=== PATIENT | female | born 1985 | race Caucasian/White ===

== ENCOUNTER 2016-04-25 17:18 | Emergency (ER) | payer MEDICARE, OTHER ==
[~2016-04-25] VITALS: Ht 167.6 cm; Wt 127.0 kg
[~2016-04-25 17:18] MED LIST: ACET-704 PO; ALBU8.5H6 IH; AMOX1TAB61 PO; GABA-585 PO; GABA-587 PO; IBUP-1007 PO; LAMO200T PO; LAMO25TA PO; PRED20TA PO; PRED50TA PO; PROAIR HFA8.5 GM INH; PROAIR RESPICL90 MCG IH; PROVENTIL HFA6.7 GM IH; SULF1TAB3 PO; seizure med
[2016-04-25 18:12] VITALS: BP 131/80
[2016-04-25 20:08] LABS: CALCIUM 9.2 mg/dL (8.5-10.1); GFR 63.9; POTASSIUM 3.6 mmol/L (3.5-5.1)
--- NOTE | 2016-04-25 20:18 | PHYS DOC ---
Past Medical History Past Medical History: Anxiety, Asthma, Seizure Additional Past Medical Histor: MR; Traumatic Brain Injury, behavior problems Past Surgical History: Other Additional Past Surgical Histo: Dental removal of the majority of the teeth Alcohol Use: None Drug Use: None Adult General Chief Complaint Chief Complaint: SEIZURE [facility] HPI Patient is a 31 year old female who presents here today secondary to having what she feels a seizure. Patient has been seen here multiple times for this. Patient reports that she was walking to her house and she woke up on the sidewalk. Patient reports that she has seen her primary care physician for this however they have not given her any specific reason why this is happening. Patient denies any fevers shaking chills nausea vomiting diarrhea chest pain or short of breath. Patient denies any change in his medication medication. Patient has any pain or trauma to her upper or lower 70s her head. Patient's physical exam the ER was unremarkable. Patient currently is alert awake oriented 3 at her baseline mental status. Patient does not have any evidence of trauma. Patient's ER workup is unremarkable. Patient's BMP did not show any evidence of acute O abnormalities. This is a 31-year-old female who presents with seizures and syncope. This is a chronic symptom for the patient. Patient is currently at her baseline. Patient was discharged home and has Dr. Tirado and Dr. Russ to follow-up with. Patient was instructed to continue with her Lomotil G in her gabapentin as directed. Review of Systems Review of Systems Constitutional: Denies fever or chills [] Eyes: Denies change in visual acuity, redness, or eye pain [] HENT: Denies nasal congestion or sore throat [] Respiratory: Denies cough or shortness of breath [] Cardiovascular: No additional information not addressed in HPI [] GI: Denies abdominal pain, nausea, vomiting, bloody stools or diarrhea [] : Denies dysuria or hematuria [] Musculoskeletal: Denies back pain or joint pain [] Integument: Denies rash or skin lesions [] Neurologic: Denies headache, focal weakness or sensory changes [] Endocrine: Denies polyuria or polydipsia [] Allergies Allergies Allergies Coded Allergies Type Severity Reaction Last Updated Verified No Known Drug Intolerances Allergy Unknown 12/07/15 Yes Physical Exam Physical Exam Constitutional: Well developed, well nourished, no acute distress, non-toxic appearance. [] HENT: Normocephalic, atraumatic, bilateral external ears normal, oropharynx moist, no oral exudates, nose normal. [] Eyes: PERRLA, EOMI, conjunctiva normal, no discharge. [] Neck: Normal range of motion, no tenderness, supple, no stridor. [] Cardiovascular:Heart rate regular rhythm, no murmur [] Lungs & Thorax: Bilateral breath sounds clear to auscultation [] Abdomen: Bowel sounds normal, soft, no tenderness, no masses, no pulsatile masses. [] Skin: Warm, dry, no erythema, no rash. [] Back: No tenderness, no CVA tenderness. [] Extremities: No tenderness, no cyanosis, no clubbing, ROM intact, no edema. [] Neurologic: Alert and oriented X 3, normal motor function, normal sensory function, no focal deficits noted. [] Psychologic: Affect normal, judgement normal, mood normal. [] Current Patient Data Vital Signs Vital Signs Date Time Temp Pulse Resp B/P Pulse Ox O2 Delivery O2 Flow Rate FiO2 04/25/16 18:12 80 20 131/80 97 Room Air Lab Values Laboratory Tests Test 04/25/16 19:46 Sodium Level 138mmol/L (136-145) Potassium Level 3.6mmol/L (3.5-5.1) Chloride Level 103mmol/L (98-107) Carbon Dioxide Level 27mmol/L (21-32) Anion Gap 8 (6-14) Blood Urea Nitrogen 7mg/dL (7-20) Creatinine 1.0mg/dL (0.6-1.0) Estimated GFR (Cockcroft-Gault) 63.9 Glucose Level 98mg/dL (70-99) Calcium Level 9.2mg/dL (8.5-10.1) Laboratory Tests 04/25/16 19:46 EKG EKG [] Radiology/Procedures Radiology/Procedures [] Course & Med Decision Making Course & Med Decision Making Pertinent Labs and Imaging studies reviewed. (See chart for details) [] Dragon Disclaimer Dragon Disclaimer This electronic medical record was generated, in whole or in part, using a voice recognition dictation system. Departure Departure Impression: Primary Impression: Seizure Additional Impression: Syncopal episodes Disposition: 01 HOME, SELF-CARE Condition: IMPROVED Referrals: HILDA RUSS MD (PCP) Patient Instructions: Seizure, Adult, Syncope Additional Instructions: Follow-up with your doctor on Thursday Problem Qualifiers BHAVANA PARKS MD Apr 25, 2016 20:18
== END 2016-04-25 21:20 | disposition home or self-care (01) ==
LOC: ER 17:18
DX: R56.9 Unspecified convulsions (principal); R55 Syncope and collapse; F41.9 Anxiety disorder, unspecified; J45.909 Unspecified asthma, uncomplicated; Z88.8 Allergy status to other drugs, medicaments and biological substances
CPT/HCPCS: 36415; 80048; 99283

== ENCOUNTER 2016-05-17 21:56 | Emergency (ER) | payer MEDICARE, OTHER ==
[2016-05-17 22:00] VITALS: BP 140/79
[2016-05-17] MEDS ORDERED: IBUPROFEN 800 MG TABLET. PO ONE (22:30)
--- NOTE | 2016-05-17 23:07 | PHYS DOC ---
Past Medical History Past Medical History: Anxiety, Asthma, Seizure Additional Past Medical Histor: MR; TBI, behavior problems Past Surgical History: Other Additional Past Surgical Histo: Dental removal of the majority of the teeth Alcohol Use: None Drug Use: None Adult General Chief Complaint Chief Complaint: HEADACHE HPI HPI Patient is a 31 year old female with history of anxiety and asthma and seizures who presents today stating she "probably" has a headache but she is not sure. Patient also states she's been passing out multiple times for the last couple weeks. Patient denies passing out today. She states she takes lamotrigine for seizures. Review of Systems Review of Systems Constitutional: Denies fever or chills [] Eyes: Denies change in visual acuity, redness, or eye pain [] HENT: Denies nasal congestion or sore throat [] Respiratory: Denies cough or shortness of breath [] Cardiovascular: No additional information not addressed in HPI [] GI: Denies abdominal pain, nausea, vomiting, bloody stools or diarrhea [] : Denies dysuria or hematuria [] Musculoskeletal: Denies back pain or joint pain [] Integument: Denies rash or skin lesions [] Neurologic: headache and syncope Endocrine: Denies polyuria or polydipsia [] Current Medications Current Medications Current Medications Medications (Trade) Dose Ordered Sig/Darell Start Time Stop Time Status Last Admin Dose Admin Ibuprofen (Motrin) 800 mg 1X ONCE 05/17/16 22:30 05/17/16 22:31 DC 05/17/16 22:40 800 MG Allergies Allergies Allergies Coded Allergies Type Severity Reaction Last Updated Verified No Known Drug Intolerances Allergy Unknown 12/07/15 Yes Physical Exam Physical Exam Constitutional: Well developed, well nourished, no acute distress, non-toxic appearance. [] HENT: Normocephalic, atraumatic, bilateral external ears normal, oropharynx moist, no oral exudates, nose normal. [] Eyes: PERRLA, EOMI, conjunctiva normal, no discharge. [] Neck: Normal range of motion, no tenderness, supple, no stridor. [] Cardiovascular:Heart rate regular rhythm, no murmur [] Lungs & Thorax: Bilateral breath sounds clear to auscultation [] Abdomen: Bowel sounds normal, soft, no tenderness, no masses, no pulsatile masses. [] Skin: Warm, dry, no erythema, no rash. [] Back: No tenderness, no CVA tenderness. [] Extremities: No tenderness, no cyanosis, no clubbing, ROM intact, no edema. [] Neurologic: Alert and oriented X 3, normal motor function, normal sensory function, no focal deficits noted. Cranial nerves II-XII intact. Psychologic: Affect normal, judgement normal, mood normal. [] Current Patient Data Vital Signs Vital Signs Date Time Temp Pulse Resp B/P Pulse Ox O2 Delivery O2 Flow Rate FiO2 05/17/16 22:00 98.5 66 18 140/79 96 Room Air 98.5 Lab Values Laboratory Tests Test 05/17/16 23:12 POC Hemoglobin 13.9g/dL (12-15) POC Hematocrit 41% (36-40) H POC Sodium 138mmol/L (135-145) POC Potassium 3.3mmol/L (3.5-5.0) L POC Chloride 100mmol/L (98-110) POC Total CO2 27mmol/L (23-32) Anion Gap 15mmol/L (6-14) H POC Blood Urea Nitrogen 4mg/dL (8-26) L POC Creatinine 0.7mg/dL (0.5-1.4) Glucose Level 85mg/dL (70-99) POC Ionized Calcium (Williams) 1.23mmol/L (1.13-1.32) Laboratory Tests 05/17/16 23:12 EKG EKG [] Radiology/Procedures Radiology/Procedures [] Course & Med Decision Making Course & Med Decision Making Pertinent Labs and Imaging studies reviewed. (See chart for details) Patient is in the ED complaining of possible headache, she is not sure if she is having one or not. She is also complaining of episodes of syncope that have been going on for weeks. Patient is well known to this ED for seizure disorder, headaches and syncope episodes. There is nothing unusual about her condition today. Labs are negative for any acute findings. She was offered ibuprofen. She was discharged with instructions to follow-up with her neurologist and PCP on Thursday. Her vitals are stable, she is in no distress. Dragon Disclaimer Dragon Disclaimer This electronic medical record was generated, in whole or in part, using a voice recognition dictation system. Departure Departure Impression: Primary Impression: Syncopal episodes Additional Impression: Headache Disposition: HOME, SELF-CARE Condition: STABLE Referrals: CHAYITO HUTSON VACUUM CLEANER ASSEMBLER (PCP) Follow-up with your own doctor as soon as possible. ROMAN JENNINGS MD follow up with Dr. Jennings next week Patient Instructions: General Headache Without Cause Additional Instructions: You were seen for a headache and possible syncope episode. We recommend you follow-up with your primary care doctor and neurologist on Thursday. Take Tylenol /Motrin as needed for pain. Continue taking the rest of your medications especially seizure medicines, take acetaminophen or Motrin for headache. Come back to the ED for any concerning symptoms. Problem Qualifiers Primary Impression: Syncopal episodes Syncope type: unspecified Qualified Code: R55 - Syncope and collapse Additional Impression: Headache Headache type: unspecified Headache chronicity pattern: chronic headache Intractability: not intractable Qualified Code: R51 - Headache WALTMAR MELCHOR EDEL May 17, 2016 23:07
[2016-05-17 23:17] LABS: POTASSIUM ISTAT 3.3 mmol/L (3.5-5.0)
== END 2016-05-17 23:42 | disposition home or self-care (01) ==
LOC: ER 21:56
DX: R55 Syncope and collapse (principal); R51 Headache; J45.909 Unspecified asthma, uncomplicated
CPT/HCPCS: 80047; 99283

== ENCOUNTER → 2016-06-17 | Outpatient (CLI) | payer MEDICARE, OTHER | END | disposition home or self-care (01) | LOC: LAB 16:10 | PROVIDERS: ATTEND Psychiatry & Neurology Neurology with Special Qualifications in Child Neurology | DX: G40.209 Localization-related (focal) (partial) symptomatic epilepsy and epileptic syndromes with complex partial seizures, not intractable, without status epilepticus (principal) | CPT/HCPCS: 36415; 80175 ==

== ENCOUNTER 2016-06-26 18:29 | Inpatient (IN) | payer MEDICARE, OTHER ==
[2016-06-26] MEDS ORDERED: ONDANSETRON ODT 4 MG TAB.RAPDIS. PO ONE (19:00)
[2016-06-26] MEDS ORDERED: DICYCLOMINE 20 MG/2 ML AMPUL. IM ONE (19:00)
[2016-06-26] MEDS ORDERED: LIDO:MAALOX:DONNATAL 1:1:1 15 ML SINGLE DOSE SWSW ONE (19:00)
[2016-06-26 19:16] LABS: BASO % 0 % (0-3); EOS % 0 % (0-3); HEMOGLOBIN 14.2 g/dL (12.0-15.5); LYMPH # 0.7 x10^3/uL (1.0-4.8); LYMPH % 5 % (24-48); MEAN CORPUSCULAR HEMOGLOBIN 30 pg (25-35); MEAN CORPUSCULAR HGB CONC 33 g/dL (31-37); MEAN CORPUSCULAR VOLUME 91 fL (79-100); MONO % 3 % (0-9); NEUT % 92 % (31-73); PLATELET COUNT 328 x10^3/uL (140-400); RED CELL DISTRIBUTION WIDTH 14.5 % (11.5-14.5); WHITE BLOOD COUNT 14.5 x10^3/uL (4.0-11.0)
[2016-06-26] MEDS ORDERED: ONDA4TAB10 SL (19:20)
--- NOTE | 2016-06-26 19:20 | PHYS DOC ---
Past Medical History Past Medical History: Anxiety, Asthma, Seizure Additional Past Medical Histor: MR; TBI, behavior problems Past Surgical History: Other Additional Past Surgical Histo: Dental removal of the majority of the teeth Alcohol Use: None Drug Use: None Adult General Chief Complaint Chief Complaint: ABDOMINAL PAIN HPI HPI 31-year-old female presenting the emergency department with nausea vomiting and watery diarrhea. This started approximately 24 hours ago. She reports suspicious food intake previously. She has a cramping sensation in her abdomen that does not have a focus. She denies any localizing abdominal pain. She denies blood in her stool or urine. Review of systems is negative for chest pain fevers chills positive for nausea vomiting. All other review of systems is negative unless otherwise noted in history of present illness. Review of Systems Review of Systems SEE ABOVE. Current Medications Current Medications Current Medications Medications (Trade) Dose Ordered Sig/Darell Start Time Stop Time Status Last Admin Dose Admin Dicyclomine HCl 10 mg 10 mg 1X ONCE 06/26/16 19:00 06/26/16 19:01 DC 06/26/16 19:14 10 MG Multi-Ingredient Mouthwash/Gargle (Gi Cocktail Single Dose) 15 ml 1X ONCE 06/26/16 19:00 06/26/16 19:01 DC 06/26/16 19:09 15 ML Ondansetron HCl (Zofran Odt) 4 mg 1X ONCE 06/26/16 19:00 06/26/16 19:01 DC 06/26/16 19:08 4 MG Ondansetron HCl (Zofran) 4 mg PRN Q30MIN PRN 06/26/16 20:15 UNV Sodium Chloride (Iv Sodium Chloride 0.9% 1000ml Bag) 1,000 ml @ 125 mls/hr 1X ONCE 06/26/16 20:15 06/27/16 04:14 UNV Allergies Allergies Allergies Coded Allergies Type Severity Reaction Last Updated Verified No Known Drug Intolerances Allergy Unknown 12/07/15 Yes Physical Exam Physical Exam Constitutional: Well developed, well nourished, no acute distress, non-toxic appearance. HENT: Normocephalic, atraumatic, bilateral external ears normal, oropharynx moist, no oral exudates, nose normal. [] Eyes: PERRLA, EOMI, conjunctiva normal, no discharge. Neck: Normal range of motion, no tenderness, supple, no stridor. [] Cardiovascular:Heart rate regular rhythm, no murmur Lungs & Thorax: Bilateral breath sounds clear to auscultation [] Abdomen: Soft nontender abdomen without rebound tenderness or guarding present. Negative McBurneys point. Negative Barber sign. No ecchymosis present. Skin: Warm, dry, no erythema, no rash. Back: No tenderness, no CVA tenderness. [] Extremities: No tenderness, no cyanosis, no clubbing, ROM intact, no edema. Neurologic: Alert and oriented X 3, normal motor function, normal sensory function, no focal deficits noted. [] Psychologic: Affect normal, judgement normal, mood normal. [] Current Patient Data Vital Signs Vital Signs Date Time Temp Pulse Resp B/P Pulse Ox O2 Delivery O2 Flow Rate FiO2 06/26/16 18:33 99.5 75 18 125/59 95 Room Air 99.5 Lab Values Laboratory Tests Test 06/26/16 19:10 White Blood Count 14.5x10^3/uL (4.0-11.0) H Red Blood Count 4.70x10^6/uL (3.50-5.40) Hemoglobin 14.2g/dL (12.0-15.5) Hematocrit 43.0% (36.0-47.0) Mean Corpuscular Volume 91fL (79-100) Mean Corpuscular Hemoglobin 30pg (25-35) Mean Corpuscular Hemoglobin Concent 33g/dL (31-37) Red Cell Distribution Width 14.5% (11.5-14.5) Platelet Count 328x10^3/uL (140-400) Neutrophils (%) (Auto) 92% (31-73) H Lymphocytes (%) (Auto) 5% (24-48) L Monocytes (%) (Auto) 3% (0-9) Eosinophils (%) (Auto) 0% (0-3) Basophils (%) (Auto) 0% (0-3) Neutrophils # (Auto) 13.4x10^3uL (1.8-7.7) H Lymphocytes # (Auto) 0.7x10^3/uL (1.0-4.8) L Monocytes # (Auto) 0.4x10^3/uL (0.0-1.1) Eosinophils # (Auto) 0.0x10^3/uL (0.0-0.7) Basophils # (Auto) 0.0x10^3/uL (0.0-0.2) Segmented Neutrophils % 87% (35-66) H Band Neutrophils % 1% (0-9) Lymphocytes % 9% (24-48) L Monocytes % 3% (0-10) Platelet Estimate Adequate (ADEQUATE) Sodium Level 138mmol/L (136-145) Potassium Level 4.2mmol/L (3.5-5.1) Chloride Level 101mmol/L (98-107) Carbon Dioxide Level 25mmol/L (21-32) Anion Gap 12 (6-14) Blood Urea Nitrogen 9mg/dL (7-20) Creatinine 0.9mg/dL (0.6-1.0) Estimated GFR (Cockcroft-Gault) 72.1 BUN/Creatinine Ratio 10 (6-20) Glucose Level 129mg/dL (70-99) H Calcium Level 9.3mg/dL (8.5-10.1) Total Bilirubin 0.7mg/dL (0.2-1.0) Aspartate Amino Transferase (AST) 46U/L (15-37) H Alanine Aminotransferase (ALT) 51U/L (14-59) Alkaline Phosphatase 137U/L (46-116) H Troponin I Quantitative < 0.017ng/mL (0.000-0.055) Total Protein 6.6g/dL (6.4-8.2) Albumin 3.9g/dL (3.4-5.0) Albumin/Globulin Ratio 1.4 (1.0-1.7) Lipase 5972U/L (73-393) H Laboratory Tests 06/26/16 19:10 Laboratory Tests 06/26/16 19:10 EKG EKG [] Radiology/Procedures Radiology/Procedures [] Course & Med Decision Making Course & Med Decision Making Pertinent Labs and Imaging studies reviewed. (See chart for details) [] 31-year-old female presenting with nausea vomiting and diarrhea. Vital signs unremarkable. Pertinent physical exam findings showed nontender abdomen. Patient was given intramuscular Bentyl, GI cocktail and blood work was obtained. Blood work shows elevated lipase consistent with acute pancreatitis. Patient placed nothing by mouth given IV fluid maintenance and admitted to our hospital for further evaluation workup and care. CT the abdomen and pelvis was ordered. I discussed the case with Doctor Audi who accepted the patient for acute inpatient admission at approximately 2029 at which point the patient's care was transferred. Suri Disclaimer Suri Disclaimer This electronic medical record was generated, in whole or in part, using a voice recognition dictation system. Departure Departure Impression: Primary Impression: Acute pancreatitis Additional Impression: Nausea vomiting and diarrhea Disposition: HOME, SELF-CARE Condition: STABLE Referrals: CHAYITO HUTSON PHOTOTYPESETTER OPERATOR (PCP) Patient Instructions: Nausea and Vomiting Additional Instructions: Thank you for allowing us to participate in your care today. Followup with your primary care physician in 3 days if your symptoms do not improve. If you do not have a primary care provider you can ask for a list of our primary care providers. Return to the emergency department you have any new or concerning findings. This should be evaluated by the primary care physician and any necessary consulting services for continued management within a few days after discharge. Return to emergency room if you have any new or concerning symptoms including but not limited to fever, chills, nausea, vomiting, intractable pain, any new rashes, chest pain, shortness of air, uncontrolled bleeding, difficulty breathing, and/or vision loss. Scripts Ondansetron (Zofran Odt)4 Mg Tab.rapdis1 Tab SL PRN Q8HRS PRN NAUSEA #6 TAB Prov:THIAGO MOTLEY MD 06/26/16 Problem Qualifiers THIAGO MOTLEY MD Jun 26, 2016 19:20
[2016-06-26 19:28] LABS: CALCIUM 9.3 mg/dL (8.5-10.1); CREATININE 0.9 mg/dL (0.6-1.0); GFR 72.1; POTASSIUM 4.2 mmol/L (3.5-5.1)
[2016-06-26 19:34] LABS: ALBUMIN 3.9 g/dL (3.4-5.0); ALBUMIN/GLOBULIN RATIO 1.4 (1.0-1.7); TOTAL BILIRUBIN 0.7 mg/dL (0.2-1.0); TOTAL PROTEIN 6.6 g/dL (6.4-8.2)
[2016-06-26 19:58] LABS: PLT ESTIMATE ADEQUATE (ADEQUATE)
[2016-06-26] MEDS ORDERED: IV NORMAL SALINE 1000ML BAG 1,000 ML IV ONE (20:15)
[2016-06-26] MEDS ORDERED: ONDANSETRON PF 4 MG/2 ML VIAL. IV PRN ×2 (20:15→23:15)
[2016-06-26] MEDS ORDERED: IOHEXOL 300 MG/ML 75 ML VIAL IV ONE (20:30)
[2016-06-26] MEDS ORDERED: CONTRAST GIVEN MC PRN (20:45)
[2016-06-26 20:57] LABS: BILIRUBIN,URINE SMALL (NEG); GLUCOSE,URINE NEGATIVE (NEG); NITRITE,URINE NEGATIVE (NEG); PROTEIN,URINE 30 mg/dL (NEG-TRACE)
[2016-06-26 21:01] LABS: BACTERIA,URINE 0 /HPF (0-FEW); RBC,URINE OCC /HPF (0-2); WBC,URINE OCC /HPF (0-4)
[2016-06-26 21:02] LABS: SQUAMOUS EPITHELIAL CELL,UR MOD /LPF
[2016-06-26 21:30] LABS: NEG OBC UR NEG; POS OBC UR POS
--- NOTE | 2016-06-26 21:34 | ACF ---
Admit Criteria Forms Admit Criteria Forms Admit Criteria Forms PANCREATITIS Clinical Indications for Admission to Inpatient Care (Place 'X' for any and all applicable criteria): Admission is indicated for 1 or more of the following (1)(2)(3)(4): [X]I. Acute pancreatitis[A] as indicated by 2 or MORE of the following: [X ]a) Abdominal pain (eg, epigastric, left upper quadrant) [X]b) Serum amylase or serum lipase greater than 3 times the upper limit of normal [ ]c) Characteristic findings from abdominal imaging (eg, pancreatic inflammation, pancreatic necrosis, peripancreatic fluid collection)[B] [ ]II. Pancreatitis (acute or chronic ) requiring inpatient care as indicated by 1 or more of the following [ ]a) Inability to maintain oral hydration Hypoxemia [ ]b) Evidence of infection (eg, fever, peripancreatic abscess) [ ]c) Severe pain requiring acute inpatient management [ ]d) Hemodynamic instability [ ]e) Hypoxemia [ ]f) Acute renal failure [ ]g) Severe electrolyte abnormalities Extended stay beyond goal length of stay may be needed for (1)(11) [ ]a) Severe acute pancreatitis (10)(19) [ ]b) Persistent symptoms, ascites, or pleural effusion [ ]c) Abdominal compartment syndrome (10) [ ]d) Late complications [ ]e) Gallstones in gallbladder [ ]f) Acute renal failure (27) The original [employer] content created by [employer] has been revised. The portions of the content which have been revised are identified through the use of italic text or in bold,and [facility] has neither reviewed nor approved the modified material.All other unmodified content is copyright [facility]. Please see references footnoted in the original [employer] edition 2016 MARBELLA DC Jun 26, 2016 21:34
--- NOTE | 2016-06-26 21:55 | RAD ---
PROCEDURE Abdomen and pelvis CT with intravenous contrast. HISTORY Epigastric pain. TECHNIQUE Computed tomographic images the and pelvis were obtained following the vision of 75 cc Omnipaque 300 intravenous contrast. One or more of the following individualized dose reduction techniques were utilized for this examination: 1. Automated exposure control; 2. Adjustment of the mA and/or kV according to patient size; 3. Use of iterative reconstruction technique. COMPARISON None. FINDINGS Evaluation of the lower thorax demonstrates a calcified granuloma within the right lower lobe. There is posterior dependent and basilar atelectasis. No hepatic lesion is seen. The gallbladder is unremarkable. There is a mildly enlarged pancreas with extensive peripancreatic stranding and trace fluid due to acute pancreatitis. No pseudocyst is seen. The spleen, adrenal glands and kidneys are unremarkable. No abnormally thickened or dilated loop of bowel is seen. There is a moderate amount of free fluid within the pelvis, likely tracking from the aforementioned peripancreatic region. There is a tiny fat containing umbilical hernia. There is no suspicious osseous lesion. IMPRESSION 1. Acute pancreatitis. Followup can be performed to exclude underlying pancreatic lesion. 2. Moderate free fluid within the pelvis, the majority of which is likely extending inferiorly from the pancreatic region. Electronically signed by: Deborah John (Jun 26, 2016 21:53:55)
[2016-06-26 23:00] VITALS: BP 123/84
[2016-06-26] MEDS: IV NORMAL SALINE 1000ML BAG 1,000 ML IV SCH (23:08)
[2016-06-26] MEDS: MORPHINE SULFATE 2 MG/ML DISP.SYRIN. IV PRN (23:18)
[2016-06-26] MEDS: PANTOPRAZOLE 40 MG TABLET.DR. PO SCH ×2 (23:19→23:30)
[2016-06-27 03:00] VITALS: BP 136/88
[2016-06-27] MEDS: MORPHINE SULFATE 2 MG/ML DISP.SYRIN. IV PRN ×3 (03:46→20:22)
[2016-06-27 06:08] LABS: BASO % 0 % (0-3); EOS % 0 % (0-3); HEMATOCRIT 39.5 % (36.0-47.0); HEMOGLOBIN 12.8 g/dL (12.0-15.5); LYMPH # 1.7 x10^3/uL (1.0-4.8); LYMPH % 14 % (24-48); MEAN CORPUSCULAR HEMOGLOBIN 30 pg (25-35); MEAN CORPUSCULAR HGB CONC 32 g/dL (31-37); MEAN CORPUSCULAR VOLUME 93 fL (79-100); MONO % 5 % (0-9); NEUT % 80 % (31-73); PLATELET COUNT 281 x10^3/uL (140-400); RED BLOOD COUNT 4.24 x10^6/uL (3.50-5.40); RED CELL DISTRIBUTION WIDTH 14.3 % (11.5-14.5)
[2016-06-27 06:29] LABS: ALBUMIN 3.2 g/dL (3.4-5.0); ALBUMIN/GLOBULIN RATIO 1.1 (1.0-1.7); CALCIUM 8.3 mg/dL (8.5-10.1); CREATININE 0.8 mg/dL (0.6-1.0); GFR 82.6; POTASSIUM 3.8 mmol/L (3.5-5.1); TOTAL BILIRUBIN 0.9 mg/dL (0.2-1.0); TOTAL PROTEIN 6.1 g/dL (6.4-8.2)
[2016-06-27] MEDS: IV NORMAL SALINE 1000ML BAG 1,000 ML IV SCH ×3 (06:33→22:45)
[2016-06-27 07:00] VITALS: BP 141/71
--- NOTE | 2016-06-27 08:43 | PDOC2 ---
GI CONSULT Reason For Consult: Pancreatitis HPI: HPI: 31 y/o female evaluated in the ER for n/v and abdominal pain that began yesterday w/o precipitating events. (Note ER note suggests possible intake of suspicious food.) History a bit difficult, h/o TBI, cognitive delay. Pain is epigastric radiating to BUQ and to back. Worse w/ deep breathing, possibly after eating although hasn't eaten much due to n/v. Denies diarrhea to me, has noted decreased urination. No previous h/o pancreatitis, does admit to h/o abdominal cramping off and on. Occasional reflux, untreated. No dysphagia, hematemesis, hematochezia, melena, weight loss, constipation. No alcohol or NSAID use. Labs: WBC 14.5 (now 12), lipase 5972, bili 0.7, AST 46, ALT 51, Alk Phos 137. (All LFTs normal today.) CT A/P c/w acute pancreatitis, note normal gallbladder and moderate pelvic fluid. PMH: PMH: asthma, seizures, traumatic brain injury, cognitive delay, anxiety, teeth extractions FH: Family History: No pertinent hx (denies GI cancers, denies pancreatitis) Social History: Smoke: No ALCOHOL: none Drugs: None ROS: GEN: Denies fevers, chills, sweats HEENT: Denies blurred vision, sore throat CV: Denies chest pain RESP: Denies shortness of air, cough GI: Per HPI : Denies hematuria, dysuria ENDO: Denies weight changes NEURO: Denies confusion, dizziness MSK: Denies weakness, joint pain/swelling SKIN: Denies jaundice, pruritus VItals: Vitals: Vital Signs Date Time Temp Pulse Resp B/P Pulse Ox O2 Delivery O2 Flow Rate FiO2 06/27/16 07:00 98.2 72 16 141/71 93 Room Air 98.2 Labs: Labs: Laboratory Tests Test 06/26/16 19:10 06/26/16 20:52 06/27/16 04:53 06/27/16 04:55 White Blood Count 14.5x10^3/uL (4.0-11.0) 12.0x10^3/uL (4.0-11.0) Red Blood Count 4.70x10^6/uL (3.50-5.40) 4.24x10^6/uL (3.50-5.40) Hemoglobin 14.2g/dL (12.0-15.5) 12.8g/dL (12.0-15.5) Hematocrit 43.0% (36.0-47.0) 39.5% (36.0-47.0) Mean Corpuscular Volume 91fL (79-100) 93fL (79-100) Mean Corpuscular Hemoglobin 30pg (25-35) 30pg (25-35) Mean Corpuscular Hemoglobin Concent 33g/dL (31-37) 32g/dL (31-37) Red Cell Distribution Width 14.5% (11.5-14.5) 14.3% (11.5-14.5) Platelet Count 328x10^3/uL (140-400) 281x10^3/uL (140-400) Neutrophils (%) (Auto) 92% (31-73) 80% (31-73) Lymphocytes (%) (Auto) 5% (24-48) 14% (24-48) Monocytes (%) (Auto) 3% (0-9) 5% (0-9) Eosinophils (%) (Auto) 0% (0-3) 0% (0-3) Basophils (%) (Auto) 0% (0-3) 0% (0-3) Neutrophils # (Auto) 13.4x10^3uL (1.8-7.7) 9.6x10^3uL (1.8-7.7) Lymphocytes # (Auto) 0.7x10^3/uL (1.0-4.8) 1.7x10^3/uL (1.0-4.8) Monocytes # (Auto) 0.4x10^3/uL (0.0-1.1) 0.6x10^3/uL (0.0-1.1) Eosinophils # (Auto) 0.0x10^3/uL (0.0-0.7) 0.0x10^3/uL (0.0-0.7) Basophils # (Auto) 0.0x10^3/uL (0.0-0.2) 0.0x10^3/uL (0.0-0.2) Segmented Neutrophils % 87% (35-66) Band Neutrophils % 1% (0-9) Lymphocytes % 9% (24-48) Monocytes % 3% (0-10) Platelet Estimate Adequate (ADEQUATE) Sodium Level 138mmol/L (136-145) 139mmol/L (136-145) Potassium Level 4.2mmol/L (3.5-5.1) 3.8mmol/L (3.5-5.1) Chloride Level 101mmol/L (98-107) 104mmol/L (98-107) Carbon Dioxide Level 25mmol/L (21-32) 26mmol/L (21-32) Anion Gap 12 (6-14) 9 (6-14) Blood Urea Nitrogen 9mg/dL (7-20) 9mg/dL (7-20) Creatinine 0.9mg/dL (0.6-1.0) 0.8mg/dL (0.6-1.0) Estimated GFR (Cockcroft-Gault) 72.1 82.6 BUN/Creatinine Ratio 10 (6-20) 11 (6-20) Glucose Level 129mg/dL (70-99) 91mg/dL (70-99) Calcium Level 9.3mg/dL (8.5-10.1) 8.3mg/dL (8.5-10.1) Total Bilirubin 0.7mg/dL (0.2-1.0) 0.9mg/dL (0.2-1.0) Aspartate Amino Transf (AST/SGOT) 46U/L (15-37) 24U/L (15-37) Alanine Aminotransferase (ALT/SGPT) 51U/L (14-59) 36U/L (14-59) Alkaline Phosphatase 137U/L (46-116) 112U/L (46-116) Troponin I Quantitative < 0.017ng/mL (0.000-0.055) Total Protein 6.6g/dL (6.4-8.2) 6.1g/dL (6.4-8.2) Albumin 3.9g/dL (3.4-5.0) 3.2g/dL (3.4-5.0) Albumin/Globulin Ratio 1.4 (1.0-1.7) 1.1 (1.0-1.7) Lipase 5972U/L (73-393) Urine Collection Type U cath Urine Color Nikki Urine Clarity Cloudy Urine pH 7.0 Urine Specific [place] 1.025 Urine Protein 30mg/dL (NEG-TRACE) Urine Glucose (UA) Negativemg/dL (NEG) Urine Ketones (Stick) 15mg/dL (NEG) Urine Blood Negative (NEG) Urine Nitrite Negative (NEG) Urine Bilirubin Small (NEG) Urine Urobilinogen Dipstick 2.0mg/dL (0.2 mg/dL) Urine Leukocyte Esterase Negative (NEG) Urine RBC Occ/HPF (0-2) Urine WBC Occ/HPF (0-4) Urine Squamous Epithelial Cells Mod/LPF Urine Amorphous Sediment Present/HPF Urine Bacteria 0/HPF (0-FEW) Urine Mucus Marked/LPF Urine Test Negative (NEG) Allergies: Coded Allergies: No Known Drug Intolerances (Verified Allergy, Unknown, 12/07/15) Medications: Current Medications Medications (Trade) Dose Ordered Sig/Darell Route PRN Reason Start Time Stop Time Status Last Admin Dose Admin Multi-Ingredient Mouthwash/Gargle (Gi Cocktail Single Dose) 15 ml 1X ONCE SWSW 06/26/16 19:00 06/26/16 19:01 DC 06/26/16 19:09 Ondansetron HCl (Zofran Odt) 4 mg 1X ONCE PO 06/26/16 19:00 06/26/16 19:01 DC 06/26/16 19:08 Dicyclomine HCl 10 mg 10 mg 1X ONCE IM 06/26/16 19:00 06/26/16 19:01 DC 06/26/16 19:14 Sodium Chloride (Iv Sodium Chloride 0.9% 1000ml Bag) 1,000 ml @ 125 mls/hr 1X ONCE IV 06/26/16 20:15 06/27/16 04:14 DC 06/26/16 22:59 Iohexol (Omnipaque 300 Mg/ml) 75 ml 1X ONCE IV 06/26/16 20:30 06/26/16 20:35 DC 06/26/16 20:30 Morphine Sulfate 2 mg PRN Q2HR PRN IV PAIN 06/26/16 23:15 06/27/16 03:46 Pantoprazole Sodium 40 mg 40 mg DAILYAC PO 06/26/16 23:15 06/26/16 23:19 Sodium Chloride (Iv Sodium Chloride 0.9% 1000ml Bag) 1,000 ml @ 125 mls/hr Q8H IV 06/26/16 23:15 06/27/16 06:33 Imaging: Imaging: CT A/P w/ IV contrast 06/26/16 FINDINGS Evaluation of the lower thorax demonstrates a calcified granuloma within the right lower lobe. There is posterior dependent and basilar atelectasis. No hepatic lesion is seen. The gallbladder is unremarkable. There is a mildly enlarged pancreas with extensive peripancreatic stranding and trace fluid due to acute pancreatitis. No pseudocyst is seen. The spleen, adrenal glands and kidneys are unremarkable. No abnormally thickened or dilated loop of bowel is seen. There is a moderate amount of free fluid within the pelvis, likely tracking from the aforementioned peripancreatic region. There is a tiny fat containing umbilical hernia. There is no suspicious osseous lesion. IMPRESSION 1. Acute pancreatitis. Followup can be performed to exclude underlying pancreatic lesion. 2. Moderate free fluid within the pelvis, the majority of which is likely extending inferiorly from the pancreatic region. PE: GEN: uncomfortable HEENT: atraumatic, PERRL LUNGS: clear anteriorly, poor effort HEART: RRR ABD: NABS, obese, soft, epigastric and RUQ tenderness to light palpation - exam difficult due to body habitus EXTREMITY: no edema SKIN: no rashes, no jaundice NEURO/PSYCH: A & O 3 A/P: A/P: Pancreatitis -first episode; abd pain w/ n/v onset yesterday -lipase 5972 -CT as above Upper abd pain, n/v Leukocytosis - improved Heartburn - occasional -has PPI CRC screen -no previous colonoscopy, average risk -- Agree w/ NPO, medical therapy. Will order abd US for further eval of GB. Recheck lipase in a.m., along w/ lipid panel. STEPHANE PETERS Jun 27, 2016 08:43
--- NOTE | 2016-06-27 10:04 | PDOC1 ---
History and Physical Date of Admission Date of Admission DATE: 06/27/16 TIME: 10:03 Identification/Chief Complaint Chief Complaint abd pain Problems: Source Source: Chart review, Patient History of Present Illness History of Present Illness Ms. Sofia, is a 31-year-old female admit with severe abd pain, w/ nausea vomiting. Sudden onset pain, " quite of bit of pain" she would not give me a number She had a cramping sensation in her abdomen, now just diffuse pain no prior abd problem or pancreatitis. no diarrhea since presenting Past Medical History Cardiovascular: No pertinent hx Pulmonary: No pertinent hx GI: No pertinent hx Heme/Onc: No pertinent hx ENT: No pertinent hx Renal/: No pertinent hx Endocrine: No pertinent hx Family History Family History: No Significant Social History Smoke: No ALCOHOL: none Drugs: None Current Problem List Problem List Problems Medical Problems: (1) Acute pancreatitis Status: Acute (2) Nausea vomiting and diarrhea Status: Acute Problems: Current Medications Current Medications Current Medications Multi-Ingredient Mouthwash/Gargle (Gi Cocktail Single Dose) 15 ml 1X ONCE SWSW Last administered on 06/26/16 19:09; Start 06/26/16 at 19:00; Stop 06/26/16 at 19:01; Status DC Ondansetron HCl (Zofran Odt) 4 mg 1X ONCE PO Last administered on 06/26/16 19 :08; Start 06/26/16 at 19:00; Stop 06/26/16 at 19:01; Status DC Dicyclomine HCl 10 mg 10 mg 1X ONCE IM Last administered on 06/26/16 19:14; Start 06/26/16 at 19:00; Stop 06/26/16 at 19:01; Status DC Sodium Chloride (Iv Sodium Chloride 0.9% 1000ml Bag) 1,000 ml @ 125 mls/hr 1X ONCE IV Last administered on 06/26/16 22:59; Start 06/26/16 at 20:15; Stop at 04:14; Status DC Ondansetron HCl (Zofran) 4 mg PRN Q30MIN PRN IV NAUSEA/VOMITING; Start at 20:15 Iohexol (Omnipaque 300 Mg/ml) 75 ml 1X ONCE IV Last administered on 06/26/16 20:30; Start 06/26/16 at 20:30; Stop 06/26/16 at 20:35; Status DC Info (Do NOT chart on this entry -- for MONITORING) 1 each PRN DAILY PRN MC SEE COMMENTS; Start 06/26/16 at 20:45; Stop 06/28/16 at 20:44 Morphine Sulfate 2 mg PRN Q2HR PRN IV PAIN Last administered on 06/27/16 09:08 ; Start 06/26/16 at 23:15 Ondansetron HCl (Zofran) 4 mg PRN Q6HRS PRN IV NAUSEA/VOMITING; Start 06/26/16 at 23:15 Pantoprazole Sodium 40 mg 40 mg DAILYAC PO Last administered on 06/26/16 23:19 ; Start 06/26/16 at 23:15 Sodium Chloride (Iv Sodium Chloride 0.9% 1000ml Bag) 1,000 ml @ 125 mls/hr Q8H IV Last administered on 06/27/16 06:33; Start 06/26/16 at 23:15 Active Scripts Active Zofran Odt (Ondansetron) 4 Mg Tab.rapdis 1 Tab SL PRN Q8HRS PRN Proair Respiclick (Albuterol Sulfate) 90 Mcg Aer.pow.ba 1 Puff IH PRN Q6HRS PRN Proair Hfa Inhaler (Albuterol Sulfate) 8.5 Gm Hfa.aer.ad 2 Puff INH Q4HRS PRN Proventil Hfa Inhaler (Albuterol Sulfate) 6.7 Gm Hfa.aer.ad 1 Puff IH PRN Q4HRS PRN Reported Gabapentin 400 Mg Capsule 3 Cap PO QHS Gabapentin 400 Mg Capsule 2 Cap PO DAILY06 Lamotrigine 200 Mg Tablet 2 Tab PO BID Allergies Allergies: Coded Allergies: No Known Drug Intolerances (Verified Allergy, Unknown, 12/07/15) ROS General: No: Appetite, Chills, Fatigue, Malaise, Night Sweats, Other PSYCHOLOGICAL ROS: No: Anxiety, Behavioral Disorder, Concentration difficultie , Decreased libido, Depression, Disorientation, Hallucinations, Hostility, Irritablity, Memory difficulties, Mood Swings, Obsessive thoughts, Other, Physical abuse, Sexual abuse, Sleep disturbances, Suicidal ideation Eyes: No Blurry vision, No Decreased vision, No Double vision, No Dry eyes, No Excessive tearing, No Eye Pain, No Itchy Eyes, No Loss of vision, No Other, No Photophobia, No Scotomata, No Uses contacts, No Uses glasses HEENT: No: Epistaxis, Heacaches, Hearing change, Nasal congestion, Nasal discharge, Oral lesions, Other, Sinus pain, Sneezing, Snoring, Sore Throat, Tinnitus, Vertigo, Visual Changes, Vocal changes Respiratory: No: Cough, Hemoptysis, Orthopnea, Other, Pleuritic Pain, SOB with excertion, Shortness of breath, Sputum Changes, Stridor, Tachypnea, Wheezing Cardiovascular: No Chest Pain, No Edema, No Lt Headedness, No Orthopnea, No Other, No Palpitations, No Paroxysmal Noc. Dyspnea Gastrointestinal: No Abdominal Pain, No Constipation, No Diarrhea, No Hematochezia, No Melena, No Nausea, No Other, No Vomiting Genitourinary: No , No , No , No , No , No , No , No Discharge, No Dysuria, No Flank Pain, No Frequency, No Hematuria, No Incontinence, No Other, No Pain, No Retention, No Urgency Musculoskeletal: No Gait Disturbance, No Joint Pain, No Joint Stiffness, No Joint Swelling, No Muscle Pain, No Muscular Weakness, No Other, No Pain In:, No Swelling In: Neurological: No Behavorial Changes, No Bowel/Bladder ControlChng, No Confusion , No Dizziness, No Headaches, No Impaired Coord/balance, No Memory Loss, No Numbness/Tingling, No Other, No Seizures, No Speech Problems, No Tremors, No Visual Changes, No Weakness Skin: No Acne, No Dry Skin, No Eczema, No Hair Changes, No Lumps, No Mole Changes, No Mottling, No Nail Changes, No Other, No Pruritus, No Rash, No Skin Lesion Changes Physical Exam General: Alert, Oriented X3, Cooperative, moderate distress, Other (pain, ) HEENT: Atraumatic, PERRLA, EOMI, Mucous membr. moist/pink Lungs: Clear to auscultation, Normal air movement Heart: S1S2, no murmurs Abdomen: Other (tender diffusely, guarded) Extremities: No clubbing, Normal pulses Skin: No breakdown Neuro: Normal speech, Normal tone, Cranial nerves 3-12 NL Psych/Mental Status: Mood NL Vitals Vitals Vital Signs Date Time Temp Pulse Resp B/P Pulse Ox O2 Delivery O2 Flow Rate FiO2 06/27/16 09:08 Room Air 06/27/16 07:00 98.2 72 16 141/71 93 98.2 Labs Labs Laboratory Tests Test 06/26/16 19:10 06/26/16 20:52 06/27/16 04:53 06/27/16 04:55 White Blood Count 14.5x10^3/uL (4.0-11.0) 12.0x10^3/uL (4.0-11.0) Red Blood Count 4.70x10^6/uL (3.50-5.40) 4.24x10^6/uL (3.50-5.40) Hemoglobin 14.2g/dL (12.0-15.5) 12.8g/dL (12.0-15.5) Hematocrit 43.0% (36.0-47.0) 39.5% (36.0-47.0) Mean Corpuscular Volume 91fL (79-100) 93fL (79-100) Mean Corpuscular Hemoglobin 30pg (25-35) 30pg (25-35) Mean Corpuscular Hemoglobin Concent 33g/dL (31-37) 32g/dL (31-37) Red Cell Distribution Width 14.5% (11.5-14.5) 14.3% (11.5-14.5) Platelet Count 328x10^3/uL (140-400) 281x10^3/uL (140-400) Neutrophils (%) (Auto) 92% (31-73) 80% (31-73) Lymphocytes (%) (Auto) 5% (24-48) 14% (24-48) Monocytes (%) (Auto) 3% (0-9) 5% (0-9) Eosinophils (%) (Auto) 0% (0-3) 0% (0-3) Basophils (%) (Auto) 0% (0-3) 0% (0-3) Neutrophils # (Auto) 13.4x10^3uL (1.8-7.7) 9.6x10^3uL (1.8-7.7) Lymphocytes # (Auto) 0.7x10^3/uL (1.0-4.8) 1.7x10^3/uL (1.0-4.8) Monocytes # (Auto) 0.4x10^3/uL (0.0-1.1) 0.6x10^3/uL (0.0-1.1) Eosinophils # (Auto) 0.0x10^3/uL (0.0-0.7) 0.0x10^3/uL (0.0-0.7) Basophils # (Auto) 0.0x10^3/uL (0.0-0.2) 0.0x10^3/uL (0.0-0.2) Segmented Neutrophils % 87% (35-66) Band Neutrophils % 1% (0-9) Lymphocytes % 9% (24-48) Monocytes % 3% (0-10) Platelet Estimate Adequate (ADEQUATE) Sodium Level 138mmol/L (136-145) 139mmol/L (136-145) Potassium Level 4.2mmol/L (3.5-5.1) 3.8mmol/L (3.5-5.1) Chloride Level 101mmol/L (98-107) 104mmol/L (98-107) Carbon Dioxide Level 25mmol/L (21-32) 26mmol/L (21-32) Anion Gap 12 (6-14) 9 (6-14) Blood Urea Nitrogen 9mg/dL (7-20) 9mg/dL (7-20) Creatinine 0.9mg/dL (0.6-1.0) 0.8mg/dL (0.6-1.0) Estimated GFR (Cockcroft-Gault) 72.1 82.6 BUN/Creatinine Ratio 10 (6-20) 11 (6-20) Glucose Level 129mg/dL (70-99) 91mg/dL (70-99) Calcium Level 9.3mg/dL (8.5-10.1) 8.3mg/dL (8.5-10.1) Total Bilirubin 0.7mg/dL (0.2-1.0) 0.9mg/dL (0.2-1.0) Aspartate Amino Transf (AST/SGOT) 46U/L (15-37) 24U/L (15-37) Alanine Aminotransferase (ALT/SGPT) 51U/L (14-59) 36U/L (14-59) Alkaline Phosphatase 137U/L (46-116) 112U/L (46-116) Troponin I Quantitative < 0.017ng/mL (0.000-0.055) Total Protein 6.6g/dL (6.4-8.2) 6.1g/dL (6.4-8.2) Albumin 3.9g/dL (3.4-5.0) 3.2g/dL (3.4-5.0) Albumin/Globulin Ratio 1.4 (1.0-1.7) 1.1 (1.0-1.7) Lipase 5972U/L (73-393) Urine Collection Type U cath Urine Color Nikki Urine Clarity Cloudy Urine pH 7.0 Urine Specific [place] 1.025 Urine Protein 30mg/dL (NEG-TRACE) Urine Glucose (UA) Negativemg/dL (NEG) Urine Ketones (Stick) 15mg/dL (NEG) Urine Blood Negative (NEG) Urine Nitrite Negative (NEG) Urine Bilirubin Small (NEG) Urine Urobilinogen Dipstick 2.0mg/dL (0.2 mg/dL) Urine Leukocyte Esterase Negative (NEG) Urine RBC Occ/HPF (0-2) Urine WBC Occ/HPF (0-4) Urine Squamous Epithelial Cells Mod/LPF Urine Amorphous Sediment Present/HPF Urine Bacteria 0/HPF (0-FEW) Urine Mucus Marked/LPF Urine Test Negative (NEG) Laboratory Tests Test 06/26/16 19:10 06/26/16 20:52 06/27/16 04:53 06/27/16 04:55 White Blood Count 14.5x10^3/uL (4.0-11.0) 12.0x10^3/uL (4.0-11.0) Red Blood Count 4.70x10^6/uL (3.50-5.40) 4.24x10^6/uL (3.50-5.40) Hemoglobin 14.2g/dL (12.0-15.5) 12.8g/dL (12.0-15.5) Hematocrit 43.0% (36.0-47.0) 39.5% (36.0-47.0) Mean Corpuscular Volume 91fL (79-100) 93fL (79-100) Mean Corpuscular Hemoglobin 30pg (25-35) 30pg (25-35) Mean Corpuscular Hemoglobin Concent 33g/dL (31-37) 32g/dL (31-37) Red Cell Distribution Width 14.5% (11.5-14.5) 14.3% (11.5-14.5) Platelet Count 328x10^3/uL (140-400) 281x10^3/uL (140-400) Neutrophils (%) (Auto) 92% (31-73) 80% (31-73) Lymphocytes (%) (Auto) 5% (24-48) 14% (24-48) Monocytes (%) (Auto) 3% (0-9) 5% (0-9) Eosinophils (%) (Auto) 0% (0-3) 0% (0-3) Basophils (%) (Auto) 0% (0-3) 0% (0-3) Neutrophils # (Auto) 13.4x10^3uL (1.8-7.7) 9.6x10^3uL (1.8-7.7) Lymphocytes # (Auto) 0.7x10^3/uL (1.0-4.8) 1.7x10^3/uL (1.0-4.8) Monocytes # (Auto) 0.4x10^3/uL (0.0-1.1) 0.6x10^3/uL (0.0-1.1) Eosinophils # (Auto) 0.0x10^3/uL (0.0-0.7) 0.0x10^3/uL (0.0-0.7) Basophils # (Auto) 0.0x10^3/uL (0.0-0.2) 0.0x10^3/uL (0.0-0.2) Segmented Neutrophils % 87% (35-66) Band Neutrophils % 1% (0-9) Lymphocytes % 9% (24-48) Monocytes % 3% (0-10) Platelet Estimate Adequate (ADEQUATE) Sodium Level 138mmol/L (136-145) 139mmol/L (136-145) Potassium Level 4.2mmol/L (3.5-5.1) 3.8mmol/L (3.5-5.1) Chloride Level 101mmol/L (98-107) 104mmol/L (98-107) Carbon Dioxide Level 25mmol/L (21-32) 26mmol/L (21-32) Anion Gap 12 (6-14) 9 (6-14) Blood Urea Nitrogen 9mg/dL (7-20) 9mg/dL (7-20) Creatinine 0.9mg/dL (0.6-1.0) 0.8mg/dL (0.6-1.0) Estimated GFR (Cockcroft-Gault) 72.1 82.6 BUN/Creatinine Ratio 10 (6-20) 11 (6-20) Glucose Level 129mg/dL (70-99) 91mg/dL (70-99) Calcium Level 9.3mg/dL (8.5-10.1) 8.3mg/dL (8.5-10.1) Total Bilirubin 0.7mg/dL (0.2-1.0) 0.9mg/dL (0.2-1.0) Aspartate Amino Transf (AST/SGOT) 46U/L (15-37) 24U/L (15-37) Alanine Aminotransferase (ALT/SGPT) 51U/L (14-59) 36U/L (14-59) Alkaline Phosphatase 137U/L (46-116) 112U/L (46-116) Troponin I Quantitative < 0.017ng/mL (0.000-0.055) Total Protein 6.6g/dL (6.4-8.2) 6.1g/dL (6.4-8.2) Albumin 3.9g/dL (3.4-5.0) 3.2g/dL (3.4-5.0) Albumin/Globulin Ratio 1.4 (1.0-1.7) 1.1 (1.0-1.7) Lipase 5972U/L (73-393) Urine Collection Type U cath Urine Color Nikki Urine Clarity Cloudy Urine pH 7.0 Urine Specific [place] 1.025 Urine Protein 30mg/dL (NEG-TRACE) Urine Glucose (UA) Negativemg/dL (NEG) Urine Ketones (Stick) 15mg/dL (NEG) Urine Blood Negative (NEG) Urine Nitrite Negative (NEG) Urine Bilirubin Small (NEG) Urine Urobilinogen Dipstick 2.0mg/dL (0.2 mg/dL) Urine Leukocyte Esterase Negative (NEG) Urine RBC Occ/HPF (0-2) Urine WBC Occ/HPF (0-4) Urine Squamous Epithelial Cells Mod/LPF Urine Amorphous Sediment Present/HPF Urine Bacteria 0/HPF (0-FEW) Urine Mucus Marked/LPF Urine Test Negative (NEG) Images Images CT A/P IMPRESSION 1. Acute pancreatitis. Followup can be performed to exclude underlying pancreatic lesion. 2. Moderate free fluid within the pelvis, the majority of which is likely extending inferiorly from the pancreatic region. VTE Prophylaxis Ordered VTE Prophylaxis Devices: No VTE Pharmacological Prophylaxi: Yes Assessment/Plan Assessment/Plan acute pancreatitis, lipiase 6k morbid obesity NPO, GI consult and IV fluid more aggressive IV pain meds SIRS, not infectious, pain and leukocytosis reactive from acute pancreas prior traumatic brain injury RUSLAN DYER MD Jun 27, 2016 10:04
[2016-06-27] MEDS ORDERED: FENTANYL PF 100 MCG/2 ML VIAL. IV PRN (10:15)
[2016-06-27] MEDS ORDERED: ALBUTEROL SULFATE 2.5 MG/3 ML NEBU. NEB PRN (10:30)
[2016-06-27] MEDS: GABAPENTIN 400 MG CAPSULE. PO SCH ×2 (10:30→20:28)
[2016-06-27] MEDS ORDERED: NON FORMULARY ITEM (Albuterol Sulfate (Proair Respiclick) 1 PUFF) IH PRN (10:30)
[2016-06-27] MEDS ORDERED: NON FORMULARY ITEM (Albuterol Sulfate (Proventil Hfa Inhaler) 1 PUFF) IH PRN (10:30)
[2016-06-27] MEDS ORDERED: NON FORMULARY ITEM (Albuterol Sulfate (Proair Hfa Inhaler) 2 PUFF) INH PRN (10:30)
[2016-06-27 11:00] VITALS: BP 124/52
[2016-06-27] MEDS: lamoTRIgine 100 MG TABLET. PO SCH ×2 (11:00→20:23)
[2016-06-27 15:00] VITALS: BP 126/70
[2016-06-27 19:00] VITALS: BP 126/90
[2016-06-27 23:00] VITALS: BP 134/68
[2016-06-28 03:00] VITALS: BP 142/71
[2016-06-28 05:38] LABS: CHOLESTEROL/HDL RATIO 3.2
[2016-06-28] MEDS: GABAPENTIN 400 MG CAPSULE. PO SCH ×2 (06:07→21:33)
[2016-06-28] MEDS: IV NORMAL SALINE 1000ML BAG 1,000 ML IV SCH ×3 (06:08→21:33)
[2016-06-28 07:55] VITALS: BP 127/71
[2016-06-28] MEDS: PANTOPRAZOLE 40 MG TABLET.DR. PO SCH (08:19)
[2016-06-28] MEDS: lamoTRIgine 100 MG TABLET. PO SCH ×2 (08:19→21:32)
[2016-06-28 10:50] VITALS: BP 126/65
--- NOTE | 2016-06-28 11:51 | PDOC ---
Subjective: Subjective: wants to eat Objective: Vital Signs: Vital Signs Date Time Temp Pulse Resp B/P Pulse Ox O2 Delivery O2 Flow Rate FiO2 06/28/16 10:50 98.8 78 18 126/65 97 Room Air 98.8 Labs: Laboratory Tests Test 06/28/16 04:30 06/28/16 04:45 Lipase 858U/L (73-393) Triglycerides Level 46mg/dL (0-150) Cholesterol Level 165mg/dL (0-200) LDL Cholesterol, Calculated 105mg/dL (0-100) VLDL Cholesterol, Calculated 9mg/dL (0-40) Non-HDL Cholesterol Calculated 114mg/dL (0-129) HDL Cholesterol 51mg/dL (40-60) Cholesterol/HDL Ratio 3.2 Physical Exam: Physical Exam: GEN: uncomfortable HEENT: atraumatic, PERRL LUNGS: clear anteriorly, poor effort HEART: RRR ABD: NABS, obese, soft, epigastric and RUQ tenderness to light palpation - exam difficult due to body habitus EXTREMITY: no edema SKIN: no rashes, no jaundice NEURO/PSYCH: A & O 3 Assessment & Plan: Assessment : Laboratory Tests Test 06/26/16 19:10 06/28/16 04:30 Lipase 5972U/L (73-393) 858U/L (73-393) A/P: A/P: Pancreatitis -first episode; abd pain w/ n/v onset yesterday -lipase 5972 to 858 -CT as above Upper abd pain, n/v Leukocytosis - improved Heartburn - occasional -has PPI Plan: Follow abd sono. Star clears after sono Problems: MARTA HATCH MD Jun 28, 2016 11:51
--- NOTE | 2016-06-28 12:16 | PDOC ---
PROGRESS NOTES Chief Complaint Chief Complaint acute pancreatitis, lipiase 6k morbid obesity SIRS, not infectious, pain and leukocytosis reactive from acute pancreas prior traumatic brain injury History of Present Illness History of Present Illness -lipase 5972 to 858 Upper abd pain, n/v Leukocytosis - improved abd US done yesterday, results pending Vitals Vitals Vital Signs Date Time Temp Pulse Resp B/P Pulse Ox O2 Delivery O2 Flow Rate FiO2 06/28/16 10:50 98.8 78 18 126/65 97 Room Air 98.8 Physical Exam General: Alert, Oriented X3, Cooperative, mild distress, Other (pain, ) Heart: Regular rate, No murmurs Lungs: Clear Abdomen: Other (tender diffusely, guarded) Extremities: No clubbing, Normal pulses Skin: No breakdown Labs LABS Laboratory Tests Test 06/28/16 04:30 06/28/16 04:45 Lipase 858U/L (73-393) Triglycerides Level 46mg/dL (0-150) Cholesterol Level 165mg/dL (0-200) LDL Cholesterol, Calculated 105mg/dL (0-100) VLDL Cholesterol, Calculated 9mg/dL (0-40) Non-HDL Cholesterol Calculated 114mg/dL (0-129) HDL Cholesterol 51mg/dL (40-60) Cholesterol/HDL Ratio 3.2 Review of Systems Review of Systems no n.v/d pain better Assessment and Plan Assessmemt and Plan Problems Medical Problems: (1) Acute pancreatitis Status: Acute (2) Nausea vomiting and diarrhea Status: Acute Problems: Comment Review of Relevant I have reviewed the following items scar (where applicable) has been applied. Labs Laboratory Tests Test 06/26/16 19:10 06/26/16 20:52 06/27/16 04:53 06/27/16 04:55 White Blood Count 14.5x10^3/uL (4.0-11.0) 12.0x10^3/uL (4.0-11.0) Red Blood Count 4.70x10^6/uL (3.50-5.40) 4.24x10^6/uL (3.50-5.40) Hemoglobin 14.2g/dL (12.0-15.5) 12.8g/dL (12.0-15.5) Hematocrit 43.0% (36.0-47.0) 39.5% (36.0-47.0) Mean Corpuscular Volume 91fL (79-100) 93fL (79-100) Mean Corpuscular Hemoglobin 30pg (25-35) 30pg (25-35) Mean Corpuscular Hemoglobin Concent 33g/dL (31-37) 32g/dL (31-37) Red Cell Distribution Width 14.5% (11.5-14.5) 14.3% (11.5-14.5) Platelet Count 328x10^3/uL (140-400) 281x10^3/uL (140-400) Neutrophils (%) (Auto) 92% (31-73) 80% (31-73) Lymphocytes (%) (Auto) 5% (24-48) 14% (24-48) Monocytes (%) (Auto) 3% (0-9) 5% (0-9) Eosinophils (%) (Auto) 0% (0-3) 0% (0-3) Basophils (%) (Auto) 0% (0-3) 0% (0-3) Neutrophils # (Auto) 13.4x10^3uL (1.8-7.7) 9.6x10^3uL (1.8-7.7) Lymphocytes # (Auto) 0.7x10^3/uL (1.0-4.8) 1.7x10^3/uL (1.0-4.8) Monocytes # (Auto) 0.4x10^3/uL (0.0-1.1) 0.6x10^3/uL (0.0-1.1) Eosinophils # (Auto) 0.0x10^3/uL (0.0-0.7) 0.0x10^3/uL (0.0-0.7) Basophils # (Auto) 0.0x10^3/uL (0.0-0.2) 0.0x10^3/uL (0.0-0.2) Segmented Neutrophils % 87% (35-66) Band Neutrophils % 1% (0-9) Lymphocytes % 9% (24-48) Monocytes % 3% (0-10) Platelet Estimate Adequate (ADEQUATE) Sodium Level 138mmol/L (136-145) 139mmol/L (136-145) Potassium Level 4.2mmol/L (3.5-5.1) 3.8mmol/L (3.5-5.1) Chloride Level 101mmol/L (98-107) 104mmol/L (98-107) Carbon Dioxide Level 25mmol/L (21-32) 26mmol/L (21-32) Anion Gap 12 (6-14) 9 (6-14) Blood Urea Nitrogen 9mg/dL (7-20) 9mg/dL (7-20) Creatinine 0.9mg/dL (0.6-1.0) 0.8mg/dL (0.6-1.0) Estimated GFR (Cockcroft-Gault) 72.1 82.6 BUN/Creatinine Ratio 10 (6-20) 11 (6-20) Glucose Level 129mg/dL (70-99) 91mg/dL (70-99) Calcium Level 9.3mg/dL (8.5-10.1) 8.3mg/dL (8.5-10.1) Total Bilirubin 0.7mg/dL (0.2-1.0) 0.9mg/dL (0.2-1.0) Aspartate Amino Transf (AST/SGOT) 46U/L (15-37) 24U/L (15-37) Alanine Aminotransferase (ALT/SGPT) 51U/L (14-59) 36U/L (14-59) Alkaline Phosphatase 137U/L (46-116) 112U/L (46-116) Troponin I Quantitative < 0.017ng/mL (0.000-0.055) Total Protein 6.6g/dL (6.4-8.2) 6.1g/dL (6.4-8.2) Albumin 3.9g/dL (3.4-5.0) 3.2g/dL (3.4-5.0) Albumin/Globulin Ratio 1.4 (1.0-1.7) 1.1 (1.0-1.7) Lipase 5972U/L (73-393) Urine Collection Type U cath Urine Color Nikki Urine Clarity Cloudy Urine pH 7.0 Urine Specific [place] 1.025 Urine Protein 30mg/dL (NEG-TRACE) Urine Glucose (UA) Negativemg/dL (NEG) Urine Ketones (Stick) 15mg/dL (NEG) Urine Blood Negative (NEG) Urine Nitrite Negative (NEG) Urine Bilirubin Small (NEG) Urine Urobilinogen Dipstick 2.0mg/dL (0.2 mg/dL) Urine Leukocyte Esterase Negative (NEG) Urine RBC Occ/HPF (0-2) Urine WBC Occ/HPF (0-4) Urine Squamous Epithelial Cells Mod/LPF Urine Amorphous Sediment Present/HPF Urine Bacteria 0/HPF (0-FEW) Urine Mucus Marked/LPF Urine Test Negative (NEG) Test 06/27/16 05:00 06/28/16 04:30 06/28/16 04:45 Nasal Screen MRSA (PCR) Negative (Negative) Lipase 858U/L (73-393) Triglycerides Level 46mg/dL (0-150) Cholesterol Level 165mg/dL (0-200) LDL Cholesterol, Calculated 105mg/dL (0-100) VLDL Cholesterol, Calculated 9mg/dL (0-40) Non-HDL Cholesterol Calculated 114mg/dL (0-129) HDL Cholesterol 51mg/dL (40-60) Cholesterol/HDL Ratio 3.2 Laboratory Tests Test 06/28/16 04:30 06/28/16 04:45 Lipase 858U/L (73-393) Triglycerides Level 46mg/dL (0-150) Cholesterol Level 165mg/dL (0-200) LDL Cholesterol, Calculated 105mg/dL (0-100) VLDL Cholesterol, Calculated 9mg/dL (0-40) Non-HDL Cholesterol Calculated 114mg/dL (0-129) HDL Cholesterol 51mg/dL (40-60) Cholesterol/HDL Ratio 3.2 Medications Current Medications Multi-Ingredient Mouthwash/Gargle (Gi Cocktail Single Dose) 15 ml 1X ONCE SWSW Last administered on 06/26/16 19:09; Start 06/26/16 at 19:00; Stop 06/26/16 at 19:01; Status DC Ondansetron HCl (Zofran Odt) 4 mg 1X ONCE PO Last administered on 06/26/16 19 :08; Start 06/26/16 at 19:00; Stop 06/26/16 at 19:01; Status DC Dicyclomine HCl 10 mg 10 mg 1X ONCE IM Last administered on 06/26/16 19:14; Start 06/26/16 at 19:00; Stop 06/26/16 at 19:01; Status DC Sodium Chloride (Iv Sodium Chloride 0.9% 1000ml Bag) 1,000 ml @ 125 mls/hr 1X ONCE IV Last administered on 06/26/16 22:59; Start 06/26/16 at 20:15; Stop at 04:14; Status DC Ondansetron HCl (Zofran) 4 mg PRN Q30MIN PRN IV NAUSEA/VOMITING; Start at 20:15 Iohexol (Omnipaque 300 Mg/ml) 75 ml 1X ONCE IV Last administered on 06/26/16 20:30; Start 06/26/16 at 20:30; Stop 06/26/16 at 20:35; Status DC Info (Do NOT chart on this entry -- for MONITORING) 1 each PRN DAILY PRN MC SEE COMMENTS; Start 06/26/16 at 20:45; Stop 06/28/16 at 20:44 Morphine Sulfate 2 mg PRN Q2HR PRN IV PAIN Last administered on 06/27/16 20:22 ; Start 06/26/16 at 23:15 Ondansetron HCl (Zofran) 4 mg PRN Q6HRS PRN IV NAUSEA/VOMITING; Start 06/26/16 at 23:15 Pantoprazole Sodium 40 mg 40 mg DAILYAC PO Last administered on 06/28/16 08:19 ; Start 06/26/16 at 23:15 Sodium Chloride (Iv Sodium Chloride 0.9% 1000ml Bag) 1,000 ml @ 125 mls/hr Q8H IV Last administered on 06/28/16 06:08; Start 06/26/16 at 23:15 Fentanyl Citrate (Fentanyl 2ml Vial) 75 mcg PRN Q2HR PRN IV PAIN; Start at 10:15 Non-Formulary Medication 2 puff Q4HRS PRN INH SHORTNESS OF BREATH; Start at 10:30; Stop 06/27/16 at 10:30; Status DC Non-Formulary Medication 1 puff PRN Q6HRS PRN IH SHORTNESS OF BREATH; Start at 10:30; Stop 06/27/16 at 10:30; Status DC Non-Formulary Medication 1 puff PRN Q4HRS PRN IH SHORTNESS OF BREATH; Start at 10:30; Status UNV Gabapentin (Neurontin) 800 mg DAILY06 PO Last administered on 06/28/16 06:07; Start 06/27/16 at 10:30 Gabapentin (Neurontin) 1,200 mg QHS PO Last administered on 06/27/16 20:28; Start 06/27/16 at 21:00 Lamotrigine (LaMICtal) 200 mg BID PO Last administered on 06/28/16 08:19; Start 06/27/16 at 11:00 Albuterol Sulfate (Ventolin Neb Soln) 2.5 mg PRN Q4HRS PRN NEB SHORTNESS OF BREATH; Start 06/27/16 at 10:30 Active Scripts Active Zofran Odt (Ondansetron) 4 Mg Tab.rapdis 1 Tab SL PRN Q8HRS PRN Proair Respiclick (Albuterol Sulfate) 90 Mcg Aer.pow.ba 1 Puff IH PRN Q6HRS PRN Proair Hfa Inhaler (Albuterol Sulfate) 8.5 Gm Hfa.aer.ad 2 Puff INH Q4HRS PRN Proventil Hfa Inhaler (Albuterol Sulfate) 6.7 Gm Hfa.aer.ad 1 Puff IH PRN Q4HRS PRN Reported Gabapentin 400 Mg Capsule 3 Cap PO QHS Gabapentin 400 Mg Capsule 2 Cap PO DAILY06 Lamotrigine 200 Mg Tablet 2 Tab PO BID Vitals/I & O Vital Sign - Last 24 Hours 06/27/16 06/27/16 06/27/16 06/27/16 15:00 19:00 20:20 20:22 Temp 97.9 99.1 97.9 99.1 Pulse 69 69 Resp 16 18 20 B/P 126/70 126/90 Pulse Ox 93 94 O2 Delivery Room Air Room Air Room Air Room Air 06/27/16 06/27/16 06/28/16 06/28/16 21:02 23:00 03:00 07:55 Temp 100.2 95.9 100.2 95.9 Pulse 84 76 78 Resp 20 18 18 18 B/P 134/68 142/71 127/71 Pulse Ox 96 91 97 O2 Delivery Room Air Room Air Room Air Room Air 06/28/16 06/28/16 08:00 10:50 Temp 98.8 98.8 Pulse 78 Resp 18 B/P 126/65 Pulse Ox 97 O2 Delivery Room Air Room Air Intake and Output 06/27/16 06/27/16 06/28/16 15:00 23:00 07:00 Intake Total 428 ml Balance 428 ml RUSLAN DYER MD Jun 28, 2016 12:15
[2016-06-28 15:04] VITALS: BP 136/62
[2016-06-28 19:00] VITALS: BP 128/62
[2016-06-28 23:00] VITALS: BP 122/68
[2016-06-29 03:00] VITALS: BP 132/82
[2016-06-29 04:46] LABS: CALCIUM 8.6 mg/dL (8.5-10.1); CREATININE 0.7 mg/dL (0.6-1.0); GFR 96.4; POTASSIUM 3.4 mmol/L (3.5-5.1); TOTAL BILIRUBIN 0.6 mg/dL (0.2-1.0); TOTAL PROTEIN 6.1 g/dL (6.4-8.2)
[2016-06-29] MEDS: GABAPENTIN 400 MG CAPSULE. PO SCH (05:26)
[2016-06-29] MEDS: IV NORMAL SALINE 1000ML BAG 1,000 ML IV SCH (05:27)
[2016-06-29 07:43] VITALS: BP 119/59
[2016-06-29] MEDS: PANTOPRAZOLE 40 MG TABLET.DR. PO SCH (07:57)
[2016-06-29] MEDS: lamoTRIgine 100 MG TABLET. PO SCH (07:57)
[2016-06-29 10:30] VITALS: BP 115/66
[2016-06-29] MEDS ORDERED: POTASSIUM CHLORIDE 20 MEQ TABLET.ER. PO ONE (11:30)
--- NOTE | 2016-06-29 13:32 | PDOC3 ---
Discharge Summary [facility] Date of Admission: Jun 26, 2016 Discharge Date: Jun 29, 2016 Admitting Diagnosis acute pancreatitis, not clear etiology morbid obesity SIRS, not infectious, pain and leukocytosis reactive from acute pancreas prior traumatic brain injury hypokalemia Problems: Final Diagnosis CONSULTS gi Brief Hospital Course Ms. Sofia is a 31 old F, prior brain trauma with some dementia, comes for abd pain, N/V. was found acute pancreatitis, with lipase 5900. CT confirmed. not clear etiology, altho pt drinks alcohol tho, not sure if heavy. lipase normal now, no abd pain, mild nausea. advance diet to full liquid. dc home with HH if ok with gi. dc time 35min General: Alert, Oriented X3, Cooperative, mild distress, Other (pain, ) Heart: Regular rate, No murmurs Lungs: Clear Abdomen: Other (tender diffusely, guarded) Extremities: No clubbing, Normal pulses Skin: No breakdown Patient History: Patient reports no known family medical history. Problems: Disposition home health CONDITION AT DISCHARGE: Improved Diet gi soft Scheduled Gabapentin (Gabapentin) 2 CAP PO DAILY06 (Reported) Gabapentin (Gabapentin) 3 CAP PO QHS (Reported) Lamotrigine (Lamotrigine) 2 TAB PO BID (Reported) Scheduled PRN Albuterol Sulfate (Proventil Hfa Inhaler) 1 PUFF IH PRN Q4HRS PRN PRN SHORTNESS OF BREATH Albuterol Sulfate (Proair Hfa Inhaler) 2 PUFF INH Q4HRS PRN PRN SHORTNESS OF BREATH Albuterol Sulfate (Proair Respiclick) 1 PUFF IH PRN Q6HRS PRN PRN SHORTNESS OF BREATH Ondansetron (Zofran Odt) 1 TAB SL PRN Q8HRS PRN PRN NAUSEA Follow Up pcp in 2 weeks MARYA TOWNSEND MD Jun 29, 2016 13:32
[2016-06-29 14:55] VITALS: BP 135/75
== END 2016-06-29 16:27 | disposition home or self-care (01) | DRG 439 ==
LOC: ER 18:29 → 5 NORTH 20:15
PROVIDERS: ADMIT Internal Medicine; ATTEND Internal Medicine
DX: K85.90 Acute pancreatitis without necrosis or infection, unspecified (principal); R65.10 Systemic inflammatory response syndrome (SIRS) of non-infectious origin without acute organ dysfunction; K21.9 Gastro-esophageal reflux disease without esophagitis; J45.909 Unspecified asthma, uncomplicated; F41.9 Anxiety disorder, unspecified; F03.90 Unspecified dementia, unspecified severity, without behavioral disturbance, psychotic disturbance, mood disturbance, and anxiety; E87.6 Hypokalemia; E66.01 Morbid (severe) obesity due to excess calories; R56.9 Unspecified convulsions; Z87.820 Personal history of traumatic brain injury
CPT/HCPCS: 36415; 74177; 76705; 80053; 80061; 81001; 81025; 83690; 84484; 85007; 85027; 87641; 96372; J0500; J2270; J7030; Q0162; Q9967; 99285-25

== ENCOUNTER 2016-07-11 14:18 | Emergency (ER) | payer MEDICARE, OTHER ==
[~2016-07-11] VITALS: Ht 162.6 cm; Wt 128.4 kg
[~2016-07-11 14:18] MED LIST changes: +ONDA4TAB10 SL
[2016-07-11 14:27] VITALS: BP 165/80
--- NOTE | 2016-07-11 14:30 | PHYS DOC ---
Past Medical History Past Medical History: Anxiety, Asthma, Seizure Additional Past Medical Histor: MR; TBI, behavior problems Past Surgical History: Other Additional Past Surgical Histo: Dental removal of the majority of the teeth Alcohol Use: None Drug Use: None Adult General Chief Complaint Chief Complaint: ANXIETY/PANIC ATTACK HPI HPI 31-year-old female presenting to the emergency department after getting upset with a family member today and having a reported "shaking". She thinks it might of been a seizure. She reports having history of seizures and taking gabapentin for her seizures. She currently is feeling much better and denies any symptoms. Onset today. Location brain. Duration intermittent. No alleviating factors. She arrives today by EMS. No medications given in route. Review of systems is negative for chest pain shortness of breath nausea vomiting fevers or chills. All other review of systems is negative unless otherwise noted in history of present illness. Review of Systems Review of Systems SEE ABOVE. Allergies Allergies Allergies Coded Allergies Type Severity Reaction Last Updated Verified No Known Drug Intolerances Allergy Unknown 12/07/15 Yes Physical Exam Physical Exam Constitutional: Well developed, well nourished, no acute distress, non-toxic appearance. HENT: Normocephalic, atraumatic, bilateral external ears normal, oropharynx moist, no oral exudates, nose normal. [] Eyes: PERRLA, EOMI, conjunctiva normal, no discharge. [] Neck: Normal range of motion, no tenderness, supple, no stridor. Cardiovascular:Heart rate regular rhythm, no murmur Lungs & Thorax: Bilateral breath sounds clear to auscultation Abdomen: Bowel sounds normal, soft, no tenderness, no masses, no pulsatile masses. [] Skin: Warm, dry, no erythema, no rash. Back: No tenderness, no CVA tenderness. Extremities: No tenderness, no cyanosis, no clubbing, ROM intact, no edema. Neurologic: Mental status: Awake oriented and alert x3 Cranial nerves: Extraocular movements intact, eyebrows omar bilaterally smile symmetric, uvula elevation, shoulder shrug intact, tongue protrusion normal DTRs: 2+ Sensation: equal and normal in all extremities Strength: 5/5 in upper and lower extremities bilaterally Psychologic: Affect normal, judgement normal, mood normal. Current Patient Data Vital Signs Vital Signs Date Time Temp Pulse Resp B/P (MAP) Pulse Ox O2 Delivery O2 Flow Rate FiO2 07/11/16 14:27 98.2 78 18 165/80 (108) 97 Room Air 98.2 Lab Values Laboratory Tests Test 07/11/16 14:37 07/11/16 15:09 07/11/16 15:27 POC Urine HCG, Qualitative Hcg negative (Negative) Urine Collection Type Unknown Urine Color Straw Urine Clarity Clear Urine pH 7.0 Urine Specific [place] <=1.005 Urine Protein Negative mg/dL (NEG-TRACE) Urine Glucose (UA) Negative mg/dL (NEG) Urine Ketones (Stick) Negative mg/dL (NEG) Urine Blood Negative (NEG) Urine Nitrite Negative (NEG) Urine Bilirubin Negative (NEG) Urine Urobilinogen Dipstick 0.2 mg/dL (0.2 mg/dL) Urine Leukocyte Esterase Trace (NEG) Urine RBC 0 /HPF (0-2) Urine WBC Occ /HPF (0-4) Urine Squamous Epithelial Cells Mod /LPF Urine Bacteria Moderate /HPF (0-FEW) Urine Opiates Screen Neg (NEG) Urine Methadone Screen Neg (NEG) Urine Barbiturates Neg (NEG) Urine Phencyclidine Screen Neg (NEG) Urine Amphetamine/Methamphetamine Neg (NEG) Urine Benzodiazepines Screen Neg (NEG) Urine Cocaine Screen Neg (NEG) Urine Cannabinoids Screen Neg (NEG) Urine Ethyl Alcohol Neg (NEG) White Blood Count 10.3 x10^3/uL (4.0-11.0) Red Blood Count 4.36 x10^6/uL (3.50-5.40) Hemoglobin 13.2 g/dL (12.0-15.5) Hematocrit 39.6 % (36.0-47.0) Mean Corpuscular Volume 91 fL (79-100) Mean Corpuscular Hemoglobin 30 pg (25-35) Mean Corpuscular Hemoglobin Concent 33 g/dL (31-37) Red Cell Distribution Width 14.0 % (11.5-14.5) Platelet Count 351 x10^3/uL (140-400) Neutrophils (%) (Auto) 73 % (31-73) Lymphocytes (%) (Auto) 21 % (24-48) L Monocytes (%) (Auto) 5 % (0-9) Eosinophils (%) (Auto) 1 % (0-3) Basophils (%) (Auto) 1 % (0-3) Neutrophils # (Auto) 7.5 x10^3uL (1.8-7.7) Lymphocytes # (Auto) 2.1 x10^3/uL (1.0-4.8) Monocytes # (Auto) 0.5 x10^3/uL (0.0-1.1) Eosinophils # (Auto) 0.1 x10^3/uL (0.0-0.7) Basophils # (Auto) 0.1 x10^3/uL (0.0-0.2) Sodium Level 137 mmol/L (136-145) Potassium Level 4.1 mmol/L (3.5-5.1) Chloride Level 103 mmol/L (98-107) Carbon Dioxide Level 31 mmol/L (21-32) Anion Gap 3 (6-14) L Blood Urea Nitrogen 4 mg/dL (7-20) L Creatinine 0.9 mg/dL (0.6-1.0) Estimated GFR (Cockcroft-Gault) 72.1 Glucose Level 91 mg/dL (70-99) Lactic Acid Level 1.4 mmol/L (0.4-2.0) Calcium Level 9.1 mg/dL (8.5-10.1) Total Bilirubin 0.3 mg/dL (0.2-1.0) Direct Bilirubin 0.1 mg/dL (0.0-0.2) Aspartate Amino Transferase (AST) 15 U/L (15-37) Alanine Aminotransferase (ALT) 27 U/L (14-59) Alkaline Phosphatase 109 U/L (46-116) Total Protein 6.7 g/dL (6.4-8.2) Albumin 3.5 g/dL (3.4-5.0) Laboratory Tests 07/11/16 15:27 Laboratory Tests 07/11/16 15:27 EKG EKG [] Radiology/Procedures Radiology/Procedures [] Course & Med Decision Making Course & Med Decision Making Pertinent Labs and Imaging studies reviewed. (See chart for details) [] 31-year-old female presenting to the emergency department with shakiness. Vital signs. Blood work was obtained. The patient was feeling better in the emergency department. She currently is taking gabapentin. I discussed the case with Dr. Tirado. The patient was in discharged home to follow up with her primary care physician over the next 2-3 days. Dragon Disclaimer Dragon Disclaimer This electronic medical record was generated, in whole or in part, using a voice recognition dictation system. Departure Departure Impression: Primary Impression: Seizure-like activity Disposition: 01 HOME, SELF-CARE Condition: STABLE Referrals: [facility] [employer] (PCP) Patient Instructions: Seizure, Adult Additional Instructions: Thank you for allowing us to participate in your care today. Followup with your primary care physician in 3 days if your symptoms do not improve. If you do not have a primary care provider you can ask for a list of our primary care providers. Return to the emergency department you have any new or concerning findings. This should be evaluated by the primary care physician and any necessary consulting services for continued management within a few days after discharge. Return to emergency room if you have any new or concerning symptoms including but not limited to fever, chills, nausea, vomiting, intractable pain, any new rashes, chest pain, shortness of air, uncontrolled bleeding, difficulty breathing, and/or vision loss. You may have been prescribed medication that can change in your level of thinking and ability to operate machinery. These medications include hydrocodone and Ativan. Also, Benadryl has been known to do this as well. Be sure to check with your pharmacist and ask if the medications you've prescribed can affect your level of consciousness. I recommend not operating heavy machinery or driving while on medication such as these. THIAGO MOTLEY MD July 11, 2016 14:30
[2016-07-11 15:34] LABS: BASO # 0.1 x10^3/uL (0.0-0.2); BASO % 1 % (0-3); EOS % 1 % (0-3); HEMATOCRIT 39.6 % (36.0-47.0); HEMOGLOBIN 13.2 g/dL (12.0-15.5); LYMPH # 2.1 x10^3/uL (1.0-4.8); LYMPH % 21 % (24-48); MEAN CORPUSCULAR HEMOGLOBIN 30 pg (25-35); MEAN CORPUSCULAR HGB CONC 33 g/dL (31-37); MEAN CORPUSCULAR VOLUME 91 fL (79-100); MONO % 5 % (0-9); NEUT % 73 % (31-73); PLATELET COUNT 351 x10^3/uL (140-400); RED BLOOD COUNT 4.36 x10^6/uL (3.50-5.40); WHITE BLOOD COUNT 10.3 x10^3/uL (4.0-11.0)
[2016-07-11 15:48] LABS: CALCIUM 9.1 mg/dL (8.5-10.1); CREATININE 0.9 mg/dL (0.6-1.0); GFR 72.1; POTASSIUM 4.1 mmol/L (3.5-5.1)
[2016-07-11 15:51] LABS: BILIRUBIN,URINE NEGATIVE (NEG); GLUCOSE,URINE NEGATIVE (NEG); NITRITE,URINE NEGATIVE (NEG); PROTEIN,URINE NEGATIVE (NEG-TRACE); UROBILINOGEN,URINE 0.2 mg/dL (0.2 mg/dL)
[2016-07-11 15:54] LABS: ALBUMIN 3.5 g/dL (3.4-5.0); DIRECT BILIRUBIN 0.1 mg/dL (0.0-0.2); TOTAL BILIRUBIN 0.3 mg/dL (0.2-1.0); TOTAL PROTEIN 6.7 g/dL (6.4-8.2)
[2016-07-11 15:59] LABS: BARBITURATES NEG (NEG); BENZODIAZEPINES NEG (NEG); CANNABINOIDS NEG (NEG); COCAINE NEG (NEG); METHADONE NEG (NEG); OPIATES NEG (NEG); PHENCYCLIDINE NEG (NEG)
[2016-07-11 16:00] LABS: BACTERIA,URINE MODERATE /HPF (0-FEW); RBC,URINE 0 /HPF (0-2); SQUAMOUS EPITHELIAL CELL,UR MOD /LPF; WBC,URINE OCC /HPF (0-4)
--- NOTE | 2016-07-12 09:17 | EKG ---
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
== END 2016-07-11 16:52 | disposition home or self-care (01) ==
LOC: ER 14:18
DX: R56.9 Unspecified convulsions (principal); F41.9 Anxiety disorder, unspecified; J45.909 Unspecified asthma, uncomplicated
CPT/HCPCS: 36415; 80048; 80076; 80305; 81001; 81025; 83605; 84703; 85027; 87086; 93005; G0481; 99285-25

== ENCOUNTER 2016-07-30 22:07 | Emergency (ER) | payer MEDICARE, OTHER ==
[~2016-07-30] VITALS: Ht 167.6 cm; Wt 128.4 kg
[2016-07-30 22:36] LABS: BASO # 0.1 x10^3/uL (0.0-0.2); BASO % 1 % (0-3); EOS % 0 % (0-3); HEMATOCRIT 43.8 % (36.0-47.0); HEMOGLOBIN 14.2 g/dL (12.0-15.5); LYMPH # 2.9 x10^3/uL (1.0-4.8); LYMPH % 20 % (24-48); MEAN CORPUSCULAR HEMOGLOBIN 30 pg (25-35); MEAN CORPUSCULAR HGB CONC 32 g/dL (31-37); MEAN CORPUSCULAR VOLUME 93 fL (79-100); MONO % 7 % (0-9); NEUT % 71 % (31-73); PLATELET COUNT 392 x10^3/uL (140-400); RED BLOOD COUNT 4.72 x10^6/uL (3.50-5.40); RED CELL DISTRIBUTION WIDTH 15.4 % (11.5-14.5); WHITE BLOOD COUNT 14.1 x10^3/uL (4.0-11.0)
[2016-07-30 22:43] LABS: CALCIUM 9.7 mg/dL (8.5-10.1); CREATININE 1.3 mg/dL (0.6-1.0); GFR 47.2; POTASSIUM 3.4 mmol/L (3.5-5.1)
[2016-07-30 22:48] LABS: ALBUMIN 3.8 g/dL (3.4-5.0); ALBUMIN/GLOBULIN RATIO 1.1 (1.0-1.7); MAGNESIUM 2.2 mg/dL (1.8-2.4); TOTAL BILIRUBIN 0.6 mg/dL (0.2-1.0); TOTAL PROTEIN 7.3 g/dL (6.4-8.2)
--- NOTE | 2016-07-30 22:59 | RAD ---
CT Head without contrast Indication: ams, possible seizure, prior sent Date of service:07/30/2016 10:46 PM. Comparison: CT head without contrast from 07/11/2015. Technique:: Contiguous helical images are obtained from foramen magnum, to the vertex without IV contrast . Findings: The ventricles and sulci are normal for the patient's age. No mass , midline shift , hemorrhage or acute infarct is present. Bone windows are normal without calvarial abnormality. The visualized orbits, paranasal sinuses and mastoid air cells are clear . Impression: Normal CT scan of the head. PQRS Compliance Statement: One or more of the following individualized dose reduction techniques were utilized for this examination: 1. Automated exposure control 2. Adjustment of the mA and/or kV according to patient size 3. Use of iterative reconstruction technique Electronically signed by: Cindy Vilchis MD (07/30/2016 10:56 PM)
[2016-07-30 23:58] VITALS: BP 168/77
--- NOTE | 2016-07-30 23:59 | PHYS DOC ---
Past Medical History Past Medical History: Anxiety, Asthma, Seizure Additional Past Medical Histor: MR; TBI, behavior problems Past Surgical History: Other Additional Past Surgical Histo: Dental removal of the majority of the teeth Alcohol Use: None Drug Use: None Adult General Chief Complaint Chief Complaint: SEIZURE HPI HPI Patient is a 31 year old female who presents with altered mental status after suffering a seizure episode. Patient brought to the emergency department by EMS. Patient is well-known to this emergency department and has had multiple visits for different complaints. Patient has history of seizure disorder and is on Lamictal and gabapentin. Patient was with a friend watching a movie at the time of her seizure. It was reported that the patient became very upset while her and her friend were having a conversation. The patient then had an 8 minute seizure episode that was witnessed by the friend. Patient is currently repeating the sentence "I should have started living like a skeleton a long time ago" and is currently a poor historian. Patient does answer yes and no questions and states no when asked if she is having any pain or nausea. She states yes when asked if she is taking her medications at home. Review of Systems Review of Systems Constitutional: Denies fever or chills [] Eyes: Denies change in visual acuity, redness, or eye pain [] HENT: Denies nasal congestion or sore throat [] Respiratory: Denies cough or shortness of breath [] Cardiovascular: Denies chest pain or edema [] GI: Denies abdominal pain, nausea, vomiting, bloody stools or diarrhea [] : Denies dysuria or hematuria [] Musculoskeletal: Denies back pain or joint pain [] Integument: Denies rash or skin lesions [] Neurologic: Denies headache, focal weakness or sensory changes [] Current Medications Current Medications Current Medications Medications (Trade) Dose Ordered Sig/Darell Start Time Stop Time Status Last Admin Dose Admin Lorazepam (Ativan) 1 mg 1X ONCE 07/31/16 00:00 07/31/16 00:01 DC 07/31/16 00:00 1 MG Allergies Allergies Allergies Coded Allergies Type Severity Reaction Last Updated Verified No Known Drug Intolerances Allergy Unknown 12/07/15 Yes Physical Exam Physical Exam Constitutional: Alert, obese, afebrile, repetitive speech, no acute distress. [] HENT: Normocephalic, atraumatic, bilateral external ears normal, oropharynx moist, no oral exudates, nose normal. [] Eyes: PERRLA, EOMI, conjunctiva normal, no discharge. [] Neck: Normal range of motion, no tenderness, supple, no stridor. [] Cardiovascular:Heart rate regular rhythm, no murmur [] Lungs & Thorax: Bilateral breath sounds clear to auscultation [] Abdomen: Bowel sounds normal, soft, no tenderness, no masses, no pulsatile masses. [] Skin: Warm, dry, no erythema, no rash. [] Back: No tenderness, no CVA tenderness. [] Extremities: No tenderness, no cyanosis, no clubbing, ROM intact, no edema. [] Neurologic: Alert, follows commands, repetitive speech, normal motor function, normal sensory function, no focal deficits noted. [] Current Patient Data Vital Signs Vital Signs Date Time Temp Pulse Resp B/P (MAP) Pulse Ox O2 Delivery O2 Flow Rate FiO2 07/30/16 23:58 86 20 168/77 (107) 94 Room Air Lab Values Laboratory Tests Test 07/30/16 22:10 07/30/16 23:05 White Blood Count 14.1 x10^3/uL (4.0-11.0) H Red Blood Count 4.72 x10^6/uL (3.50-5.40) Hemoglobin 14.2 g/dL (12.0-15.5) Hematocrit 43.8 % (36.0-47.0) Mean Corpuscular Volume 93 fL (79-100) Mean Corpuscular Hemoglobin 30 pg (25-35) Mean Corpuscular Hemoglobin Concent 32 g/dL (31-37) Red Cell Distribution Width 15.4 % (11.5-14.5) H Platelet Count 392 x10^3/uL (140-400) Neutrophils (%) (Auto) 71 % (31-73) Lymphocytes (%) (Auto) 20 % (24-48) L Monocytes (%) (Auto) 7 % (0-9) Eosinophils (%) (Auto) 0 % (0-3) Basophils (%) (Auto) 1 % (0-3) Neutrophils # (Auto) 10.0 x10^3uL (1.8-7.7) H Lymphocytes # (Auto) 2.9 x10^3/uL (1.0-4.8) Monocytes # (Auto) 1.0 x10^3/uL (0.0-1.1) Eosinophils # (Auto) 0.1 x10^3/uL (0.0-0.7) Basophils # (Auto) 0.1 x10^3/uL (0.0-0.2) Sodium Level 140 mmol/L (136-145) Potassium Level 3.4 mmol/L (3.5-5.1) L Chloride Level 101 mmol/L (98-107) Carbon Dioxide Level 18 mmol/L (21-32) L Anion Gap 21 (6-14) H Blood Urea Nitrogen 10 mg/dL (7-20) Creatinine 1.3 mg/dL (0.6-1.0) H Estimated GFR (Cockcroft-Gault) 47.2 BUN/Creatinine Ratio 8 (6-20) Glucose Level 124 mg/dL (70-99) H Calcium Level 9.7 mg/dL (8.5-10.1) Magnesium Level 2.2 mg/dL (1.8-2.4) Total Bilirubin 0.6 mg/dL (0.2-1.0) Aspartate Amino Transferase (AST) 23 U/L (15-37) Alanine Aminotransferase (ALT) 43 U/L (14-59) Alkaline Phosphatase 115 U/L (46-116) Total Protein 7.3 g/dL (6.4-8.2) Albumin 3.8 g/dL (3.4-5.0) Albumin/Globulin Ratio 1.1 (1.0-1.7) Lactic Acid Level 2.8 mmol/L (0.4-2.0) H Laboratory Tests 07/30/16 22:10 Laboratory Tests 07/30/16 22:10 EKG EKG Not performed [] Radiology/Procedures Radiology/Procedures [facility] [address] [place] [address] IMAGING REPORT Signed PATIENT: ALANNA GOMEZ ACCOUNT: [id number] : 1985 LOCATION: ER AGE: 31 SEX: F EXAM STATUS: PRE ER ORD. PHYSICIAN: MARCIA PALACIOS MD REASON: altered mental status PROCEDURE: CT HEAD WO CONTRAST CT Head without contrast Indication: ams, possible seizure, prior sent Date of service:07/30/2016 10:46 PM. Comparison: CT head without contrast from 07/11/2015. Technique:: Contiguous helical images are obtained from foramen magnum, to the vertex without IV contrast . Findings: The ventricles and sulci are normal for the patient's age. No mass , midline shift , hemorrhage or acute infarct is present. Bone windows are normal without calvarial abnormality. The visualized orbits, paranasal sinuses and mastoid air cells are clear . Impression: Normal CT scan of the head. RS Compliance Statement: One or more of the following individualized dose reduction techniques were utilized for this examination: 1. Automated exposure control 2. Adjustment of the mA and/or kV according to patient size 3. Use of iterative reconstruction technique Electronically signed by: Cindy Vilchis MD (07/30/2016 10:56 PM) DICTATED and SIGNED BY: CINDY VILCHIS MD DATE: 07/30/16 7211 CC: CHAYITO HUTSON EXPLOSIVES OPERATOR; MARCIA PALACIOS MD ~ [] Course & Med Decision Making Course & Med Decision Making Pertinent Labs and Imaging studies reviewed. (See chart for details) Patient was given Ativan in the emergency department. Patient showed a mild lactic acidosis consistent with recent seizure episode. On reevaluation, the patient is able to answer questions appropriately. Patient displayed no further seizure activity while in the emergency department. The patient will be provided assistance with travel back to a family member's home this evening. Advised patient to continue on her home medications as prescribed and recommended follow-up with Dr. Koehler in one to 2 weeks in his office. Advised return to emergency department for any worsening symptoms. Patient voiced understanding and in agreement with treatment plan. Dragon Disclaimer Dragon Disclaimer This electronic medical record was generated, in whole or in part, using a voice recognition dictation system. Departure Departure Impression: Primary Impression: Seizure Disposition: 01 HOME, SELF-CARE Admitting Physician: Juve Pedroza Condition: IMPROVED Referrals: CHAYITO HUTSON EXPLOSIVES OPERATOR (PCP) Patient Instructions: Seizure, Adult Additional Instructions: Be sure to continue taking your seizure medication as prescribed. Follow-up in one to [address] Koehler of neurology. Return to the emergency department for any worsening symptoms. MARCIA PALACIOS MD July 30, 2016 23:59
--- NOTE | 2016-07-31 07:27 | EKG ---
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
--- NOTE | 2016-07-31 08:03 | RAD ---
Indication tachycardia. A single view of the chest was obtained. Comparison is made to an examination 12/28/2015. The heart and pulmonary vessels are normal. The lungs are clear. Calcified granuloma in the right lung is noted. There has not been a significant change in the appearance of the chest compared to the previous exam. IMPRESSION: No acute or focal process. No significant change
== END 2016-07-31 00:10 | disposition home or self-care (01) ==
LOC: ER 22:07
DX: R56.9 Unspecified convulsions (principal); E87.2 Acidosis; F41.9 Anxiety disorder, unspecified; J45.909 Unspecified asthma, uncomplicated; R41.82 Altered mental status, unspecified
CPT/HCPCS: 36415; 70450; 71010; 80053; 83605; 83735; 85027; 93005; 96374; 99285; J2060

== ENCOUNTER 2016-08-12 09:50 | Emergency (ER) | payer MEDICARE, OTHER ==
[~2016-08-12] VITALS: Ht 165.1 cm; Wt 128.4 kg
[~2016-08-12 09:50] MED LIST changes: +SULF-143 PO; -SULF1TAB3 PO
[2016-08-12 10:30] VITALS: BP 134/85
--- NOTE | 2016-08-12 10:37 | PHYS DOC ---
Past Medical History Past Medical History: Anxiety, Asthma, Seizure Additional Past Medical Histor: MR; TBI, behavior problems Past Surgical History: Other Additional Past Surgical Histo: Dental removal of the majority of the teeth Alcohol Use: None Drug Use: None Adult General Chief Complaint Chief Complaint: SYNCOPE HPI HPI Patient is a 31 year old female presents to the emergency department by way of EMS. Patient states that she was walking to the bank when she felt really weird and fell hitting her head. She states that she believes she also had a seizure at the same time. She says that people came running over to assist her. According to EMS patient did not become postictal. Patient states that she does take seizure medication although she does not know the name of the medication. Patient states that she has a slight headache now. She does have a hematoma noted on the left occipital part of her head. She denies any further pain or discomfort. Vital signs appear to be stable. Review of Systems Review of Systems Constitutional: Denies fever or chills [] Eyes: Denies change in visual acuity, redness, or eye pain [] HENT: Denies nasal congestion or sore throat [] Respiratory: Denies cough or shortness of breath [] Cardiovascular: No additional information not addressed in HPI [] GI: Denies abdominal pain, nausea, vomiting, bloody stools or diarrhea [] : Denies dysuria or hematuria [] Musculoskeletal: Denies back pain or joint pain [] Integument: Denies rash or skin lesions [] Neurologic: headache, denies focal weakness or sensory changes [] Endocrine: Denies polyuria or polydipsia [] Current Medications Current Medications Current Medications Medications (Trade) Dose Ordered Sig/[facility] Start Time Stop Time Status Last Admin Dose Admin Acetaminophen (Tylenol) 650 mg 1X ONCE 08/12/16 10:45 08/12/16 10:46 DC Allergies Allergies Allergies Coded Allergies Type Severity Reaction Last Updated Verified No Known Drug Intolerances Allergy Unknown 12/07/15 Yes Physical Exam Physical Exam Constitutional: Well developed, well nourished, no acute distress, non-toxic appearance. [] HENT: bilateral external ears normal, oropharynx moist, no oral exudates, nose normal. Bilateral tympanic membranes appear to be normal. Patient with a hematoma noted on the left occipital part of her head. Eyes: PERRLA, EOMI, conjunctiva normal, no discharge. [] Neck: Normal range of motion, no tenderness, supple, no stridor. [] Cardiovascular:Heart rate regular rhythm, no murmur [] Lungs & Thorax: Bilateral breath sounds clear to auscultation [] Skin: Warm, dry, no erythema, no rash. [] Back: No tenderness Extremities: No tenderness, no cyanosis, no clubbing, ROM intact, no edema. [] Neurologic: Alert and oriented X 3, normal motor function, normal sensory function, no focal deficits noted. Patient able to move all extremities without difficulty. Psychologic: Affect normal, judgement normal, mood normal. [] Current Patient Data Vital Signs Vital Signs Date Time Temp Pulse Resp B/P (MAP) Pulse Ox O2 Delivery O2 Flow Rate FiO2 08/12/16 09:50 98.4 82 18 127/63 (84) 96 Room Air 98.4 Lab Values Laboratory Tests Test 08/12/16 10:30 White Blood Count 8.0 x10^3/uL (4.0-11.0) Red Blood Count 4.17 x10^6/uL (3.50-5.40) Hemoglobin 12.5 g/dL (12.0-15.5) Hematocrit 38.2 % (36.0-47.0) Mean Corpuscular Volume 92 fL (79-100) Mean Corpuscular Hemoglobin 30 pg (25-35) Mean Corpuscular Hemoglobin Concent 33 g/dL (31-37) Red Cell Distribution Width 15.0 % (11.5-14.5) H Platelet Count 298 x10^3/uL (140-400) Neutrophils (%) (Auto) 75 % (31-73) H Lymphocytes (%) (Auto) 15 % (24-48) L Monocytes (%) (Auto) 8 % (0-9) Eosinophils (%) (Auto) 2 % (0-3) Basophils (%) (Auto) 1 % (0-3) Neutrophils # (Auto) 6.0 x10^3uL (1.8-7.7) Lymphocytes # (Auto) 1.2 x10^3/uL (1.0-4.8) Monocytes # (Auto) 0.6 x10^3/uL (0.0-1.1) Eosinophils # (Auto) 0.1 x10^3/uL (0.0-0.7) Basophils # (Auto) 0.1 x10^3/uL (0.0-0.2) Sodium Level 138 mmol/L (136-145) Potassium Level 3.7 mmol/L (3.5-5.1) Chloride Level 103 mmol/L (98-107) Carbon Dioxide Level 28 mmol/L (21-32) Anion Gap 7 (6-14) Blood Urea Nitrogen 6 mg/dL (7-20) L Creatinine 0.8 mg/dL (0.6-1.0) Estimated GFR (Cockcroft-Gault) 82.6 BUN/Creatinine Ratio 8 (6-20) Glucose Level 90 mg/dL (70-99) Calcium Level 8.8 mg/dL (8.5-10.1) Total Bilirubin 0.4 mg/dL (0.2-1.0) Aspartate Amino Transferase (AST) 11 U/L (15-37) L Alanine Aminotransferase (ALT) 22 U/L (14-59) Alkaline Phosphatase 103 U/L (46-116) Total Protein 6.4 g/dL (6.4-8.2) Albumin 3.3 g/dL (3.4-5.0) L Albumin/Globulin Ratio 1.1 (1.0-1.7) Laboratory Tests 08/12/16 10:30 Laboratory Tests 08/12/16 10:30 EKG EKG EKG completed at 10:15 heart rate 81 sinus rhythm noted no STEMI per Dr. Wu [ ] Radiology/Procedures Radiology/Procedures [facility] [address] [place], [place] [id number] IMAGING REPORT Signed PATIENT: ALANNA GOMEZ ACCOUNT: [id number] : 1985 LOCATION: ER AGE: 31 SEX: F EXAM STATUS: REG ER ORD. PHYSICIAN: LAUREN MARCELINO APRN REASON: hit head questionable seizure hx TBI PROCEDURE: CT HEAD WO CONTRAST Indication head injury. Seizure. Noncontrast images of the head were obtained. Note is made of a similar examination 2 weeks ago. The calvarium appears unremarkable. The visualized paranasal sinuses appear normal. There is no subdural or epidural hematoma. The ventricles and sulci are normal. There is no mass or midline shift. No hemorrhage is seen. There has not been a significant change compared to the previous exam. IMPRESSION: No acute finding. No significant change PQRS Compliance Statement: One or more of the following individualized dose reduction techniques were utilized for this examination: 1. Automated exposure control 2. Adjustment of the mA and/or kV according to patient size 3. Use of iterative reconstruction technique DICTATED and SIGNED BY: MASON SINCLAIR MD DATE: 08/12/16 1100 CC: ROMAN JENNINGS MD; LAUREN MARCELINO APRN; NON,STAFF ~ [] Course & Med Decision Making Course & Med Decision Making Pertinent Labs and Imaging studies reviewed. (See chart for details) Patient had no reportable seizures here the emergency department. CBC, see in CMP and CT scan of the head was also negative for any abnormalities. Patient will be discharged home with recommendations for Tylenol every 6 hours for pain and discomfort. So recommended plenty of fluids such as water Gatorade and propel. Recommended patient stop drinking caffeine and Tea as this will cause dehydration with the weather being hot. Also recommended patient have somebody wake her every 2 hours throughout the night to make sure that she is alert and oriented and capable moving all of her extremities. Patient will be discharged home in stable condition signs and symptoms to return back to emergency department been provided. Also recommended that she follow up with her primary care physician tomorrow. [] Dragon Disclaimer Dragon Disclaimer This electronic medical record was generated, in whole or in part, using a voice recognition dictation system. Departure Departure Impression: Primary Impression: Closed head injury Disposition: 01 HOME, SELF-CARE Condition: STABLE Referrals: ROMAN JENNINGS MD (PCP) Patient Instructions: Head Injury, Adult, [id number] Additional Instructions: Activity as tolerated. Tylenol for pain and discomfort. Ice packs on 20 minutes off 20 minutes several times a day. Have somebody wake you every 2 hours throughout the night making sure you alert and oriented and capable moving all of extremities. Follow-up with your primary care physician in regards to breakthrough seizures. Return back to emergency department for signs and symptoms of become worse. LAUREN MARCELINO APRN Aug 12, 2016 10:37
[2016-08-12 10:41] LABS: BASO # 0.1 x10^3/uL (0.0-0.2); BASO % 1 % (0-3); EOS % 2 % (0-3); HEMATOCRIT 38.2 % (36.0-47.0); HEMOGLOBIN 12.5 g/dL (12.0-15.5); LYMPH # 1.2 x10^3/uL (1.0-4.8); LYMPH % 15 % (24-48); MEAN CORPUSCULAR HEMOGLOBIN 30 pg (25-35); MEAN CORPUSCULAR HGB CONC 33 g/dL (31-37); MEAN CORPUSCULAR VOLUME 92 fL (79-100); MONO % 8 % (0-9); NEUT % 75 % (31-73); PLATELET COUNT 298 x10^3/uL (140-400); RED BLOOD COUNT 4.17 x10^6/uL (3.50-5.40)
[2016-08-12] MEDS ORDERED: ACETAMINOPHEN 325 MG TABLET. PO ONE (10:45)
[2016-08-12 11:02] LABS: CALCIUM 8.8 mg/dL (8.5-10.1); CREATININE 0.8 mg/dL (0.6-1.0); GFR 82.6; POTASSIUM 3.7 mmol/L (3.5-5.1)
--- NOTE | 2016-08-12 11:02 | EKG ---
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
--- NOTE | 2016-08-12 11:06 | RAD ---
Indication head injury. Seizure. Noncontrast images of the head were obtained. Note is made of a similar examination 2 weeks ago. The calvarium appears unremarkable. The visualized paranasal sinuses appear normal. There is no subdural or epidural hematoma. The ventricles and sulci are normal. There is no mass or midline shift. No hemorrhage is seen. There has not been a significant change compared to the previous exam. IMPRESSION: No acute finding. No significant change PQRS Compliance Statement: One or more of the following individualized dose reduction techniques were utilized for this examination: 1. Automated exposure control 2. Adjustment of the mA and/or kV according to patient size 3. Use of iterative reconstruction technique
[2016-08-12 11:08] LABS: ALBUMIN 3.3 g/dL (3.4-5.0); ALBUMIN/GLOBULIN RATIO 1.1 (1.0-1.7); TOTAL BILIRUBIN 0.4 mg/dL (0.2-1.0); TOTAL PROTEIN 6.4 g/dL (6.4-8.2)
== END 2016-08-12 11:33 | disposition home or self-care (01) ==
LOC: ER 09:50
DX: S09.90XA Unspecified injury of head, initial encounter (principal); J45.909 Unspecified asthma, uncomplicated; Z87.820 Personal history of traumatic brain injury; W18.09XA Striking against other object with subsequent fall, initial encounter; Y93.89 Activity, other specified; Y99.8 Other external cause status; Y92.89 Other specified places as the place of occurrence of the external cause
CPT/HCPCS: 36415; 70450; 80053; 85027; 93005; 99285-25

== ENCOUNTER 2016-09-03 22:57 | Inpatient (IN) | payer MEDICARE, OTHER ==
[~2016-09-03] VITALS: Ht 160 cm; Wt 123.2 kg
[2016-09-04] MEDS ORDERED: CONTRAST GIVEN MC PRN (00:15)
[2016-09-04] MEDS ORDERED: IOHEXOL 300 MG/ML 75 ML VIAL IV ONE (00:15)
[2016-09-04 00:23] LABS: BASO # 0.1 x10^3/uL (0.0-0.2); BASO % 1 % (0-3); EOS % 1 % (0-3); HEMOGLOBIN 13.1 g/dL (12.0-15.5); LYMPH # 2.1 x10^3/uL (1.0-4.8); LYMPH % 20 % (24-48); MEAN CORPUSCULAR HEMOGLOBIN 30 pg (25-35); MEAN CORPUSCULAR HGB CONC 33 g/dL (31-37); MEAN CORPUSCULAR VOLUME 91 fL (79-100); MONO % 6 % (0-9); NEUT % 73 % (31-73); PLATELET COUNT 351 x10^3/uL (140-400); RED BLOOD COUNT 4.39 x10^6/uL (3.50-5.40); RED CELL DISTRIBUTION WIDTH 15.3 % (11.5-14.5); WHITE BLOOD COUNT 10.8 x10^3/uL (4.0-11.0)
[2016-09-04 00:30] LABS: CALCIUM 9.2 mg/dL (8.5-10.1); CREATININE 0.8 mg/dL (0.6-1.0); GFR 82.6; POTASSIUM 3.7 mmol/L (3.5-5.1)
[2016-09-04 00:36] LABS: BILIRUBIN,URINE SMALL (NEG); GLUCOSE,URINE NEGATIVE (NEG); NITRITE,URINE NEGATIVE (NEG); PH,URINE 6.5; PROTEIN,URINE NEGATIVE (NEG-TRACE)
[2016-09-04 00:38] LABS: ALBUMIN 3.6 g/dL (3.4-5.0); ALBUMIN/GLOBULIN RATIO 1.2 (1.0-1.7); TOTAL BILIRUBIN 1.9 mg/dL (0.2-1.0); TOTAL PROTEIN 6.6 g/dL (6.4-8.2)
[2016-09-04 00:46] LABS: BACTERIA,URINE 0 /HPF (0-FEW); RBC,URINE 0 /HPF (0-2); SQUAMOUS EPITHELIAL CELL,UR MOD /LPF; WBC,URINE OCC /HPF (0-4)
[2016-09-04 00:55] LABS: NEG OBC UR NEG; POS OBC UR POS
[2016-09-04] MEDS ORDERED: ONDANSETRON PF 4 MG/2 ML VIAL. ONE (01:00)
[2016-09-04] MEDS ORDERED: ONDANSETRON PF 4 MG/2 ML VIAL. IV ONE (01:15)
--- NOTE | 2016-09-04 01:47 | RAD ---
EXAM: Abdomen and pelvis CT with intravenous contrast. HISTORY: 31-year-old female with abdominal and back pain starting tonight.. TECHNIQUE: Computed tomographic images of the abdomen and pelvis were obtained before and after the administration of 75 cc of Omni 300 intravenous contrast. Multiplanar reformatting was performed. PQRS compliance statement: One or more of the following individualized dose reduction techniques were utilized for this examination: 1. Automated exposure control 2. Adjustment of the mA and/or kV according to patient size 3. Use of iterative reconstruction technique COMPARISON: June 26, 2016. FINDINGS: The lung bases demonstrate no acute finding. Calcified granulomas redemonstrated in the right lung base. The liver, spleen, gallbladder, adrenal glands and bilateral kidneys demonstrate no focal abnormality. There is prominent fluid and soft tissue stranding about the length of the pancreas which is prominent in size, similar to although increased when compared to the previous CT exam from June. Underlying parenchymal enhancement appears maintained. No definite pseudocyst is seen. A small amount of free fluid is seen within the dependent pelvis and left paracolic gutter. The GI tract demonstrates no dilated bowel loops to suggest obstruction. The urinary bladder is grossly unremarkable. Uterus and bilateral adnexa demonstrate no focal abnormality. No intra-abdominal or pelvic free air or significant lymphadenopathy is seen. Aorta is normal in caliber. Overlying soft tissues and visualized osseous structures demonstrate no acute interval change. IMPRESSION: CT findings of acute pancreatitis, with prominent soft tissue stranding and fluid about the length of the pancreas. Small volume of fluid present in the left paracolic gutter and dependent pelvis. Electronically signed by: Anjana Brito MD (09/04/2016 1:44 AM)
[2016-09-04] MEDS ORDERED: ONDANSETRON PF 4 MG/2 ML VIAL. IV PRN ×2 (02:30→11:30)
[2016-09-04] MEDS: IV NORMAL SALINE 1000ML BAG 1,000 ML IV SCH ×2 (03:42→10:11)
[2016-09-04] MEDS ORDERED: HYDROmorphone 2 MG/ML VIAL IV ONE (03:45)
--- NOTE | 2016-09-04 03:53 | ACF ---
Admission Forms Criteria PANCREATITIS Clinical Indications for Admission to Inpatient Care (Place 'X' for any and all applicable criteria): Admission is indicated for 1 or more of the following (1)(2)(3)(4): [X]I. Acute pancreatitis[A] as indicated by 2 or MORE of the following: [ ]a) Abdominal pain (eg, epigastric, left upper quadrant) [X]b) Serum amylase or serum lipase greater than 3 times the upper limit of normal [X]c) Characteristic findings from abdominal imaging (eg, pancreatic inflammation, pancreatic necrosis, peripancreatic fluid collection)[B] [ ]II. Pancreatitis (acute or chronic ) requiring inpatient care as indicated by 1 or more of the following [ ]a) Inability to maintain oral hydration Hypoxemia [ ]b) Evidence of infection (eg, fever, peripancreatic abscess) [ ]c) Severe pain requiring acute inpatient management [ ]d) Hemodynamic instability [ ]e) Hypoxemia [ ]f) Acute renal failure [ ]g) Severe electrolyte abnormalities Extended stay beyond goal length of stay may be needed for (1)(11) [ ]a) Severe acute pancreatitis (10)(19) [ ]b) Persistent symptoms, ascites, or pleural effusion [ ]c) Abdominal compartment syndrome (10) [ ]d) Late complications [ ]e) Gallstones in gallbladder [ ]f) Acute renal failure (27) The original [facility] content created by [employer] has been revised. The portions of the content which have been revised are identified through the use of italic text or in bold,and [facility] has neither reviewed nor approved the modified material.All other unmodified content is copyright [facility] [employer] [facility]. Please see references footnoted in the original [facility] [employer] edition 2016 Admission Criteria Met?: Yes ARUN STANTON Sep 04, 2016 03:53 TERRIE CARVER Sep 04, 2016 07:12
[2016-09-04 04:15] VITALS: BP 142/77
[2016-09-04] MEDS ORDERED: MORPHINE SULFATE 2 MG/ML DISP.SYRIN. IV PRN ×2 (04:15→11:30)
--- NOTE | 2016-09-04 05:09 | PHYS DOC ---
Past Medical History Past Medical History: Anxiety, Asthma, Seizure Additional Past Medical Histor: MR; TBI, behavior problems, falls Past Surgical History: Other Additional Past Surgical Histo: Dental removal of the majority of the teeth Alcohol Use: None Drug Use: None Adult General Chief Complaint Chief Complaint: BACK PAIN - NO INJURY HPI HPI 31-year-old female with a history of traumatic brain injury as a young person with some significant mental challenges well known to our emergency medicine service for frequent visits now presents to emergency room complaining of abdominal pain. Patient was just seen at and had a full evaluation with laboratory workup which she states she was told was unremarkable. No imaging was done. Patient has persistent symptoms of abdominal pain and back pain. No productive cough or fever. No exertional chest pain. No pleuritic pain. He reports normal bowel bladder habits. Patient is not a heavy drinker and has no history of GI problems. Review of Systems Review of Systems Constitutional: Denies fever or chills [] Eyes: Denies change in visual acuity, redness, or eye pain [] HENT: Denies nasal congestion or sore throat [] Respiratory: Denies cough or shortness of breath [] Cardiovascular: No additional information not addressed in HPI [] GI: Denies abdominal pain, nausea, vomiting, bloody stools or diarrhea [] : Denies dysuria or hematuria [] Musculoskeletal: Denies back pain or joint pain [] Integument: Denies rash or skin lesions [] Neurologic: Denies headache, focal weakness or sensory changes [] Endocrine: Denies polyuria or polydipsia [] Current Medications Current Medications Current Medications Medications (Trade) Dose Ordered Sig/Darell Start Time Stop Time Status Last Admin Dose Admin Info (Do NOT chart on this entry -- for MONITORING) 1 each PRN DAILY PRN 09/04/16 00:15 09/06/16 00:14 Iohexol (Omnipaque 300 Mg/ml) 75 ml 1X ONCE 09/04/16 00:15 09/04/16 00:16 DC 09/04/16 01:15 75 ML Lorazepam (Ativan) 1 mg 1X ONCE 09/04/16 01:45 09/04/16 01:49 DC Ondansetron HCl (Zofran) 4 mg PRN Q8HRS PRN 09/04/16 02:30 09/05/16 02:29 Sodium Chloride 1,000 ml @ 125 mls/hr Q8H 09/04/16 02:30 09/05/16 02:29 09/04/16 03:42 125 MLS/HR Allergies Allergies Allergies Coded Allergies Type Severity Reaction Last Updated Verified No Known Drug Intolerances Allergy Unknown 12/07/15 Yes Physical Exam Physical Exam Constitutional: Well developed, well nourished, no acute distress, non-toxic appearance. [] HENT: Normocephalic, atraumatic, bilateral external ears normal, oropharynx moist, no oral exudates, nose normal. [] Eyes: PERRLA, EOMI, conjunctiva normal, no discharge. [] Neck: Normal range of motion, no tenderness, supple, no stridor. [] Cardiovascular:Heart rate regular rhythm, no murmur [] Lungs & Thorax: Bilateral breath sounds clear to auscultation [] Abdomen: Bowel sounds normal, soft, mild epigastric tenderness no guarding or rebound, no masses, no pulsatile masses. [] Skin: Warm, dry, no erythema, no rash. [] Back: No tenderness, no CVA tenderness. [] Extremities: No tenderness, no cyanosis, no clubbing, ROM intact, no edema. [] Neurologic: Alert and oriented X 3, normal motor function, normal sensory function, no focal deficits noted. [] Psychologic: Affect normal, judgement normal, mood normal. [] Current Patient Data Vital Signs Vital Signs Date Time Temp Pulse Resp B/P (MAP) Pulse Ox O2 Delivery O2 Flow Rate FiO2 09/04/16 02:30 50 23 170/80 (110) 96 Room Air 09/03/16 23:29 96.0 09/03/16 23:17 98.1 98.1 Lab Values Laboratory Tests Test 09/04/16 00:10 09/04/16 00:25 09/04/16 00:30 White Blood Count 10.8 x10^3/uL (4.0-11.0) Red Blood Count 4.39 x10^6/uL (3.50-5.40) Hemoglobin 13.1 g/dL (12.0-15.5) Hematocrit 40.0 % (36.0-47.0) Mean Corpuscular Volume 91 fL (79-100) Mean Corpuscular Hemoglobin 30 pg (25-35) Mean Corpuscular Hemoglobin Concent 33 g/dL (31-37) Red Cell Distribution Width 15.3 % (11.5-14.5) H Platelet Count 351 x10^3/uL (140-400) Neutrophils (%) (Auto) 73 % (31-73) Lymphocytes (%) (Auto) 20 % (24-48) L Monocytes (%) (Auto) 6 % (0-9) Eosinophils (%) (Auto) 1 % (0-3) Basophils (%) (Auto) 1 % (0-3) Neutrophils # (Auto) 7.9 x10^3uL (1.8-7.7) H Lymphocytes # (Auto) 2.1 x10^3/uL (1.0-4.8) Monocytes # (Auto) 0.6 x10^3/uL (0.0-1.1) Eosinophils # (Auto) 0.1 x10^3/uL (0.0-0.7) Basophils # (Auto) 0.1 x10^3/uL (0.0-0.2) Sodium Level 138 mmol/L (136-145) Potassium Level 3.7 mmol/L (3.5-5.1) Chloride Level 102 mmol/L (98-107) Carbon Dioxide Level 28 mmol/L (21-32) Anion Gap 8 (6-14) Blood Urea Nitrogen 4 mg/dL (7-20) L Creatinine 0.8 mg/dL (0.6-1.0) Estimated GFR (Cockcroft-Gault) 82.6 BUN/Creatinine Ratio 5 (6-20) L Glucose Level 141 mg/dL (70-99) H Calcium Level 9.2 mg/dL (8.5-10.1) Total Bilirubin 1.9 mg/dL (0.2-1.0) H Aspartate Amino Transferase (AST) 156 U/L (15-37) H Alanine Aminotransferase (ALT) 126 U/L (14-59) H Alkaline Phosphatase 201 U/L (46-116) H Total Protein 6.6 g/dL (6.4-8.2) Albumin 3.6 g/dL (3.4-5.0) Albumin/Globulin Ratio 1.2 (1.0-1.7) Lipase 49725 U/L (73-393) H Urine Collection Type U cath Urine Color Nikki Urine Clarity Clear Urine pH 6.5 Urine Specific [place] 1.015 Urine Protein Negative mg/dL (NEG-TRACE) Urine Glucose (UA) Negative mg/dL (NEG) Urine Ketones (Stick) Negative mg/dL (NEG) Urine Blood Negative (NEG) Urine Nitrite Negative (NEG) Urine Bilirubin Small (NEG) Urine Urobilinogen Dipstick 1.0 mg/dL (0.2 mg/dL) Urine Leukocyte Esterase Negative (NEG) Urine RBC 0 /HPF (0-2) Urine WBC Occ /HPF (0-4) Urine Squamous Epithelial Cells Mod /LPF Urine Bacteria 0 /HPF (0-FEW) Urine Mucus Mod /LPF Urine Test Negative (NEG) Laboratory Tests 09/04/16 00:10 Laboratory Tests 09/04/16 00:10 EKG EKG [] Radiology/Procedures Radiology/Procedures [] Course & Med Decision Making Course & Med Decision Making Pertinent Labs and Imaging studies reviewed. (See chart for details) Labs with profoundly elevated lipase consistent with pancreatitis as well as transaminases elevation. CT with significant stranding around the pancreas and radiologic findings to confirm this diagnosis. Patient with persistent nausea and vomiting. IV fluids administered. Her pain is well controlled as well as her anxiety. 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 Departure Departure Referrals: UNKNOWN PCP NAME (PCP) TRINH CHAMPION MD Sep 04, 2016 05:09
[2016-09-04 07:15] VITALS: BP 143/79
--- NOTE | 2016-09-04 07:22 | RAD ---
Portable AP upright view CXR: Clinical indications: Mid upper back pain for several days. Comparison: July 30, 2016. Findings: Calcified granuloma of the lateral right lung base is again noted No acute lung infiltrate or pleural effusion or pulmonary edema or lung mass or pneumothorax is seen. The heart size, pulmonary vasculature, mediastinum and both harjit are unremarkable. Impression: No acute radiographic abnormality is seen.
[2016-09-04 11:12] VITALS: BP 145/82
[2016-09-04] MEDS ORDERED: DOCUSATE SODIUM 100 MG CAPSULE. PO PRN (11:30)
[2016-09-04] MEDS ORDERED: hydrALAZINE 20 MG/ML VIAL. IVP PRN (11:30)
[2016-09-04] MEDS ORDERED: ALBUTEROL SULFATE 2.5 MG/3 ML NEBU. NEB PRN (11:45)
[2016-09-04] MEDS: lamoTRIgine 100 MG TABLET. PO SCH ×2 (12:00→21:07)
[2016-09-04 12:21] LABS: BARBITURATES NEG (NEG); BENZODIAZEPINES NEG (NEG); CANNABINOIDS NEG (NEG); COCAINE NEG (NEG); METHADONE NEG (NEG); OPIATES NEG (NEG); PHENCYCLIDINE NEG (NEG)
[2016-09-04] MEDS: POTASSIUM CL 20MEQ D5-0.9%NACL 1,000 ML IV SCH ×2 (12:28→21:07)
--- NOTE | 2016-09-04 13:12 | PDOC2 ---
GI CONSULT Reason For Consult: Pancreatitis HPI: HPI: 31 y/o female w/ previous GI evaluation here at [facility] in 06/2016. At that time had n/v and abdominal pain (BUQ radiating to back). Lipase was elevated (~5900 to 800 to normal) and CT was c/w acute pancreatitis and normal gallbladder. Abd US was ordered; she's unsure if this was performed but I can find no record of results. On this occasion was evaluated in the ER for similar symptoms, perhaps ongoing for a week this time. Pain in epigastrium radiating to BUQ, down both sides, and to upper back. Has been vomiting. Pain makes breathing difficutl. Occasional reflux, untreated. Irregular bowel habits w/ straining but loose stools. Lipase is >30,000 w/ bili 1.9, AST 156, ALT 126, Alk Phos 201. CT again w/ pancreatitis (?phlegmon), note pelvic fluid. PMH: PMH: astham, seizures, traumatic brain injury, cognitive delay, anxiety, teeth extractions FH: Family History: No pertinent hx (denies GI cancers, denies pancreatitis) Social History: Smoke: No ALCOHOL: none Drugs: None ROS: GEN: Denies fevers, chills, sweats HEENT: Denies blurred vision, sore throat CV: Denies chest pain RESP: +SOA GI: Per HPI : Denies hematuria, dysuria ENDO: Denies weight changes NEURO: Denies confusion, dizziness MSK: Denies weakness, joint pain/swelling SKIN: Denies jaundice, pruritus Vitals: Vitals: Vital Signs Date Time Temp Pulse Resp B/P (MAP) Pulse Ox O2 Delivery O2 Flow Rate FiO2 09/04/16 11:12 98.3 74 20 145/82 (103) 94 Room Air 98.3 09/03/16 23:29 96.0 Labs: Labs: Laboratory Tests Test 09/04/16 00:10 09/04/16 00:25 09/04/16 00:30 White Blood Count 10.8 x10^3/uL (4.0-11.0) Red Blood Count 4.39 x10^6/uL (3.50-5.40) Hemoglobin 13.1 g/dL (12.0-15.5) Hematocrit 40.0 % (36.0-47.0) Mean Corpuscular Volume 91 fL (79-100) Mean Corpuscular Hemoglobin 30 pg (25-35) Mean Corpuscular Hemoglobin Concent 33 g/dL (31-37) Red Cell Distribution Width 15.3 % (11.5-14.5) Platelet Count 351 x10^3/uL (140-400) Neutrophils (%) (Auto) 73 % (31-73) Lymphocytes (%) (Auto) 20 % (24-48) Monocytes (%) (Auto) 6 % (0-9) Eosinophils (%) (Auto) 1 % (0-3) Basophils (%) (Auto) 1 % (0-3) Neutrophils # (Auto) 7.9 x10^3uL (1.8-7.7) Lymphocytes # (Auto) 2.1 x10^3/uL (1.0-4.8) Monocytes # (Auto) 0.6 x10^3/uL (0.0-1.1) Eosinophils # (Auto) 0.1 x10^3/uL (0.0-0.7) Basophils # (Auto) 0.1 x10^3/uL (0.0-0.2) Sodium Level 138 mmol/L (136-145) Potassium Level 3.7 mmol/L (3.5-5.1) Chloride Level 102 mmol/L (98-107) Carbon Dioxide Level 28 mmol/L (21-32) Anion Gap 8 (6-14) Blood Urea Nitrogen 4 mg/dL (7-20) Creatinine 0.8 mg/dL (0.6-1.0) Estimated GFR (Cockcroft-Gault) 82.6 BUN/Creatinine Ratio 5 (6-20) Glucose Level 141 mg/dL (70-99) Calcium Level 9.2 mg/dL (8.5-10.1) Total Bilirubin 1.9 mg/dL (0.2-1.0) Aspartate Amino Transf (AST/SGOT) 156 U/L (15-37) Alanine Aminotransferase (ALT/SGPT) 126 U/L (14-59) Alkaline Phosphatase 201 U/L (46-116) Total Protein 6.6 g/dL (6.4-8.2) Albumin 3.6 g/dL (3.4-5.0) Albumin/Globulin Ratio 1.2 (1.0-1.7) Lipase 24851 U/L (73-393) Urine Collection Type U cath Urine Color Nikki Urine Clarity Clear Urine pH 6.5 Urine Specific [place] 1.015 Urine Protein Negative mg/dL (NEG-TRACE) Urine Glucose (UA) Negative mg/dL (NEG) Urine Ketones (Stick) Negative mg/dL (NEG) Urine Blood Negative (NEG) Urine Nitrite Negative (NEG) Urine Bilirubin Small (NEG) Urine Urobilinogen Dipstick 1.0 mg/dL (0.2 mg/dL) Urine Leukocyte Esterase Negative (NEG) Urine RBC 0 /HPF (0-2) Urine WBC Occ /HPF (0-4) Urine Squamous Epithelial Cells Mod /LPF Urine Bacteria 0 /HPF (0-FEW) Urine Mucus Mod /LPF Urine Opiates Screen Neg (NEG) Urine Methadone Screen Neg (NEG) Urine Barbiturates Neg (NEG) Urine Phencyclidine Screen Neg (NEG) Urine Amphetamine/Methamphetamine Neg (NEG) Urine Benzodiazepines Screen Neg (NEG) Urine Cocaine Screen Neg (NEG) Urine Cannabinoids Screen Neg (NEG) Urine Ethyl Alcohol Neg (NEG) Urine Test Negative (NEG) Allergies: Coded Allergies: No Known Drug Intolerances (Verified Allergy, Unknown, 12/07/15) Medications: Current Medications Medications (Trade) Dose Ordered Sig/Darell Route PRN Reason Start Time Stop Time Status Last Admin Dose Admin Iohexol (Omnipaque 300 Mg/ml) 75 ml 1X ONCE IV 09/04/16 00:15 09/04/16 00:16 DC 09/04/16 01:15 Lorazepam (Ativan) 0.5 mg 1X ONCE IV 09/04/16 01:15 09/04/16 01:18 DC 09/04/16 01:00 Ondansetron HCl (Zofran) 4 mg 1X ONCE IV 09/04/16 01:15 09/04/16 01:18 DC 09/04/16 01:00 Ondansetron HCl (Zofran) 4 mg PRN Q8HRS PRN IV NAUSEA/VOMITING 09/04/16 02:30 09/04/16 11:31 DC 09/04/16 10:30 Sodium Chloride 1,000 ml @ 125 mls/hr Q8H IV 09/04/16 02:30 09/05/16 02:29 09/04/16 10:11 Hydromorphone HCl (Dilaudid) 1 mg 1X ONCE IV 09/04/16 03:45 09/04/16 03:46 DC 09/04/16 03:39 Morphine Sulfate 2 mg PRN Q2HR PRN IV PAIN 09/04/16 04:15 09/04/16 11:35 DC 09/04/16 10:31 Potassium Chloride/Dextrose/ Sod Cl 1,000 ml @ 150 mls/hr Q6H40M IV 09/04/16 12:00 09/04/16 12:28 Imaging: Imaging: CT A/P 09/04/16 IMPRESSION: CT findings of acute pancreatitis, with prominent soft tissue stranding and fluid about the length of the pancreas. Small volume of fluid present in the left paracolic gutter and dependent pelvis. PE: GEN: NAD, obese HEENT: Atraumatic, PERRL LUNGS: CTAB HEART: RRR ABD: BS quiet, diffusely tender but worst in upper abd EXTREMITY: No edema SKIN: No rashes, no jaundice NEURO/PSYCH: A & O 3 A/P: A/P: Recurrent pancreatitis -upper abd pain radiating to back x 1 week, vomiting -previous admission in 06/2016 for same -has had two CTs, abd US ordered last time, can't find if completed/results -lipase significantly more elevated this time, above 30,000 -also w/ elevated LFTs -- Will order abd US again, r/o gallstones/sludge. ABHIO. STEPHANE PETERS Sep 04, 2016 13:12
[2016-09-04 14:00] VITALS: BP 157/82
--- NOTE | 2016-09-04 14:46 | PDOC1 ---
History and Physical Date of Admission Date of Admission 09/04/16 Identification/Chief Complaint Chief Complaint back pain, abd pain Problems: Source Source: Chart review, Patient History of Present Illness History of Present Illness HPI HPI 31-year-old female with a history of traumatic brain injury as a young person with some significant mental challenges well known to our emergency medicine service for frequent visits now presents to emergency room complaining of abdominal pain and back pain. Pt is a poor historian, has retarded mental development as per nurse. She said she had one time pancreatitis long time ago. recently in [place] for this back pain, new to her, severe, also has some abd pain, with no N/V, fever, chills, chest pain, sob. CT showed acute pancreatitis, lipase >30k. Past Medical History Cardiovascular: No pertinent hx Pulmonary: No pertinent hx GI: No pertinent hx Heme/Onc: No pertinent hx Renal/: No pertinent hx Endocrine: No pertinent hx Past Surgical History Past Surgical History: No pertinent history Family History Family History: High Cholestrol Social History Smoke: No ALCOHOL: none Drugs: None Current Problem List Problem List Problems Medical Problems: (1) Abdominal pain Status: Acute Current Medications Current Medications Current Medications Medications (Trade) Dose Ordered Sig/Darell Start Time Stop Time Status Last Admin Dose Admin Acetaminophen (Tylenol) 650 mg PRN Q6HRS PRN 09/04/16 11:30 Albuterol Sulfate (Ventolin Neb Soln) 2.5 mg PRN Q4HRS PRN 09/04/16 11:45 Docusate Sodium (Colace) 100 mg PRN DAILY PRN 09/04/16 11:30 Enoxaparin Sodium (Lovenox 40mg Syringe) 40 mg Q12H 09/04/16 21:00 Famotidine (Pepcid) 20 mg QHS 09/04/16 21:00 Gabapentin (Neurontin) 1,200 mg QHS 09/04/16 21:00 Hydralazine HCl (Apresoline) 10 mg PRN Q4HRS PRN 09/04/16 11:30 Hydromorphone HCl (Dilaudid) 1 mg 1X ONCE 09/04/16 03:45 09/04/16 03:46 DC 09/04/16 03:39 1 MG Info (Do NOT chart on this entry -- for MONITORING) 1 each PRN DAILY PRN 09/04/16 00:15 09/06/16 00:14 Iohexol (Omnipaque 300 Mg/ml) 75 ml 1X ONCE 09/04/16 00:15 09/04/16 00:16 DC 09/04/16 01:15 75 ML Lamotrigine (LaMICtal) 400 mg BID 09/04/16 12:00 Lorazepam (Ativan) 1 mg 1X ONCE 09/04/16 01:45 09/04/16 01:49 DC Morphine Sulfate 2 mg PRN Q2HR PRN 09/04/16 11:30 09/04/16 14:22 2 MG Ondansetron HCl (Zofran) 4 mg PRN Q6HRS PRN 09/04/16 11:30 Potassium Chloride/Dextrose/ Sod Cl 1,000 ml @ 150 mls/hr Q6H40M 09/04/16 12:00 09/04/16 12:28 150 MLS/HR Sodium Chloride 1,000 ml @ 125 mls/hr Q8H 09/04/16 02:30 09/04/16 14:07 DC 09/04/16 10:11 125 MLS/HR Tramadol HCl (Ultram) 50 mg PRN Q6HRS PRN 09/04/16 11:30 Allergies Allergies Allergies Coded Allergies Type Severity Reaction Last Updated Verified No Known Drug Intolerances Allergy Unknown 12/07/15 Yes ROS Review of System CONSTITUTIONAL: No fever or chills EYES: No recent changes SKIN: No rash or itching CARDIOVASCULAR: No chest pain, syncope, palpitations, or edema RESPIRATORY: No SOB or cough GASTROINTESTINAL: No nausea, vomiting or abdominal pain NEUROLOGICAL: No headaches or weakness ENDOCRINE: No cold or heat intolerance GENITOURINARY: No urgency or frequency of urination MUSCULOSKELETAL: No back pain or joint pain LYMPHATICS: No enlarged lymph nodes PSYCHIATRIC: No anxiety or depression Physical Exam Physical Exam GEN.: in pain. Alert and oriented. VERY obese. HEENT: Head is normocephalic, atraumatic NECK: Supple. LUNGS: Clear to auscultation. HEART: RRR, S1, S2 present. Peripheral pulses intact ABDOMEN: Soft, Positive bowel sounds. mild left side tenderness. EXTREMITIES: Without any cyanosis. NEUROLOGIC: Normal speech, normal tone PSYCHIATRIC: Normal affect, normal mood. SKIN: No ulcerations Vitals Vitals Vital Signs Date Time Temp Pulse Resp B/P (MAP) Pulse Ox O2 Delivery O2 Flow Rate FiO2 09/04/16 14:26 Room Air 09/04/16 14:00 98.1 73 18 157/82 (107) 96 98.1 09/03/16 23:29 96.0 Labs Labs Laboratory Tests Test 09/04/16 00:10 09/04/16 00:25 09/04/16 00:30 White Blood Count 10.8 x10^3/uL (4.0-11.0) Red Blood Count 4.39 x10^6/uL (3.50-5.40) Hemoglobin 13.1 g/dL (12.0-15.5) Hematocrit 40.0 % (36.0-47.0) Mean Corpuscular Volume 91 fL (79-100) Mean Corpuscular Hemoglobin 30 pg (25-35) Mean Corpuscular Hemoglobin Concent 33 g/dL (31-37) Red Cell Distribution Width 15.3 % (11.5-14.5) Platelet Count 351 x10^3/uL (140-400) Neutrophils (%) (Auto) 73 % (31-73) Lymphocytes (%) (Auto) 20 % (24-48) Monocytes (%) (Auto) 6 % (0-9) Eosinophils (%) (Auto) 1 % (0-3) Basophils (%) (Auto) 1 % (0-3) Neutrophils # (Auto) 7.9 x10^3uL (1.8-7.7) Lymphocytes # (Auto) 2.1 x10^3/uL (1.0-4.8) Monocytes # (Auto) 0.6 x10^3/uL (0.0-1.1) Eosinophils # (Auto) 0.1 x10^3/uL (0.0-0.7) Basophils # (Auto) 0.1 x10^3/uL (0.0-0.2) Sodium Level 138 mmol/L (136-145) Potassium Level 3.7 mmol/L (3.5-5.1) Chloride Level 102 mmol/L (98-107) Carbon Dioxide Level 28 mmol/L (21-32) Anion Gap 8 (6-14) Blood Urea Nitrogen 4 mg/dL (7-20) Creatinine 0.8 mg/dL (0.6-1.0) Estimated GFR (Cockcroft-Gault) 82.6 BUN/Creatinine Ratio 5 (6-20) Glucose Level 141 mg/dL (70-99) Calcium Level 9.2 mg/dL (8.5-10.1) Total Bilirubin 1.9 mg/dL (0.2-1.0) Aspartate Amino Transf (AST/SGOT) 156 U/L (15-37) Alanine Aminotransferase (ALT/SGPT) 126 U/L (14-59) Alkaline Phosphatase 201 U/L (46-116) Total Protein 6.6 g/dL (6.4-8.2) Albumin 3.6 g/dL (3.4-5.0) Albumin/Globulin Ratio 1.2 (1.0-1.7) Lipase 14900 U/L (73-393) Urine Collection Type U cath Urine Color Nikki Urine Clarity Clear Urine pH 6.5 Urine Specific [place] 1.015 Urine Protein Negative mg/dL (NEG-TRACE) Urine Glucose (UA) Negative mg/dL (NEG) Urine Ketones (Stick) Negative mg/dL (NEG) Urine Blood Negative (NEG) Urine Nitrite Negative (NEG) Urine Bilirubin Small (NEG) Urine Urobilinogen Dipstick 1.0 mg/dL (0.2 mg/dL) Urine Leukocyte Esterase Negative (NEG) Urine RBC 0 /HPF (0-2) Urine WBC Occ /HPF (0-4) Urine Squamous Epithelial Cells Mod /LPF Urine Bacteria 0 /HPF (0-FEW) Urine Mucus Mod /LPF Urine Opiates Screen Neg (NEG) Urine Methadone Screen Neg (NEG) Urine Barbiturates Neg (NEG) Urine Phencyclidine Screen Neg (NEG) Urine Amphetamine/Methamphetamine Neg (NEG) Urine Benzodiazepines Screen Neg (NEG) Urine Cocaine Screen Neg (NEG) Urine Cannabinoids Screen Neg (NEG) Urine Ethyl Alcohol Neg (NEG) Urine Test Negative (NEG) Laboratory Tests Test 09/04/16 00:10 09/04/16 00:25 09/04/16 00:30 White Blood Count 10.8 x10^3/uL (4.0-11.0) Red Blood Count 4.39 x10^6/uL (3.50-5.40) Hemoglobin 13.1 g/dL (12.0-15.5) Hematocrit 40.0 % (36.0-47.0) Mean Corpuscular Volume 91 fL (79-100) Mean Corpuscular Hemoglobin 30 pg (25-35) Mean Corpuscular Hemoglobin Concent 33 g/dL (31-37) Red Cell Distribution Width 15.3 % (11.5-14.5) Platelet Count 351 x10^3/uL (140-400) Neutrophils (%) (Auto) 73 % (31-73) Lymphocytes (%) (Auto) 20 % (24-48) Monocytes (%) (Auto) 6 % (0-9) Eosinophils (%) (Auto) 1 % (0-3) Basophils (%) (Auto) 1 % (0-3) Neutrophils # (Auto) 7.9 x10^3uL (1.8-7.7) Lymphocytes # (Auto) 2.1 x10^3/uL (1.0-4.8) Monocytes # (Auto) 0.6 x10^3/uL (0.0-1.1) Eosinophils # (Auto) 0.1 x10^3/uL (0.0-0.7) Basophils # (Auto) 0.1 x10^3/uL (0.0-0.2) Sodium Level 138 mmol/L (136-145) Potassium Level 3.7 mmol/L (3.5-5.1) Chloride Level 102 mmol/L (98-107) Carbon Dioxide Level 28 mmol/L (21-32) Anion Gap 8 (6-14) Blood Urea Nitrogen 4 mg/dL (7-20) Creatinine 0.8 mg/dL (0.6-1.0) Estimated GFR (Cockcroft-Gault) 82.6 BUN/Creatinine Ratio 5 (6-20) Glucose Level 141 mg/dL (70-99) Calcium Level 9.2 mg/dL (8.5-10.1) Total Bilirubin 1.9 mg/dL (0.2-1.0) Aspartate Amino Transf (AST/SGOT) 156 U/L (15-37) Alanine Aminotransferase (ALT/SGPT) 126 U/L (14-59) Alkaline Phosphatase 201 U/L (46-116) Total Protein 6.6 g/dL (6.4-8.2) Albumin 3.6 g/dL (3.4-5.0) Albumin/Globulin Ratio 1.2 (1.0-1.7) Lipase 30116 U/L (73-393) Urine Collection Type U cath Urine Color Nikki Urine Clarity Clear Urine pH 6.5 Urine Specific [place] 1.015 Urine Protein Negative mg/dL (NEG-TRACE) Urine Glucose (UA) Negative mg/dL (NEG) Urine Ketones (Stick) Negative mg/dL (NEG) Urine Blood Negative (NEG) Urine Nitrite Negative (NEG) Urine Bilirubin Small (NEG) Urine Urobilinogen Dipstick 1.0 mg/dL (0.2 mg/dL) Urine Leukocyte Esterase Negative (NEG) Urine RBC 0 /HPF (0-2) Urine WBC Occ /HPF (0-4) Urine Squamous Epithelial Cells Mod /LPF Urine Bacteria 0 /HPF (0-FEW) Urine Mucus Mod /LPF Urine Opiates Screen Neg (NEG) Urine Methadone Screen Neg (NEG) Urine Barbiturates Neg (NEG) Urine Phencyclidine Screen Neg (NEG) Urine Amphetamine/Methamphetamine Neg (NEG) Urine Benzodiazepines Screen Neg (NEG) Urine Cocaine Screen Neg (NEG) Urine Cannabinoids Screen Neg (NEG) Urine Ethyl Alcohol Neg (NEG) Urine Test Negative (NEG) VTE Prophylaxis Ordered VTE Prophylaxis Devices: Yes VTE Pharmacological Prophylaxi: Yes Assessment/Plan Assessment/Plan acute recurrent pancreatitis, not clear etiology mental slow development behavior problems morbid obesity BMI 48 anxiety intermittent asthma plan: gi consult US abd pending increase ivf npo lipase daily dvt , gi ppx cont po home meds admit >2d check urine tox neg, lipid panel. MARYA TOWNSEND MD Sep 04, 2016 14:46
--- NOTE | 2016-09-04 14:49 | RAD ---
Indication: Recurrent pancreatitis. The pancreas was poorly visualized. No gross abnormality is seen. The liver is enlarged at 17.9 cm. No discrete liver mass is detected. The gallbladder contains numerous gallstones. No wall thickening or pericholecystic fluid is identified. No biliary ductal dilatation is identified. The right kidney is unremarkable. There is no ascites. Impression: 1. Hepatomegaly. 2. Cholelithiasis without evidence of acute cholecystitis.
[2016-09-04 19:00] VITALS: BP 138/66
[2016-09-04] MEDS: ENOXAPARIN 40 MG/0.4 ML SYRINGE. SQ SCH (21:06)
[2016-09-04] MEDS: FAMOTIDINE 20 MG/2 ML VIAL IVP SCH (21:07)
[2016-09-04] MEDS: GABAPENTIN 400 MG CAPSULE. PO SCH (21:07)
[2016-09-04] MEDS: traMADol 50 MG TABLET PO PRN (21:07)
[2016-09-04 23:00] VITALS: BP 140/77
[2016-09-05] MEDS: POTASSIUM CL 20MEQ D5-0.9%NACL 1,000 ML IV SCH ×4 (01:20→20:03)
[2016-09-05 03:00] VITALS: BP 119/80
[2016-09-05 04:48] LABS: BASO # 0.1 x10^3/uL (0.0-0.2); BASO % 0 % (0-3); EOS % 0 % (0-3); HEMATOCRIT 38.1 % (36.0-47.0); HEMOGLOBIN 12.5 g/dL (12.0-15.5); LYMPH # 1.6 x10^3/uL (1.0-4.8); LYMPH % 10 % (24-48); MEAN CORPUSCULAR HEMOGLOBIN 31 pg (25-35); MEAN CORPUSCULAR HGB CONC 33 g/dL (31-37); MEAN CORPUSCULAR VOLUME 93 fL (79-100); MONO % 5 % (0-9); NEUT % 84 % (31-73); PLATELET COUNT 314 x10^3/uL (140-400); RED BLOOD COUNT 4.09 x10^6/uL (3.50-5.40); RED CELL DISTRIBUTION WIDTH 15.8 % (11.5-14.5); WHITE BLOOD COUNT 15.8 x10^3/uL (4.0-11.0)
[2016-09-05 05:12] LABS: CALCIUM 8.3 mg/dL (8.5-10.1); CREATININE 0.7 mg/dL (0.6-1.0); DIRECT BILIRUBIN 0.4 mg/dL (0.0-0.2); GFR 96.4; TOTAL BILIRUBIN 0.9 mg/dL (0.2-1.0); TOTAL PROTEIN 5.7 g/dL (6.4-8.2)
[2016-09-05 05:14] LABS: CHOLESTEROL/HDL RATIO 3.2
[2016-09-05] MEDS: GABAPENTIN 400 MG CAPSULE. PO SCH ×2 (06:00→20:03)
[2016-09-05 07:00] VITALS: BP 128/65
[2016-09-05 07:50] LABS: PLT ESTIMATE ADEQUATE (ADEQUATE)
[2016-09-05] MEDS: lamoTRIgine 100 MG TABLET. PO SCH ×2 (09:00→20:03)
[2016-09-05] MEDS: ENOXAPARIN 40 MG/0.4 ML SYRINGE. SQ SCH ×2 (10:00→20:04)
[2016-09-05 11:00] VITALS: BP 147/77
--- NOTE | 2016-09-05 11:20 | PDOC ---
Subjective: Subjective: Thirsty. Pain is better, still has "a little." Objective: Objective: Tmax 99.5 Vital Signs: Vital Signs Date Time Temp Pulse Resp B/P (MAP) Pulse Ox O2 Delivery O2 Flow Rate FiO2 09/05/16 11:00 97.9 80 20 147/77 (100) 94 Room Air 97.9 Labs: Laboratory Tests Test 09/05/16 03:52 White Blood Count 15.8 x10^3/uL Red Blood Count 4.09 x10^6/uL Hemoglobin 12.5 g/dL Hematocrit 38.1 % Mean Corpuscular Volume 93 fL Mean Corpuscular Hemoglobin 31 pg Mean Corpuscular Hemoglobin Concent 33 g/dL Red Cell Distribution Width 15.8 % Platelet Count 314 x10^3/uL Neutrophils (%) (Auto) 84 % Lymphocytes (%) (Auto) 10 % Monocytes (%) (Auto) 5 % Eosinophils (%) (Auto) 0 % Basophils (%) (Auto) 0 % Neutrophils # (Auto) 13.2 x10^3uL Lymphocytes # (Auto) 1.6 x10^3/uL Monocytes # (Auto) 0.9 x10^3/uL Eosinophils # (Auto) 0.0 x10^3/uL Basophils # (Auto) 0.1 x10^3/uL Segmented Neutrophils % 80 % Band Neutrophils % 7 % Lymphocytes % 7 % Monocytes % 6 % Platelet Estimate Adequate Sodium Level 141 mmol/L Potassium Level 4.0 mmol/L Chloride Level 107 mmol/L Carbon Dioxide Level 27 mmol/L Anion Gap 7 Blood Urea Nitrogen 5 mg/dL Creatinine 0.7 mg/dL Estimated GFR (Cockcroft-Gault) 96.4 Glucose Level 101 mg/dL Calcium Level 8.3 mg/dL Total Bilirubin 0.9 mg/dL Direct Bilirubin 0.4 mg/dL Aspartate Amino Transf (AST/SGOT) 40 U/L Alanine Aminotransferase (ALT/SGPT) 93 U/L Alkaline Phosphatase 169 U/L Total Protein 5.7 g/dL Albumin 3.0 g/dL Triglycerides Level 71 mg/dL Cholesterol Level 176 mg/dL LDL Cholesterol, Calculated 107 mg/dL VLDL Cholesterol, Calculated 14 mg/dL Non-HDL Cholesterol Calculated 121 mg/dL HDL Cholesterol 55 mg/dL Cholesterol/HDL Ratio 3.2 Lipase 6629 U/L Imaging: RUQ US 09/04/16 Impression: 1. Hepatomegaly. 2. Cholelithiasis without evidence of acute cholecystitis. PE: GEN: NAD, was asleep LUNGS: clear HEART: RRR ABD: epigastric discomfort, obese NEURO/PSYCH: A & O 3 A/P: Recurrent pancreatitis, cholelithiasis, leukocytosis -lipase from >30,000 to 6600, LFTs better -- Continue current treatment, okay for sips & chips. Needs cholecystectomy eventually, asked surgery to see. STEPHANE PETERS Sep 05, 2016 11:20
--- NOTE | 2016-09-05 12:35 | PDOC ---
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 morbid obesity BMI 48 anxiety intermittent asthma plan: gi consulted, sx consult US abd done increase ivf npo lipase daily dvt , gi ppx cont po home meds History of Present Illness History of Present Illness abd , back pain slightlybetter LFT, lipase better severe N/V last night higher wbc Vitals Vitals Vital Signs Date Time Temp Pulse Resp B/P (MAP) Pulse Ox O2 Delivery O2 Flow Rate FiO2 09/05/16 11:00 97.9 80 20 147/77 (100) 94 Room Air 97.9 Physical Exam General: Alert, Oriented X3, Cooperative Heart: Regular rate, Normal S1 Lungs: Clear Abdomen: Normal bowel sounds, Soft, Other (mild abd tenderness) Extremities: No clubbing, No cyanosis Skin: No breakdown Labs LABS Laboratory Tests Test 09/05/16 03:52 White Blood Count 15.8 x10^3/uL (4.0-11.0) Red Blood Count 4.09 x10^6/uL (3.50-5.40) Hemoglobin 12.5 g/dL (12.0-15.5) Hematocrit 38.1 % (36.0-47.0) Mean Corpuscular Volume 93 fL (79-100) Mean Corpuscular Hemoglobin 31 pg (25-35) Mean Corpuscular Hemoglobin Concent 33 g/dL (31-37) Red Cell Distribution Width 15.8 % (11.5-14.5) Platelet Count 314 x10^3/uL (140-400) Neutrophils (%) (Auto) 84 % (31-73) Lymphocytes (%) (Auto) 10 % (24-48) Monocytes (%) (Auto) 5 % (0-9) Eosinophils (%) (Auto) 0 % (0-3) Basophils (%) (Auto) 0 % (0-3) Neutrophils # (Auto) 13.2 x10^3uL (1.8-7.7) Lymphocytes # (Auto) 1.6 x10^3/uL (1.0-4.8) Monocytes # (Auto) 0.9 x10^3/uL (0.0-1.1) Eosinophils # (Auto) 0.0 x10^3/uL (0.0-0.7) Basophils # (Auto) 0.1 x10^3/uL (0.0-0.2) Segmented Neutrophils % 80 % (35-66) Band Neutrophils % 7 % (0-9) Lymphocytes % 7 % (24-48) Monocytes % 6 % (0-10) Platelet Estimate Adequate (ADEQUATE) Sodium Level 141 mmol/L (136-145) Potassium Level 4.0 mmol/L (3.5-5.1) Chloride Level 107 mmol/L (98-107) Carbon Dioxide Level 27 mmol/L (21-32) Anion Gap 7 (6-14) Blood Urea Nitrogen 5 mg/dL (7-20) Creatinine 0.7 mg/dL (0.6-1.0) Estimated GFR (Cockcroft-Gault) 96.4 Glucose Level 101 mg/dL (70-99) Calcium Level 8.3 mg/dL (8.5-10.1) Total Bilirubin 0.9 mg/dL (0.2-1.0) Direct Bilirubin 0.4 mg/dL (0.0-0.2) Aspartate Amino Transf (AST/SGOT) 40 U/L (15-37) Alanine Aminotransferase (ALT/SGPT) 93 U/L (14-59) Alkaline Phosphatase 169 U/L (46-116) Total Protein 5.7 g/dL (6.4-8.2) Albumin 3.0 g/dL (3.4-5.0) Triglycerides Level 71 mg/dL (0-150) Cholesterol Level 176 mg/dL (0-200) LDL Cholesterol, Calculated 107 mg/dL (0-100) VLDL Cholesterol, Calculated 14 mg/dL (0-40) Non-HDL Cholesterol Calculated 121 mg/dL (0-129) HDL Cholesterol 55 mg/dL (40-60) Cholesterol/HDL Ratio 3.2 Lipase 6629 U/L (73-393) Review of Systems Review of Systems no fever, chills, sob or chest pain Assessment and Plan Assessmemt and Plan Problems Medical Problems: (1) Abdominal pain Status: Acute Problems: Comment Review of Relevant I have reviewed the following items scar (where applicable) has been applied. Labs Laboratory Tests Test 09/04/16 00:10 09/04/16 00:25 09/04/16 00:30 09/05/16 03:52 White Blood Count 10.8 x10^3/uL (4.0-11.0) 15.8 x10^3/uL (4.0-11.0) Red Blood Count 4.39 x10^6/uL (3.50-5.40) 4.09 x10^6/uL (3.50-5.40) Hemoglobin 13.1 g/dL (12.0-15.5) 12.5 g/dL (12.0-15.5) Hematocrit 40.0 % (36.0-47.0) 38.1 % (36.0-47.0) Mean Corpuscular Volume 91 fL (79-100) 93 fL (79-100) Mean Corpuscular Hemoglobin 30 pg (25-35) 31 pg (25-35) Mean Corpuscular Hemoglobin Concent 33 g/dL (31-37) 33 g/dL (31-37) Red Cell Distribution Width 15.3 % (11.5-14.5) 15.8 % (11.5-14.5) Platelet Count 351 x10^3/uL (140-400) 314 x10^3/uL (140-400) Neutrophils (%) (Auto) 73 % (31-73) 84 % (31-73) Lymphocytes (%) (Auto) 20 % (24-48) 10 % (24-48) Monocytes (%) (Auto) 6 % (0-9) 5 % (0-9) Eosinophils (%) (Auto) 1 % (0-3) 0 % (0-3) Basophils (%) (Auto) 1 % (0-3) 0 % (0-3) Neutrophils # (Auto) 7.9 x10^3uL (1.8-7.7) 13.2 x10^3uL (1.8-7.7) Lymphocytes # (Auto) 2.1 x10^3/uL (1.0-4.8) 1.6 x10^3/uL (1.0-4.8) Monocytes # (Auto) 0.6 x10^3/uL (0.0-1.1) 0.9 x10^3/uL (0.0-1.1) Eosinophils # (Auto) 0.1 x10^3/uL (0.0-0.7) 0.0 x10^3/uL (0.0-0.7) Basophils # (Auto) 0.1 x10^3/uL (0.0-0.2) 0.1 x10^3/uL (0.0-0.2) Sodium Level 138 mmol/L (136-145) 141 mmol/L (136-145) Potassium Level 3.7 mmol/L (3.5-5.1) 4.0 mmol/L (3.5-5.1) Chloride Level 102 mmol/L (98-107) 107 mmol/L (98-107) Carbon Dioxide Level 28 mmol/L (21-32) 27 mmol/L (21-32) Anion Gap 8 (6-14) 7 (6-14) Blood Urea Nitrogen 4 mg/dL (7-20) 5 mg/dL (7-20) Creatinine 0.8 mg/dL (0.6-1.0) 0.7 mg/dL (0.6-1.0) Estimated GFR (Cockcroft-Gault) 82.6 96.4 BUN/Creatinine Ratio 5 (6-20) Glucose Level 141 mg/dL (70-99) 101 mg/dL (70-99) Calcium Level 9.2 mg/dL (8.5-10.1) 8.3 mg/dL (8.5-10.1) Total Bilirubin 1.9 mg/dL (0.2-1.0) 0.9 mg/dL (0.2-1.0) Aspartate Amino Transf (AST/SGOT) 156 U/L (15-37) 40 U/L (15-37) Alanine Aminotransferase (ALT/SGPT) 126 U/L (14-59) 93 U/L (14-59) Alkaline Phosphatase 201 U/L (46-116) 169 U/L (46-116) Total Protein 6.6 g/dL (6.4-8.2) 5.7 g/dL (6.4-8.2) Albumin 3.6 g/dL (3.4-5.0) 3.0 g/dL (3.4-5.0) Albumin/Globulin Ratio 1.2 (1.0-1.7) Lipase 40032 U/L (73-393) 6629 U/L (73-393) Urine Collection Type U cath Urine Color Nikki Urine Clarity Clear Urine pH 6.5 Urine Specific [place] 1.015 Urine Protein Negative mg/dL (NEG-TRACE) Urine Glucose (UA) Negative mg/dL (NEG) Urine Ketones (Stick) Negative mg/dL (NEG) Urine Blood Negative (NEG) Urine Nitrite Negative (NEG) Urine Bilirubin Small (NEG) Urine Urobilinogen Dipstick 1.0 mg/dL (0.2 mg/dL) Urine Leukocyte Esterase Negative (NEG) Urine RBC 0 /HPF (0-2) Urine WBC Occ /HPF (0-4) Urine Squamous Epithelial Cells Mod /LPF Urine Bacteria 0 /HPF (0-FEW) Urine Mucus Mod /LPF Urine Opiates Screen Neg (NEG) Urine Methadone Screen Neg (NEG) Urine Barbiturates Neg (NEG) Urine Phencyclidine Screen Neg (NEG) Urine Amphetamine/Methamphetamine Neg (NEG) Urine Benzodiazepines Screen Neg (NEG) Urine Cocaine Screen Neg (NEG) Urine Cannabinoids Screen Neg (NEG) Urine Ethyl Alcohol Neg (NEG) Urine Test Negative (NEG) Segmented Neutrophils % 80 % (35-66) Band Neutrophils % 7 % (0-9) Lymphocytes % 7 % (24-48) Monocytes % 6 % (0-10) Platelet Estimate Adequate (ADEQUATE) Direct Bilirubin 0.4 mg/dL (0.0-0.2) Triglycerides Level 71 mg/dL (0-150) Cholesterol Level 176 mg/dL (0-200) LDL Cholesterol, Calculated 107 mg/dL (0-100) VLDL Cholesterol, Calculated 14 mg/dL (0-40) Non-HDL Cholesterol Calculated 121 mg/dL (0-129) HDL Cholesterol 55 mg/dL (40-60) Cholesterol/HDL Ratio 3.2 Laboratory Tests Test 09/05/16 03:52 White Blood Count 15.8 x10^3/uL (4.0-11.0) Red Blood Count 4.09 x10^6/uL (3.50-5.40) Hemoglobin 12.5 g/dL (12.0-15.5) Hematocrit 38.1 % (36.0-47.0) Mean Corpuscular Volume 93 fL (79-100) Mean Corpuscular Hemoglobin 31 pg (25-35) Mean Corpuscular Hemoglobin Concent 33 g/dL (31-37) Red Cell Distribution Width 15.8 % (11.5-14.5) Platelet Count 314 x10^3/uL (140-400) Neutrophils (%) (Auto) 84 % (31-73) Lymphocytes (%) (Auto) 10 % (24-48) Monocytes (%) (Auto) 5 % (0-9) Eosinophils (%) (Auto) 0 % (0-3) Basophils (%) (Auto) 0 % (0-3) Neutrophils # (Auto) 13.2 x10^3uL (1.8-7.7) Lymphocytes # (Auto) 1.6 x10^3/uL (1.0-4.8) Monocytes # (Auto) 0.9 x10^3/uL (0.0-1.1) Eosinophils # (Auto) 0.0 x10^3/uL (0.0-0.7) Basophils # (Auto) 0.1 x10^3/uL (0.0-0.2) Segmented Neutrophils % 80 % (35-66) Band Neutrophils % 7 % (0-9) Lymphocytes % 7 % (24-48) Monocytes % 6 % (0-10) Platelet Estimate Adequate (ADEQUATE) Sodium Level 141 mmol/L (136-145) Potassium Level 4.0 mmol/L (3.5-5.1) Chloride Level 107 mmol/L (98-107) Carbon Dioxide Level 27 mmol/L (21-32) Anion Gap 7 (6-14) Blood Urea Nitrogen 5 mg/dL (7-20) Creatinine 0.7 mg/dL (0.6-1.0) Estimated GFR (Cockcroft-Gault) 96.4 Glucose Level 101 mg/dL (70-99) Calcium Level 8.3 mg/dL (8.5-10.1) Total Bilirubin 0.9 mg/dL (0.2-1.0) Direct Bilirubin 0.4 mg/dL (0.0-0.2) Aspartate Amino Transf (AST/SGOT) 40 U/L (15-37) Alanine Aminotransferase (ALT/SGPT) 93 U/L (14-59) Alkaline Phosphatase 169 U/L (46-116) Total Protein 5.7 g/dL (6.4-8.2) Albumin 3.0 g/dL (3.4-5.0) Triglycerides Level 71 mg/dL (0-150) Cholesterol Level 176 mg/dL (0-200) LDL Cholesterol, Calculated 107 mg/dL (0-100) VLDL Cholesterol, Calculated 14 mg/dL (0-40) Non-HDL Cholesterol Calculated 121 mg/dL (0-129) HDL Cholesterol 55 mg/dL (40-60) Cholesterol/HDL Ratio 3.2 Lipase 6629 U/L (73-393) Medications Current Medications Iohexol (Omnipaque 300 Mg/ml) 75 ml 1X ONCE IV Last administered on 09/04/16 01:15; Start 09/04/16 at 00:15; Stop 09/04/16 at 00:16; Status DC Info (Do NOT chart on this entry -- for MONITORING) 1 each PRN DAILY PRN MC SEE COMMENTS; Start 09/04/16 at 00:15; Stop 09/06/16 at 00:14 Ondansetron HCl (Zofran) 4 mg STK-MED ONCE .ROUTE ; Start 09/04/16 at 01:00; Stop 09/04/16 at 01:01; Status DC Lorazepam (Ativan) 2 mg STK-MED ONCE .ROUTE ; Start 09/04/16 at 01:01; Stop at 01:02; Status DC Lorazepam (Ativan) 0.5 mg 1X ONCE IV Last administered on 09/04/16 01:00; Start 09/04/16 at 01:15; Stop 09/04/16 at 01:18; Status DC Ondansetron HCl (Zofran) 4 mg 1X ONCE IV Last administered on 09/04/16 01:00 ; Start 09/04/16 at 01:15; Stop 09/04/16 at 01:18; Status DC Lorazepam (Ativan) 1 mg 1X ONCE IV ; Start 09/04/16 at 01:45; Stop 09/04/16 at 01:49; Status DC Ondansetron HCl (Zofran) 4 mg PRN Q8HRS PRN IV NAUSEA/VOMITING Last administered on 09/04/16 10:30; Start 09/04/16 at 02:30; Stop 09/04/16 at 11:31 ; Status DC Sodium Chloride 1,000 ml @ 125 mls/hr Q8H IV Last administered on 09/04/16 10 :11; Start 09/04/16 at 02:30; Stop 09/04/16 at 14:07; Status DC Hydromorphone HCl (Dilaudid) 1 mg 1X ONCE IV Last administered on 09/04/16 03 :39; Start 09/04/16 at 03:45; Stop 09/04/16 at 03:46; Status DC Morphine Sulfate 2 mg PRN Q2HR PRN IV PAIN Last administered on 09/04/16 10:31 ; Start 09/04/16 at 04:15; Stop 09/04/16 at 11:35; Status DC Acetaminophen (Tylenol) 650 mg PRN Q6HRS PRN PO FEVER; Start 09/04/16 at 11:30 Ondansetron HCl (Zofran) 4 mg PRN Q6HRS PRN IV NAUSEA/VOMITING; Start 09/04/16 at 11:30 Morphine Sulfate 2 mg PRN Q2HR PRN IV PAIN Last administered on 09/04/16 14:22 ; Start 09/04/16 at 11:30 Tramadol HCl (Ultram) 50 mg PRN Q6HRS PRN PO PAIN Last administered on 21:07; Start 09/04/16 at 11:30 Hydralazine HCl (Apresoline) 10 mg PRN Q4HRS PRN IVP ELEVATED BP, SEE COMMENTS ; Start 09/04/16 at 11:30 Docusate Sodium (Colace) 100 mg PRN DAILY PRN PO CONSTIPATION; Start 09/04/16 at 11:30 Potassium Chloride/Dextrose/ Sod Cl 1,000 ml @ 150 mls/hr Q6H40M IV Last administered on 09/05/16 06:33; Start 09/04/16 at 12:00 Famotidine (Pepcid) 20 mg QHS IVP Last administered on 09/04/16 21:07; Start 09/04/16 at 21:00 Enoxaparin Sodium (Lovenox 40mg Syringe) 40 mg Q12H SQ Last administered on 10:00; Start 09/04/16 at 21:00 Albuterol Sulfate (Ventolin Neb Soln) 2.5 mg PRN Q4HRS PRN NEB SHORTNESS OF BREATH; Start 09/04/16 at 11:45 Gabapentin (Neurontin) 400 mg DAILY06 PO ; Start 09/05/16 at 06:00 Gabapentin (Neurontin) 1,200 mg QHS PO Last administered on 09/04/16 21:07; Start 09/04/16 at 21:00 Lamotrigine (LaMICtal) 400 mg BID PO Last administered on 09/04/16 21:07; Start 09/04/16 at 12:00 Active Scripts Active Zofran Odt (Ondansetron) 4 Mg Tab.rapdis 1 Tab SL PRN Q8HRS PRN Proair Respiclick (Albuterol Sulfate) 90 Mcg Aer.pow.ba 1 Puff IH PRN Q6HRS PRN Proair Hfa Inhaler (Albuterol Sulfate) 8.5 Gm Hfa.aer.ad 2 Puff INH Q4HRS PRN Proventil Hfa Inhaler (Albuterol Sulfate) 6.7 Gm Hfa.aer.ad 1 Puff IH PRN Q4HRS PRN Reported Gabapentin 400 Mg Capsule 3 Cap PO QHS Gabapentin 400 Mg Capsule 2 Cap PO DAILY06 Lamotrigine 200 Mg Tablet 2 Tab PO BID Vitals/I & O Vital Sign - Last 24 Hours 09/04/16 09/04/16 09/04/16 09/04/16 14:00 14:22 14:26 14:52 Temp 98.1 98.1 Pulse 73 Resp 18 B/P (MAP) 157/82 (107) Pulse Ox 96 O2 Delivery Room Air Room Air Room Air Room Air 09/04/16 09/04/16 09/04/16 09/05/16 19:00 20:00 23:00 03:00 Temp 98.6 98.9 98.1 98.6 98.9 98.1 Pulse 94 86 93 Resp 18 18 18 B/P (MAP) 138/66 (90) 140/77 (98) 119/80 (93) Pulse Ox 97 94 96 O2 Delivery Room Air Room Air Room Air Room Air 09/05/16 09/05/16 09/05/16 07:00 08:00 11:00 Temp 99.5 97.9 99.5 97.9 Pulse 88 80 Resp 20 20 B/P (MAP) 128/65 (86) 147/77 (100) Pulse Ox 91 94 O2 Delivery Room Air Room Air Room Air Intake and Output 6/29/17 6/29/17 6/30/17 15:00 23:00 07:00 Intake Total 0 ml 0 ml Output Total 200 ml Balance 0 ml -200 ml MARYA TOWNSEND MD Sep 05, 2016 12:35
--- NOTE | 2016-09-05 13:32 | PDOC ---
Provider Note Provider Note SURG pt seen briefly yesterday was having an IV placed clinical presentation did not warrant emergent surgical intervention went by today she was sleeping soundly I did not wake her need to defervesce acute event (pancreatitis) before offering cholecystectomy toward that end, continue gut rest, IV fluid resuscitation and serial labs/exams will follow with Thanks for consult Dr Blanton to follow over the weekend SELENA MURDOCK MD Sep 05, 2016 13:32
[2016-09-05 14:33] VITALS: BP 126/69
[2016-09-05 19:00] VITALS: BP 132/63
[2016-09-05] MEDS: FAMOTIDINE 20 MG/2 ML VIAL IVP SCH (20:03)
[2016-09-05] MEDS: ACETAMINOPHEN 325 MG TABLET. PO PRN (20:03)
[2016-09-05 23:00] VITALS: BP 115/56
[2016-09-06 03:00] VITALS: BP 138/72
[2016-09-06] MEDS: POTASSIUM CL 20MEQ D5-0.9%NACL 1,000 ML IV SCH ×3 (04:00→17:20)
[2016-09-06 05:11] LABS: BASO % 0 % (0-3); EOS % 1 % (0-3); HEMOGLOBIN 11.6 g/dL (12.0-15.5); LYMPH # 1.3 x10^3/uL (1.0-4.8); LYMPH % 11 % (24-48); MEAN CORPUSCULAR HEMOGLOBIN 30 pg (25-35); MEAN CORPUSCULAR HGB CONC 33 g/dL (31-37); MEAN CORPUSCULAR VOLUME 91 fL (79-100); MONO % 8 % (0-9); NEUT % 80 % (31-73); PLATELET COUNT 265 x10^3/uL (140-400); RED BLOOD COUNT 3.85 x10^6/uL (3.50-5.40); RED CELL DISTRIBUTION WIDTH 15.7 % (11.5-14.5); WHITE BLOOD COUNT 11.9 x10^3/uL (4.0-11.0)
[2016-09-06 05:29] LABS: CALCIUM 8.3 mg/dL (8.5-10.1); CREATININE 0.6 mg/dL (0.6-1.0); GFR 115.1; POTASSIUM 3.6 mmol/L (3.5-5.1)
[2016-09-06] MEDS: GABAPENTIN 400 MG CAPSULE. PO SCH ×2 (06:00→20:42)
[2016-09-06 07:00] VITALS: BP 142/96
[2016-09-06 08:09] LABS: ALBUMIN 2.8 g/dL (3.4-5.0); DIRECT BILIRUBIN 0.3 mg/dL (0.0-0.2); TOTAL BILIRUBIN 0.7 mg/dL (0.2-1.0); TOTAL PROTEIN 5.7 g/dL (6.4-8.2)
[2016-09-06] MEDS: lamoTRIgine 100 MG TABLET. PO SCH ×2 (08:39→20:42)
[2016-09-06] MEDS: ENOXAPARIN 40 MG/0.4 ML SYRINGE. SQ SCH ×2 (08:40→20:42)
[2016-09-06] MEDS: ACETAMINOPHEN 325 MG TABLET. PO PRN (08:42)
--- NOTE | 2016-09-06 09:32 | PDOC ---
MAC LEMONS FISCAL ECONOMIST 09/06/16 0932: SURGICAL PROGRESS NOTE Subjective denies abdominal pain + pain to low back wanting to know about going home, reports the bed is bad on her back Vital Signs Vital Signs Date Time Temp Pulse Resp B/P (MAP) Pulse Ox O2 Delivery O2 Flow Rate FiO2 09/06/16 07:00 98.6 92 20 142/96 (111) 98 Room Air 98.6 I&O Intake and Output 09/06/16 06:59 Intake Total 300 ml Balance 300 ml Intake Oral 300 ml # Voids 5 General: Alert, Oriented X3, Cooperative, No acute distress Abdomen: Soft, Other (ND, NTTP, obese abdomen ) Labs Laboratory Tests Test 09/05/16 03:52 09/06/16 04:25 White Blood Count 15.8 x10^3/uL (4.0-11.0) 11.9 x10^3/uL (4.0-11.0) Red Blood Count 4.09 x10^6/uL (3.50-5.40) 3.85 x10^6/uL (3.50-5.40) Hemoglobin 12.5 g/dL (12.0-15.5) 11.6 g/dL (12.0-15.5) Hematocrit 38.1 % (36.0-47.0) 35.0 % (36.0-47.0) Mean Corpuscular Volume 93 fL (79-100) 91 fL (79-100) Mean Corpuscular Hemoglobin 31 pg (25-35) 30 pg (25-35) Mean Corpuscular Hemoglobin Concent 33 g/dL (31-37) 33 g/dL (31-37) Red Cell Distribution Width 15.8 % (11.5-14.5) 15.7 % (11.5-14.5) Platelet Count 314 x10^3/uL (140-400) 265 x10^3/uL (140-400) Neutrophils (%) (Auto) 84 % (31-73) 80 % (31-73) Lymphocytes (%) (Auto) 10 % (24-48) 11 % (24-48) Monocytes (%) (Auto) 5 % (0-9) 8 % (0-9) Eosinophils (%) (Auto) 0 % (0-3) 1 % (0-3) Basophils (%) (Auto) 0 % (0-3) 0 % (0-3) Neutrophils # (Auto) 13.2 x10^3uL (1.8-7.7) 9.5 x10^3uL (1.8-7.7) Lymphocytes # (Auto) 1.6 x10^3/uL (1.0-4.8) 1.3 x10^3/uL (1.0-4.8) Monocytes # (Auto) 0.9 x10^3/uL (0.0-1.1) 0.9 x10^3/uL (0.0-1.1) Eosinophils # (Auto) 0.0 x10^3/uL (0.0-0.7) 0.1 x10^3/uL (0.0-0.7) Basophils # (Auto) 0.1 x10^3/uL (0.0-0.2) 0.0 x10^3/uL (0.0-0.2) Segmented Neutrophils % 80 % (35-66) Band Neutrophils % 7 % (0-9) Lymphocytes % 7 % (24-48) Monocytes % 6 % (0-10) Platelet Estimate Adequate (ADEQUATE) Sodium Level 141 mmol/L (136-145) 138 mmol/L (136-145) Potassium Level 4.0 mmol/L (3.5-5.1) 3.6 mmol/L (3.5-5.1) Chloride Level 107 mmol/L (98-107) 105 mmol/L (98-107) Carbon Dioxide Level 27 mmol/L (21-32) 25 mmol/L (21-32) Anion Gap 7 (6-14) 8 (6-14) Blood Urea Nitrogen 5 mg/dL (7-20) 3 mg/dL (7-20) Creatinine 0.7 mg/dL (0.6-1.0) 0.6 mg/dL (0.6-1.0) Estimated GFR (Cockcroft-Gault) 96.4 115.1 Glucose Level 101 mg/dL (70-99) 95 mg/dL (70-99) Calcium Level 8.3 mg/dL (8.5-10.1) 8.3 mg/dL (8.5-10.1) Total Bilirubin 0.9 mg/dL (0.2-1.0) 0.7 mg/dL (0.2-1.0) Direct Bilirubin 0.4 mg/dL (0.0-0.2) 0.3 mg/dL (0.0-0.2) Aspartate Amino Transf (AST/SGOT) 40 U/L (15-37) 20 U/L (15-37) Alanine Aminotransferase (ALT/SGPT) 93 U/L (14-59) 58 U/L (14-59) Alkaline Phosphatase 169 U/L (46-116) 139 U/L (46-116) Total Protein 5.7 g/dL (6.4-8.2) 5.7 g/dL (6.4-8.2) Albumin 3.0 g/dL (3.4-5.0) 2.8 g/dL (3.4-5.0) Triglycerides Level 71 mg/dL (0-150) Cholesterol Level 176 mg/dL (0-200) LDL Cholesterol, Calculated 107 mg/dL (0-100) VLDL Cholesterol, Calculated 14 mg/dL (0-40) Non-HDL Cholesterol Calculated 121 mg/dL (0-129) HDL Cholesterol 55 mg/dL (40-60) Cholesterol/HDL Ratio 3.2 Lipase 6629 U/L (73-393) 1114 U/L (73-393) Laboratory Tests Test 09/06/16 04:25 White Blood Count 11.9 x10^3/uL (4.0-11.0) Red Blood Count 3.85 x10^6/uL (3.50-5.40) Hemoglobin 11.6 g/dL (12.0-15.5) Hematocrit 35.0 % (36.0-47.0) Mean Corpuscular Volume 91 fL (79-100) Mean Corpuscular Hemoglobin 30 pg (25-35) Mean Corpuscular Hemoglobin Concent 33 g/dL (31-37) Red Cell Distribution Width 15.7 % (11.5-14.5) Platelet Count 265 x10^3/uL (140-400) Neutrophils (%) (Auto) 80 % (31-73) Lymphocytes (%) (Auto) 11 % (24-48) Monocytes (%) (Auto) 8 % (0-9) Eosinophils (%) (Auto) 1 % (0-3) Basophils (%) (Auto) 0 % (0-3) Neutrophils # (Auto) 9.5 x10^3uL (1.8-7.7) Lymphocytes # (Auto) 1.3 x10^3/uL (1.0-4.8) Monocytes # (Auto) 0.9 x10^3/uL (0.0-1.1) Eosinophils # (Auto) 0.1 x10^3/uL (0.0-0.7) Basophils # (Auto) 0.0 x10^3/uL (0.0-0.2) Sodium Level 138 mmol/L (136-145) Potassium Level 3.6 mmol/L (3.5-5.1) Chloride Level 105 mmol/L (98-107) Carbon Dioxide Level 25 mmol/L (21-32) Anion Gap 8 (6-14) Blood Urea Nitrogen 3 mg/dL (7-20) Creatinine 0.6 mg/dL (0.6-1.0) Estimated GFR (Cockcroft-Gault) 115.1 Glucose Level 95 mg/dL (70-99) Calcium Level 8.3 mg/dL (8.5-10.1) Total Bilirubin 0.7 mg/dL (0.2-1.0) Direct Bilirubin 0.3 mg/dL (0.0-0.2) Aspartate Amino Transf (AST/SGOT) 20 U/L (15-37) Alanine Aminotransferase (ALT/SGPT) 58 U/L (14-59) Alkaline Phosphatase 139 U/L (46-116) Total Protein 5.7 g/dL (6.4-8.2) Albumin 2.8 g/dL (3.4-5.0) Lipase 1114 U/L (73-393) Problem List Problems Medical Problems: (1) Abdominal pain Status: Acute Assessment/Plan gs pancreatitis wbc 11.9, pain improved, she did have low grade fever 100.0, lipase is still 1114 resolution of pancreatitis before planning lap pb Problems: TERRANCE HARRIS MD 09/06/16 1655: SURGICAL PROGRESS NOTE Assessment/Plan Agree with above Problems: MAC LEMONS APRN Sep 06, 2016 09:32 TERRANCE HARRIS MD Sep 06, 2016 16:55
[2016-09-06 11:00] VITALS: BP 120/72
--- NOTE | 2016-09-06 13:39 | PDOC ---
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 History of Present Illness History of Present Illness abd , back pain better, 3/10 LFT, lipase better severe N/V resolved on 09/06 low temp WBC better Vitals Vitals Vital Signs Date Time Temp Pulse Resp B/P (MAP) Pulse Ox O2 Delivery O2 Flow Rate FiO2 09/06/16 11:00 98.2 72 120/72 (88) 98 Room Air 98.2 09/06/16 07:00 20 Physical Exam General: Alert, Oriented X3, Cooperative, No acute distress Heart: Regular rate, Normal S1 Lungs: Clear Abdomen: Soft, Other (ND, NTTP, obese abdomen ) Extremities: No clubbing, No cyanosis Skin: No breakdown Labs LABS Laboratory Tests Test 09/06/16 04:25 White Blood Count 11.9 x10^3/uL (4.0-11.0) Red Blood Count 3.85 x10^6/uL (3.50-5.40) Hemoglobin 11.6 g/dL (12.0-15.5) Hematocrit 35.0 % (36.0-47.0) Mean Corpuscular Volume 91 fL (79-100) Mean Corpuscular Hemoglobin 30 pg (25-35) Mean Corpuscular Hemoglobin Concent 33 g/dL (31-37) Red Cell Distribution Width 15.7 % (11.5-14.5) Platelet Count 265 x10^3/uL (140-400) Neutrophils (%) (Auto) 80 % (31-73) Lymphocytes (%) (Auto) 11 % (24-48) Monocytes (%) (Auto) 8 % (0-9) Eosinophils (%) (Auto) 1 % (0-3) Basophils (%) (Auto) 0 % (0-3) Neutrophils # (Auto) 9.5 x10^3uL (1.8-7.7) Lymphocytes # (Auto) 1.3 x10^3/uL (1.0-4.8) Monocytes # (Auto) 0.9 x10^3/uL (0.0-1.1) Eosinophils # (Auto) 0.1 x10^3/uL (0.0-0.7) Basophils # (Auto) 0.0 x10^3/uL (0.0-0.2) Sodium Level 138 mmol/L (136-145) Potassium Level 3.6 mmol/L (3.5-5.1) Chloride Level 105 mmol/L (98-107) Carbon Dioxide Level 25 mmol/L (21-32) Anion Gap 8 (6-14) Blood Urea Nitrogen 3 mg/dL (7-20) Creatinine 0.6 mg/dL (0.6-1.0) Estimated GFR (Cockcroft-Gault) 115.1 Glucose Level 95 mg/dL (70-99) Calcium Level 8.3 mg/dL (8.5-10.1) Total Bilirubin 0.7 mg/dL (0.2-1.0) Direct Bilirubin 0.3 mg/dL (0.0-0.2) Aspartate Amino Transf (AST/SGOT) 20 U/L (15-37) Alanine Aminotransferase (ALT/SGPT) 58 U/L (14-59) Alkaline Phosphatase 139 U/L (46-116) Total Protein 5.7 g/dL (6.4-8.2) Albumin 2.8 g/dL (3.4-5.0) Lipase 1114 U/L (73-393) Review of Systems Review of Systems no chills, sob or chest pain Assessment and Plan Assessmemt and Plan Problems Medical Problems: (1) Abdominal pain Status: Acute Problems: Comment Review of Relevant I have reviewed the following items scar (where applicable) has been applied. Labs Laboratory Tests Test 09/05/16 03:52 09/06/16 04:25 White Blood Count 15.8 x10^3/uL (4.0-11.0) 11.9 x10^3/uL (4.0-11.0) Red Blood Count 4.09 x10^6/uL (3.50-5.40) 3.85 x10^6/uL (3.50-5.40) Hemoglobin 12.5 g/dL (12.0-15.5) 11.6 g/dL (12.0-15.5) Hematocrit 38.1 % (36.0-47.0) 35.0 % (36.0-47.0) Mean Corpuscular Volume 93 fL (79-100) 91 fL (79-100) Mean Corpuscular Hemoglobin 31 pg (25-35) 30 pg (25-35) Mean Corpuscular Hemoglobin Concent 33 g/dL (31-37) 33 g/dL (31-37) Red Cell Distribution Width 15.8 % (11.5-14.5) 15.7 % (11.5-14.5) Platelet Count 314 x10^3/uL (140-400) 265 x10^3/uL (140-400) Neutrophils (%) (Auto) 84 % (31-73) 80 % (31-73) Lymphocytes (%) (Auto) 10 % (24-48) 11 % (24-48) Monocytes (%) (Auto) 5 % (0-9) 8 % (0-9) Eosinophils (%) (Auto) 0 % (0-3) 1 % (0-3) Basophils (%) (Auto) 0 % (0-3) 0 % (0-3) Neutrophils # (Auto) 13.2 x10^3uL (1.8-7.7) 9.5 x10^3uL (1.8-7.7) Lymphocytes # (Auto) 1.6 x10^3/uL (1.0-4.8) 1.3 x10^3/uL (1.0-4.8) Monocytes # (Auto) 0.9 x10^3/uL (0.0-1.1) 0.9 x10^3/uL (0.0-1.1) Eosinophils # (Auto) 0.0 x10^3/uL (0.0-0.7) 0.1 x10^3/uL (0.0-0.7) Basophils # (Auto) 0.1 x10^3/uL (0.0-0.2) 0.0 x10^3/uL (0.0-0.2) Segmented Neutrophils % 80 % (35-66) Band Neutrophils % 7 % (0-9) Lymphocytes % 7 % (24-48) Monocytes % 6 % (0-10) Platelet Estimate Adequate (ADEQUATE) Sodium Level 141 mmol/L (136-145) 138 mmol/L (136-145) Potassium Level 4.0 mmol/L (3.5-5.1) 3.6 mmol/L (3.5-5.1) Chloride Level 107 mmol/L (98-107) 105 mmol/L (98-107) Carbon Dioxide Level 27 mmol/L (21-32) 25 mmol/L (21-32) Anion Gap 7 (6-14) 8 (6-14) Blood Urea Nitrogen 5 mg/dL (7-20) 3 mg/dL (7-20) Creatinine 0.7 mg/dL (0.6-1.0) 0.6 mg/dL (0.6-1.0) Estimated GFR (Cockcroft-Gault) 96.4 115.1 Glucose Level 101 mg/dL (70-99) 95 mg/dL (70-99) Calcium Level 8.3 mg/dL (8.5-10.1) 8.3 mg/dL (8.5-10.1) Total Bilirubin 0.9 mg/dL (0.2-1.0) 0.7 mg/dL (0.2-1.0) Direct Bilirubin 0.4 mg/dL (0.0-0.2) 0.3 mg/dL (0.0-0.2) Aspartate Amino Transf (AST/SGOT) 40 U/L (15-37) 20 U/L (15-37) Alanine Aminotransferase (ALT/SGPT) 93 U/L (14-59) 58 U/L (14-59) Alkaline Phosphatase 169 U/L (46-116) 139 U/L (46-116) Total Protein 5.7 g/dL (6.4-8.2) 5.7 g/dL (6.4-8.2) Albumin 3.0 g/dL (3.4-5.0) 2.8 g/dL (3.4-5.0) Triglycerides Level 71 mg/dL (0-150) Cholesterol Level 176 mg/dL (0-200) LDL Cholesterol, Calculated 107 mg/dL (0-100) VLDL Cholesterol, Calculated 14 mg/dL (0-40) Non-HDL Cholesterol Calculated 121 mg/dL (0-129) HDL Cholesterol 55 mg/dL (40-60) Cholesterol/HDL Ratio 3.2 Lipase 6629 U/L (73-393) 1114 U/L (73-393) Laboratory Tests Test 09/06/16 04:25 White Blood Count 11.9 x10^3/uL (4.0-11.0) Red Blood Count 3.85 x10^6/uL (3.50-5.40) Hemoglobin 11.6 g/dL (12.0-15.5) Hematocrit 35.0 % (36.0-47.0) Mean Corpuscular Volume 91 fL (79-100) Mean Corpuscular Hemoglobin 30 pg (25-35) Mean Corpuscular Hemoglobin Concent 33 g/dL (31-37) Red Cell Distribution Width 15.7 % (11.5-14.5) Platelet Count 265 x10^3/uL (140-400) Neutrophils (%) (Auto) 80 % (31-73) Lymphocytes (%) (Auto) 11 % (24-48) Monocytes (%) (Auto) 8 % (0-9) Eosinophils (%) (Auto) 1 % (0-3) Basophils (%) (Auto) 0 % (0-3) Neutrophils # (Auto) 9.5 x10^3uL (1.8-7.7) Lymphocytes # (Auto) 1.3 x10^3/uL (1.0-4.8) Monocytes # (Auto) 0.9 x10^3/uL (0.0-1.1) Eosinophils # (Auto) 0.1 x10^3/uL (0.0-0.7) Basophils # (Auto) 0.0 x10^3/uL (0.0-0.2) Sodium Level 138 mmol/L (136-145) Potassium Level 3.6 mmol/L (3.5-5.1) Chloride Level 105 mmol/L (98-107) Carbon Dioxide Level 25 mmol/L (21-32) Anion Gap 8 (6-14) Blood Urea Nitrogen 3 mg/dL (7-20) Creatinine 0.6 mg/dL (0.6-1.0) Estimated GFR (Cockcroft-Gault) 115.1 Glucose Level 95 mg/dL (70-99) Calcium Level 8.3 mg/dL (8.5-10.1) Total Bilirubin 0.7 mg/dL (0.2-1.0) Direct Bilirubin 0.3 mg/dL (0.0-0.2) Aspartate Amino Transf (AST/SGOT) 20 U/L (15-37) Alanine Aminotransferase (ALT/SGPT) 58 U/L (14-59) Alkaline Phosphatase 139 U/L (46-116) Total Protein 5.7 g/dL (6.4-8.2) Albumin 2.8 g/dL (3.4-5.0) Lipase 1114 U/L (73-393) Medications Current Medications Iohexol (Omnipaque 300 Mg/ml) 75 ml 1X ONCE IV Last administered on 09/04/16 01:15; Start 09/04/16 at 00:15; Stop 09/04/16 at 00:16; Status DC Info (Do NOT chart on this entry -- for MONITORING) 1 each PRN DAILY PRN MC SEE COMMENTS; Start 09/04/16 at 00:15; Stop 09/06/16 at 00:14; Status DC Ondansetron HCl (Zofran) 4 mg STK-MED ONCE .ROUTE ; Start 09/04/16 at 01:00; Stop 09/04/16 at 01:01; Status DC Lorazepam (Ativan) 2 mg STK-MED ONCE .ROUTE ; Start 09/04/16 at 01:01; Stop at 01:02; Status DC Lorazepam (Ativan) 0.5 mg 1X ONCE IV Last administered on 09/04/16 01:00; Start 09/04/16 at 01:15; Stop 09/04/16 at 01:18; Status DC Ondansetron HCl (Zofran) 4 mg 1X ONCE IV Last administered on 09/04/16 01:00 ; Start 09/04/16 at 01:15; Stop 09/04/16 at 01:18; Status DC Lorazepam (Ativan) 1 mg 1X ONCE IV ; Start 09/04/16 at 01:45; Stop 09/04/16 at 01:49; Status DC Ondansetron HCl (Zofran) 4 mg PRN Q8HRS PRN IV NAUSEA/VOMITING Last administered on 09/04/16 10:30; Start 09/04/16 at 02:30; Stop 09/04/16 at 11:31 ; Status DC Sodium Chloride 1,000 ml @ 125 mls/hr Q8H IV Last administered on 09/04/16 10 :11; Start 09/04/16 at 02:30; Stop 09/04/16 at 14:07; Status DC Hydromorphone HCl (Dilaudid) 1 mg 1X ONCE IV Last administered on 09/04/16 03 :39; Start 09/04/16 at 03:45; Stop 09/04/16 at 03:46; Status DC Morphine Sulfate 2 mg PRN Q2HR PRN IV PAIN Last administered on 09/04/16 10:31 ; Start 09/04/16 at 04:15; Stop 09/04/16 at 11:35; Status DC Acetaminophen (Tylenol) 650 mg PRN Q6HRS PRN PO FEVER Last administered on 08:42; Start 09/04/16 at 11:30 Ondansetron HCl (Zofran) 4 mg PRN Q6HRS PRN IV NAUSEA/VOMITING; Start 09/04/16 at 11:30 Morphine Sulfate 2 mg PRN Q2HR PRN IV PAIN Last administered on 09/04/16 14:22 ; Start 09/04/16 at 11:30 Tramadol HCl (Ultram) 50 mg PRN Q6HRS PRN PO PAIN Last administered on 21:07; Start 09/04/16 at 11:30 Hydralazine HCl (Apresoline) 10 mg PRN Q4HRS PRN IVP ELEVATED BP, SEE COMMENTS ; Start 09/04/16 at 11:30 Docusate Sodium (Colace) 100 mg PRN DAILY PRN PO CONSTIPATION; Start 09/04/16 at 11:30 Potassium Chloride/Dextrose/ Sod Cl 1,000 ml @ 150 mls/hr Q6H40M IV Last administered on 09/06/16 08:42; Start 09/04/16 at 12:00 Famotidine (Pepcid) 20 mg QHS IVP Last administered on 09/05/16 20:03; Start 09/04/16 at 21:00 Enoxaparin Sodium (Lovenox 40mg Syringe) 40 mg Q12H SQ Last administered on 7/1 /17at 08:40; Start 09/04/16 at 21:00 Albuterol Sulfate (Ventolin Neb Soln) 2.5 mg PRN Q4HRS PRN NEB SHORTNESS OF BREATH; Start 09/04/16 at 11:45 Gabapentin (Neurontin) 400 mg DAILY06 PO ; Start 09/05/16 at 06:00 Gabapentin (Neurontin) 1,200 mg QHS PO Last administered on 09/05/16 20:03; Start 09/04/16 at 21:00 Lamotrigine (LaMICtal) 400 mg BID PO Last administered on 09/06/16 08:39; Start 09/04/16 at 12:00 Active Scripts Active Zofran Odt (Ondansetron) 4 Mg Tab.rapdis 1 Tab SL PRN Q8HRS PRN Proair Respiclick (Albuterol Sulfate) 90 Mcg Aer.pow.ba 1 Puff IH PRN Q6HRS PRN Proair Hfa Inhaler (Albuterol Sulfate) 8.5 Gm Hfa.aer.ad 2 Puff INH Q4HRS PRN Proventil Hfa Inhaler (Albuterol Sulfate) 6.7 Gm Hfa.aer.ad 1 Puff IH PRN Q4HRS PRN Reported Gabapentin 400 Mg Capsule 3 Cap PO QHS Gabapentin 400 Mg Capsule 2 Cap PO DAILY06 Lamotrigine 200 Mg Tablet 2 Tab PO BID Vitals/I & O Vital Sign - Last 24 Hours 09/05/16 09/05/16 09/05/16 09/05/16 14:33 19:00 19:45 23:00 Temp 99.3 99.8 98.2 99.3 99.8 98.2 Pulse 83 88 84 Resp 18 20 18 B/P (MAP) 126/69 (88) 132/63 (86) 115/56 (75) Pulse Ox 97 94 94 O2 Delivery Room Air Room Air Room Air Room Air 09/06/16 09/06/16 09/06/16 09/06/16 03:00 07:00 08:30 11:00 Temp 100.0 98.6 98.2 100.0 98.6 98.2 Pulse 84 92 72 Resp 20 20 B/P (MAP) 138/72 (94) 142/96 (111) 120/72 (88) Pulse Ox 99 98 98 O2 Delivery Room Air Room Air Room Air Room Air Intake and Output 09/05/16 09/05/16 09/06/16 15:00 23:00 07:00 Intake Total 240 ml 60 ml Balance 240 ml 60 ml MARYA TOWNSEND MD Sep 06, 2016 13:39
[2016-09-06 15:00] VITALS: BP 129/72
[2016-09-06 19:00] VITALS: BP 146/79
[2016-09-06] MEDS: FAMOTIDINE 20 MG/2 ML VIAL IVP SCH (20:44)
[2016-09-06] MEDS: traMADol 50 MG TABLET PO PRN (20:53)
[2016-09-06 23:00] VITALS: BP 120/67
[2016-09-07 03:00] VITALS: BP 119/67
[2016-09-07 05:49] LABS: BASO % 0 % (0-3); EOS % 3 % (0-3); HEMATOCRIT 35.8 % (36.0-47.0); HEMOGLOBIN 12.2 g/dL (12.0-15.5); LYMPH # 1.3 x10^3/uL (1.0-4.8); LYMPH % 11 % (24-48); MEAN CORPUSCULAR HEMOGLOBIN 31 pg (25-35); MEAN CORPUSCULAR HGB CONC 34 g/dL (31-37); MEAN CORPUSCULAR VOLUME 91 fL (79-100); MONO % 7 % (0-9); NEUT % 79 % (31-73); PLATELET COUNT 295 x10^3/uL (140-400); RED BLOOD COUNT 3.92 x10^6/uL (3.50-5.40); WHITE BLOOD COUNT 11.8 x10^3/uL (4.0-11.0)
[2016-09-07] MEDS: GABAPENTIN 400 MG CAPSULE. PO SCH ×2 (06:05→20:38)
[2016-09-07] MEDS: POTASSIUM CL 20MEQ D5-0.9%NACL 1,000 ML IV SCH ×4 (06:06→18:14)
[2016-09-07 06:09] LABS: CALCIUM 8.5 mg/dL (8.5-10.1); CREATININE 0.7 mg/dL (0.6-1.0); GFR 96.4; POTASSIUM 3.6 mmol/L (3.5-5.1)
[2016-09-07 06:53] LABS: ALBUMIN 2.9 g/dL (3.4-5.0); DIRECT BILIRUBIN 0.3 mg/dL (0.0-0.2); TOTAL BILIRUBIN 0.7 mg/dL (0.2-1.0); TOTAL PROTEIN 6.1 g/dL (6.4-8.2)
[2016-09-07 07:44] VITALS: BP 107/56
--- NOTE | 2016-09-07 08:55 | PDOC ---
SURGICAL PROGRESS NOTE Subjective denies any significant abdominal pain no n/v tolerating clears Vital Signs Vital Signs Date Time Temp Pulse Resp B/P (MAP) Pulse Ox O2 Delivery O2 Flow Rate FiO2 09/07/16 08:50 97 Room Air 09/07/16 07:44 98.4 81 20 107/56 (73) 98.4 I&O Intake and Output 09/07/16 07:00 Intake Total 1020 ml Balance 1020 ml Intake Oral 1020 ml # Voids 3 General: Alert, Oriented X3, Cooperative, No acute distress Abdomen: Soft, No tenderness Labs Laboratory Tests Test 09/06/16 04:25 09/07/16 05:10 White Blood Count 11.9 x10^3/uL (4.0-11.0) 11.8 x10^3/uL (4.0-11.0) Red Blood Count 3.85 x10^6/uL (3.50-5.40) 3.92 x10^6/uL (3.50-5.40) Hemoglobin 11.6 g/dL (12.0-15.5) 12.2 g/dL (12.0-15.5) Hematocrit 35.0 % (36.0-47.0) 35.8 % (36.0-47.0) Mean Corpuscular Volume 91 fL (79-100) 91 fL (79-100) Mean Corpuscular Hemoglobin 30 pg (25-35) 31 pg (25-35) Mean Corpuscular Hemoglobin Concent 33 g/dL (31-37) 34 g/dL (31-37) Red Cell Distribution Width 15.7 % (11.5-14.5) 16.0 % (11.5-14.5) Platelet Count 265 x10^3/uL (140-400) 295 x10^3/uL (140-400) Neutrophils (%) (Auto) 80 % (31-73) 79 % (31-73) Lymphocytes (%) (Auto) 11 % (24-48) 11 % (24-48) Monocytes (%) (Auto) 8 % (0-9) 7 % (0-9) Eosinophils (%) (Auto) 1 % (0-3) 3 % (0-3) Basophils (%) (Auto) 0 % (0-3) 0 % (0-3) Neutrophils # (Auto) 9.5 x10^3uL (1.8-7.7) 9.3 x10^3uL (1.8-7.7) Lymphocytes # (Auto) 1.3 x10^3/uL (1.0-4.8) 1.3 x10^3/uL (1.0-4.8) Monocytes # (Auto) 0.9 x10^3/uL (0.0-1.1) 0.8 x10^3/uL (0.0-1.1) Eosinophils # (Auto) 0.1 x10^3/uL (0.0-0.7) 0.3 x10^3/uL (0.0-0.7) Basophils # (Auto) 0.0 x10^3/uL (0.0-0.2) 0.0 x10^3/uL (0.0-0.2) Sodium Level 138 mmol/L (136-145) 139 mmol/L (136-145) Potassium Level 3.6 mmol/L (3.5-5.1) 3.6 mmol/L (3.5-5.1) Chloride Level 105 mmol/L (98-107) 104 mmol/L (98-107) Carbon Dioxide Level 25 mmol/L (21-32) 26 mmol/L (21-32) Anion Gap 8 (6-14) 9 (6-14) Blood Urea Nitrogen 3 mg/dL (7-20) 4 mg/dL (7-20) Creatinine 0.6 mg/dL (0.6-1.0) 0.7 mg/dL (0.6-1.0) Estimated GFR (Cockcroft-Gault) 115.1 96.4 Glucose Level 95 mg/dL (70-99) 77 mg/dL (70-99) Calcium Level 8.3 mg/dL (8.5-10.1) 8.5 mg/dL (8.5-10.1) Total Bilirubin 0.7 mg/dL (0.2-1.0) 0.7 mg/dL (0.2-1.0) Direct Bilirubin 0.3 mg/dL (0.0-0.2) 0.3 mg/dL (0.0-0.2) Aspartate Amino Transf (AST/SGOT) 20 U/L (15-37) 17 U/L (15-37) Alanine Aminotransferase (ALT/SGPT) 58 U/L (14-59) 47 U/L (14-59) Alkaline Phosphatase 139 U/L (46-116) 158 U/L (46-116) Total Protein 5.7 g/dL (6.4-8.2) 6.1 g/dL (6.4-8.2) Albumin 2.8 g/dL (3.4-5.0) 2.9 g/dL (3.4-5.0) Lipase 1114 U/L (73-393) 342 U/L (73-393) Laboratory Tests Test 09/07/16 05:10 White Blood Count 11.8 x10^3/uL (4.0-11.0) Red Blood Count 3.92 x10^6/uL (3.50-5.40) Hemoglobin 12.2 g/dL (12.0-15.5) Hematocrit 35.8 % (36.0-47.0) Mean Corpuscular Volume 91 fL (79-100) Mean Corpuscular Hemoglobin 31 pg (25-35) Mean Corpuscular Hemoglobin Concent 34 g/dL (31-37) Red Cell Distribution Width 16.0 % (11.5-14.5) Platelet Count 295 x10^3/uL (140-400) Neutrophils (%) (Auto) 79 % (31-73) Lymphocytes (%) (Auto) 11 % (24-48) Monocytes (%) (Auto) 7 % (0-9) Eosinophils (%) (Auto) 3 % (0-3) Basophils (%) (Auto) 0 % (0-3) Neutrophils # (Auto) 9.3 x10^3uL (1.8-7.7) Lymphocytes # (Auto) 1.3 x10^3/uL (1.0-4.8) Monocytes # (Auto) 0.8 x10^3/uL (0.0-1.1) Eosinophils # (Auto) 0.3 x10^3/uL (0.0-0.7) Basophils # (Auto) 0.0 x10^3/uL (0.0-0.2) Sodium Level 139 mmol/L (136-145) Potassium Level 3.6 mmol/L (3.5-5.1) Chloride Level 104 mmol/L (98-107) Carbon Dioxide Level 26 mmol/L (21-32) Anion Gap 9 (6-14) Blood Urea Nitrogen 4 mg/dL (7-20) Creatinine 0.7 mg/dL (0.6-1.0) Estimated GFR (Cockcroft-Gault) 96.4 Glucose Level 77 mg/dL (70-99) Calcium Level 8.5 mg/dL (8.5-10.1) Total Bilirubin 0.7 mg/dL (0.2-1.0) Direct Bilirubin 0.3 mg/dL (0.0-0.2) Aspartate Amino Transf (AST/SGOT) 17 U/L (15-37) Alanine Aminotransferase (ALT/SGPT) 47 U/L (14-59) Alkaline Phosphatase 158 U/L (46-116) Total Protein 6.1 g/dL (6.4-8.2) Albumin 2.9 g/dL (3.4-5.0) Lipase 342 U/L (73-393) Problem List Problems Medical Problems: (1) Abdominal pain Status: Acute Assessment/Plan gs pancreatitis afebrile, normal WBC, lipase 342, benign abdominal exam will make NPO after mn, Will d/w Dr Lewis timing of surgery Problems: MAC LEMONS APRN Sep 07, 2016 08:55
[2016-09-07] MEDS: lamoTRIgine 100 MG TABLET. PO SCH ×2 (09:04→20:38)
[2016-09-07 11:00] VITALS: BP 115/59
--- NOTE | 2016-09-07 14:06 | PDOC ---
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 hope sx tmr History of Present Illness History of Present Illness abd , back pain better, 2/10 LFT better , lipas normal severe N/V resolved on 09/06 low temp WBC better Vitals Vitals Vital Signs Date Time Temp Pulse Resp B/P (MAP) Pulse Ox O2 Delivery O2 Flow Rate FiO2 09/07/16 11:00 98.0 73 20 115/59 (77) 97 Room Air 98.0 Physical Exam General: Alert, Oriented X3, Cooperative, No acute distress Heart: Regular rate, Normal S1 Lungs: Clear Abdomen: Soft, No tenderness Extremities: No clubbing, No cyanosis Skin: No breakdown Labs LABS Laboratory Tests Test 09/07/16 05:10 White Blood Count 11.8 x10^3/uL (4.0-11.0) Red Blood Count 3.92 x10^6/uL (3.50-5.40) Hemoglobin 12.2 g/dL (12.0-15.5) Hematocrit 35.8 % (36.0-47.0) Mean Corpuscular Volume 91 fL (79-100) Mean Corpuscular Hemoglobin 31 pg (25-35) Mean Corpuscular Hemoglobin Concent 34 g/dL (31-37) Red Cell Distribution Width 16.0 % (11.5-14.5) Platelet Count 295 x10^3/uL (140-400) Neutrophils (%) (Auto) 79 % (31-73) Lymphocytes (%) (Auto) 11 % (24-48) Monocytes (%) (Auto) 7 % (0-9) Eosinophils (%) (Auto) 3 % (0-3) Basophils (%) (Auto) 0 % (0-3) Neutrophils # (Auto) 9.3 x10^3uL (1.8-7.7) Lymphocytes # (Auto) 1.3 x10^3/uL (1.0-4.8) Monocytes # (Auto) 0.8 x10^3/uL (0.0-1.1) Eosinophils # (Auto) 0.3 x10^3/uL (0.0-0.7) Basophils # (Auto) 0.0 x10^3/uL (0.0-0.2) Sodium Level 139 mmol/L (136-145) Potassium Level 3.6 mmol/L (3.5-5.1) Chloride Level 104 mmol/L (98-107) Carbon Dioxide Level 26 mmol/L (21-32) Anion Gap 9 (6-14) Blood Urea Nitrogen 4 mg/dL (7-20) Creatinine 0.7 mg/dL (0.6-1.0) Estimated GFR (Cockcroft-Gault) 96.4 Glucose Level 77 mg/dL (70-99) Calcium Level 8.5 mg/dL (8.5-10.1) Total Bilirubin 0.7 mg/dL (0.2-1.0) Direct Bilirubin 0.3 mg/dL (0.0-0.2) Aspartate Amino Transf (AST/SGOT) 17 U/L (15-37) Alanine Aminotransferase (ALT/SGPT) 47 U/L (14-59) Alkaline Phosphatase 158 U/L (46-116) Total Protein 6.1 g/dL (6.4-8.2) Albumin 2.9 g/dL (3.4-5.0) Lipase 342 U/L (73-393) Review of Systems Review of Systems no fever, chills, sob, or chest pain Assessment and Plan Assessmemt and Plan Problems Medical Problems: (1) Abdominal pain Status: Acute Problems: Comment Review of Relevant I have reviewed the following items scar (where applicable) has been applied. Labs Laboratory Tests Test 09/06/16 04:25 09/07/16 05:10 White Blood Count 11.9 x10^3/uL (4.0-11.0) 11.8 x10^3/uL (4.0-11.0) Red Blood Count 3.85 x10^6/uL (3.50-5.40) 3.92 x10^6/uL (3.50-5.40) Hemoglobin 11.6 g/dL (12.0-15.5) 12.2 g/dL (12.0-15.5) Hematocrit 35.0 % (36.0-47.0) 35.8 % (36.0-47.0) Mean Corpuscular Volume 91 fL (79-100) 91 fL (79-100) Mean Corpuscular Hemoglobin 30 pg (25-35) 31 pg (25-35) Mean Corpuscular Hemoglobin Concent 33 g/dL (31-37) 34 g/dL (31-37) Red Cell Distribution Width 15.7 % (11.5-14.5) 16.0 % (11.5-14.5) Platelet Count 265 x10^3/uL (140-400) 295 x10^3/uL (140-400) Neutrophils (%) (Auto) 80 % (31-73) 79 % (31-73) Lymphocytes (%) (Auto) 11 % (24-48) 11 % (24-48) Monocytes (%) (Auto) 8 % (0-9) 7 % (0-9) Eosinophils (%) (Auto) 1 % (0-3) 3 % (0-3) Basophils (%) (Auto) 0 % (0-3) 0 % (0-3) Neutrophils # (Auto) 9.5 x10^3uL (1.8-7.7) 9.3 x10^3uL (1.8-7.7) Lymphocytes # (Auto) 1.3 x10^3/uL (1.0-4.8) 1.3 x10^3/uL (1.0-4.8) Monocytes # (Auto) 0.9 x10^3/uL (0.0-1.1) 0.8 x10^3/uL (0.0-1.1) Eosinophils # (Auto) 0.1 x10^3/uL (0.0-0.7) 0.3 x10^3/uL (0.0-0.7) Basophils # (Auto) 0.0 x10^3/uL (0.0-0.2) 0.0 x10^3/uL (0.0-0.2) Sodium Level 138 mmol/L (136-145) 139 mmol/L (136-145) Potassium Level 3.6 mmol/L (3.5-5.1) 3.6 mmol/L (3.5-5.1) Chloride Level 105 mmol/L (98-107) 104 mmol/L (98-107) Carbon Dioxide Level 25 mmol/L (21-32) 26 mmol/L (21-32) Anion Gap 8 (6-14) 9 (6-14) Blood Urea Nitrogen 3 mg/dL (7-20) 4 mg/dL (7-20) Creatinine 0.6 mg/dL (0.6-1.0) 0.7 mg/dL (0.6-1.0) Estimated GFR (Cockcroft-Gault) 115.1 96.4 Glucose Level 95 mg/dL (70-99) 77 mg/dL (70-99) Calcium Level 8.3 mg/dL (8.5-10.1) 8.5 mg/dL (8.5-10.1) Total Bilirubin 0.7 mg/dL (0.2-1.0) 0.7 mg/dL (0.2-1.0) Direct Bilirubin 0.3 mg/dL (0.0-0.2) 0.3 mg/dL (0.0-0.2) Aspartate Amino Transf (AST/SGOT) 20 U/L (15-37) 17 U/L (15-37) Alanine Aminotransferase (ALT/SGPT) 58 U/L (14-59) 47 U/L (14-59) Alkaline Phosphatase 139 U/L (46-116) 158 U/L (46-116) Total Protein 5.7 g/dL (6.4-8.2) 6.1 g/dL (6.4-8.2) Albumin 2.8 g/dL (3.4-5.0) 2.9 g/dL (3.4-5.0) Lipase 1114 U/L (73-393) 342 U/L (73-393) Laboratory Tests Test 09/07/16 05:10 White Blood Count 11.8 x10^3/uL (4.0-11.0) Red Blood Count 3.92 x10^6/uL (3.50-5.40) Hemoglobin 12.2 g/dL (12.0-15.5) Hematocrit 35.8 % (36.0-47.0) Mean Corpuscular Volume 91 fL (79-100) Mean Corpuscular Hemoglobin 31 pg (25-35) Mean Corpuscular Hemoglobin Concent 34 g/dL (31-37) Red Cell Distribution Width 16.0 % (11.5-14.5) Platelet Count 295 x10^3/uL (140-400) Neutrophils (%) (Auto) 79 % (31-73) Lymphocytes (%) (Auto) 11 % (24-48) Monocytes (%) (Auto) 7 % (0-9) Eosinophils (%) (Auto) 3 % (0-3) Basophils (%) (Auto) 0 % (0-3) Neutrophils # (Auto) 9.3 x10^3uL (1.8-7.7) Lymphocytes # (Auto) 1.3 x10^3/uL (1.0-4.8) Monocytes # (Auto) 0.8 x10^3/uL (0.0-1.1) Eosinophils # (Auto) 0.3 x10^3/uL (0.0-0.7) Basophils # (Auto) 0.0 x10^3/uL (0.0-0.2) Sodium Level 139 mmol/L (136-145) Potassium Level 3.6 mmol/L (3.5-5.1) Chloride Level 104 mmol/L (98-107) Carbon Dioxide Level 26 mmol/L (21-32) Anion Gap 9 (6-14) Blood Urea Nitrogen 4 mg/dL (7-20) Creatinine 0.7 mg/dL (0.6-1.0) Estimated GFR (Cockcroft-Gault) 96.4 Glucose Level 77 mg/dL (70-99) Calcium Level 8.5 mg/dL (8.5-10.1) Total Bilirubin 0.7 mg/dL (0.2-1.0) Direct Bilirubin 0.3 mg/dL (0.0-0.2) Aspartate Amino Transf (AST/SGOT) 17 U/L (15-37) Alanine Aminotransferase (ALT/SGPT) 47 U/L (14-59) Alkaline Phosphatase 158 U/L (46-116) Total Protein 6.1 g/dL (6.4-8.2) Albumin 2.9 g/dL (3.4-5.0) Lipase 342 U/L (73-393) Medications Current Medications Iohexol (Omnipaque 300 Mg/ml) 75 ml 1X ONCE IV Last administered on 09/04/16 01:15; Start 09/04/16 at 00:15; Stop 09/04/16 at 00:16; Status DC Info (Do NOT chart on this entry -- for MONITORING) 1 each PRN DAILY PRN MC SEE COMMENTS; Start 09/04/16 at 00:15; Stop 09/06/16 at 00:14; Status DC Ondansetron HCl (Zofran) 4 mg STK-MED ONCE .ROUTE ; Start 09/04/16 at 01:00; Stop 09/04/16 at 01:01; Status DC Lorazepam (Ativan) 2 mg STK-MED ONCE .ROUTE ; Start 09/04/16 at 01:01; Stop at 01:02; Status DC Lorazepam (Ativan) 0.5 mg 1X ONCE IV Last administered on 09/04/16 01:00; Start 09/04/16 at 01:15; Stop 09/04/16 at 01:18; Status DC Ondansetron HCl (Zofran) 4 mg 1X ONCE IV Last administered on 09/04/16 01:00 ; Start 09/04/16 at 01:15; Stop 09/04/16 at 01:18; Status DC Lorazepam (Ativan) 1 mg 1X ONCE IV ; Start 09/04/16 at 01:45; Stop 09/04/16 at 01:49; Status DC Ondansetron HCl (Zofran) 4 mg PRN Q8HRS PRN IV NAUSEA/VOMITING Last administered on 09/04/16 10:30; Start 09/04/16 at 02:30; Stop 09/04/16 at 11:31 ; Status DC Sodium Chloride 1,000 ml @ 125 mls/hr Q8H IV Last administered on 09/04/16 10 :11; Start 09/04/16 at 02:30; Stop 09/04/16 at 14:07; Status DC Hydromorphone HCl (Dilaudid) 1 mg 1X ONCE IV Last administered on 09/04/16 03 :39; Start 09/04/16 at 03:45; Stop 09/04/16 at 03:46; Status DC Morphine Sulfate 2 mg PRN Q2HR PRN IV PAIN Last administered on 09/04/16 10:31 ; Start 09/04/16 at 04:15; Stop 09/04/16 at 11:35; Status DC Acetaminophen (Tylenol) 650 mg PRN Q6HRS PRN PO FEVER Last administered on 08:42; Start 09/04/16 at 11:30 Ondansetron HCl (Zofran) 4 mg PRN Q6HRS PRN IV NAUSEA/VOMITING; Start 09/04/16 at 11:30 Morphine Sulfate 2 mg PRN Q2HR PRN IV PAIN Last administered on 09/04/16 14:22 ; Start 09/04/16 at 11:30 Tramadol HCl (Ultram) 50 mg PRN Q6HRS PRN PO PAIN Last administered on 20:53; Start 09/04/16 at 11:30 Hydralazine HCl (Apresoline) 10 mg PRN Q4HRS PRN IVP ELEVATED BP, SEE COMMENTS ; Start 09/04/16 at 11:30 Docusate Sodium (Colace) 100 mg PRN DAILY PRN PO CONSTIPATION; Start 09/04/16 at 11:30 Potassium Chloride/Dextrose/ Sod Cl 1,000 ml @ 100 mls/hr Q10H IV Last administered on 09/07/16 09:19; Start 09/04/16 at 12:00 Famotidine (Pepcid) 20 mg QHS IVP Last administered on 09/05/16 20:03; Start 09/04/16 at 21:00 Enoxaparin Sodium (Lovenox 40mg Syringe) 40 mg Q12H SQ Last administered on 09/06 20:42; Start 09/04/16 at 21:00; Stop 09/07/16 at 08:57; Status DC Albuterol Sulfate (Ventolin Neb Soln) 2.5 mg PRN Q4HRS PRN NEB SHORTNESS OF BREATH; Start 09/04/16 at 11:45 Gabapentin (Neurontin) 400 mg DAILY06 PO Last administered on 09/07/16 06:05; Start 09/05/16 at 06:00 Gabapentin (Neurontin) 1,200 mg QHS PO Last administered on 09/06/16 20:42; Start 09/04/16 at 21:00 Lamotrigine (LaMICtal) 400 mg BID PO Last administered on 09/07/16t 09:04; Start 09/04/16 at 12:00 Active Scripts Active Zofran Odt (Ondansetron) 4 Mg Tab.rapdis 1 Tab SL PRN Q8HRS PRN Proair Respiclick (Albuterol Sulfate) 90 Mcg Aer.pow.ba 1 Puff IH PRN Q6HRS PRN Proair Hfa Inhaler (Albuterol Sulfate) 8.5 Gm Hfa.aer.ad 2 Puff INH Q4HRS PRN Proventil Hfa Inhaler (Albuterol Sulfate) 6.7 Gm Hfa.aer.ad 1 Puff IH PRN Q4HRS PRN Reported Gabapentin 400 Mg Capsule 3 Cap PO QHS Gabapentin 400 Mg Capsule 2 Cap PO DAILY06 Lamotrigine 200 Mg Tablet 2 Tab PO BID Vitals/I & O Vital Sign - Last 24 Hours 09/06/16 09/06/16 09/06/16 09/06/16 15:00 19:00 20:00 20:53 Temp 98.3 99.0 98.3 99.0 Pulse 60 82 Resp 22 20 18 B/P (MAP) 129/72 (91) 146/79 (101) Pulse Ox 96 98 95 O2 Delivery Room Air Room Air 09/06/16 09/06/16 09/07/16 09/07/16 21:53 23:00 03:00 07:44 Temp 98.4 97.9 98.4 98.4 97.9 98.4 Pulse 93 87 81 Resp 17 20 17 20 B/P (MAP) 120/67 (84) 119/67 (84) 107/56 (73) Pulse Ox 95 91 94 96 O2 Delivery Room Air Room Air Room Air Room Air 09/07/16 09/07/16 09/07/16 08:45 08:50 11:00 Temp 98.0 98.0 Pulse 73 Resp 20 B/P (MAP) 115/59 (77) Pulse Ox 97 97 O2 Delivery Room Air Room Air Room Air Intake and Output 09/06/16 09/06/16 09/07/16 15:00 23:00 07:00 Intake Total 0 ml 480 ml 540 ml Balance 0 ml 480 ml 540 ml MARYA TOWNSEND MD Sep 07, 2016 14:06
[2016-09-07 15:00] VITALS: BP 120/60
[2016-09-07 19:54] VITALS: BP 129/78
[2016-09-07] MEDS: FAMOTIDINE 20 MG/2 ML VIAL IVP SCH (20:39)
[2016-09-07] MEDS: traMADol 50 MG TABLET PO PRN (20:45)
[2016-09-07 23:55] VITALS: BP 107/52
[2016-09-08 03:59] VITALS: BP 109/46
[2016-09-08] MEDS: GABAPENTIN 400 MG CAPSULE. PO SCH (04:24)
[2016-09-08 07:00] VITALS: BP 116/65
[2016-09-08] MEDS: lamoTRIgine 100 MG TABLET. PO SCH (07:04)
[2016-09-08] MEDS: POTASSIUM CL 20MEQ D5-0.9%NACL 1,000 ML IV SCH (07:43)
[2016-09-08 11:00] VITALS: BP 116/62
--- NOTE | 2016-09-08 11:37 | PDOC ---
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 hope sx today, waiting for sx eval History of Present Illness History of Present Illness abd , back pain better, 0-1/10 LFT better , lipas normal severe N/V resolved on 09/06 WBC better Vitals Vitals Vital Signs Date Time Temp Pulse Resp B/P (MAP) Pulse Ox O2 Delivery O2 Flow Rate FiO2 09/08/16 11:00 98.6 78 20 116/62 (80) 95 Room Air 98.6 Physical Exam General: Alert, Oriented X3, Cooperative, No acute distress Heart: Regular rate, Normal S1 Lungs: Clear Abdomen: Soft, No tenderness Extremities: No clubbing, No cyanosis Skin: No breakdown Review of Systems Review of Systems no fever, chills, sob or chest pain Assessment and Plan Assessmemt and Plan Problems Medical Problems: (1) Abdominal pain Status: Acute Problems: Comment Review of Relevant I have reviewed the following items scar (where applicable) has been applied. Labs Laboratory Tests Test 09/07/16 05:10 White Blood Count 11.8 x10^3/uL (4.0-11.0) Red Blood Count 3.92 x10^6/uL (3.50-5.40) Hemoglobin 12.2 g/dL (12.0-15.5) Hematocrit 35.8 % (36.0-47.0) Mean Corpuscular Volume 91 fL (79-100) Mean Corpuscular Hemoglobin 31 pg (25-35) Mean Corpuscular Hemoglobin Concent 34 g/dL (31-37) Red Cell Distribution Width 16.0 % (11.5-14.5) Platelet Count 295 x10^3/uL (140-400) Neutrophils (%) (Auto) 79 % (31-73) Lymphocytes (%) (Auto) 11 % (24-48) Monocytes (%) (Auto) 7 % (0-9) Eosinophils (%) (Auto) 3 % (0-3) Basophils (%) (Auto) 0 % (0-3) Neutrophils # (Auto) 9.3 x10^3uL (1.8-7.7) Lymphocytes # (Auto) 1.3 x10^3/uL (1.0-4.8) Monocytes # (Auto) 0.8 x10^3/uL (0.0-1.1) Eosinophils # (Auto) 0.3 x10^3/uL (0.0-0.7) Basophils # (Auto) 0.0 x10^3/uL (0.0-0.2) Sodium Level 139 mmol/L (136-145) Potassium Level 3.6 mmol/L (3.5-5.1) Chloride Level 104 mmol/L (98-107) Carbon Dioxide Level 26 mmol/L (21-32) Anion Gap 9 (6-14) Blood Urea Nitrogen 4 mg/dL (7-20) Creatinine 0.7 mg/dL (0.6-1.0) Estimated GFR (Cockcroft-Gault) 96.4 Glucose Level 77 mg/dL (70-99) Calcium Level 8.5 mg/dL (8.5-10.1) Total Bilirubin 0.7 mg/dL (0.2-1.0) Direct Bilirubin 0.3 mg/dL (0.0-0.2) Aspartate Amino Transf (AST/SGOT) 17 U/L (15-37) Alanine Aminotransferase (ALT/SGPT) 47 U/L (14-59) Alkaline Phosphatase 158 U/L (46-116) Total Protein 6.1 g/dL (6.4-8.2) Albumin 2.9 g/dL (3.4-5.0) Lipase 342 U/L (73-393) Medications Current Medications Iohexol (Omnipaque 300 Mg/ml) 75 ml 1X ONCE IV Last administered on 09/04/16t 01:15; Start 09/04/16 at 00:15; Stop 09/04/16 at 00:16; Status DC Info (Do NOT chart on this entry -- for MONITORING) 1 each PRN DAILY PRN MC SEE COMMENTS; Start 09/04/16 at 00:15; Stop 09/06/16 at 00:14; Status DC Ondansetron HCl (Zofran) 4 mg STK-MED ONCE .ROUTE ; Start 09/04/16 at 01:00; Stop 09/04/16 at 01:01; Status DC Lorazepam (Ativan) 2 mg STK-MED ONCE .ROUTE ; Start 09/04/16 at 01:01; Stop at 01:02; Status DC Lorazepam (Ativan) 0.5 mg 1X ONCE IV Last administered on 09/04/16 01:00; Start 09/04/16 at 01:15; Stop 09/04/16 at 01:18; Status DC Ondansetron HCl (Zofran) 4 mg 1X ONCE IV Last administered on 09/04/16 01:00 ; Start 09/04/16 at 01:15; Stop 09/04/16 at 01:18; Status DC Lorazepam (Ativan) 1 mg 1X ONCE IV ; Start 09/04/16 at 01:45; Stop 09/04/16 at 01:49; Status DC Ondansetron HCl (Zofran) 4 mg PRN Q8HRS PRN IV NAUSEA/VOMITING Last administered on 09/04/16 10:30; Start 09/04/16 at 02:30; Stop 09/04/16 at 11:31 ; Status DC Sodium Chloride 1,000 ml @ 125 mls/hr Q8H IV Last administered on 09/04/16 10 :11; Start 09/04/16 at 02:30; Stop 09/04/16 at 14:07; Status DC Hydromorphone HCl (Dilaudid) 1 mg 1X ONCE IV Last administered on 09/04/16 03 :39; Start 09/04/16 at 03:45; Stop 09/04/16 at 03:46; Status DC Morphine Sulfate 2 mg PRN Q2HR PRN IV PAIN Last administered on 09/04/16 10:31 ; Start 09/04/16 at 04:15; Stop 09/04/16 at 11:35; Status DC Acetaminophen (Tylenol) 650 mg PRN Q6HRS PRN PO FEVER Last administered on 08:42; Start 09/04/16 at 11:30 Ondansetron HCl (Zofran) 4 mg PRN Q6HRS PRN IV NAUSEA/VOMITING; Start 09/04/16 at 11:30 Morphine Sulfate 2 mg PRN Q2HR PRN IV PAIN Last administered on 09/04/16 14:22 ; Start 09/04/16 at 11:30 Tramadol HCl (Ultram) 50 mg PRN Q6HRS PRN PO PAIN Last administered on 20:45; Start 09/04/16 at 11:30 Hydralazine HCl (Apresoline) 10 mg PRN Q4HRS PRN IVP ELEVATED BP, SEE COMMENTS ; Start 09/04/16 at 11:30 Docusate Sodium (Colace) 100 mg PRN DAILY PRN PO CONSTIPATION; Start 09/04/16 at 11:30 Potassium Chloride/Dextrose/ Sod Cl 1,000 ml @ 100 mls/hr Q10H IV Last administered on 09/08/16 07:43; Start 09/04/16 at 12:00 Famotidine (Pepcid) 20 mg QHS IVP Last administered on 09/07/16 20:39; Start at 21:00 Enoxaparin Sodium (Lovenox 40mg Syringe) 40 mg Q12H SQ Last administered on 09/06 20:42; Start 09/04/16 at 21:00; Stop 09/07/16 at 08:57; Status DC Albuterol Sulfate (Ventolin Neb Soln) 2.5 mg PRN Q4HRS PRN NEB SHORTNESS OF BREATH; Start 09/04/16 at 11:45 Gabapentin (Neurontin) 400 mg DAILY06 PO Last administered on 09/07/16 06:05; Start 09/05/16 at 06:00 Gabapentin (Neurontin) 1,200 mg QHS PO Last administered on 09/07/16 20:38; Start 09/04/16 at 21:00 Lamotrigine (LaMICtal) 400 mg BID PO Last administered on 09/07/16 20:38; Start 09/04/16 at 12:00 Active Scripts Active Zofran Odt (Ondansetron) 4 Mg Tab.rapdis 1 Tab SL PRN Q8HRS PRN Proair Respiclick (Albuterol Sulfate) 90 Mcg Aer.pow.ba 1 Puff IH PRN Q6HRS PRN Proair Hfa Inhaler (Albuterol Sulfate) 8.5 Gm Hfa.aer.ad 2 Puff INH Q4HRS PRN Proventil Hfa Inhaler (Albuterol Sulfate) 6.7 Gm Hfa.aer.ad 1 Puff IH PRN Q4HRS PRN Reported Gabapentin 400 Mg Capsule 3 Cap PO QHS Gabapentin 400 Mg Capsule 2 Cap PO DAILY06 Lamotrigine 200 Mg Tablet 2 Tab PO BID Vitals/I & O Vital Sign - Last 24 Hours 09/07/16 09/07/16 09/07/16 09/07/16 15:00 19:54 20:00 20:45 Temp 98.6 98.4 98.6 98.4 Pulse 75 80 Resp 20 18 18 B/P (MAP) 120/60 (80) 129/78 (95) Pulse Ox 96 97 97 O2 Delivery Room Air Room Air Room Air Room Air 09/07/16 09/07/16 09/08/16 09/08/16 21:45 23:55 03:59 07:00 Temp 98.4 98.6 98.6 98.4 98.6 98.6 Pulse 80 73 69 Resp 18 16 16 20 B/P (MAP) 107/52 (70) 109/46 (67) 116/65 (82) Pulse Ox 97 96 96 96 O2 Delivery Room Air Room Air Room Air Room Air 09/08/16 09/08/16 07:45 11:00 Temp 98.6 98.6 Pulse 78 Resp 20 B/P (MAP) 116/62 (80) Pulse Ox 95 O2 Delivery Room Air Room Air Intake and Output 09/07/16 09/07/16 09/08/16 15:00 23:00 07:00 Intake Total 360 ml 300 ml Output Total 600 ml Balance -240 ml 300 ml MARYA TOWNSEND MD Sep 08, 2016 11:37
[2016-09-08] MEDS ORDERED: IV RINGERS,LACTATED 1000ML 1,000 ML IV SCH (12:12)
[2016-09-08] MEDS ORDERED: ONDANSETRON PF 4 MG/2 ML VIAL. IV PRN (12:15)
[2016-09-08] MEDS ORDERED: HYDROmorphone 2 MG/ML VIAL IV PRN (12:15)
[2016-09-08] MEDS ORDERED: fentaNYL PF VIAL 100 MCG/2 ML VIAL IV PRN ×2 (12:15)
[2016-09-08] MEDS ORDERED: LIDOCAINE 1% 1 ML SYRINGE. ID PRN (12:15)
[2016-09-08] MEDS ORDERED: MORPHINE SULFATE 2 MG/ML DISP.SYRIN. IV PRN (12:15)
[2016-09-08] MEDS ORDERED: PROCHLORPERAZINE 10 MG/2 ML VIAL. IV PRN (12:15)
--- NOTE | 2016-09-08 12:43 | PDOC ---
SURGICAL PROGRESS NOTE Subjective no new complaints other than hasn't gotten anything to eat since coming in the hospital Vital Signs Vital Signs Date Time Temp Pulse Resp B/P (MAP) Pulse Ox O2 Delivery O2 Flow Rate FiO2 09/08/16 11:00 98.6 78 20 116/62 (80) 95 Room Air 98.6 I&O Intake and Output 09/08/16 07:00 Intake Total 660 ml Output Total 600 ml Balance 60 ml Intake Oral 660 ml Output Urine Total 600 ml # Voids 1 # Bowel Movements 3 PATIENT HAS A BLANKENSHIP: No General: Alert, No acute distress Abdomen: Soft, No tenderness Labs Laboratory Tests Test 09/07/16 05:10 White Blood Count 11.8 x10^3/uL (4.0-11.0) Red Blood Count 3.92 x10^6/uL (3.50-5.40) Hemoglobin 12.2 g/dL (12.0-15.5) Hematocrit 35.8 % (36.0-47.0) Mean Corpuscular Volume 91 fL (79-100) Mean Corpuscular Hemoglobin 31 pg (25-35) Mean Corpuscular Hemoglobin Concent 34 g/dL (31-37) Red Cell Distribution Width 16.0 % (11.5-14.5) Platelet Count 295 x10^3/uL (140-400) Neutrophils (%) (Auto) 79 % (31-73) Lymphocytes (%) (Auto) 11 % (24-48) Monocytes (%) (Auto) 7 % (0-9) Eosinophils (%) (Auto) 3 % (0-3) Basophils (%) (Auto) 0 % (0-3) Neutrophils # (Auto) 9.3 x10^3uL (1.8-7.7) Lymphocytes # (Auto) 1.3 x10^3/uL (1.0-4.8) Monocytes # (Auto) 0.8 x10^3/uL (0.0-1.1) Eosinophils # (Auto) 0.3 x10^3/uL (0.0-0.7) Basophils # (Auto) 0.0 x10^3/uL (0.0-0.2) Sodium Level 139 mmol/L (136-145) Potassium Level 3.6 mmol/L (3.5-5.1) Chloride Level 104 mmol/L (98-107) Carbon Dioxide Level 26 mmol/L (21-32) Anion Gap 9 (6-14) Blood Urea Nitrogen 4 mg/dL (7-20) Creatinine 0.7 mg/dL (0.6-1.0) Estimated GFR (Cockcroft-Gault) 96.4 Glucose Level 77 mg/dL (70-99) Calcium Level 8.5 mg/dL (8.5-10.1) Total Bilirubin 0.7 mg/dL (0.2-1.0) Direct Bilirubin 0.3 mg/dL (0.0-0.2) Aspartate Amino Transf (AST/SGOT) 17 U/L (15-37) Alanine Aminotransferase (ALT/SGPT) 47 U/L (14-59) Alkaline Phosphatase 158 U/L (46-116) Total Protein 6.1 g/dL (6.4-8.2) Albumin 2.9 g/dL (3.4-5.0) Lipase 342 U/L (73-393) Problem List Problems Medical Problems: (1) Abdominal pain Status: Acute Assessment/Plan gallstone pancreatitis, improving clinically offered l/s pb. she prefers to wait. will start diet and if tolerated, follow as outpatient for elective GB Problems: SELENA MURDOCK MD Sep 08, 2016 12:43
[2016-09-08 12:55] LABS: DIRECT BILIRUBIN 0.3 mg/dL (0.0-0.2); TOTAL BILIRUBIN 0.6 mg/dL (0.2-1.0); TOTAL PROTEIN 6.5 g/dL (6.4-8.2)
[2016-09-08 15:00] VITALS: BP 129/78
--- NOTE | 2016-09-08 17:26 | PDOC3 ---
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 Pt is a poor historian, has retarded mental development as per nurse. She said she had one time pancreatitis long time ago. recently in [place] for this back pain, new to her, severe, also has some abd pain, with no N/V, fever, chills, chest pain, sob. CT showed acute pancreatitis, lipase >30k. US showed cholelithiasis. pt lipase normal yesterday with npo, or clear liquid, pain control, ivf, however , she refused sx. pt wants to go home, tolerate food well, altho today lipase slightly higher to 400s. dc if ok with gi. fu sx as outpt. dc time 40min Patient History: Patient reports no known family medical history. Problems: Disposition home CONDITION AT DISCHARGE: Improved Diet regular Scheduled Gabapentin (Gabapentin), 2 CAP PO DAILY06, (Reported) Gabapentin (Gabapentin), 3 CAP PO QHS, (Reported) Lamotrigine (Lamotrigine), 2 TAB PO BID, (Reported) Scheduled PRN Albuterol Sulfate (Proventil Hfa Inhaler), 1 PUFF IH PRN Q4HRS PRN for SHORTNESS OF BREATH Albuterol Sulfate (Proair Hfa Inhaler), 2 PUFF INH Q4HRS PRN for SHORTNESS OF BREATH Albuterol Sulfate (Proair Respiclick), 1 PUFF IH PRN Q6HRS PRN for SHORTNESS OF BREATH Ondansetron (Zofran Odt), 1 TAB SL PRN Q8HRS PRN for NAUSEA Follow Up sx in 2 weeks MARYA TOWNSEND MD Sep 08, 2016 17:26
== END 2016-09-08 16:30 | disposition home or self-care (01) | DRG 439 ==
LOC: ER 22:57 → 6 SOUTH 09-04 02:47
PROVIDERS: ADMIT Internal Medicine Hematology & Oncology; ATTEND Internal Medicine Hematology & Oncology
DX: K85.10 Biliary acute pancreatitis without necrosis or infection (principal); Z68.42 Body mass index [BMI] 45.0-49.9, adult; R65.10 Systemic inflammatory response syndrome (SIRS) of non-infectious origin without acute organ dysfunction; K80.20 Calculus of gallbladder without cholecystitis without obstruction; E66.01 Morbid (severe) obesity due to excess calories; F41.9 Anxiety disorder, unspecified; J45.20 Mild intermittent asthma, uncomplicated; K21.9 Gastro-esophageal reflux disease without esophagitis; R16.0 Hepatomegaly, not elsewhere classified; Z87.820 Personal history of traumatic brain injury
CPT/HCPCS: 36415; 51701; 71010; 74178; 76705; 80048; 80053; 80061; 80076; 81001; 81025; 83690; 85007; 85027; 94250; 94760; 96374; 96375; G0481; J1170; J1650; J2060; J2270; J2405; J7030; Q9967; S0028; 99285-25

== ENCOUNTER 2016-09-13 14:59 | Inpatient (IN) | payer MEDICARE, OTHER ==
[~2016-09-13] VITALS: Ht 167.6 cm; Wt 125.2 kg
--- NOTE | 2016-09-13 16:21 | PHYS DOC ---
Past Medical History Past Medical History: Anxiety, Asthma, Seizure Additional Past Medical Histor: MR; TBI, behavior problems, falls Past Surgical History: Other Additional Past Surgical Histo: Dental removal of the majority of the teeth Alcohol Use: None Drug Use: None Adult General Chief Complaint Chief Complaint: BACK PAIN - NO INJURY HPI HPI Patient is a 31 year old female female presents to the emergency department stating that she is having mid back pain that radiates around to the front. She states that she was seen here approximately one week ago and was diagnosed with gallbladder problems. She states that they wanted to do surgery although she does not know how it happened that she was discharged without having the surgery. Patient returns today stating that she had fried fish last night with increased abdominal pain and back pain. She states that she is also having pain that goes up into her back towards her neck area. She denies any trauma or injuries to her back. She denies any urinary frequency urgency or pain with urination. Patient states she has not taken anything for pain or discomfort. She denies any nausea or vomiting. She denies any diarrhea. She does state that she has upper abdominal pain that is in the center of her upper abdomen. Review of Systems Review of Systems Constitutional: Denies fever or chills [] Eyes: Denies change in visual acuity, redness, or eye pain [] HENT: Denies nasal congestion or sore throat [] Respiratory: Denies cough or shortness of breath [] Cardiovascular: No additional information not addressed in HPI [] GI: Upper middle denies abdominal pain, nausea, vomiting, bloody stools or diarrhea [] : Denies dysuria or hematuria [] Musculoskeletal: Right mid back pain denies joint pain [] Integument: Denies rash or skin lesions [] Neurologic: Denies headache, focal weakness or sensory changes [] Endocrine: Denies polyuria or polydipsia [] Current Medications Current Medications Current Medications Medications (Trade) Dose Ordered Sig/Darell Start Time Stop Time Status Last Admin Dose Admin Fentanyl Citrate (Fentanyl 2ml Vial) 50 mcg PRN Q15MIN PRN 09/13/16 17:15 09/13/16 18:09 DC Info (Do NOT chart on this entry -- for MONITORING) 1 each PRN DAILY PRN 09/13/16 17:00 09/15/16 16:59 Iohexol (Omnipaque 300 Mg/ml) 75 ml 1X ONCE 09/13/16 17:15 09/13/16 17:16 DC 09/13/16 17:27 75 ML Allergies Allergies Allergies Coded Allergies Type Severity Reaction Last Updated Verified No Known Drug Intolerances Allergy Unknown 12/07/15 Yes Physical Exam Physical Exam Constitutional: Well developed, well nourished, no acute distress, non-toxic appearance. [] HENT: Normocephalic, atraumatic, bilateral external ears normal, oropharynx moist, no oral exudates, nose normal. [] Eyes: PERRLA, EOMI, conjunctiva normal, no discharge. [] Neck: Normal range of motion, no tenderness, supple, no stridor. [] Cardiovascular:Heart rate regular rhythm, no murmur [] Lungs & Thorax: Bilateral breath sounds clear to auscultation [] Abdomen: Bowel sounds hypoactive, soft, no tenderness, no masses, no pulsatile masses. [] Skin: Warm, dry, no erythema, no rash. [] Back: No tenderness, no CVA tenderness. [] Extremities: No tenderness, no cyanosis, no clubbing, ROM intact, no edema. [] Neurologic: Alert and oriented X 3, normal motor function, normal sensory function, no focal deficits noted. [] Psychologic: Affect normal, judgement normal, mood normal. [] Current Patient Data Vital Signs Vital Signs Date Time Temp Pulse Resp B/P (MAP) Pulse Ox O2 Delivery O2 Flow Rate FiO2 09/13/16 15:22 98.0 71 16 95 Room Air 98.0 Lab Values Laboratory Tests Test 09/13/16 15:32 09/13/16 16:15 09/13/16 16:30 POC Urine HCG, Qualitative Hcg negative (Negative) Urine Collection Type Unknown Urine Color Yellow Urine Clarity Clear Urine pH 6.5 Urine Specific [place] <=1.005 Urine Protein Negative mg/dL (NEG-TRACE) Urine Glucose (UA) Negative mg/dL (NEG) Urine Ketones (Stick) Negative mg/dL (NEG) Urine Blood Small (NEG) Urine Nitrite Negative (NEG) Urine Bilirubin Negative (NEG) Urine Urobilinogen Dipstick 1.0 mg/dL (0.2 mg/dL) Urine Leukocyte Esterase Small (NEG) Urine RBC 1-2 /HPF (0-2) Urine WBC 11-20 /HPF (0-4) Urine Squamous Epithelial Cells Mod /LPF Urine Bacteria Few /HPF (0-FEW) Urine Mucus Slight /LPF White Blood Count 9.0 x10^3/uL (4.0-11.0) Red Blood Count 4.33 x10^6/uL (3.50-5.40) Hemoglobin 13.2 g/dL (12.0-15.5) Hematocrit 39.7 % (36.0-47.0) Mean Corpuscular Volume 92 fL (79-100) Mean Corpuscular Hemoglobin 30 pg (25-35) Mean Corpuscular Hemoglobin Concent 33 g/dL (31-37) Red Cell Distribution Width 15.2 % (11.5-14.5) H Platelet Count 478 x10^3/uL (140-400) H Neutrophils (%) (Auto) 75 % (31-73) H Lymphocytes (%) (Auto) 15 % (24-48) L Monocytes (%) (Auto) 8 % (0-9) Eosinophils (%) (Auto) 1 % (0-3) Basophils (%) (Auto) 1 % (0-3) Neutrophils # (Auto) 6.8 x10^3uL (1.8-7.7) Lymphocytes # (Auto) 1.3 x10^3/uL (1.0-4.8) Monocytes # (Auto) 0.8 x10^3/uL (0.0-1.1) Eosinophils # (Auto) 0.1 x10^3/uL (0.0-0.7) Basophils # (Auto) 0.1 x10^3/uL (0.0-0.2) Sodium Level 138 mmol/L (136-145) Potassium Level 3.7 mmol/L (3.5-5.1) Chloride Level 100 mmol/L (98-107) Carbon Dioxide Level 30 mmol/L (21-32) Anion Gap 8 (6-14) Blood Urea Nitrogen 4 mg/dL (7-20) L Creatinine 0.9 mg/dL (0.6-1.0) Estimated GFR (Cockcroft-Gault) 72.1 BUN/Creatinine Ratio 4 (6-20) L Glucose Level 105 mg/dL (70-99) H Calcium Level 9.8 mg/dL (8.5-10.1) Total Bilirubin 1.1 mg/dL (0.2-1.0) H Aspartate Amino Transferase (AST) 124 U/L (15-37) H Alanine Aminotransferase (ALT) 116 U/L (14-59) H Alkaline Phosphatase 838 U/L (46-116) H Total Protein 7.5 g/dL (6.4-8.2) Albumin 3.6 g/dL (3.4-5.0) Albumin/Globulin Ratio 0.9 (1.0-1.7) L Amylase Level 1314 U/L (25-115) H Lipase 95297 U/L (73-393) H Laboratory Tests 09/13/16 16:30 Laboratory Tests 09/13/16 16:30 EKG EKG [] Radiology/Procedures Radiology/Procedures [][facility] [address] [place] [address] IMAGING REPORT Signed PATIENT: ALANNA GOMEZ ACCOUNT: [id number] : 1985 LOCATION: [address] [place] [address] AGE: 31 SEX: F EXAM STATUS: ADM IN ORD. PHYSICIAN: LAUREN MARCELINO APRN REASON: abdominal pain hx gallbladder issuses PROCEDURE: CT ABD PELV W/ IV CONTRST ONLY Examination: CT of the abdomen pelvis with IV contrast HISTORY: History of abdominal pain COMPARISON: 09/04/2016 TECHNIQUE: Axial CT images of the abdomen pelvis was performed with IV contrast. Coronal and sagittal reformats are performed. Exposure: One or more of the following individualized dose reduction techniques were utilized for this examination: 1. Automated exposure control 2. Adjustment of the mA and/or kV according to patient size 3. Use of iterative reconstruction technique FINDINGS: Calcified granulomas identified in the right lung base grossly similar to prior exam. No evidence of free air identified in the abdomen. The visualized liver, spleen, adrenals grossly appears unremarkable. Moderate inflammatory fat stranding identified around the head of the pancreas. The gallbladder is mildly distended with some hyperdensities within. The common bile duct appears dilated measuring up to 1.2 cm in transverse dimension. The stomach is mildly distended. The small bowel is nondilated. The appendix is normal. Feces and gas noted in the colon. Urinary bladder is mildly distended. The visualized uterus, adnexa grossly appears unremarkable. Bilateral kidneys enhance symmetrically. The caliber of the aorta grossly appears unremarkable. No evidence of any bony destructive lesion. IMPRESSION: 1. Moderate inflammatory fat stranding identified about the head of the pancreas likely pancreatitis, compared to the recent prior exam the inflammation has somewhat mildly decreased. 2. Distended gallbladder with hyperdensities probably gallstones with dilated appearing common bile duct. Correlate with lab values. Electronically signed by: Demarcus Shabazz MD (09/13/2016 6:33 PM) [facility] DICTATED and SIGNED BY: DEMARCUS SHABAZZ MD DATE: 09/13/16 1823 CC: SHAYNE RICE III DO; LUAREN MARCELINO APRN; UNKNOWN PCP NAME ~ Course & Med Decision Making Course & Med Decision Making Pertinent Labs and Imaging studies reviewed. (See chart for details) Patient's lipase was elevated to 11,000. Patient did develop nausea vomiting here in the emergency department after speaking with the hospitalist in regards to admission for this patient for either pancreatitis or gallbladder issues. Patient's CT scan is still pending at this time. Patient and family members agree with admission. Dr. Rice was notified and he agrees with admission as well. He did recommend GI consult and surgery consult which has been placed into the computer is in order. Floor orders have been placed. Patient was provided with Zofran here in the emergency department as well as Zofran. Dragon Disclaimer Dragon Disclaimer This electronic medical record was generated, in whole or in part, using a voice recognition dictation system. Departure Departure Impression: Primary Impression: Abdominal pain Additional Impression: Elevated amylase and lipase Disposition: ADMITTED INPATIENT Admitting Physician: Shayne Rice Referrals: UNKNOWN PCP NAME (PCP) Problem Qualifiers LAUREN MARCELINO APRN Sep 13, 2016 16:21
[2016-09-13 16:28] LABS: BILIRUBIN,URINE NEGATIVE (NEG); GLUCOSE,URINE NEGATIVE (NEG); NITRITE,URINE NEGATIVE (NEG); PH,URINE 6.5; PROTEIN,URINE NEGATIVE (NEG-TRACE)
[2016-09-13 16:44] LABS: BASO # 0.1 x10^3/uL (0.0-0.2); BASO % 1 % (0-3); EOS % 1 % (0-3); HEMATOCRIT 39.7 % (36.0-47.0); HEMOGLOBIN 13.2 g/dL (12.0-15.5); LYMPH # 1.3 x10^3/uL (1.0-4.8); LYMPH % 15 % (24-48); MEAN CORPUSCULAR HEMOGLOBIN 30 pg (25-35); MEAN CORPUSCULAR HGB CONC 33 g/dL (31-37); MEAN CORPUSCULAR VOLUME 92 fL (79-100); MONO % 8 % (0-9); NEUT % 75 % (31-73); PLATELET COUNT 478 x10^3/uL (140-400); RED BLOOD COUNT 4.33 x10^6/uL (3.50-5.40); RED CELL DISTRIBUTION WIDTH 15.2 % (11.5-14.5)
[2016-09-13 16:59] LABS: BACTERIA,URINE FEW /HPF (0-FEW); SQUAMOUS EPITHELIAL CELL,UR MOD /LPF
[2016-09-13] MEDS ORDERED: CONTRAST GIVEN MC PRN (17:00)
[2016-09-13 17:03] LABS: AMYLASE 1314 U/L (25-115)
[2016-09-13] MEDS ORDERED: fentaNYL PF VIAL 100 MCG/2 ML VIAL IV PRN (17:15)
[2016-09-13] MEDS ORDERED: IOHEXOL 300 MG/ML 75 ML VIAL IV ONE (17:15)
[2016-09-13 17:30] LABS: CALCIUM 9.8 mg/dL (8.5-10.1); CREATININE 0.9 mg/dL (0.6-1.0); GFR 72.1; POTASSIUM 3.7 mmol/L (3.5-5.1)
[2016-09-13 17:38] LABS: ALBUMIN 3.6 g/dL (3.4-5.0); ALBUMIN/GLOBULIN RATIO 0.9 (1.0-1.7); TOTAL BILIRUBIN 1.1 mg/dL (0.2-1.0); TOTAL PROTEIN 7.5 g/dL (6.4-8.2)
[2016-09-13] MEDS: ONDANSETRON PF 4 MG/2 ML VIAL. IV PRN (18:09)
[2016-09-13] MEDS: fentaNYL PF VIAL 100 MCG/2 ML VIAL IV PRN ×3 (18:10→22:33)
[2016-09-13] MEDS: IV NORMAL SALINE 1000ML BAG 1,000 ML IV SCH ×2 (18:30→20:32)
--- NOTE | 2016-09-13 18:36 | RAD ---
Examination: CT of the abdomen pelvis with IV contrast HISTORY: History of abdominal pain COMPARISON: 09/04/2016 TECHNIQUE: Axial CT images of the abdomen pelvis was performed with IV contrast. Coronal and sagittal reformats are performed. Exposure: One or more of the following individualized dose reduction techniques were utilized for this examination: 1. Automated exposure control 2. Adjustment of the mA and/or kV according to patient size 3. Use of iterative reconstruction technique FINDINGS: Calcified granulomas identified in the right lung base grossly similar to prior exam. No evidence of free air identified in the abdomen. The visualized liver, spleen, adrenals grossly appears unremarkable. Moderate inflammatory fat stranding identified around the head of the pancreas. The gallbladder is mildly distended with some hyperdensities within. The common bile duct appears dilated measuring up to 1.2 cm in transverse dimension. The stomach is mildly distended. The small bowel is nondilated. The appendix is normal. Feces and gas noted in the colon. Urinary bladder is mildly distended. The visualized uterus, adnexa grossly appears unremarkable. Bilateral kidneys enhance symmetrically. The caliber of the aorta grossly appears unremarkable. No evidence of any bony destructive lesion. IMPRESSION: 1. Moderate inflammatory fat stranding identified about the head of the pancreas likely pancreatitis, compared to the recent prior exam the inflammation has somewhat mildly decreased. 2. Distended gallbladder with hyperdensities probably gallstones with dilated appearing common bile duct. Correlate with lab values. Electronically signed by: Demarcus Shabazz MD (09/13/2016 6:33 PM) [facility]
[2016-09-13 18:44] VITALS: BP 144/87
[2016-09-13 19:25] VITALS: BP 151/96
[2016-09-13] MEDS ORDERED: NON FORMULARY ITEM (Albuterol Sulfate (Proventil Hfa Inhaler) 1 PUFF) IH PRN (20:00)
[2016-09-13] MEDS ORDERED: NON FORMULARY ITEM (Albuterol Sulfate (Proair Respiclick) 1 PUFF) IH PRN (20:00)
[2016-09-13] MEDS ORDERED: ONDANSETRON ODT 4 MG TAB.RAPDIS. PO PRN (20:00)
--- NOTE | 2016-09-13 20:06 | PDOC1 ---
History and Physical Date of Admission Date of Admission DATE: 09/13/16 TIME: 20:04 Identification/Chief Complaint Chief Complaint abd pain Problems: History of Present Illness History of Present Illness HPI Patient is a 31 year old female female presents to the emergency department stating that she is having mid back pain that radiates around to the front. She states that she was seen here approximately one week ago and was diagnosed with gallbladder problems. She states that they wanted to do surgery although she does not know how it happened that she was discharged without having the surgery. Patient returns today stating that she had fried fish last night with increased abdominal pain and back pain. She states that she is also having pain that goes up into her back towards her neck area. She denies any trauma or injuries to her back. She denies any urinary frequency urgency or pain with urination. Patient states she has not taken anything for pain or discomfort. She denies any nausea or vomiting. She denies any diarrhea. She does state that she has upper abdominal pain that is in the center of her upper abdomen. Past Medical History: Anxiety, Asthma, Seizure Additional Past Medical Histor: MR; TBI, behavior problems, falls Past Surgical History: Other Additional Past Surgical Histo: Dental removal of the majority of the teeth Alcohol Use: None Drug Use: None Pt seen and examined Dw RN Called sister Plan is admit with GI and surgical consults Dictation system still broken Total time 31 minutes Past Medical History Cardiovascular: No pertinent hx Pulmonary: No pertinent hx GI: No pertinent hx Heme/Onc: No pertinent hx Renal/: No pertinent hx Endocrine: No pertinent hx Past Surgical History Past Surgical History: No pertinent history Family History Family History: High Cholestrol Social History ALCOHOL: none Drugs: None Current Problem List Problem List Problems Medical Problems: (1) Abdominal pain Status: Acute (2) Elevated amylase and lipase Status: Acute Problems: Current Medications Current Medications Current Medications Iohexol (Omnipaque 300 Mg/ml) 75 ml 1X ONCE IV Last administered on 09/13/16t 17:27; Start 09/13/16 at 17:15; Stop 09/13/16 at 17:16; Status DC Info (Do NOT chart on this entry -- for MONITORING) 1 each PRN DAILY PRN MC SEE COMMENTS; Start 09/13/16 at 17:00; Stop 09/15/16 at 16:59 Fentanyl Citrate (Fentanyl 2ml Vial) 50 mcg PRN Q15MIN PRN IV PAIN GREATER THAN 3/10; Start 09/13/16 at 17:15; Stop 09/13/16 at 18:09; Status DC Fentanyl Citrate (Fentanyl 2ml Vial) 50 mcg PRN Q2HR PRN IV PAIN Last administered on 09/13/16 18:10; Start 09/13/16 at 17:30; Stop 09/14/16 at 17:29 Sodium Chloride 1,000 ml @ 125 mls/hr Q8H IV Last administered on 09/13/16 18: 30; Start 09/13/16 at 18:00; Stop 09/14/16 at 17:59 Ondansetron HCl (Zofran) 4 mg PRN Q6HRS PRN IV NAUSEA/VOMITING Last administered on 09/13/16 18:09; Start 09/13/16 at 18:15 Active Scripts Active Zofran Odt (Ondansetron) 4 Mg Tab.rapdis 1 Tab SL PRN Q8HRS PRN Proair Respiclick (Albuterol Sulfate) 90 Mcg Aer.pow.ba 1 Puff IH PRN Q6HRS PRN Proair Hfa Inhaler (Albuterol Sulfate) 8.5 Gm Hfa.aer.ad 2 Puff INH Q4HRS PRN Proventil Hfa Inhaler (Albuterol Sulfate) 6.7 Gm Hfa.aer.ad 1 Puff IH PRN Q4HRS PRN Reported Gabapentin 400 Mg Capsule 3 Cap PO QHS Gabapentin 400 Mg Capsule 2 Cap PO DAILY06 Lamotrigine 200 Mg Tablet 2 Tab PO BID Allergies Allergies: Coded Allergies: No Known Drug Intolerances (Verified Allergy, Unknown, 12/07/15) Vitals Vitals Vital Signs Date Time Temp Pulse Resp B/P (MAP) Pulse Ox O2 Delivery O2 Flow Rate FiO2 09/13/16 19:25 98.8 81 18 151/96 (114) 97 Room Air 98.8 Labs Labs Laboratory Tests Test 09/13/16 15:32 09/13/16 16:15 09/13/16 16:30 Bedside Urine HCG, Qualitative Hcg negative (Negative) Urine Collection Type Unknown Urine Color Yellow Urine Clarity Clear Urine pH 6.5 Urine Specific [place] <=1.005 Urine Protein Negative mg/dL (NEG-TRACE) Urine Glucose (UA) Negative mg/dL (NEG) Urine Ketones (Stick) Negative mg/dL (NEG) Urine Blood Small (NEG) Urine Nitrite Negative (NEG) Urine Bilirubin Negative (NEG) Urine Urobilinogen Dipstick 1.0 mg/dL (0.2 mg/dL) Urine Leukocyte Esterase Small (NEG) Urine RBC 1-2 /HPF (0-2) Urine WBC 11-20 /HPF (0-4) Urine Squamous Epithelial Cells Mod /LPF Urine Bacteria Few /HPF (0-FEW) Urine Mucus Slight /LPF White Blood Count 9.0 x10^3/uL (4.0-11.0) Red Blood Count 4.33 x10^6/uL (3.50-5.40) Hemoglobin 13.2 g/dL (12.0-15.5) Hematocrit 39.7 % (36.0-47.0) Mean Corpuscular Volume 92 fL (79-100) Mean Corpuscular Hemoglobin 30 pg (25-35) Mean Corpuscular Hemoglobin Concent 33 g/dL (31-37) Red Cell Distribution Width 15.2 % (11.5-14.5) Platelet Count 478 x10^3/uL (140-400) Neutrophils (%) (Auto) 75 % (31-73) Lymphocytes (%) (Auto) 15 % (24-48) Monocytes (%) (Auto) 8 % (0-9) Eosinophils (%) (Auto) 1 % (0-3) Basophils (%) (Auto) 1 % (0-3) Neutrophils # (Auto) 6.8 x10^3uL (1.8-7.7) Lymphocytes # (Auto) 1.3 x10^3/uL (1.0-4.8) Monocytes # (Auto) 0.8 x10^3/uL (0.0-1.1) Eosinophils # (Auto) 0.1 x10^3/uL (0.0-0.7) Basophils # (Auto) 0.1 x10^3/uL (0.0-0.2) Sodium Level 138 mmol/L (136-145) Potassium Level 3.7 mmol/L (3.5-5.1) Chloride Level 100 mmol/L (98-107) Carbon Dioxide Level 30 mmol/L (21-32) Anion Gap 8 (6-14) Blood Urea Nitrogen 4 mg/dL (7-20) Creatinine 0.9 mg/dL (0.6-1.0) Estimated GFR (Cockcroft-Gault) 72.1 BUN/Creatinine Ratio 4 (6-20) Glucose Level 105 mg/dL (70-99) Calcium Level 9.8 mg/dL (8.5-10.1) Total Bilirubin 1.1 mg/dL (0.2-1.0) Aspartate Amino Transf (AST/SGOT) 124 U/L (15-37) Alanine Aminotransferase (ALT/SGPT) 116 U/L (14-59) Alkaline Phosphatase 838 U/L (46-116) Total Protein 7.5 g/dL (6.4-8.2) Albumin 3.6 g/dL (3.4-5.0) Albumin/Globulin Ratio 0.9 (1.0-1.7) Amylase Level 1314 U/L (25-115) Lipase 37334 U/L (73-393) Laboratory Tests Test 09/13/16 15:32 09/13/16 16:15 09/13/16 16:30 Bedside Urine HCG, Qualitative Hcg negative (Negative) Urine Collection Type Unknown Urine Color Yellow Urine Clarity Clear Urine pH 6.5 Urine Specific [place] <=1.005 Urine Protein Negative mg/dL (NEG-TRACE) Urine Glucose (UA) Negative mg/dL (NEG) Urine Ketones (Stick) Negative mg/dL (NEG) Urine Blood Small (NEG) Urine Nitrite Negative (NEG) Urine Bilirubin Negative (NEG) Urine Urobilinogen Dipstick 1.0 mg/dL (0.2 mg/dL) Urine Leukocyte Esterase Small (NEG) Urine RBC 1-2 /HPF (0-2) Urine WBC 11-20 /HPF (0-4) Urine Squamous Epithelial Cells Mod /LPF Urine Bacteria Few /HPF (0-FEW) Urine Mucus Slight /LPF White Blood Count 9.0 x10^3/uL (4.0-11.0) Red Blood Count 4.33 x10^6/uL (3.50-5.40) Hemoglobin 13.2 g/dL (12.0-15.5) Hematocrit 39.7 % (36.0-47.0) Mean Corpuscular Volume 92 fL (79-100) Mean Corpuscular Hemoglobin 30 pg (25-35) Mean Corpuscular Hemoglobin Concent 33 g/dL (31-37) Red Cell Distribution Width 15.2 % (11.5-14.5) Platelet Count 478 x10^3/uL (140-400) Neutrophils (%) (Auto) 75 % (31-73) Lymphocytes (%) (Auto) 15 % (24-48) Monocytes (%) (Auto) 8 % (0-9) Eosinophils (%) (Auto) 1 % (0-3) Basophils (%) (Auto) 1 % (0-3) Neutrophils # (Auto) 6.8 x10^3uL (1.8-7.7) Lymphocytes # (Auto) 1.3 x10^3/uL (1.0-4.8) Monocytes # (Auto) 0.8 x10^3/uL (0.0-1.1) Eosinophils # (Auto) 0.1 x10^3/uL (0.0-0.7) Basophils # (Auto) 0.1 x10^3/uL (0.0-0.2) Sodium Level 138 mmol/L (136-145) Potassium Level 3.7 mmol/L (3.5-5.1) Chloride Level 100 mmol/L (98-107) Carbon Dioxide Level 30 mmol/L (21-32) Anion Gap 8 (6-14) Blood Urea Nitrogen 4 mg/dL (7-20) Creatinine 0.9 mg/dL (0.6-1.0) Estimated GFR (Cockcroft-Gault) 72.1 BUN/Creatinine Ratio 4 (6-20) Glucose Level 105 mg/dL (70-99) Calcium Level 9.8 mg/dL (8.5-10.1) Total Bilirubin 1.1 mg/dL (0.2-1.0) Aspartate Amino Transf (AST/SGOT) 124 U/L (15-37) Alanine Aminotransferase (ALT/SGPT) 116 U/L (14-59) Alkaline Phosphatase 838 U/L (46-116) Total Protein 7.5 g/dL (6.4-8.2) Albumin 3.6 g/dL (3.4-5.0) Albumin/Globulin Ratio 0.9 (1.0-1.7) Amylase Level 1314 U/L (25-115) Lipase 40867 U/L (73-393) VTE Prophylaxis Ordered VTE Prophylaxis Devices: Contraindicated VTE Pharmacological Prophylaxi: Yes SHAYNE CHILEL III DO Sep 13, 2016 20:06
[2016-09-13] MEDS ORDERED: ALBUTEROL SULFATE 2.5 MG/3 ML NEBU. NEB PRN (20:15)
[2016-09-13] MEDS: lamoTRIgine 100 MG TABLET. PO SCH (20:31)
[2016-09-13] MEDS: GABAPENTIN 400 MG CAPSULE. PO SCH (20:31)
[2016-09-13] MEDS ORDERED: PROCHLORPERAZINE 10 MG/2 ML VIAL. IV PRN (22:30)
[2016-09-13] MEDS ORDERED: HYDROmorphone 2 MG/ML VIAL IV PRN (23:00)
[2016-09-13] MEDS: HYDROmorphone 2 MG/ML VIAL IV PRN (23:12)
[2016-09-13 23:32] VITALS: BP 143/81
[2016-09-14] MEDS: HYDROmorphone 2 MG/ML VIAL IV PRN (02:43)
[2016-09-14 03:20] VITALS: BP 118/55
[2016-09-14] MEDS: GABAPENTIN 400 MG CAPSULE. PO SCH ×2 (04:19→19:57)
[2016-09-14 05:23] LABS: BASO % 0 % (0-3); EOS % 0 % (0-3); HEMATOCRIT 35.5 % (36.0-47.0); HEMOGLOBIN 12.1 g/dL (12.0-15.5); LYMPH # 0.9 x10^3/uL (1.0-4.8); LYMPH % 9 % (24-48); MEAN CORPUSCULAR HEMOGLOBIN 31 pg (25-35); MEAN CORPUSCULAR HGB CONC 34 g/dL (31-37); MEAN CORPUSCULAR VOLUME 91 fL (79-100); MONO % 4 % (0-9); NEUT % 87 % (31-73); PLATELET COUNT 457 x10^3/uL (140-400); RED CELL DISTRIBUTION WIDTH 15.2 % (11.5-14.5); WHITE BLOOD COUNT 9.9 x10^3/uL (4.0-11.0)
[2016-09-14 05:43] LABS: CALCIUM 8.6 mg/dL (8.5-10.1); CREATININE 0.8 mg/dL (0.6-1.0); GFR 82.6; POTASSIUM 4.9 mmol/L (3.5-5.1)
[2016-09-14 07:00] VITALS: BP 84/47
[2016-09-14] MEDS: lamoTRIgine 100 MG TABLET. PO SCH ×2 (08:46→19:57)
[2016-09-14 08:50] LABS: PLT ESTIMATE INCREASED (ADEQUATE)
[2016-09-14] MEDS: IV NORMAL SALINE 1000ML BAG 1,000 ML IV SCH (10:00)
[2016-09-14 10:57] VITALS: BP 105/53
--- NOTE | 2016-09-14 12:26 | PDOC ---
PROGRESS NOTES Chief Complaint Chief Complaint Gallstone pancreatitis Past Medical History: Anxiety, Asthma, Seizure Additional Past Medical Histor: MR; TBI, behavior problems, falls Past Surgical History: Other Additional Past Surgical Histo: Dental removal of the majority of the teeth A History of Present Illness History of Present Illness Pt a little more comfortable. Joelle [place] down [place] 6000 [place] [id number] VSS DW RN Pt seen and examined Vitals Vitals Vital Signs Date Time Temp Pulse Resp B/P (MAP) Pulse Ox O2 Delivery O2 Flow Rate FiO2 09/14/16 10:57 97.9 79 18 105/53 (70) 94 Room Air 97.9 Physical Exam General: Alert, Cooperative Heart: Regular rate, Normal S1 Lungs: Clear Abdomen: Normal bowel sounds, Other (tender RUQ) Extremities: No clubbing, No cyanosis Skin: No rashes, No breakdown Labs LABS Laboratory Tests Test 09/13/16 15:32 09/13/16 16:15 09/13/16 16:30 09/13/16 20:35 Bedside Urine HCG, Qualitative Hcg negative (Negative) Urine Collection Type Unknown Urine Color Yellow Urine Clarity Clear Urine pH 6.5 Urine Specific [place] <=1.005 Urine Protein Negative mg/dL (NEG-TRACE) Urine Glucose (UA) Negative mg/dL (NEG) Urine Ketones (Stick) Negative mg/dL (NEG) Urine Blood Small (NEG) Urine Nitrite Negative (NEG) Urine Bilirubin Negative (NEG) Urine Urobilinogen Dipstick 1.0 mg/dL (0.2 mg/dL) Urine Leukocyte Esterase Small (NEG) Urine RBC 1-2 /HPF (0-2) Urine WBC 11-20 /HPF (0-4) Urine Squamous Epithelial Cells Mod /LPF Urine Bacteria Few /HPF (0-FEW) Urine Mucus Slight /LPF White Blood Count 9.0 x10^3/uL (4.0-11.0) Red Blood Count 4.33 x10^6/uL (3.50-5.40) Hemoglobin 13.2 g/dL (12.0-15.5) Hematocrit 39.7 % (36.0-47.0) Mean Corpuscular Volume 92 fL (79-100) Mean Corpuscular Hemoglobin 30 pg (25-35) Mean Corpuscular Hemoglobin Concent 33 g/dL (31-37) Red Cell Distribution Width 15.2 % (11.5-14.5) Platelet Count 478 x10^3/uL (140-400) Neutrophils (%) (Auto) 75 % (31-73) Lymphocytes (%) (Auto) 15 % (24-48) Monocytes (%) (Auto) 8 % (0-9) Eosinophils (%) (Auto) 1 % (0-3) Basophils (%) (Auto) 1 % (0-3) Neutrophils # (Auto) 6.8 x10^3uL (1.8-7.7) Lymphocytes # (Auto) 1.3 x10^3/uL (1.0-4.8) Monocytes # (Auto) 0.8 x10^3/uL (0.0-1.1) Eosinophils # (Auto) 0.1 x10^3/uL (0.0-0.7) Basophils # (Auto) 0.1 x10^3/uL (0.0-0.2) Sodium Level 138 mmol/L (136-145) Potassium Level 3.7 mmol/L (3.5-5.1) Chloride Level 100 mmol/L (98-107) Carbon Dioxide Level 30 mmol/L (21-32) Anion Gap 8 (6-14) Blood Urea Nitrogen 4 mg/dL (7-20) Creatinine 0.9 mg/dL (0.6-1.0) Estimated GFR (Cockcroft-Gault) 72.1 BUN/Creatinine Ratio 4 (6-20) Glucose Level 105 mg/dL (70-99) Calcium Level 9.8 mg/dL (8.5-10.1) Total Bilirubin 1.1 mg/dL (0.2-1.0) Aspartate Amino Transf (AST/SGOT) 124 U/L (15-37) Alanine Aminotransferase (ALT/SGPT) 116 U/L (14-59) Alkaline Phosphatase 838 U/L (46-116) Total Protein 7.5 g/dL (6.4-8.2) Albumin 3.6 g/dL (3.4-5.0) Albumin/Globulin Ratio 0.9 (1.0-1.7) Amylase Level 1314 U/L (25-115) Lipase 33728 U/L (73-393) 70487 U/L (73-393) Test 09/14/16 05:10 White Blood Count 9.9 x10^3/uL (4.0-11.0) Red Blood Count 3.90 x10^6/uL (3.50-5.40) Hemoglobin 12.1 g/dL (12.0-15.5) Hematocrit 35.5 % (36.0-47.0) Mean Corpuscular Volume 91 fL (79-100) Mean Corpuscular Hemoglobin 31 pg (25-35) Mean Corpuscular Hemoglobin Concent 34 g/dL (31-37) Red Cell Distribution Width 15.2 % (11.5-14.5) Platelet Count 457 x10^3/uL (140-400) Neutrophils (%) (Auto) 87 % (31-73) Lymphocytes (%) (Auto) 9 % (24-48) Monocytes (%) (Auto) 4 % (0-9) Eosinophils (%) (Auto) 0 % (0-3) Basophils (%) (Auto) 0 % (0-3) Neutrophils # (Auto) 8.6 x10^3uL (1.8-7.7) Lymphocytes # (Auto) 0.9 x10^3/uL (1.0-4.8) Monocytes # (Auto) 0.4 x10^3/uL (0.0-1.1) Eosinophils # (Auto) 0.0 x10^3/uL (0.0-0.7) Basophils # (Auto) 0.0 x10^3/uL (0.0-0.2) Segmented Neutrophils % 90 % (35-66) Band Neutrophils % 2 % (0-9) Lymphocytes % 6 % (24-48) Monocytes % 2 % (0-10) Platelet Estimate Increased (ADEQUATE) Sodium Level 141 mmol/L (136-145) Potassium Level 4.9 mmol/L (3.5-5.1) Chloride Level 105 mmol/L (98-107) Carbon Dioxide Level 29 mmol/L (21-32) Anion Gap 7 (6-14) Blood Urea Nitrogen 6 mg/dL (7-20) Creatinine 0.8 mg/dL (0.6-1.0) Estimated GFR (Cockcroft-Gault) 82.6 Glucose Level 120 mg/dL (70-99) Calcium Level 8.6 mg/dL (8.5-10.1) Lipase 6612 U/L (73-393) Review of Systems Review of Systems co weakness co pain Assessment and Plan Assessmemt and Plan Problems Medical Problems: (1) Abdominal pain Status: Acute (2) Elevated amylase and lipase Status: Acute Gallstone pancreatitis Past Medical History: Anxiety, Asthma, Seizure Additional Past Medical Histor: MR; TBI, behavior problems, falls Past Surgical History: Other Additional Past Surgical Histo: Dental removal of the majority of the teeth Plan Await Gen Surg input Cont Narcotics Labs Home meds PTOT Probablr lap pb next week A Problems: Comment Review of Relevant I have reviewed the following items scar (where applicable) has been applied. Labs Laboratory Tests Test 09/13/16 15:32 09/13/16 16:15 09/13/16 16:30 09/13/16 20:35 Bedside Urine HCG, Qualitative Hcg negative (Negative) Urine Collection Type Unknown Urine Color Yellow Urine Clarity Clear Urine pH 6.5 Urine Specific [place] <=1.005 Urine Protein Negative mg/dL (NEG-TRACE) Urine Glucose (UA) Negative mg/dL (NEG) Urine Ketones (Stick) Negative mg/dL (NEG) Urine Blood Small (NEG) Urine Nitrite Negative (NEG) Urine Bilirubin Negative (NEG) Urine Urobilinogen Dipstick 1.0 mg/dL (0.2 mg/dL) Urine Leukocyte Esterase Small (NEG) Urine RBC 1-2 /HPF (0-2) Urine WBC 11-20 /HPF (0-4) Urine Squamous Epithelial Cells Mod /LPF Urine Bacteria Few /HPF (0-FEW) Urine Mucus Slight /LPF White Blood Count 9.0 x10^3/uL (4.0-11.0) Red Blood Count 4.33 x10^6/uL (3.50-5.40) Hemoglobin 13.2 g/dL (12.0-15.5) Hematocrit 39.7 % (36.0-47.0) Mean Corpuscular Volume 92 fL (79-100) Mean Corpuscular Hemoglobin 30 pg (25-35) Mean Corpuscular Hemoglobin Concent 33 g/dL (31-37) Red Cell Distribution Width 15.2 % (11.5-14.5) Platelet Count 478 x10^3/uL (140-400) Neutrophils (%) (Auto) 75 % (31-73) Lymphocytes (%) (Auto) 15 % (24-48) Monocytes (%) (Auto) 8 % (0-9) Eosinophils (%) (Auto) 1 % (0-3) Basophils (%) (Auto) 1 % (0-3) Neutrophils # (Auto) 6.8 x10^3uL (1.8-7.7) Lymphocytes # (Auto) 1.3 x10^3/uL (1.0-4.8) Monocytes # (Auto) 0.8 x10^3/uL (0.0-1.1) Eosinophils # (Auto) 0.1 x10^3/uL (0.0-0.7) Basophils # (Auto) 0.1 x10^3/uL (0.0-0.2) Sodium Level 138 mmol/L (136-145) Potassium Level 3.7 mmol/L (3.5-5.1) Chloride Level 100 mmol/L (98-107) Carbon Dioxide Level 30 mmol/L (21-32) Anion Gap 8 (6-14) Blood Urea Nitrogen 4 mg/dL (7-20) Creatinine 0.9 mg/dL (0.6-1.0) Estimated GFR (Cockcroft-Gault) 72.1 BUN/Creatinine Ratio 4 (6-20) Glucose Level 105 mg/dL (70-99) Calcium Level 9.8 mg/dL (8.5-10.1) Total Bilirubin 1.1 mg/dL (0.2-1.0) Aspartate Amino Transf (AST/SGOT) 124 U/L (15-37) Alanine Aminotransferase (ALT/SGPT) 116 U/L (14-59) Alkaline Phosphatase 838 U/L (46-116) Total Protein 7.5 g/dL (6.4-8.2) Albumin 3.6 g/dL (3.4-5.0) Albumin/Globulin Ratio 0.9 (1.0-1.7) Amylase Level 1314 U/L (25-115) Lipase 20654 U/L (73-393) 93452 U/L (73-393) Test 09/14/16 05:10 White Blood Count 9.9 x10^3/uL (4.0-11.0) Red Blood Count 3.90 x10^6/uL (3.50-5.40) Hemoglobin 12.1 g/dL (12.0-15.5) Hematocrit 35.5 % (36.0-47.0) Mean Corpuscular Volume 91 fL (79-100) Mean Corpuscular Hemoglobin 31 pg (25-35) Mean Corpuscular Hemoglobin Concent 34 g/dL (31-37) Red Cell Distribution Width 15.2 % (11.5-14.5) Platelet Count 457 x10^3/uL (140-400) Neutrophils (%) (Auto) 87 % (31-73) Lymphocytes (%) (Auto) 9 % (24-48) Monocytes (%) (Auto) 4 % (0-9) Eosinophils (%) (Auto) 0 % (0-3) Basophils (%) (Auto) 0 % (0-3) Neutrophils # (Auto) 8.6 x10^3uL (1.8-7.7) Lymphocytes # (Auto) 0.9 x10^3/uL (1.0-4.8) Monocytes # (Auto) 0.4 x10^3/uL (0.0-1.1) Eosinophils # (Auto) 0.0 x10^3/uL (0.0-0.7) Basophils # (Auto) 0.0 x10^3/uL (0.0-0.2) Segmented Neutrophils % 90 % (35-66) Band Neutrophils % 2 % (0-9) Lymphocytes % 6 % (24-48) Monocytes % 2 % (0-10) Platelet Estimate Increased (ADEQUATE) Sodium Level 141 mmol/L (136-145) Potassium Level 4.9 mmol/L (3.5-5.1) Chloride Level 105 mmol/L (98-107) Carbon Dioxide Level 29 mmol/L (21-32) Anion Gap 7 (6-14) Blood Urea Nitrogen 6 mg/dL (7-20) Creatinine 0.8 mg/dL (0.6-1.0) Estimated GFR (Cockcroft-Gault) 82.6 Glucose Level 120 mg/dL (70-99) Calcium Level 8.6 mg/dL (8.5-10.1) Lipase 6612 U/L (73-393) Laboratory Tests Test 09/13/16 15:32 09/13/16 16:15 09/13/16 16:30 09/13/16 20:35 Bedside Urine HCG, Qualitative Hcg negative (Negative) Urine Collection Type Unknown Urine Color Yellow Urine Clarity Clear Urine pH 6.5 Urine Specific [place] <=1.005 Urine Protein Negative mg/dL (NEG-TRACE) Urine Glucose (UA) Negative mg/dL (NEG) Urine Ketones (Stick) Negative mg/dL (NEG) Urine Blood Small (NEG) Urine Nitrite Negative (NEG) Urine Bilirubin Negative (NEG) Urine Urobilinogen Dipstick 1.0 mg/dL (0.2 mg/dL) Urine Leukocyte Esterase Small (NEG) Urine RBC 1-2 /HPF (0-2) Urine WBC 11-20 /HPF (0-4) Urine Squamous Epithelial Cells Mod /LPF Urine Bacteria Few /HPF (0-FEW) Urine Mucus Slight /LPF White Blood Count 9.0 x10^3/uL (4.0-11.0) Red Blood Count 4.33 x10^6/uL (3.50-5.40) Hemoglobin 13.2 g/dL (12.0-15.5) Hematocrit 39.7 % (36.0-47.0) Mean Corpuscular Volume 92 fL (79-100) Mean Corpuscular Hemoglobin 30 pg (25-35) Mean Corpuscular Hemoglobin Concent 33 g/dL (31-37) Red Cell Distribution Width 15.2 % (11.5-14.5) Platelet Count 478 x10^3/uL (140-400) Neutrophils (%) (Auto) 75 % (31-73) Lymphocytes (%) (Auto) 15 % (24-48) Monocytes (%) (Auto) 8 % (0-9) Eosinophils (%) (Auto) 1 % (0-3) Basophils (%) (Auto) 1 % (0-3) Neutrophils # (Auto) 6.8 x10^3uL (1.8-7.7) Lymphocytes # (Auto) 1.3 x10^3/uL (1.0-4.8) Monocytes # (Auto) 0.8 x10^3/uL (0.0-1.1) Eosinophils # (Auto) 0.1 x10^3/uL (0.0-0.7) Basophils # (Auto) 0.1 x10^3/uL (0.0-0.2) Sodium Level 138 mmol/L (136-145) Potassium Level 3.7 mmol/L (3.5-5.1) Chloride Level 100 mmol/L (98-107) Carbon Dioxide Level 30 mmol/L (21-32) Anion Gap 8 (6-14) Blood Urea Nitrogen 4 mg/dL (7-20) Creatinine 0.9 mg/dL (0.6-1.0) Estimated GFR (Cockcroft-Gault) 72.1 BUN/Creatinine Ratio 4 (6-20) Glucose Level 105 mg/dL (70-99) Calcium Level 9.8 mg/dL (8.5-10.1) Total Bilirubin 1.1 mg/dL (0.2-1.0) Aspartate Amino Transf (AST/SGOT) 124 U/L (15-37) Alanine Aminotransferase (ALT/SGPT) 116 U/L (14-59) Alkaline Phosphatase 838 U/L (46-116) Total Protein 7.5 g/dL (6.4-8.2) Albumin 3.6 g/dL (3.4-5.0) Albumin/Globulin Ratio 0.9 (1.0-1.7) Amylase Level 1314 U/L (25-115) Lipase 43128 U/L (73-393) 80075 U/L (73-393) Test 09/14/16 05:10 White Blood Count 9.9 x10^3/uL (4.0-11.0) Red Blood Count 3.90 x10^6/uL (3.50-5.40) Hemoglobin 12.1 g/dL (12.0-15.5) Hematocrit 35.5 % (36.0-47.0) Mean Corpuscular Volume 91 fL (79-100) Mean Corpuscular Hemoglobin 31 pg (25-35) Mean Corpuscular Hemoglobin Concent 34 g/dL (31-37) Red Cell Distribution Width 15.2 % (11.5-14.5) Platelet Count 457 x10^3/uL (140-400) Neutrophils (%) (Auto) 87 % (31-73) Lymphocytes (%) (Auto) 9 % (24-48) Monocytes (%) (Auto) 4 % (0-9) Eosinophils (%) (Auto) 0 % (0-3) Basophils (%) (Auto) 0 % (0-3) Neutrophils # (Auto) 8.6 x10^3uL (1.8-7.7) Lymphocytes # (Auto) 0.9 x10^3/uL (1.0-4.8) Monocytes # (Auto) 0.4 x10^3/uL (0.0-1.1) Eosinophils # (Auto) 0.0 x10^3/uL (0.0-0.7) Basophils # (Auto) 0.0 x10^3/uL (0.0-0.2) Segmented Neutrophils % 90 % (35-66) Band Neutrophils % 2 % (0-9) Lymphocytes % 6 % (24-48) Monocytes % 2 % (0-10) Platelet Estimate Increased (ADEQUATE) Sodium Level 141 mmol/L (136-145) Potassium Level 4.9 mmol/L (3.5-5.1) Chloride Level 105 mmol/L (98-107) Carbon Dioxide Level 29 mmol/L (21-32) Anion Gap 7 (6-14) Blood Urea Nitrogen 6 mg/dL (7-20) Creatinine 0.8 mg/dL (0.6-1.0) Estimated GFR (Cockcroft-Gault) 82.6 Glucose Level 120 mg/dL (70-99) Calcium Level 8.6 mg/dL (8.5-10.1) Lipase 6612 U/L (73-393) Medications Current Medications Iohexol (Omnipaque 300 Mg/ml) 75 ml 1X ONCE IV Last administered on 09/13/16 17:27; Start 09/13/16 at 17:15; Stop 09/13/16 at 17:16; Status DC Info (Do NOT chart on this entry -- for MONITORING) 1 each PRN DAILY PRN MC SEE COMMENTS; Start 09/13/16 at 17:00; Stop 09/15/16 at 16:59 Fentanyl Citrate (Fentanyl 2ml Vial) 50 mcg PRN Q15MIN PRN IV PAIN GREATER THAN 3/10; Start 09/13/16 at 17:15; Stop 09/13/16 at 18:09; Status DC Fentanyl Citrate (Fentanyl 2ml Vial) 50 mcg PRN Q2HR PRN IV PAIN Last administered on 09/13/16 22:33; Start 09/13/16 at 17:30; Stop 09/14/16 at 17:29 Sodium Chloride 1,000 ml @ 125 mls/hr Q8H IV Last administered on 09/13/16 20: 32; Start 09/13/16 at 18:00; Stop 09/14/16 at 17:59 Ondansetron HCl (Zofran) 4 mg PRN Q6HRS PRN IV NAUSEA/VOMITING Last administered on 09/13/16 18:09; Start 09/13/16 at 18:15 Ondansetron HCl (Zofran Odt) 4 mg PRN Q8HRS PRN PO NAUSEA; Start 09/13/16 at 20: 00 Albuterol Sulfate (Ventolin Neb Soln) 2.5 mg PRN Q4HRS PRN NEB SHORTNESS OF BREATH; Start 09/13/16 at 20:15 Non-Formulary Medication 1 puff PRN Q6HRS PRN IH SHORTNESS OF BREATH; Start 09/13/16 at 20:00; Status UNV Non-Formulary Medication 1 puff PRN Q4HRS PRN IH SHORTNESS OF BREATH; Start 09/13/16 at 20:00; Status UNV Gabapentin (Neurontin) 800 mg DAILY06 PO ; Start 09/14/16 at 06:00 Gabapentin (Neurontin) 1,200 mg QHS PO Last administered on 09/13/16 20:31; Start 09/13/16 at 21:00 Lamotrigine (LaMICtal) 400 mg BID PO Last administered on 09/14/16 08:46; Start 09/13/16 at 21:00 Ceftriaxone Sodium 1 gm/ Sodium Chloride 50 ml @ 100 mls/hr Q24H IV Last administered on 09/13/16 21:31; Start 09/13/16 at 21:00 Prochlorperazine Edisylate (Compazine) 10 mg PRN Q6HRS PRN IV NAUSEA/VOMITING Last administered on 09/13/16 22:28; Start 09/13/16 at 22:30 Hydromorphone HCl (Dilaudid) 2 mg PRN Q4HRS PRN IV SEVERE PAIN; Start 09/13/16 at 23:00 Hydromorphone HCl (Dilaudid) 1 mg PRN Q4HRS PRN IV MODERATE PAIN Last administered on 09/14/16t 02:43; Start 09/13/16 at 23:15 Active Scripts Active Zofran Odt (Ondansetron) 4 Mg Tab.rapdis 1 Tab SL PRN Q8HRS PRN Proair Respiclick (Albuterol Sulfate) 90 Mcg Aer.pow.ba 1 Puff IH PRN Q6HRS PRN Proair Hfa Inhaler (Albuterol Sulfate) 8.5 Gm Hfa.aer.ad 2 Puff INH Q4HRS PRN Proventil Hfa Inhaler (Albuterol Sulfate) 6.7 Gm Hfa.aer.ad 1 Puff IH PRN Q4HRS PRN Reported Gabapentin 400 Mg Capsule 3 Cap PO QHS Gabapentin 400 Mg Capsule 2 Cap PO DAILY06 Lamotrigine 200 Mg Tablet 2 Tab PO BID Vitals/I & O Vital Sign - Last 24 Hours 09/13/16 09/13/16 09/13/16 09/13/16 15:22 18:10 18:44 19:15 Temp 98.0 98.9 98.0 98.9 Pulse 71 73 Resp 16 16 16 B/P (MAP) 144/87 (106) Pulse Ox 95 98 99 O2 Delivery Room Air Room Air Room Air Room Air 09/13/16 09/13/16 09/13/16 09/13/16 19:25 20:00 20:32 22:33 Temp 98.8 98.8 Pulse 81 Resp 18 20 20 B/P (MAP) 151/96 (114) Pulse Ox 97 97 97 O2 Delivery Room Air Room Air Room Air Room Air 09/13/16 09/13/16 09/13/16 09/14/16 23:03 23:12 23:32 02:43 Temp 98.1 98.1 Pulse 65 Resp 20 20 16 20 B/P (MAP) 143/81 (101) Pulse Ox 97 97 92 O2 Delivery Room Air Room Air Room Air Room Air 09/14/16 09/14/16 09/14/16 09/14/16 03:13 03:20 07:00 07:42 Temp 97.9 95.7 97.9 95.7 Pulse 59 72 Resp 20 16 18 B/P (MAP) 118/55 (76) 84/47 (59) Pulse Ox 95 95 90 96 O2 Delivery Room Air Room Air Room Air 09/14/16 09/14/16 08:30 10:57 Temp 97.9 97.9 Pulse 79 Resp 18 B/P (MAP) 105/53 (70) Pulse Ox 94 O2 Delivery Room Air Room Air Intake and Output 09/13/16 09/13/16 09/14/16 15:00 23:00 07:00 Intake Total 624 ml Output Total 200 ml 350 ml Balance -200 ml 274 ml SHAYNE CHILEL III DO Sep 14, 2016 12:26
--- NOTE | 2016-09-14 13:03 | PDOC2 ---
CONSULT Date of Consult Date of Consult DATE: 09/14/16 TIME: 12:59 Reason for Consult Reason for Consult: abd pain/pancreatitis Identification/Chief Complaint Chief Complaint abd pain Problems: History of Present Illness Reason for Visit: 31 year old patient admitted with upper abdominal pain with nausea and vomiting. No prior episodes. No food intolerances. No family history elicited. Imaging did reveal possible dilated CBD. Interval LFTS ordered to reassess. Pain improved today with analgesics. Past Medical History Cardiovascular: No pertinent hx Pulmonary: No pertinent hx CENTRAL NERVOUS SYSTEM: Seizure GI: No pertinent hx Heme/Onc: No pertinent hx Renal/: No pertinent hx Endocrine: No pertinent hx Past Surgical History Past Surgical History: No pertinent history Family History Family History: High Cholestrol, Family History Unknown Social History ALCOHOL: none Drugs: None Current Problem List Problem List Problems Medical Problems: (1) Abdominal pain Status: Acute (2) Elevated amylase and lipase Status: Acute Current Medications Current Medications Current Medications Iohexol (Omnipaque 300 Mg/ml) 75 ml 1X ONCE IV Last administered on 09/13/16 17:27; Start 09/13/16 at 17:15; Stop 09/13/16 at 17:16; Status DC Info (Do NOT chart on this entry -- for MONITORING) 1 each PRN DAILY PRN MC SEE COMMENTS; Start 09/13/16 at 17:00; Stop 09/15/16 at 16:59 Fentanyl Citrate (Fentanyl 2ml Vial) 50 mcg PRN Q15MIN PRN IV PAIN GREATER THAN 3/10; Start 09/13/16 at 17:15; Stop 09/13/16 at 18:09; Status DC Fentanyl Citrate (Fentanyl 2ml Vial) 50 mcg PRN Q2HR PRN IV PAIN Last administered on 09/13/16 22:33; Start 09/13/16 at 17:30; Stop 09/14/16 at 17:29 Sodium Chloride 1,000 ml @ 125 mls/hr Q8H IV Last administered on 09/13/16 20: 32; Start 09/13/16 at 18:00; Stop 09/14/16 at 17:59 Ondansetron HCl (Zofran) 4 mg PRN Q6HRS PRN IV NAUSEA/VOMITING Last administered on 09/13/16 18:09; Start 09/13/16 at 18:15 Ondansetron HCl (Zofran Odt) 4 mg PRN Q8HRS PRN PO NAUSEA; Start 09/13/16 at 20: 00 Albuterol Sulfate (Ventolin Neb Soln) 2.5 mg PRN Q4HRS PRN NEB SHORTNESS OF BREATH; Start 09/13/16 at 20:15 Non-Formulary Medication 1 puff PRN Q6HRS PRN IH SHORTNESS OF BREATH; Start 09/13/16 at 20:00; Status UNV Non-Formulary Medication 1 puff PRN Q4HRS PRN IH SHORTNESS OF BREATH; Start 09/13/16 at 20:00; Status UNV Gabapentin (Neurontin) 800 mg DAILY06 PO ; Start 09/14/16 at 06:00 Gabapentin (Neurontin) 1,200 mg QHS PO Last administered on 09/13/16 20:31; Start 09/13/16 at 21:00 Lamotrigine (LaMICtal) 400 mg BID PO Last administered on 09/14/16 08:46; Start 09/13/16 at 21:00 Ceftriaxone Sodium 1 gm/ Sodium Chloride 50 ml @ 100 mls/hr Q24H IV Last administered on 09/13/16 21:31; Start 09/13/16 at 21:00 Prochlorperazine Edisylate (Compazine) 10 mg PRN Q6HRS PRN IV NAUSEA/VOMITING Last administered on 09/13/16 22:28; Start 09/13/16 at 22:30 Hydromorphone HCl (Dilaudid) 2 mg PRN Q4HRS PRN IV SEVERE PAIN; Start 09/13/16 at 23:00 Hydromorphone HCl (Dilaudid) 1 mg PRN Q4HRS PRN IV MODERATE PAIN Last administered on 09/14/16 02:43; Start 09/13/16 at 23:15 Active Scripts Active Zofran Odt (Ondansetron) 4 Mg Tab.rapdis 1 Tab SL PRN Q8HRS PRN Proair Respiclick (Albuterol Sulfate) 90 Mcg Aer.pow.ba 1 Puff IH PRN Q6HRS PRN Proair Hfa Inhaler (Albuterol Sulfate) 8.5 Gm Hfa.aer.ad 2 Puff INH Q4HRS PRN Proventil Hfa Inhaler (Albuterol Sulfate) 6.7 Gm Hfa.aer.ad 1 Puff IH PRN Q4HRS PRN Reported Gabapentin 400 Mg Capsule 3 Cap PO QHS Gabapentin 400 Mg Capsule 2 Cap PO DAILY06 Lamotrigine 200 Mg Tablet 2 Tab PO BID Allergies Allergies: Coded Allergies: No Known Drug Intolerances (Verified Allergy, Unknown, 12/07/15) Physical Exam General: Alert Lungs: Clear to auscultation Heart: Regular rate, Normal S1, Normal S2 Abdomen: Normal bowel sounds, Soft, Other (epigastric tenderness to palpation) Vitals VITALS Vital Signs Date Time Temp Pulse Resp B/P (MAP) Pulse Ox O2 Delivery O2 Flow Rate FiO2 09/14/16 10:57 97.9 79 18 105/53 (70) 94 Room Air 97.9 Labs Labs Laboratory Tests Test 09/13/16 15:32 09/13/16 16:15 09/13/16 16:30 09/13/16 20:35 Bedside Urine HCG, Qualitative Hcg negative (Negative) Urine Collection Type Unknown Urine Color Yellow Urine Clarity Clear Urine pH 6.5 Urine Specific [place] <=1.005 Urine Protein Negative mg/dL (NEG-TRACE) Urine Glucose (UA) Negative mg/dL (NEG) Urine Ketones (Stick) Negative mg/dL (NEG) Urine Blood Small (NEG) Urine Nitrite Negative (NEG) Urine Bilirubin Negative (NEG) Urine Urobilinogen Dipstick 1.0 mg/dL (0.2 mg/dL) Urine Leukocyte Esterase Small (NEG) Urine RBC 1-2 /HPF (0-2) Urine WBC 11-20 /HPF (0-4) Urine Squamous Epithelial Cells Mod /LPF Urine Bacteria Few /HPF (0-FEW) Urine Mucus Slight /LPF White Blood Count 9.0 x10^3/uL (4.0-11.0) Red Blood Count 4.33 x10^6/uL (3.50-5.40) Hemoglobin 13.2 g/dL (12.0-15.5) Hematocrit 39.7 % (36.0-47.0) Mean Corpuscular Volume 92 fL (79-100) Mean Corpuscular Hemoglobin 30 pg (25-35) Mean Corpuscular Hemoglobin Concent 33 g/dL (31-37) Red Cell Distribution Width 15.2 % (11.5-14.5) Platelet Count 478 x10^3/uL (140-400) Neutrophils (%) (Auto) 75 % (31-73) Lymphocytes (%) (Auto) 15 % (24-48) Monocytes (%) (Auto) 8 % (0-9) Eosinophils (%) (Auto) 1 % (0-3) Basophils (%) (Auto) 1 % (0-3) Neutrophils # (Auto) 6.8 x10^3uL (1.8-7.7) Lymphocytes # (Auto) 1.3 x10^3/uL (1.0-4.8) Monocytes # (Auto) 0.8 x10^3/uL (0.0-1.1) Eosinophils # (Auto) 0.1 x10^3/uL (0.0-0.7) Basophils # (Auto) 0.1 x10^3/uL (0.0-0.2) Sodium Level 138 mmol/L (136-145) Potassium Level 3.7 mmol/L (3.5-5.1) Chloride Level 100 mmol/L (98-107) Carbon Dioxide Level 30 mmol/L (21-32) Anion Gap 8 (6-14) Blood Urea Nitrogen 4 mg/dL (7-20) Creatinine 0.9 mg/dL (0.6-1.0) Estimated GFR (Cockcroft-Gault) 72.1 BUN/Creatinine Ratio 4 (6-20) Glucose Level 105 mg/dL (70-99) Calcium Level 9.8 mg/dL (8.5-10.1) Total Bilirubin 1.1 mg/dL (0.2-1.0) Aspartate Amino Transf (AST/SGOT) 124 U/L (15-37) Alanine Aminotransferase (ALT/SGPT) 116 U/L (14-59) Alkaline Phosphatase 838 U/L (46-116) Total Protein 7.5 g/dL (6.4-8.2) Albumin 3.6 g/dL (3.4-5.0) Albumin/Globulin Ratio 0.9 (1.0-1.7) Amylase Level 1314 U/L (25-115) Lipase 63806 U/L (73-393) 67733 U/L (73-393) Test 09/14/16 05:10 White Blood Count 9.9 x10^3/uL (4.0-11.0) Red Blood Count 3.90 x10^6/uL (3.50-5.40) Hemoglobin 12.1 g/dL (12.0-15.5) Hematocrit 35.5 % (36.0-47.0) Mean Corpuscular Volume 91 fL (79-100) Mean Corpuscular Hemoglobin 31 pg (25-35) Mean Corpuscular Hemoglobin Concent 34 g/dL (31-37) Red Cell Distribution Width 15.2 % (11.5-14.5) Platelet Count 457 x10^3/uL (140-400) Neutrophils (%) (Auto) 87 % (31-73) Lymphocytes (%) (Auto) 9 % (24-48) Monocytes (%) (Auto) 4 % (0-9) Eosinophils (%) (Auto) 0 % (0-3) Basophils (%) (Auto) 0 % (0-3) Neutrophils # (Auto) 8.6 x10^3uL (1.8-7.7) Lymphocytes # (Auto) 0.9 x10^3/uL (1.0-4.8) Monocytes # (Auto) 0.4 x10^3/uL (0.0-1.1) Eosinophils # (Auto) 0.0 x10^3/uL (0.0-0.7) Basophils # (Auto) 0.0 x10^3/uL (0.0-0.2) Segmented Neutrophils % 90 % (35-66) Band Neutrophils % 2 % (0-9) Lymphocytes % 6 % (24-48) Monocytes % 2 % (0-10) Platelet Estimate Increased (ADEQUATE) Sodium Level 141 mmol/L (136-145) Potassium Level 4.9 mmol/L (3.5-5.1) Chloride Level 105 mmol/L (98-107) Carbon Dioxide Level 29 mmol/L (21-32) Anion Gap 7 (6-14) Blood Urea Nitrogen 6 mg/dL (7-20) Creatinine 0.8 mg/dL (0.6-1.0) Estimated GFR (Cockcroft-Gault) 82.6 Glucose Level 120 mg/dL (70-99) Calcium Level 8.6 mg/dL (8.5-10.1) Lipase 6612 U/L (73-393) Laboratory Tests Test 09/13/16 15:32 09/13/16 16:15 09/13/16 16:30 09/13/16 20:35 Bedside Urine HCG, Qualitative Hcg negative (Negative) Urine Collection Type Unknown Urine Color Yellow Urine Clarity Clear Urine pH 6.5 Urine Specific [place] <=1.005 Urine Protein Negative mg/dL (NEG-TRACE) Urine Glucose (UA) Negative mg/dL (NEG) Urine Ketones (Stick) Negative mg/dL (NEG) Urine Blood Small (NEG) Urine Nitrite Negative (NEG) Urine Bilirubin Negative (NEG) Urine Urobilinogen Dipstick 1.0 mg/dL (0.2 mg/dL) Urine Leukocyte Esterase Small (NEG) Urine RBC 1-2 /HPF (0-2) Urine WBC 11-20 /HPF (0-4) Urine Squamous Epithelial Cells Mod /LPF Urine Bacteria Few /HPF (0-FEW) Urine Mucus Slight /LPF White Blood Count 9.0 x10^3/uL (4.0-11.0) Red Blood Count 4.33 x10^6/uL (3.50-5.40) Hemoglobin 13.2 g/dL (12.0-15.5) Hematocrit 39.7 % (36.0-47.0) Mean Corpuscular Volume 92 fL (79-100) Mean Corpuscular Hemoglobin 30 pg (25-35) Mean Corpuscular Hemoglobin Concent 33 g/dL (31-37) Red Cell Distribution Width 15.2 % (11.5-14.5) Platelet Count 478 x10^3/uL (140-400) Neutrophils (%) (Auto) 75 % (31-73) Lymphocytes (%) (Auto) 15 % (24-48) Monocytes (%) (Auto) 8 % (0-9) Eosinophils (%) (Auto) 1 % (0-3) Basophils (%) (Auto) 1 % (0-3) Neutrophils # (Auto) 6.8 x10^3uL (1.8-7.7) Lymphocytes # (Auto) 1.3 x10^3/uL (1.0-4.8) Monocytes # (Auto) 0.8 x10^3/uL (0.0-1.1) Eosinophils # (Auto) 0.1 x10^3/uL (0.0-0.7) Basophils # (Auto) 0.1 x10^3/uL (0.0-0.2) Sodium Level 138 mmol/L (136-145) Potassium Level 3.7 mmol/L (3.5-5.1) Chloride Level 100 mmol/L (98-107) Carbon Dioxide Level 30 mmol/L (21-32) Anion Gap 8 (6-14) Blood Urea Nitrogen 4 mg/dL (7-20) Creatinine 0.9 mg/dL (0.6-1.0) Estimated GFR (Cockcroft-Gault) 72.1 BUN/Creatinine Ratio 4 (6-20) Glucose Level 105 mg/dL (70-99) Calcium Level 9.8 mg/dL (8.5-10.1) Total Bilirubin 1.1 mg/dL (0.2-1.0) Aspartate Amino Transf (AST/SGOT) 124 U/L (15-37) Alanine Aminotransferase (ALT/SGPT) 116 U/L (14-59) Alkaline Phosphatase 838 U/L (46-116) Total Protein 7.5 g/dL (6.4-8.2) Albumin 3.6 g/dL (3.4-5.0) Albumin/Globulin Ratio 0.9 (1.0-1.7) Amylase Level 1314 U/L (25-115) Lipase 14222 U/L (73-393) 73993 U/L (73-393) Test 09/14/16 05:10 White Blood Count 9.9 x10^3/uL (4.0-11.0) Red Blood Count 3.90 x10^6/uL (3.50-5.40) Hemoglobin 12.1 g/dL (12.0-15.5) Hematocrit 35.5 % (36.0-47.0) Mean Corpuscular Volume 91 fL (79-100) Mean Corpuscular Hemoglobin 31 pg (25-35) Mean Corpuscular Hemoglobin Concent 34 g/dL (31-37) Red Cell Distribution Width 15.2 % (11.5-14.5) Platelet Count 457 x10^3/uL (140-400) Neutrophils (%) (Auto) 87 % (31-73) Lymphocytes (%) (Auto) 9 % (24-48) Monocytes (%) (Auto) 4 % (0-9) Eosinophils (%) (Auto) 0 % (0-3) Basophils (%) (Auto) 0 % (0-3) Neutrophils # (Auto) 8.6 x10^3uL (1.8-7.7) Lymphocytes # (Auto) 0.9 x10^3/uL (1.0-4.8) Monocytes # (Auto) 0.4 x10^3/uL (0.0-1.1) Eosinophils # (Auto) 0.0 x10^3/uL (0.0-0.7) Basophils # (Auto) 0.0 x10^3/uL (0.0-0.2) Segmented Neutrophils % 90 % (35-66) Band Neutrophils % 2 % (0-9) Lymphocytes % 6 % (24-48) Monocytes % 2 % (0-10) Platelet Estimate Increased (ADEQUATE) Sodium Level 141 mmol/L (136-145) Potassium Level 4.9 mmol/L (3.5-5.1) Chloride Level 105 mmol/L (98-107) Carbon Dioxide Level 29 mmol/L (21-32) Anion Gap 7 (6-14) Blood Urea Nitrogen 6 mg/dL (7-20) Creatinine 0.8 mg/dL (0.6-1.0) Estimated GFR (Cockcroft-Gault) 82.6 Glucose Level 120 mg/dL (70-99) Calcium Level 8.6 mg/dL (8.5-10.1) Lipase 6612 U/L (73-393) Assessment/Plan Assessment/Plan abd pain- with acute pancreatitis. Microlithiasis likely. Plan medical therapy with interval lfts surgical consult for lap pb with possible pre-op ercp pending clinical course and additional imaging. TERRANCE GONZALEZ MD Sep 14, 2016 13:03
--- NOTE | 2016-09-14 14:34 | PDOC2 ---
CONSULT Date of Consult Date of Consult DATE: 09/14/16 TIME: 14:30 Reason for Consult Reason for Consult: pancreatitis, favor gallstone Referring Physician Referring Physician: Krystal Identification/Chief Complaint Chief Complaint epigastric abd pain Problems: Source Source: Patient History of Present Illness Reason for Visit: 31 yo F with previous admission for pancreatitis, ate fried food and developed epigastric abd pain. Better today. No N/V Past Medical History Cardiovascular: No pertinent hx Pulmonary: No pertinent hx CENTRAL NERVOUS SYSTEM: Seizure GI: No pertinent hx Heme/Onc: No pertinent hx Renal/: No pertinent hx Endocrine: No pertinent hx Past Surgical History Past Surgical History: No pertinent history Family History Family History: High Cholestrol, Family History Unknown Social History ALCOHOL: none Drugs: None Current Problem List Problem List Problems Medical Problems: (1) Abdominal pain Status: Acute (2) Elevated amylase and lipase Status: Acute Current Medications Current Medications Current Medications Iohexol (Omnipaque 300 Mg/ml) 75 ml 1X ONCE IV Last administered on 09/13/16 17:27; Start 09/13/16 at 17:15; Stop 09/13/16 at 17:16; Status DC Info (Do NOT chart on this entry -- for MONITORING) 1 each PRN DAILY PRN MC SEE COMMENTS; Start 09/13/16 at 17:00; Stop 09/15/16 at 16:59 Fentanyl Citrate (Fentanyl 2ml Vial) 50 mcg PRN Q15MIN PRN IV PAIN GREATER THAN 3/10; Start 09/13/16 at 17:15; Stop 09/13/16 at 18:09; Status DC Fentanyl Citrate (Fentanyl 2ml Vial) 50 mcg PRN Q2HR PRN IV PAIN Last administered on 09/13/16 22:33; Start 09/13/16 at 17:30; Stop 09/14/16 at 17:29 Sodium Chloride 1,000 ml @ 125 mls/hr Q8H IV Last administered on 09/14/16 10: 00; Start 09/13/16 at 18:00; Stop 09/14/16 at 17:59 Ondansetron HCl (Zofran) 4 mg PRN Q6HRS PRN IV NAUSEA/VOMITING Last administered on 09/13/16 18:09; Start 09/13/16 at 18:15 Ondansetron HCl (Zofran Odt) 4 mg PRN Q8HRS PRN PO NAUSEA; Start 09/13/16 at 20: 00 Albuterol Sulfate (Ventolin Neb Soln) 2.5 mg PRN Q4HRS PRN NEB SHORTNESS OF BREATH; Start 09/13/16 at 20:15 Non-Formulary Medication 1 puff PRN Q6HRS PRN IH SHORTNESS OF BREATH; Start 09/13/16 at 20:00; Status UNV Non-Formulary Medication 1 puff PRN Q4HRS PRN IH SHORTNESS OF BREATH; Start 09/13/16 at 20:00; Status UNV Gabapentin (Neurontin) 800 mg DAILY06 PO ; Start 09/14/16 at 06:00 Gabapentin (Neurontin) 1,200 mg QHS PO Last administered on 09/13/16 20:31; Start 09/13/16 at 21:00 Lamotrigine (LaMICtal) 400 mg BID PO Last administered on 09/14/16 08:46; Start 09/13/16 at 21:00 Ceftriaxone Sodium 1 gm/ Sodium Chloride 50 ml @ 100 mls/hr Q24H IV Last administered on 09/13/16 21:31; Start 09/13/16 at 21:00 Prochlorperazine Edisylate (Compazine) 10 mg PRN Q6HRS PRN IV NAUSEA/VOMITING Last administered on 09/13/16 22:28; Start 09/13/16 at 22:30 Hydromorphone HCl (Dilaudid) 2 mg PRN Q4HRS PRN IV SEVERE PAIN; Start 09/13/16 at 23:00 Hydromorphone HCl (Dilaudid) 1 mg PRN Q4HRS PRN IV MODERATE PAIN Last administered on 09/14/16 02:43; Start 09/13/16 at 23:15 Active Scripts Active Zofran Odt (Ondansetron) 4 Mg Tab.rapdis 1 Tab SL PRN Q8HRS PRN Proair Respiclick (Albuterol Sulfate) 90 Mcg Aer.pow.ba 1 Puff IH PRN Q6HRS PRN Proair Hfa Inhaler (Albuterol Sulfate) 8.5 Gm Hfa.aer.ad 2 Puff INH Q4HRS PRN Proventil Hfa Inhaler (Albuterol Sulfate) 6.7 Gm Hfa.aer.ad 1 Puff IH PRN Q4HRS PRN Reported Gabapentin 400 Mg Capsule 3 Cap PO QHS Gabapentin 400 Mg Capsule 2 Cap PO DAILY06 Lamotrigine 200 Mg Tablet 2 Tab PO BID Allergies Allergies: Coded Allergies: No Known Drug Intolerances (Verified Allergy, Unknown, 12/07/15) ROS Gastrointestinal: Yes Abdominal Pain Physical Exam General: Alert, Cooperative, No acute distress HEENT: Atraumatic, EOMI, Mucous membr. moist/pink Lungs: Normal air movement Abdomen: Soft, Other (mild TTP epigastric) Extremities: No clubbing, No cyanosis Skin: No rashes, No breakdown Neuro: Normal speech Psych/Mental Status: Mental status NL, Mood NL MUSCULOSKELETAL: No deformity, No swelling Vitals VITALS Vital Signs Date Time Temp Pulse Resp B/P (MAP) Pulse Ox O2 Delivery O2 Flow Rate FiO2 09/14/16 10:57 97.9 79 18 105/53 (70) 94 Room Air 97.9 Labs Labs Laboratory Tests Test 09/13/16 15:32 09/13/16 16:15 09/13/16 16:30 09/13/16 20:35 Bedside Urine HCG, Qualitative Hcg negative (Negative) Urine Collection Type Unknown Urine Color Yellow Urine Clarity Clear Urine pH 6.5 Urine Specific [place] <=1.005 Urine Protein Negative mg/dL (NEG-TRACE) Urine Glucose (UA) Negative mg/dL (NEG) Urine Ketones (Stick) Negative mg/dL (NEG) Urine Blood Small (NEG) Urine Nitrite Negative (NEG) Urine Bilirubin Negative (NEG) Urine Urobilinogen Dipstick 1.0 mg/dL (0.2 mg/dL) Urine Leukocyte Esterase Small (NEG) Urine RBC 1-2 /HPF (0-2) Urine WBC 11-20 /HPF (0-4) Urine Squamous Epithelial Cells Mod /LPF Urine Bacteria Few /HPF (0-FEW) Urine Mucus Slight /LPF White Blood Count 9.0 x10^3/uL (4.0-11.0) Red Blood Count 4.33 x10^6/uL (3.50-5.40) Hemoglobin 13.2 g/dL (12.0-15.5) Hematocrit 39.7 % (36.0-47.0) Mean Corpuscular Volume 92 fL (79-100) Mean Corpuscular Hemoglobin 30 pg (25-35) Mean Corpuscular Hemoglobin Concent 33 g/dL (31-37) Red Cell Distribution Width 15.2 % (11.5-14.5) Platelet Count 478 x10^3/uL (140-400) Neutrophils (%) (Auto) 75 % (31-73) Lymphocytes (%) (Auto) 15 % (24-48) Monocytes (%) (Auto) 8 % (0-9) Eosinophils (%) (Auto) 1 % (0-3) Basophils (%) (Auto) 1 % (0-3) Neutrophils # (Auto) 6.8 x10^3uL (1.8-7.7) Lymphocytes # (Auto) 1.3 x10^3/uL (1.0-4.8) Monocytes # (Auto) 0.8 x10^3/uL (0.0-1.1) Eosinophils # (Auto) 0.1 x10^3/uL (0.0-0.7) Basophils # (Auto) 0.1 x10^3/uL (0.0-0.2) Sodium Level 138 mmol/L (136-145) Potassium Level 3.7 mmol/L (3.5-5.1) Chloride Level 100 mmol/L (98-107) Carbon Dioxide Level 30 mmol/L (21-32) Anion Gap 8 (6-14) Blood Urea Nitrogen 4 mg/dL (7-20) Creatinine 0.9 mg/dL (0.6-1.0) Estimated GFR (Cockcroft-Gault) 72.1 BUN/Creatinine Ratio 4 (6-20) Glucose Level 105 mg/dL (70-99) Calcium Level 9.8 mg/dL (8.5-10.1) Total Bilirubin 1.1 mg/dL (0.2-1.0) Aspartate Amino Transf (AST/SGOT) 124 U/L (15-37) Alanine Aminotransferase (ALT/SGPT) 116 U/L (14-59) Alkaline Phosphatase 838 U/L (46-116) Total Protein 7.5 g/dL (6.4-8.2) Albumin 3.6 g/dL (3.4-5.0) Albumin/Globulin Ratio 0.9 (1.0-1.7) Amylase Level 1314 U/L (25-115) Lipase 63839 U/L (73-393) 42490 U/L (73-393) Test 09/14/16 05:10 White Blood Count 9.9 x10^3/uL (4.0-11.0) Red Blood Count 3.90 x10^6/uL (3.50-5.40) Hemoglobin 12.1 g/dL (12.0-15.5) Hematocrit 35.5 % (36.0-47.0) Mean Corpuscular Volume 91 fL (79-100) Mean Corpuscular Hemoglobin 31 pg (25-35) Mean Corpuscular Hemoglobin Concent 34 g/dL (31-37) Red Cell Distribution Width 15.2 % (11.5-14.5) Platelet Count 457 x10^3/uL (140-400) Neutrophils (%) (Auto) 87 % (31-73) Lymphocytes (%) (Auto) 9 % (24-48) Monocytes (%) (Auto) 4 % (0-9) Eosinophils (%) (Auto) 0 % (0-3) Basophils (%) (Auto) 0 % (0-3) Neutrophils # (Auto) 8.6 x10^3uL (1.8-7.7) Lymphocytes # (Auto) 0.9 x10^3/uL (1.0-4.8) Monocytes # (Auto) 0.4 x10^3/uL (0.0-1.1) Eosinophils # (Auto) 0.0 x10^3/uL (0.0-0.7) Basophils # (Auto) 0.0 x10^3/uL (0.0-0.2) Segmented Neutrophils % 90 % (35-66) Band Neutrophils % 2 % (0-9) Lymphocytes % 6 % (24-48) Monocytes % 2 % (0-10) Platelet Estimate Increased (ADEQUATE) Sodium Level 141 mmol/L (136-145) Potassium Level 4.9 mmol/L (3.5-5.1) Chloride Level 105 mmol/L (98-107) Carbon Dioxide Level 29 mmol/L (21-32) Anion Gap 7 (6-14) Blood Urea Nitrogen 6 mg/dL (7-20) Creatinine 0.8 mg/dL (0.6-1.0) Estimated GFR (Cockcroft-Gault) 82.6 Glucose Level 120 mg/dL (70-99) Calcium Level 8.6 mg/dL (8.5-10.1) Lipase 6612 U/L (73-393) Laboratory Tests Test 09/13/16 15:32 09/13/16 16:15 09/13/16 16:30 09/13/16 20:35 Bedside Urine HCG, Qualitative Hcg negative (Negative) Urine Collection Type Unknown Urine Color Yellow Urine Clarity Clear Urine pH 6.5 Urine Specific [place] <=1.005 Urine Protein Negative mg/dL (NEG-TRACE) Urine Glucose (UA) Negative mg/dL (NEG) Urine Ketones (Stick) Negative mg/dL (NEG) Urine Blood Small (NEG) Urine Nitrite Negative (NEG) Urine Bilirubin Negative (NEG) Urine Urobilinogen Dipstick 1.0 mg/dL (0.2 mg/dL) Urine Leukocyte Esterase Small (NEG) Urine RBC 1-2 /HPF (0-2) Urine WBC 11-20 /HPF (0-4) Urine Squamous Epithelial Cells Mod /LPF Urine Bacteria Few /HPF (0-FEW) Urine Mucus Slight /LPF White Blood Count 9.0 x10^3/uL (4.0-11.0) Red Blood Count 4.33 x10^6/uL (3.50-5.40) Hemoglobin 13.2 g/dL (12.0-15.5) Hematocrit 39.7 % (36.0-47.0) Mean Corpuscular Volume 92 fL (79-100) Mean Corpuscular Hemoglobin 30 pg (25-35) Mean Corpuscular Hemoglobin Concent 33 g/dL (31-37) Red Cell Distribution Width 15.2 % (11.5-14.5) Platelet Count 478 x10^3/uL (140-400) Neutrophils (%) (Auto) 75 % (31-73) Lymphocytes (%) (Auto) 15 % (24-48) Monocytes (%) (Auto) 8 % (0-9) Eosinophils (%) (Auto) 1 % (0-3) Basophils (%) (Auto) 1 % (0-3) Neutrophils # (Auto) 6.8 x10^3uL (1.8-7.7) Lymphocytes # (Auto) 1.3 x10^3/uL (1.0-4.8) Monocytes # (Auto) 0.8 x10^3/uL (0.0-1.1) Eosinophils # (Auto) 0.1 x10^3/uL (0.0-0.7) Basophils # (Auto) 0.1 x10^3/uL (0.0-0.2) Sodium Level 138 mmol/L (136-145) Potassium Level 3.7 mmol/L (3.5-5.1) Chloride Level 100 mmol/L (98-107) Carbon Dioxide Level 30 mmol/L (21-32) Anion Gap 8 (6-14) Blood Urea Nitrogen 4 mg/dL (7-20) Creatinine 0.9 mg/dL (0.6-1.0) Estimated GFR (Cockcroft-Gault) 72.1 BUN/Creatinine Ratio 4 (6-20) Glucose Level 105 mg/dL (70-99) Calcium Level 9.8 mg/dL (8.5-10.1) Total Bilirubin 1.1 mg/dL (0.2-1.0) Aspartate Amino Transf (AST/SGOT) 124 U/L (15-37) Alanine Aminotransferase (ALT/SGPT) 116 U/L (14-59) Alkaline Phosphatase 838 U/L (46-116) Total Protein 7.5 g/dL (6.4-8.2) Albumin 3.6 g/dL (3.4-5.0) Albumin/Globulin Ratio 0.9 (1.0-1.7) Amylase Level 1314 U/L (25-115) Lipase 41847 U/L (73-393) 95689 U/L (73-393) Test 09/14/16 05:10 White Blood Count 9.9 x10^3/uL (4.0-11.0) Red Blood Count 3.90 x10^6/uL (3.50-5.40) Hemoglobin 12.1 g/dL (12.0-15.5) Hematocrit 35.5 % (36.0-47.0) Mean Corpuscular Volume 91 fL (79-100) Mean Corpuscular Hemoglobin 31 pg (25-35) Mean Corpuscular Hemoglobin Concent 34 g/dL (31-37) Red Cell Distribution Width 15.2 % (11.5-14.5) Platelet Count 457 x10^3/uL (140-400) Neutrophils (%) (Auto) 87 % (31-73) Lymphocytes (%) (Auto) 9 % (24-48) Monocytes (%) (Auto) 4 % (0-9) Eosinophils (%) (Auto) 0 % (0-3) Basophils (%) (Auto) 0 % (0-3) Neutrophils # (Auto) 8.6 x10^3uL (1.8-7.7) Lymphocytes # (Auto) 0.9 x10^3/uL (1.0-4.8) Monocytes # (Auto) 0.4 x10^3/uL (0.0-1.1) Eosinophils # (Auto) 0.0 x10^3/uL (0.0-0.7) Basophils # (Auto) 0.0 x10^3/uL (0.0-0.2) Segmented Neutrophils % 90 % (35-66) Band Neutrophils % 2 % (0-9) Lymphocytes % 6 % (24-48) Monocytes % 2 % (0-10) Platelet Estimate Increased (ADEQUATE) Sodium Level 141 mmol/L (136-145) Potassium Level 4.9 mmol/L (3.5-5.1) Chloride Level 105 mmol/L (98-107) Carbon Dioxide Level 29 mmol/L (21-32) Anion Gap 7 (6-14) Blood Urea Nitrogen 6 mg/dL (7-20) Creatinine 0.8 mg/dL (0.6-1.0) Estimated GFR (Cockcroft-Gault) 82.6 Glucose Level 120 mg/dL (70-99) Calcium Level 8.6 mg/dL (8.5-10.1) Lipase 6612 U/L (73-393) Images Images c/w pancreatitis and possible gallstones Assessment/Plan Assessment/Plan gallstone pancreatitis agree with supportive care consider lap pb with grams, pending resolution of pancreatitis Thanks for consult! TAVO LUCERO MD Sep 14, 2016 14:34
[2016-09-14 15:00] VITALS: BP 117/62
[2016-09-14 19:20] VITALS: BP 114/65
[2016-09-14] MEDS: ONDANSETRON PF 4 MG/2 ML VIAL. IV PRN (19:58)
[2016-09-14 23:22] VITALS: BP 122/66
[2016-09-15 03:13] VITALS: BP 125/62
[2016-09-15 04:47] LABS: BASO # 0.1 x10^3/uL (0.0-0.2); BASO % 1 % (0-3); EOS % 1 % (0-3); HEMATOCRIT 32.9 % (36.0-47.0); LYMPH % 24 % (24-48); MEAN CORPUSCULAR HEMOGLOBIN 31 pg (25-35); MEAN CORPUSCULAR HGB CONC 34 g/dL (31-37); MEAN CORPUSCULAR VOLUME 92 fL (79-100); MONO % 8 % (0-9); NEUT % 67 % (31-73); PLATELET COUNT 326 x10^3/uL (140-400); RED BLOOD COUNT 3.57 x10^6/uL (3.50-5.40); RED CELL DISTRIBUTION WIDTH 15.2 % (11.5-14.5); WHITE BLOOD COUNT 8.2 x10^3/uL (4.0-11.0)
[2016-09-15 05:23] LABS: ALBUMIN 2.8 g/dL (3.4-5.0); ALBUMIN/GLOBULIN RATIO 0.9 (1.0-1.7); CALCIUM 8.2 mg/dL (8.5-10.1); CREATININE 0.8 mg/dL (0.6-1.0); GFR 82.6; TOTAL BILIRUBIN 0.5 mg/dL (0.2-1.0); TOTAL PROTEIN 5.8 g/dL (6.4-8.2)
[2016-09-15 05:29] LABS: POTASSIUM 3.2 mmol/L (3.5-5.1)
--- NOTE | 2016-09-15 05:46 | ACF ---
Admission Forms Criteria ABDOMINAL PAIN Clinical Indications for Admission to Inpatient Care (Place 'X' for any and all applicable criteria): Admission is indicated for ANY ONE of the following(1)(2)(3)(4)(5): [X]I. Inpatient admission required rather than observation care (Also use Abdominal Pain: Observation Care, as appropriate) because of ANY ONE of the following: [ ]a) Severe pain requiring acute inpatient management [X]b) Identification of etiology/finding that requires inpatient care (eg, aortic dissection, free air) [ ]c) Absent bowel sounds with complete ileus(6) [ ]d) Suspected toxic megacolon [ ]e) Severe electrolyte abnormalities requiring inpatient care [ ]f) High fever or infection requiring inpatient admission as indicated by ANY ONE of following(7)(8): [ ] i) Appropriate outpatient or observational care antimicrobial treatment unavailable, not effective, or not feasible [ ] ii) Documented bacteremia [ ] iii) Temperature > 104.9 degrees F (oral) [ ] iv) T >103.1 F (oral) or < 96.8 F(rectal) that does not respond to all emergency treatment measures [ ]g) Signs of intestinal obstruction [B] [ ]h) Hemodynamic instability [ ]i) IV fluid to replace significant ongoing losses (greater than 3 L/m2 per day) (12)(13) [ ]j) Percutaneous or open drainage (eg, abscess, biliary tract ) procedures [ ]k) Parenteral nutrition regimen that must be implemented on inpatient basis [ ]l) Other condition,treatment or monitoring requiring inpatient admission. [ ]II. Peritoneal signs present [ ]III. Surgery needed that cannot be performed on an ambulatory basis. [ ]IV. Evaluation requires patient to not eat or drink for extended period ( eg, more than 24 hours). [ ]V. Contraindications and/or Inappropriate clinical situations for Observational Care in patients with abdominal pain, when ANY ONE of the following is required: [ ]a) Thorough evaluation is required to prevent catastrophic events due to delays in diagnosing (e.g.Mesenteric ischemia) 1,3 [ ]b) Patient with severe pathology or with chronic symptoms unlikely to improve in the ED stay (3) [ ]. General contraindications and/or Inappropriate clinical situations for Observational Care in patients with abdominal pain, when ANY ONE of the following is required: [ ]a) Prediction of prolongation of LOS based on ANY ONE of the following may be considered as a contraindication for observational care 2, 3, 4, 5, 6, 7, 8, 9, 10, 11 [ ]i) Age > 65 yrs. [ ]ii) Patient arriving by ambulance [ ]iii) Patient with high acuity [ ]iv) Patient requiring vital sign monitoring [ ]v) Patient on IV medication [ ]b) Systolic blood pressures 180mmHg 3,12 [ ]c) Patient with altered mental status including delirium and other alteration of consciousness, (3) [ ]d) Patient whose discharge disposition will be to a assisted home or rehabilitation home should not be managed in Emergency Department Observation Unit. CMS rule requires 3 days hospital stay before such placement.3,13 [ ]e) Patient with failure to thrive due to broad array of etiologies 3,16,17 [ ]f) Inability to ambulate 3,14 Extended stay beyond goal length of stay may be needed for(2)(3): [ ]a) Persistent abdominal pain with suspected intra-abdominal process [ ]b) Diagnosed condition requiring continued stay (e.g., pancreatitis, complicated diverticulitis) [ ]c) Surgery (e.g., colectomy) The original [facility] content created by [email or web address] has been revised. The portions of the content which have been revised are identified through the use of italic text or in bold, and [facility] has neither reviewed nor approved the modified material.All other unmodified content is copyright [facility]. Please see references footnoted in the original [facility] edition 2016 Admission Criteria Met?: Yes MICHA STEPHEN Sep 15, 2016 05:46
[2016-09-15] MEDS: GABAPENTIN 400 MG CAPSULE. PO SCH ×2 (06:00→21:35)
[2016-09-15 07:19] VITALS: BP 128/59
[2016-09-15] MEDS: lamoTRIgine 100 MG TABLET. PO SCH ×2 (08:57→21:34)
--- NOTE | 2016-09-15 09:21 | PDOC ---
MAC LEMONS [employer] 09/15/16 0921: SURGICAL PROGRESS NOTE Subjective complaints of mid/low back pain no emesis Vital Signs Vital Signs Date Time Temp Pulse Resp B/P (MAP) Pulse Ox O2 Delivery O2 Flow Rate FiO2 09/15/16 07:19 98.4 78 20 128/59 (82) 93 Room Air 98.4 General: Alert, Oriented X3, Cooperative, No acute distress Abdomen: Normal bowel sounds, Soft, No tenderness Labs Laboratory Tests Test 09/13/16 15:32 09/13/16 16:15 09/13/16 16:30 09/13/16 20:35 Bedside Urine HCG, Qualitative Hcg negative (Negative) Urine Collection Type Unknown Urine Color Yellow Urine Clarity Clear Urine pH 6.5 Urine Specific [place] <=1.005 Urine Protein Negative mg/dL (NEG-TRACE) Urine Glucose (UA) Negative mg/dL (NEG) Urine Ketones (Stick) Negative mg/dL (NEG) Urine Blood Small (NEG) Urine Nitrite Negative (NEG) Urine Bilirubin Negative (NEG) Urine Urobilinogen Dipstick 1.0 mg/dL (0.2 mg/dL) Urine Leukocyte Esterase Small (NEG) Urine RBC 1-2 /HPF (0-2) Urine WBC 11-20 /HPF (0-4) Urine Squamous Epithelial Cells Mod /LPF Urine Bacteria Few /HPF (0-FEW) Urine Mucus Slight /LPF White Blood Count 9.0 x10^3/uL (4.0-11.0) Red Blood Count 4.33 x10^6/uL (3.50-5.40) Hemoglobin 13.2 g/dL (12.0-15.5) Hematocrit 39.7 % (36.0-47.0) Mean Corpuscular Volume 92 fL (79-100) Mean Corpuscular Hemoglobin 30 pg (25-35) Mean Corpuscular Hemoglobin Concent 33 g/dL (31-37) Red Cell Distribution Width 15.2 % (11.5-14.5) Platelet Count 478 x10^3/uL (140-400) Neutrophils (%) (Auto) 75 % (31-73) Lymphocytes (%) (Auto) 15 % (24-48) Monocytes (%) (Auto) 8 % (0-9) Eosinophils (%) (Auto) 1 % (0-3) Basophils (%) (Auto) 1 % (0-3) Neutrophils # (Auto) 6.8 x10^3uL (1.8-7.7) Lymphocytes # (Auto) 1.3 x10^3/uL (1.0-4.8) Monocytes # (Auto) 0.8 x10^3/uL (0.0-1.1) Eosinophils # (Auto) 0.1 x10^3/uL (0.0-0.7) Basophils # (Auto) 0.1 x10^3/uL (0.0-0.2) Sodium Level 138 mmol/L (136-145) Potassium Level 3.7 mmol/L (3.5-5.1) Chloride Level 100 mmol/L (98-107) Carbon Dioxide Level 30 mmol/L (21-32) Anion Gap 8 (6-14) Blood Urea Nitrogen 4 mg/dL (7-20) Creatinine 0.9 mg/dL (0.6-1.0) Estimated GFR (Cockcroft-Gault) 72.1 BUN/Creatinine Ratio 4 (6-20) Glucose Level 105 mg/dL (70-99) Calcium Level 9.8 mg/dL (8.5-10.1) Total Bilirubin 1.1 mg/dL (0.2-1.0) Aspartate Amino Transf (AST/SGOT) 124 U/L (15-37) Alanine Aminotransferase (ALT/SGPT) 116 U/L (14-59) Alkaline Phosphatase 838 U/L (46-116) Total Protein 7.5 g/dL (6.4-8.2) Albumin 3.6 g/dL (3.4-5.0) Albumin/Globulin Ratio 0.9 (1.0-1.7) Amylase Level 1314 U/L (25-115) Lipase 54277 U/L (73-393) 33822 U/L (73-393) Test 09/14/16 05:10 09/15/16 04:26 White Blood Count 9.9 x10^3/uL (4.0-11.0) 8.2 x10^3/uL (4.0-11.0) Red Blood Count 3.90 x10^6/uL (3.50-5.40) 3.57 x10^6/uL (3.50-5.40) Hemoglobin 12.1 g/dL (12.0-15.5) 11.0 g/dL (12.0-15.5) Hematocrit 35.5 % (36.0-47.0) 32.9 % (36.0-47.0) Mean Corpuscular Volume 91 fL (79-100) 92 fL (79-100) Mean Corpuscular Hemoglobin 31 pg (25-35) 31 pg (25-35) Mean Corpuscular Hemoglobin Concent 34 g/dL (31-37) 34 g/dL (31-37) Red Cell Distribution Width 15.2 % (11.5-14.5) 15.2 % (11.5-14.5) Platelet Count 457 x10^3/uL (140-400) 326 x10^3/uL (140-400) Neutrophils (%) (Auto) 87 % (31-73) 67 % (31-73) Lymphocytes (%) (Auto) 9 % (24-48) 24 % (24-48) Monocytes (%) (Auto) 4 % (0-9) 8 % (0-9) Eosinophils (%) (Auto) 0 % (0-3) 1 % (0-3) Basophils (%) (Auto) 0 % (0-3) 1 % (0-3) Neutrophils # (Auto) 8.6 x10^3uL (1.8-7.7) 5.5 x10^3uL (1.8-7.7) Lymphocytes # (Auto) 0.9 x10^3/uL (1.0-4.8) 2.0 x10^3/uL (1.0-4.8) Monocytes # (Auto) 0.4 x10^3/uL (0.0-1.1) 0.6 x10^3/uL (0.0-1.1) Eosinophils # (Auto) 0.0 x10^3/uL (0.0-0.7) 0.1 x10^3/uL (0.0-0.7) Basophils # (Auto) 0.0 x10^3/uL (0.0-0.2) 0.1 x10^3/uL (0.0-0.2) Segmented Neutrophils % 90 % (35-66) Band Neutrophils % 2 % (0-9) Lymphocytes % 6 % (24-48) Monocytes % 2 % (0-10) Platelet Estimate Increased (ADEQUATE) Sodium Level 141 mmol/L (136-145) 137 mmol/L (136-145) Potassium Level 4.9 mmol/L (3.5-5.1) 3.2 mmol/L (3.5-5.1) Chloride Level 105 mmol/L (98-107) 102 mmol/L (98-107) Carbon Dioxide Level 29 mmol/L (21-32) 27 mmol/L (21-32) Anion Gap 7 (6-14) 8 (6-14) Blood Urea Nitrogen 6 mg/dL (7-20) 6 mg/dL (7-20) Creatinine 0.8 mg/dL (0.6-1.0) 0.8 mg/dL (0.6-1.0) Estimated GFR (Cockcroft-Gault) 82.6 82.6 Glucose Level 120 mg/dL (70-99) 70 mg/dL (70-99) Calcium Level 8.6 mg/dL (8.5-10.1) 8.2 mg/dL (8.5-10.1) Lipase 6612 U/L (73-393) 726 U/L (73-393) BUN/Creatinine Ratio 8 (6-20) Total Bilirubin 0.5 mg/dL (0.2-1.0) Aspartate Amino Transf (AST/SGOT) 44 U/L (15-37) Alanine Aminotransferase (ALT/SGPT) 99 U/L (14-59) Alkaline Phosphatase 559 U/L (46-116) Total Protein 5.8 g/dL (6.4-8.2) Albumin 2.8 g/dL (3.4-5.0) Albumin/Globulin Ratio 0.9 (1.0-1.7) Amylase Level 176 U/L (25-115) Laboratory Tests Test 09/15/16 04:26 White Blood Count 8.2 x10^3/uL (4.0-11.0) Red Blood Count 3.57 x10^6/uL (3.50-5.40) Hemoglobin 11.0 g/dL (12.0-15.5) Hematocrit 32.9 % (36.0-47.0) Mean Corpuscular Volume 92 fL (79-100) Mean Corpuscular Hemoglobin 31 pg (25-35) Mean Corpuscular Hemoglobin Concent 34 g/dL (31-37) Red Cell Distribution Width 15.2 % (11.5-14.5) Platelet Count 326 x10^3/uL (140-400) Neutrophils (%) (Auto) 67 % (31-73) Lymphocytes (%) (Auto) 24 % (24-48) Monocytes (%) (Auto) 8 % (0-9) Eosinophils (%) (Auto) 1 % (0-3) Basophils (%) (Auto) 1 % (0-3) Neutrophils # (Auto) 5.5 x10^3uL (1.8-7.7) Lymphocytes # (Auto) 2.0 x10^3/uL (1.0-4.8) Monocytes # (Auto) 0.6 x10^3/uL (0.0-1.1) Eosinophils # (Auto) 0.1 x10^3/uL (0.0-0.7) Basophils # (Auto) 0.1 x10^3/uL (0.0-0.2) Sodium Level 137 mmol/L (136-145) Potassium Level 3.2 mmol/L (3.5-5.1) Chloride Level 102 mmol/L (98-107) Carbon Dioxide Level 27 mmol/L (21-32) Anion Gap 8 (6-14) Blood Urea Nitrogen 6 mg/dL (7-20) Creatinine 0.8 mg/dL (0.6-1.0) Estimated GFR (Cockcroft-Gault) 82.6 BUN/Creatinine Ratio 8 (6-20) Glucose Level 70 mg/dL (70-99) Calcium Level 8.2 mg/dL (8.5-10.1) Total Bilirubin 0.5 mg/dL (0.2-1.0) Aspartate Amino Transf (AST/SGOT) 44 U/L (15-37) Alanine Aminotransferase (ALT/SGPT) 99 U/L (14-59) Alkaline Phosphatase 559 U/L (46-116) Total Protein 5.8 g/dL (6.4-8.2) Albumin 2.8 g/dL (3.4-5.0) Albumin/Globulin Ratio 0.9 (1.0-1.7) Amylase Level 176 U/L (25-115) Lipase 726 U/L (73-393) Problem List Problems Medical Problems: (1) Abdominal pain Status: Acute (2) Elevated amylase and lipase Status: Acute Assessment/Plan gs pancreatitis labs improving lap pb once resolution of pancreatitis Problems: TAVO LUCERO MD 09/15/16 1728: SURGICAL PROGRESS NOTE Assessment/Plan Pt seen and examined. Agree with Ms. Lemons's note Pt feels minimally improved abd soft cont supportive care plan lap pb with grams once improved Problems: MAC LEMONS APRN Sep 15, 2016 09:21 TAVO LUCERO MD Sep 15, 2016 17:28
[2016-09-15 10:36] VITALS: BP 132/66
--- NOTE | 2016-09-15 10:38 | PDOC ---
Subjective: Subjective: Feeling some better, tolerating sips of water. Objective: Objective: Visiting with her neighbor who has a therapy dog. Vital Signs: Vital Signs Date Time Temp Pulse Resp B/P (MAP) Pulse Ox O2 Delivery O2 Flow Rate FiO2 09/15/16 07:19 98.4 78 20 128/59 (82) 93 Room Air 98.4 Labs: Laboratory Tests Test 09/15/16 04:26 White Blood Count 8.2 x10^3/uL Red Blood Count 3.57 x10^6/uL Hemoglobin 11.0 g/dL Hematocrit 32.9 % Mean Corpuscular Volume 92 fL Mean Corpuscular Hemoglobin 31 pg Mean Corpuscular Hemoglobin Concent 34 g/dL Red Cell Distribution Width 15.2 % Platelet Count 326 x10^3/uL Neutrophils (%) (Auto) 67 % Lymphocytes (%) (Auto) 24 % Monocytes (%) (Auto) 8 % Eosinophils (%) (Auto) 1 % Basophils (%) (Auto) 1 % Neutrophils # (Auto) 5.5 x10^3uL Lymphocytes # (Auto) 2.0 x10^3/uL Monocytes # (Auto) 0.6 x10^3/uL Eosinophils # (Auto) 0.1 x10^3/uL Basophils # (Auto) 0.1 x10^3/uL Sodium Level 137 mmol/L Potassium Level 3.2 mmol/L Chloride Level 102 mmol/L Carbon Dioxide Level 27 mmol/L Anion Gap 8 Blood Urea Nitrogen 6 mg/dL Creatinine 0.8 mg/dL Estimated GFR (Cockcroft-Gault) 82.6 BUN/Creatinine Ratio 8 Glucose Level 70 mg/dL Calcium Level 8.2 mg/dL Total Bilirubin 0.5 mg/dL Aspartate Amino Transf (AST/SGOT) 44 U/L Alanine Aminotransferase (ALT/SGPT) 99 U/L Alkaline Phosphatase 559 U/L Total Protein 5.8 g/dL Albumin 2.8 g/dL Albumin/Globulin Ratio 0.9 Amylase Level 176 U/L Lipase 726 U/L PE: GEN: NAD, obese LUNGS: clear HEART: RRR ABD: some epigastric tenderness NEURO/PSYCH: A & O 3 A/P: Gallstone pancreatitis -lipase from >11,000 to 726 (amylase from >1300 to 176) -surgery following -- Recurrent admissions for same. Continue clears. Encouraged her to stay for cholecystectomy/IOC this time. STEPHANE PETERS Sep 15, 2016 10:38
[2016-09-15 15:10] VITALS: BP 114/65
--- NOTE | 2016-09-15 15:15 | PDOC ---
PROGRESS NOTES Chief Complaint Chief Complaint Gallstone pancreatitis Past Medical History: Anxiety, Asthma, Seizure Additional Past Medical Histor: MR; TBI, behavior problems, falls Past Surgical History: Other Additional Past Surgical Histo: Dental removal of the majority of the teeth A History of Present Illness History of Present Illness Pt a little more comfortable. Lipase is down again, dropping great VSS DW RN agree with pb any time Vitals Vitals Vital Signs Date Time Temp Pulse Resp B/P (MAP) Pulse Ox O2 Delivery O2 Flow Rate FiO2 09/15/16 10:36 99.0 78 18 132/66 (88) 95 Room Air 99.0 Physical Exam General: Alert, Oriented X3, Cooperative, No acute distress Heart: Regular rate, Normal S1, Normal S2 Lungs: Clear Abdomen: Normal bowel sounds, Soft, No tenderness Extremities: No clubbing, No cyanosis Skin: No rashes, No breakdown Labs LABS Laboratory Tests Test 09/15/16 04:26 White Blood Count 8.2 x10^3/uL (4.0-11.0) Red Blood Count 3.57 x10^6/uL (3.50-5.40) Hemoglobin 11.0 g/dL (12.0-15.5) Hematocrit 32.9 % (36.0-47.0) Mean Corpuscular Volume 92 fL (79-100) Mean Corpuscular Hemoglobin 31 pg (25-35) Mean Corpuscular Hemoglobin Concent 34 g/dL (31-37) Red Cell Distribution Width 15.2 % (11.5-14.5) Platelet Count 326 x10^3/uL (140-400) Neutrophils (%) (Auto) 67 % (31-73) Lymphocytes (%) (Auto) 24 % (24-48) Monocytes (%) (Auto) 8 % (0-9) Eosinophils (%) (Auto) 1 % (0-3) Basophils (%) (Auto) 1 % (0-3) Neutrophils # (Auto) 5.5 x10^3uL (1.8-7.7) Lymphocytes # (Auto) 2.0 x10^3/uL (1.0-4.8) Monocytes # (Auto) 0.6 x10^3/uL (0.0-1.1) Eosinophils # (Auto) 0.1 x10^3/uL (0.0-0.7) Basophils # (Auto) 0.1 x10^3/uL (0.0-0.2) Sodium Level 137 mmol/L (136-145) Potassium Level 3.2 mmol/L (3.5-5.1) Chloride Level 102 mmol/L (98-107) Carbon Dioxide Level 27 mmol/L (21-32) Anion Gap 8 (6-14) Blood Urea Nitrogen 6 mg/dL (7-20) Creatinine 0.8 mg/dL (0.6-1.0) Estimated GFR (Cockcroft-Gault) 82.6 BUN/Creatinine Ratio 8 (6-20) Glucose Level 70 mg/dL (70-99) Calcium Level 8.2 mg/dL (8.5-10.1) Total Bilirubin 0.5 mg/dL (0.2-1.0) Aspartate Amino Transf (AST/SGOT) 44 U/L (15-37) Alanine Aminotransferase (ALT/SGPT) 99 U/L (14-59) Alkaline Phosphatase 559 U/L (46-116) Total Protein 5.8 g/dL (6.4-8.2) Albumin 2.8 g/dL (3.4-5.0) Albumin/Globulin Ratio 0.9 (1.0-1.7) Amylase Level 176 U/L (25-115) Lipase 726 U/L (73-393) Review of Systems Review of Systems abd pain some nausea Assessment and Plan Assessmemt and Plan Problems Medical Problems: (1) Abdominal pain Status: Acute (2) Elevated amylase and lipase Status: Acute Problems: Comment Review of Relevant I have reviewed the following items scar (where applicable) has been applied. Labs Laboratory Tests Test 09/13/16 15:32 09/13/16 16:15 09/13/16 16:30 09/13/16 20:35 Bedside Urine HCG, Qualitative Hcg negative (Negative) Urine Collection Type Unknown Urine Color Yellow Urine Clarity Clear Urine pH 6.5 Urine Specific Fifty Six <=1.005 Urine Protein Negative mg/dL (NEG-TRACE) Urine Glucose (UA) Negative mg/dL (NEG) Urine Ketones (Stick) Negative mg/dL (NEG) Urine Blood Small (NEG) Urine Nitrite Negative (NEG) Urine Bilirubin Negative (NEG) Urine Urobilinogen Dipstick 1.0 mg/dL (0.2 mg/dL) Urine Leukocyte Esterase Small (NEG) Urine RBC 1-2 /HPF (0-2) Urine WBC 11-20 /HPF (0-4) Urine Squamous Epithelial Cells Mod /LPF Urine Bacteria Few /HPF (0-FEW) Urine Mucus Slight /LPF White Blood Count 9.0 x10^3/uL (4.0-11.0) Red Blood Count 4.33 x10^6/uL (3.50-5.40) Hemoglobin 13.2 g/dL (12.0-15.5) Hematocrit 39.7 % (36.0-47.0) Mean Corpuscular Volume 92 fL (79-100) Mean Corpuscular Hemoglobin 30 pg (25-35) Mean Corpuscular Hemoglobin Concent 33 g/dL (31-37) Red Cell Distribution Width 15.2 % (11.5-14.5) Platelet Count 478 x10^3/uL (140-400) Neutrophils (%) (Auto) 75 % (31-73) Lymphocytes (%) (Auto) 15 % (24-48) Monocytes (%) (Auto) 8 % (0-9) Eosinophils (%) (Auto) 1 % (0-3) Basophils (%) (Auto) 1 % (0-3) Neutrophils # (Auto) 6.8 x10^3uL (1.8-7.7) Lymphocytes # (Auto) 1.3 x10^3/uL (1.0-4.8) Monocytes # (Auto) 0.8 x10^3/uL (0.0-1.1) Eosinophils # (Auto) 0.1 x10^3/uL (0.0-0.7) Basophils # (Auto) 0.1 x10^3/uL (0.0-0.2) Sodium Level 138 mmol/L (136-145) Potassium Level 3.7 mmol/L (3.5-5.1) Chloride Level 100 mmol/L (98-107) Carbon Dioxide Level 30 mmol/L (21-32) Anion Gap 8 (6-14) Blood Urea Nitrogen 4 mg/dL (7-20) Creatinine 0.9 mg/dL (0.6-1.0) Estimated GFR (Cockcroft-Gault) 72.1 BUN/Creatinine Ratio 4 (6-20) Glucose Level 105 mg/dL (70-99) Calcium Level 9.8 mg/dL (8.5-10.1) Total Bilirubin 1.1 mg/dL (0.2-1.0) Aspartate Amino Transf (AST/SGOT) 124 U/L (15-37) Alanine Aminotransferase (ALT/SGPT) 116 U/L (14-59) Alkaline Phosphatase 838 U/L (46-116) Total Protein 7.5 g/dL (6.4-8.2) Albumin 3.6 g/dL (3.4-5.0) Albumin/Globulin Ratio 0.9 (1.0-1.7) Amylase Level 1314 U/L (25-115) Lipase 07094 U/L (73-393) 37397 U/L (73-393) Test 09/14/16 05:10 09/15/16 04:26 White Blood Count 9.9 x10^3/uL (4.0-11.0) 8.2 x10^3/uL (4.0-11.0) Red Blood Count 3.90 x10^6/uL (3.50-5.40) 3.57 x10^6/uL (3.50-5.40) Hemoglobin 12.1 g/dL (12.0-15.5) 11.0 g/dL (12.0-15.5) Hematocrit 35.5 % (36.0-47.0) 32.9 % (36.0-47.0) Mean Corpuscular Volume 91 fL (79-100) 92 fL (79-100) Mean Corpuscular Hemoglobin 31 pg (25-35) 31 pg (25-35) Mean Corpuscular Hemoglobin Concent 34 g/dL (31-37) 34 g/dL (31-37) Red Cell Distribution Width 15.2 % (11.5-14.5) 15.2 % (11.5-14.5) Platelet Count 457 x10^3/uL (140-400) 326 x10^3/uL (140-400) Neutrophils (%) (Auto) 87 % (31-73) 67 % (31-73) Lymphocytes (%) (Auto) 9 % (24-48) 24 % (24-48) Monocytes (%) (Auto) 4 % (0-9) 8 % (0-9) Eosinophils (%) (Auto) 0 % (0-3) 1 % (0-3) Basophils (%) (Auto) 0 % (0-3) 1 % (0-3) Neutrophils # (Auto) 8.6 x10^3uL (1.8-7.7) 5.5 x10^3uL (1.8-7.7) Lymphocytes # (Auto) 0.9 x10^3/uL (1.0-4.8) 2.0 x10^3/uL (1.0-4.8) Monocytes # (Auto) 0.4 x10^3/uL (0.0-1.1) 0.6 x10^3/uL (0.0-1.1) Eosinophils # (Auto) 0.0 x10^3/uL (0.0-0.7) 0.1 x10^3/uL (0.0-0.7) Basophils # (Auto) 0.0 x10^3/uL (0.0-0.2) 0.1 x10^3/uL (0.0-0.2) Segmented Neutrophils % 90 % (35-66) Band Neutrophils % 2 % (0-9) Lymphocytes % 6 % (24-48) Monocytes % 2 % (0-10) Platelet Estimate Increased (ADEQUATE) Sodium Level 141 mmol/L (136-145) 137 mmol/L (136-145) Potassium Level 4.9 mmol/L (3.5-5.1) 3.2 mmol/L (3.5-5.1) Chloride Level 105 mmol/L (98-107) 102 mmol/L (98-107) Carbon Dioxide Level 29 mmol/L (21-32) 27 mmol/L (21-32) Anion Gap 7 (6-14) 8 (6-14) Blood Urea Nitrogen 6 mg/dL (7-20) 6 mg/dL (7-20) Creatinine 0.8 mg/dL (0.6-1.0) 0.8 mg/dL (0.6-1.0) Estimated GFR (Cockcroft-Gault) 82.6 82.6 Glucose Level 120 mg/dL (70-99) 70 mg/dL (70-99) Calcium Level 8.6 mg/dL (8.5-10.1) 8.2 mg/dL (8.5-10.1) Lipase 6612 U/L (73-393) 726 U/L (73-393) BUN/Creatinine Ratio 8 (6-20) Total Bilirubin 0.5 mg/dL (0.2-1.0) Aspartate Amino Transf (AST/SGOT) 44 U/L (15-37) Alanine Aminotransferase (ALT/SGPT) 99 U/L (14-59) Alkaline Phosphatase 559 U/L (46-116) Total Protein 5.8 g/dL (6.4-8.2) Albumin 2.8 g/dL (3.4-5.0) Albumin/Globulin Ratio 0.9 (1.0-1.7) Amylase Level 176 U/L (25-115) Laboratory Tests Test 09/15/16 04:26 White Blood Count 8.2 x10^3/uL (4.0-11.0) Red Blood Count 3.57 x10^6/uL (3.50-5.40) Hemoglobin 11.0 g/dL (12.0-15.5) Hematocrit 32.9 % (36.0-47.0) Mean Corpuscular Volume 92 fL (79-100) Mean Corpuscular Hemoglobin 31 pg (25-35) Mean Corpuscular Hemoglobin Concent 34 g/dL (31-37) Red Cell Distribution Width 15.2 % (11.5-14.5) Platelet Count 326 x10^3/uL (140-400) Neutrophils (%) (Auto) 67 % (31-73) Lymphocytes (%) (Auto) 24 % (24-48) Monocytes (%) (Auto) 8 % (0-9) Eosinophils (%) (Auto) 1 % (0-3) Basophils (%) (Auto) 1 % (0-3) Neutrophils # (Auto) 5.5 x10^3uL (1.8-7.7) Lymphocytes # (Auto) 2.0 x10^3/uL (1.0-4.8) Monocytes # (Auto) 0.6 x10^3/uL (0.0-1.1) Eosinophils # (Auto) 0.1 x10^3/uL (0.0-0.7) Basophils # (Auto) 0.1 x10^3/uL (0.0-0.2) Sodium Level 137 mmol/L (136-145) Potassium Level 3.2 mmol/L (3.5-5.1) Chloride Level 102 mmol/L (98-107) Carbon Dioxide Level 27 mmol/L (21-32) Anion Gap 8 (6-14) Blood Urea Nitrogen 6 mg/dL (7-20) Creatinine 0.8 mg/dL (0.6-1.0) Estimated GFR (Cockcroft-Gault) 82.6 BUN/Creatinine Ratio 8 (6-20) Glucose Level 70 mg/dL (70-99) Calcium Level 8.2 mg/dL (8.5-10.1) Total Bilirubin 0.5 mg/dL (0.2-1.0) Aspartate Amino Transf (AST/SGOT) 44 U/L (15-37) Alanine Aminotransferase (ALT/SGPT) 99 U/L (14-59) Alkaline Phosphatase 559 U/L (46-116) Total Protein 5.8 g/dL (6.4-8.2) Albumin 2.8 g/dL (3.4-5.0) Albumin/Globulin Ratio 0.9 (1.0-1.7) Amylase Level 176 U/L (25-115) Lipase 726 U/L (73-393) Medications Current Medications Iohexol (Omnipaque 300 Mg/ml) 75 ml 1X ONCE IV Last administered on 09/13/16 17:27; Start 09/13/16 at 17:15; Stop 09/13/16 at 17:16; Status DC Info (Do NOT chart on this entry -- for MONITORING) 1 each PRN DAILY PRN MC SEE COMMENTS; Start 09/13/16 at 17:00; Stop 09/15/16 at 16:59 Fentanyl Citrate (Fentanyl 2ml Vial) 50 mcg PRN Q15MIN PRN IV PAIN GREATER THAN 3/10; Start 09/13/16 at 17:15; Stop 09/13/16 at 18:09; Status DC Fentanyl Citrate (Fentanyl 2ml Vial) 50 mcg PRN Q2HR PRN IV PAIN Last administered on 09/13/16 22:33; Start 09/13/16 at 17:30; Stop 09/14/16 at 17:29; Status DC Sodium Chloride 1,000 ml @ 125 mls/hr Q8H IV Last administered on 09/14/16 10: 00; Start 09/13/16 at 18:00; Stop 09/14/16 at 17:59; Status DC Ondansetron HCl (Zofran) 4 mg PRN Q6HRS PRN IV NAUSEA/VOMITING, 1ST CHOICE Last administered on 09/14/16 19:58; Start 09/13/16 at 18:15 Ondansetron HCl (Zofran Odt) 4 mg PRN Q8HRS PRN PO NAUSEA; Start 09/13/16 at 20: 00 Albuterol Sulfate (Ventolin Neb Soln) 2.5 mg PRN Q4HRS PRN NEB SHORTNESS OF BREATH; Start 09/13/16 at 20:15 Non-Formulary Medication 1 puff PRN Q6HRS PRN IH SHORTNESS OF BREATH; Start 09/13/16 at 20:00; Status UNV Non-Formulary Medication 1 puff PRN Q4HRS PRN IH SHORTNESS OF BREATH; Start 09/13/16 at 20:00; Status UNV Gabapentin (Neurontin) 800 mg DAILY06 PO ; Start 09/14/16 at 06:00 Gabapentin (Neurontin) 1,200 mg QHS PO Last administered on 09/14/16 19:57; Start 09/13/16 at 21:00 Lamotrigine (LaMICtal) 400 mg BID PO Last administered on 09/15/16 08:57; Start 09/13/16 at 21:00 Ceftriaxone Sodium 1 gm/ Sodium Chloride 50 ml @ 100 mls/hr Q24H IV Last administered on 09/14/16 19:58; Start 09/13/16 at 21:00 Prochlorperazine Edisylate (Compazine) 10 mg PRN Q6HRS PRN IV NAUSEA/VOMITING, 2ND CHOICE Last administered on 09/13/16 22:28; Start 09/13/16 at 22:30 Hydromorphone HCl (Dilaudid) 2 mg PRN Q4HRS PRN IV SEVERE PAIN Last administered on 09/14/16 19:58; Start 09/13/16 at 23:00 Hydromorphone HCl (Dilaudid) 1 mg PRN Q4HRS PRN IV MODERATE PAIN Last administered on 09/14/16t 02:43; Start 09/13/16 at 23:15 Active Scripts Active Zofran Odt (Ondansetron) 4 Mg Tab.rapdis 1 Tab SL PRN Q8HRS PRN Proair Respiclick (Albuterol Sulfate) 90 Mcg Aer.pow.ba 1 Puff IH PRN Q6HRS PRN Proair Hfa Inhaler (Albuterol Sulfate) 8.5 Gm Hfa.aer.ad 2 Puff INH Q4HRS PRN Proventil Hfa Inhaler (Albuterol Sulfate) 6.7 Gm Hfa.aer.ad 1 Puff IH PRN Q4HRS PRN Reported Gabapentin 400 Mg Capsule 3 Cap PO QHS Gabapentin 400 Mg Capsule 2 Cap PO DAILY06 Lamotrigine 200 Mg Tablet 2 Tab PO BID Vitals/I & O Vital Sign - Last 24 Hours 09/14/16 09/14/16 09/14/16 09/14/16 19:20 19:54 19:58 20:28 Temp 99.7 99.7 Pulse 73 Resp 16 20 20 B/P (MAP) 114/65 (81) Pulse Ox 94 94 94 O2 Delivery Room Air Room Air Room Air Room Air 09/14/16 09/15/16 09/15/16 09/15/16 23:22 03:13 07:19 10:36 Temp 99.0 99.0 98.4 99.0 99.0 99.0 98.4 99.0 Pulse 80 71 78 78 Resp 18 18 20 18 B/P (MAP) 122/66 (84) 125/62 (83) 128/59 (82) 132/66 (88) Pulse Ox 92 96 93 95 O2 Delivery Room Air Room Air Room Air Room Air RUSLAN DYER MD Sep 15, 2016 15:15
[2016-09-15 19:00] VITALS: BP 132/64
[2016-09-15 23:00] VITALS: BP 119/64
[2016-09-16 03:00] VITALS: BP 134/70
[2016-09-16 07:00] VITALS: BP 143/73
[2016-09-16] MEDS: lamoTRIgine 100 MG TABLET. PO SCH ×2 (08:17→21:11)
[2016-09-16] MEDS: GABAPENTIN 400 MG CAPSULE. PO SCH ×2 (08:17→21:11)
[2016-09-16 10:46] VITALS: BP 115/52
--- NOTE | 2016-09-16 13:53 | PDOC ---
Subjective: Subjective: Feeling better, tolerating liquids. Objective: Objective: Friends present w/ concerns. Vital Signs: Vital Signs Date Time Temp Pulse Resp B/P (MAP) Pulse Ox O2 Delivery O2 Flow Rate FiO2 09/16/16 10:46 97.5 71 18 115/52 (73) 96 Room Air 97.5 PE: GEN: NAD LUNGS: CTAB HEART: RRR ABD: S/ND/NT, obese NEURO/PSYCH: A & O 3 A/P: Gallstone pancreatitis -labs and pain improving -surgery following -- Third admission for same, pt has refused surgery (after was scheduled) in the past. Then she went home and apparently said she had surgery. Spent significant time speaking w/ friends who are concerned. Family not involved. Lives alone w/ some (?FILBERT GROWER) help, makes her own decisions. Will ask social work to see. Diet per surgery. STEPHANE PETERS Sep 16, 2016 13:53
--- NOTE | 2016-09-16 14:35 | PDOC ---
MAC LEMONS GLASS CUT OFF SUPERVISOR 09/16/16 1435: SURGICAL PROGRESS NOTE Subjective denies pain today friends that help with her care at home here today concerned that she needs additional help/support, minimal family support Vital Signs Vital Signs Date Time Temp Pulse Resp B/P (MAP) Pulse Ox O2 Delivery O2 Flow Rate FiO2 09/16/16 10:46 97.5 71 18 115/52 (73) 96 Room Air 97.5 I&O Intake and Output 09/16/16 07:00 Intake Total 560 ml Output Total 0 ml Balance 560 ml Intake Oral 560 ml Output Urine Total 0 ml # Voids 9 General: Alert, Oriented X3, Cooperative, No acute distress Abdomen: Soft, No tenderness Labs Laboratory Tests Test 09/15/16 04:26 White Blood Count 8.2 x10^3/uL (4.0-11.0) Red Blood Count 3.57 x10^6/uL (3.50-5.40) Hemoglobin 11.0 g/dL (12.0-15.5) Hematocrit 32.9 % (36.0-47.0) Mean Corpuscular Volume 92 fL (79-100) Mean Corpuscular Hemoglobin 31 pg (25-35) Mean Corpuscular Hemoglobin Concent 34 g/dL (31-37) Red Cell Distribution Width 15.2 % (11.5-14.5) Platelet Count 326 x10^3/uL (140-400) Neutrophils (%) (Auto) 67 % (31-73) Lymphocytes (%) (Auto) 24 % (24-48) Monocytes (%) (Auto) 8 % (0-9) Eosinophils (%) (Auto) 1 % (0-3) Basophils (%) (Auto) 1 % (0-3) Neutrophils # (Auto) 5.5 x10^3uL (1.8-7.7) Lymphocytes # (Auto) 2.0 x10^3/uL (1.0-4.8) Monocytes # (Auto) 0.6 x10^3/uL (0.0-1.1) Eosinophils # (Auto) 0.1 x10^3/uL (0.0-0.7) Basophils # (Auto) 0.1 x10^3/uL (0.0-0.2) Sodium Level 137 mmol/L (136-145) Potassium Level 3.2 mmol/L (3.5-5.1) Chloride Level 102 mmol/L (98-107) Carbon Dioxide Level 27 mmol/L (21-32) Anion Gap 8 (6-14) Blood Urea Nitrogen 6 mg/dL (7-20) Creatinine 0.8 mg/dL (0.6-1.0) Estimated GFR (Cockcroft-Gault) 82.6 BUN/Creatinine Ratio 8 (6-20) Glucose Level 70 mg/dL (70-99) Calcium Level 8.2 mg/dL (8.5-10.1) Total Bilirubin 0.5 mg/dL (0.2-1.0) Aspartate Amino Transf (AST/SGOT) 44 U/L (15-37) Alanine Aminotransferase (ALT/SGPT) 99 U/L (14-59) Alkaline Phosphatase 559 U/L (46-116) Total Protein 5.8 g/dL (6.4-8.2) Albumin 2.8 g/dL (3.4-5.0) Albumin/Globulin Ratio 0.9 (1.0-1.7) Amylase Level 176 U/L (25-115) Lipase 726 U/L (73-393) Problem List Problems Medical Problems: (1) Abdominal pain Status: Acute (2) Elevated amylase and lipase Status: Acute Assessment/Plan gs pancreatitis improved, no pain reviewed with Dr Murdock, possible surgery tomorrow Problems: SELENA MURDOCK MD 09/16/16 1622: SURGICAL PROGRESS NOTE Assessment/Plan pt seen, interviewed and examined known from previous admission offered l/s cholecystectomy she is willing to proceed. tentatively on OR schedule for 13:00 tomorrow Problems: MAC LEMONS APRN Sep 16, 2016 14:35 SELENA MURDOCK MD Sep 16, 2016 16:22
--- NOTE | 2016-09-16 14:41 | PDOC ---
PROGRESS NOTES Chief Complaint Chief Complaint Gallstone pancreatitis Past Medical History: Anxiety, Asthma, Seizure Additional Past Medical Histor: MR; TBI, behavior problems, falls Past Surgical History: Other Additional Past Surgical Histo: Dental removal of the majority of the teeth A History of Present Illness History of Present Illness no pain this AM pt seen before surg, no new questions VSS DW RN Vitals Vitals Vital Signs Date Time Temp Pulse Resp B/P (MAP) Pulse Ox O2 Delivery O2 Flow Rate FiO2 09/16/16 10:46 97.5 71 18 115/52 (73) 96 Room Air 97.5 Physical Exam General: Alert, Oriented X3, Cooperative, No acute distress Heart: Regular rate, Normal S1, Normal S2 Lungs: Clear Abdomen: Soft, No tenderness Extremities: No clubbing, No cyanosis Skin: No rashes, No breakdown Review of Systems Review of Systems no n/v/d' Assessment and Plan Assessmemt and Plan Problems Medical Problems: (1) Abdominal pain Status: Acute (2) Elevated amylase and lipase Status: Acute Problems: Comment Review of Relevant I have reviewed the following items scar (where applicable) has been applied. Labs Laboratory Tests Test 09/15/16 04:26 White Blood Count 8.2 x10^3/uL (4.0-11.0) Red Blood Count 3.57 x10^6/uL (3.50-5.40) Hemoglobin 11.0 g/dL (12.0-15.5) Hematocrit 32.9 % (36.0-47.0) Mean Corpuscular Volume 92 fL (79-100) Mean Corpuscular Hemoglobin 31 pg (25-35) Mean Corpuscular Hemoglobin Concent 34 g/dL (31-37) Red Cell Distribution Width 15.2 % (11.5-14.5) Platelet Count 326 x10^3/uL (140-400) Neutrophils (%) (Auto) 67 % (31-73) Lymphocytes (%) (Auto) 24 % (24-48) Monocytes (%) (Auto) 8 % (0-9) Eosinophils (%) (Auto) 1 % (0-3) Basophils (%) (Auto) 1 % (0-3) Neutrophils # (Auto) 5.5 x10^3uL (1.8-7.7) Lymphocytes # (Auto) 2.0 x10^3/uL (1.0-4.8) Monocytes # (Auto) 0.6 x10^3/uL (0.0-1.1) Eosinophils # (Auto) 0.1 x10^3/uL (0.0-0.7) Basophils # (Auto) 0.1 x10^3/uL (0.0-0.2) Sodium Level 137 mmol/L (136-145) Potassium Level 3.2 mmol/L (3.5-5.1) Chloride Level 102 mmol/L (98-107) Carbon Dioxide Level 27 mmol/L (21-32) Anion Gap 8 (6-14) Blood Urea Nitrogen 6 mg/dL (7-20) Creatinine 0.8 mg/dL (0.6-1.0) Estimated GFR (Cockcroft-Gault) 82.6 BUN/Creatinine Ratio 8 (6-20) Glucose Level 70 mg/dL (70-99) Calcium Level 8.2 mg/dL (8.5-10.1) Total Bilirubin 0.5 mg/dL (0.2-1.0) Aspartate Amino Transf (AST/SGOT) 44 U/L (15-37) Alanine Aminotransferase (ALT/SGPT) 99 U/L (14-59) Alkaline Phosphatase 559 U/L (46-116) Total Protein 5.8 g/dL (6.4-8.2) Albumin 2.8 g/dL (3.4-5.0) Albumin/Globulin Ratio 0.9 (1.0-1.7) Amylase Level 176 U/L (25-115) Lipase 726 U/L (73-393) Microbiology 09/13/16 Urine Culture - Final, Complete 09/13/16 Urine Culture Result 1 (DOREEN) - Final, Complete Medications Current Medications Iohexol (Omnipaque 300 Mg/ml) 75 ml 1X ONCE IV Last administered on 09/13/16t 17:27; Start 09/13/16 at 17:15; Stop 09/13/16 at 17:16; Status DC Info (Do NOT chart on this entry -- for MONITORING) 1 each PRN DAILY PRN MC SEE COMMENTS; Start 09/13/16 at 17:00; Stop 09/15/16 at 16:59; Status DC Fentanyl Citrate (Fentanyl 2ml Vial) 50 mcg PRN Q15MIN PRN IV PAIN GREATER THAN 3/10; Start 09/13/16 at 17:15; Stop 09/13/16 at 18:09; Status DC Fentanyl Citrate (Fentanyl 2ml Vial) 50 mcg PRN Q2HR PRN IV PAIN Last administered on 09/13/16 22:33; Start 09/13/16 at 17:30; Stop 09/14/16 at 17:29; Status DC Sodium Chloride 1,000 ml @ 125 mls/hr Q8H IV Last administered on 09/14/16 10: 00; Start 09/13/16 at 18:00; Stop 09/14/16 at 17:59; Status DC Ondansetron HCl (Zofran) 4 mg PRN Q6HRS PRN IV NAUSEA/VOMITING, 1ST CHOICE Last administered on 09/14/16 19:58; Start 09/13/16 at 18:15 Ondansetron HCl (Zofran Odt) 4 mg PRN Q8HRS PRN PO NAUSEA; Start 09/13/16 at 20: 00 Albuterol Sulfate (Ventolin Neb Soln) 2.5 mg PRN Q4HRS PRN NEB SHORTNESS OF BREATH; Start 09/13/16 at 20:15 Non-Formulary Medication 1 puff PRN Q6HRS PRN IH SHORTNESS OF BREATH; Start 09/13/16 at 20:00; Status UNV Non-Formulary Medication 1 puff PRN Q4HRS PRN IH SHORTNESS OF BREATH; Start 09/13/16 at 20:00; Status UNV Gabapentin (Neurontin) 800 mg DAILY06 PO Last administered on 09/16/16 08:17; Start 09/14/16 at 06:00 Gabapentin (Neurontin) 1,200 mg QHS PO Last administered on 09/15/16 21:35; Start 09/13/16 at 21:00 Lamotrigine (LaMICtal) 400 mg BID PO Last administered on 09/16/16 08:17; Start 09/13/16 at 21:00 Ceftriaxone Sodium 1 gm/ Sodium Chloride 50 ml @ 100 mls/hr Q24H IV Last administered on 09/15/16 21:32; Start 09/13/16 at 21:00 Prochlorperazine Edisylate (Compazine) 10 mg PRN Q6HRS PRN IV NAUSEA/VOMITING, 2ND CHOICE Last administered on 09/13/16 22:28; Start 09/13/16 at 22:30 Hydromorphone HCl (Dilaudid) 2 mg PRN Q4HRS PRN IV SEVERE PAIN Last administered on 09/14/16 19:58; Start 09/13/16 at 23:00 Hydromorphone HCl (Dilaudid) 1 mg PRN Q4HRS PRN IV MODERATE PAIN Last administered on 09/14/16 02:43; Start 09/13/16 at 23:15 Active Scripts Active Zofran Odt (Ondansetron) 4 Mg Tab.rapdis 1 Tab SL PRN Q8HRS PRN Proair Respiclick (Albuterol Sulfate) 90 Mcg Aer.pow.ba 1 Puff IH PRN Q6HRS PRN Proair Hfa Inhaler (Albuterol Sulfate) 8.5 Gm Hfa.aer.ad 2 Puff INH Q4HRS PRN Proventil Hfa Inhaler (Albuterol Sulfate) 6.7 Gm Hfa.aer.ad 1 Puff IH PRN Q4HRS PRN Reported Gabapentin 400 Mg Capsule 3 Cap PO QHS Gabapentin 400 Mg Capsule 2 Cap PO DAILY06 Lamotrigine 200 Mg Tablet 2 Tab PO BID Vitals/I & O Vital Sign - Last 24 Hours 09/15/16 09/15/16 09/15/16 09/16/16 15:10 19:00 23:00 03:00 Temp 98.2 98.9 98.9 97.9 98.2 98.9 98.9 97.9 Pulse 70 63 69 67 Resp 18 20 18 20 B/P (MAP) 114/65 (81) 132/64 (86) 119/64 (82) 134/70 (91) Pulse Ox 92 95 95 95 O2 Delivery Room Air Room Air Room Air Room Air 09/16/16 09/16/16 07:00 10:46 Temp 97.7 97.5 97.7 97.5 Pulse 69 71 Resp 18 18 B/P (MAP) 143/73 (96) 115/52 (73) Pulse Ox 97 96 O2 Delivery Room Air Room Air Intake and Output 09/15/16 09/15/16 09/16/16 15:00 23:00 07:00 Intake Total 360 ml 200 ml Output Total 0 ml Balance 360 ml 200 ml 0 ml RUSLAN DYER MD Sep 16, 2016 14:41
[2016-09-16 15:00] VITALS: BP 123/56
[2016-09-16 19:00] VITALS: BP 111/56
[2016-09-16 23:00] VITALS: BP 118/63
[2016-09-17] VITALS (12 sets, daily range): BP systolic 80–159; BP diastolic 64–93
[2016-09-17] MEDS: GABAPENTIN 400 MG CAPSULE. PO SCH ×2 (06:00→21:14)
[2016-09-17] MEDS ORDERED: LIDOCAINE 1% 1 ML SYRINGE. ID PRN (07:00)
[2016-09-17] MEDS ORDERED: ONDANSETRON PF 4 MG/2 ML VIAL. IV PRN ×2 (07:00→15:00)
[2016-09-17] MEDS ORDERED: IV RINGERS,LACTATED 1000ML 1,000 ML IV SCH (07:00)
[2016-09-17] MEDS ORDERED: PROCHLORPERAZINE 10 MG/2 ML VIAL. IV PRN (07:00)
[2016-09-17] MEDS ORDERED: fentaNYL PF VIAL 100 MCG/2 ML VIAL IV PRN (07:00)
[2016-09-17] MEDS ORDERED: HYDROmorphone 2 MG/ML VIAL IV PRN (07:00)
[2016-09-17] MEDS: lamoTRIgine 100 MG TABLET. PO SCH ×2 (09:00→21:15)
--- NOTE | 2016-09-17 12:01 | PDOC ---
PROGRESS NOTES Chief Complaint Chief Complaint Gallstone pancreatitis morbid obesity, BMI 44 Past Medical History: Anxiety, Asthma, Seizure History of Present Illness History of Present Illness To OR today pt seen before surg, no new questions VSS SALVADOR RN Vitals Vitals Vital Signs Date Time Temp Pulse Resp B/P (MAP) Pulse Ox O2 Delivery O2 Flow Rate FiO2 09/17/16 11:00 98.2 64 18 113/64 (80) 98 Room Air 98.2 Physical Exam General: Alert, Cooperative, No acute distress Extremities: No clubbing, No cyanosis Skin: No rashes, No breakdown Labs LABS Laboratory Tests Test 09/17/16 05:45 Lipase 287 U/L (73-393) Review of Systems Review of Systems pain OK Assessment and Plan Assessmemt and Plan Problems Medical Problems: (1) Abdominal pain Status: Acute (2) Elevated amylase and lipase Status: Acute Problems: Comment Review of Relevant I have reviewed the following items scar (where applicable) has been applied. Labs Laboratory Tests Test 09/17/16 05:45 Lipase 287 U/L (73-393) Laboratory Tests Test 09/17/16 05:45 Lipase 287 U/L (73-393) Microbiology 09/13/16 Urine Culture - Final, Complete 09/13/16 Urine Culture Result 1 (DOREEN) - Final, Complete Medications Current Medications Iohexol (Omnipaque 300 Mg/ml) 75 ml 1X ONCE IV Last administered on 09/13/16 17:27; Start 09/13/16 at 17:15; Stop 09/13/16 at 17:16; Status DC Info (Do NOT chart on this entry -- for MONITORING) 1 each PRN DAILY PRN MC SEE COMMENTS; Start 09/13/16 at 17:00; Stop 09/15/16 at 16:59; Status DC Fentanyl Citrate (Fentanyl 2ml Vial) 50 mcg PRN Q15MIN PRN IV PAIN GREATER THAN 3/10; Start 09/13/16 at 17:15; Stop 09/13/16 at 18:09; Status DC Fentanyl Citrate (Fentanyl 2ml Vial) 50 mcg PRN Q2HR PRN IV PAIN Last administered on 09/13/16 22:33; Start 09/13/16 at 17:30; Stop 09/14/16 at 17:29; Status DC Sodium Chloride 1,000 ml @ 125 mls/hr Q8H IV Last administered on 09/14/16 10: 00; Start 09/13/16 at 18:00; Stop 09/14/16 at 17:59; Status DC Ondansetron HCl (Zofran) 4 mg PRN Q6HRS PRN IV NAUSEA/VOMITING, 1ST CHOICE Last administered on 09/14/16 19:58; Start 09/13/16 at 18:15 Ondansetron HCl (Zofran Odt) 4 mg PRN Q8HRS PRN PO NAUSEA; Start 09/13/16 at 20: 00 Albuterol Sulfate (Ventolin Neb Soln) 2.5 mg PRN Q4HRS PRN NEB SHORTNESS OF BREATH; Start 09/13/16 at 20:15 Non-Formulary Medication 1 puff PRN Q6HRS PRN IH SHORTNESS OF BREATH; Start 09/13/16 at 20:00; Status UNV Non-Formulary Medication 1 puff PRN Q4HRS PRN IH SHORTNESS OF BREATH; Start 09/13/16 at 20:00; Status UNV Gabapentin (Neurontin) 800 mg DAILY06 PO Last administered on 09/16/16 08:17; Start 09/14/16 at 06:00 Gabapentin (Neurontin) 1,200 mg QHS PO Last administered on 09/16/16 21:11; Start 09/13/16 at 21:00 Lamotrigine (LaMICtal) 400 mg BID PO Last administered on 09/16/16 21:11; Start 09/13/16 at 21:00 Ceftriaxone Sodium 1 gm/ Sodium Chloride 50 ml @ 100 mls/hr Q24H IV Last administered on 09/16/16 21:11; Start 09/13/16 at 21:00 Prochlorperazine Edisylate (Compazine) 10 mg PRN Q6HRS PRN IV NAUSEA/VOMITING, 2ND CHOICE Last administered on 09/13/16 22:28; Start 09/13/16 at 22:30 Hydromorphone HCl (Dilaudid) 2 mg PRN Q4HRS PRN IV SEVERE PAIN Last administered on 09/14/16 19:58; Start 09/13/16 at 23:00 Hydromorphone HCl (Dilaudid) 1 mg PRN Q4HRS PRN IV MODERATE PAIN Last administered on 09/14/16t 02:43; Start 09/13/16 at 23:15 Ondansetron HCl (Zofran) 4 mg PRN Q6HRS PRN IV NAUSEA/VOMITING; Start 09/17/16 at 07:00; Stop 09/18/16 at 06:59 Fentanyl Citrate (Fentanyl 2ml Vial) 25 mcg PRN Q5MIN PRN IV MILD PAIN; Start 09/17/16 at 07:00; Stop 09/18/16 at 06:59 Fentanyl Citrate (Fentanyl 2ml Vial) 50 mcg PRN Q5MIN PRN IV MODERATE PAIN; Start 09/17/16 at 07:00; Stop 09/18/16 at 06:59 Morphine Sulfate 1 mg PRN Q10MIN PRN IV SEVERE PAIN; Start 09/17/16 at 07:00; Stop 09/18/16 at 06:59 Ringer's Solution 1,000 ml @ 30 mls/hr Q24H IV Last administered on 09/17/16t 08:54; Start 09/17/16 at 07:00; Stop 09/17/16 at 18:59 Lidocaine HCl 2 ml PRN 1X PRN ID PRIOR TO IV START; Start 09/17/16 at 07:00; Stop 09/18/16 at 06:59 Hydromorphone HCl (Dilaudid) 0.5 mg PRN Q10MIN PRN IV SEV PAIN, Second choice; Start 09/17/16 at 07:00; Stop 09/18/16 at 06:59 Prochlorperazine Edisylate (Compazine) 5 mg PACU PRN PRN IV NAUSEA, MRX1; Start 09/17/16 at 07:00; Stop 09/18/16 at 06:59 Active Scripts Active Zofran Odt (Ondansetron) 4 Mg Tab.rapdis 1 Tab SL PRN Q8HRS PRN Proair Respiclick (Albuterol Sulfate) 90 Mcg Aer.pow.ba 1 Puff IH PRN Q6HRS PRN Proair Hfa Inhaler (Albuterol Sulfate) 8.5 Gm Hfa.aer.ad 2 Puff INH Q4HRS PRN Proventil Hfa Inhaler (Albuterol Sulfate) 6.7 Gm Hfa.aer.ad 1 Puff IH PRN Q4HRS PRN Reported Gabapentin 400 Mg Capsule 3 Cap PO QHS Gabapentin 400 Mg Capsule 2 Cap PO DAILY06 Lamotrigine 200 Mg Tablet 2 Tab PO BID Vitals/I & O Vital Sign - Last 24 Hours 09/16/16 09/16/16 09/16/16 09/16/16 15:00 19:00 20:00 23:00 Temp 97.9 98.3 97.7 97.9 98.3 97.7 Pulse 64 55 62 Resp 18 18 18 B/P (MAP) 123/56 (78) 111/56 (74) 118/63 (81) Pulse Ox 96 96 96 O2 Delivery Room Air Room Air Room Air Room Air 09/17/16 09/17/16 09/17/16 09/17/16 03:00 07:00 08:08 11:00 Temp 97.9 97.5 98.2 97.9 97.5 98.2 Pulse 63 61 64 Resp 18 20 18 B/P (MAP) 129/74 (92) 113/65 (81) 113/64 (80) Pulse Ox 95 98 98 98 O2 Delivery Room Air Room Air Room Air Intake and Output 09/16/16 09/16/16 09/17/16 15:00 23:00 07:00 Intake Total 900 ml 2400 ml Output Total 1 ml Balance 900 ml 2399 ml RUSLAN DYER MD Sep 17, 2016 12:01
[2016-09-17] MEDS ORDERED: DESFLURANE 61 TO 120 MINUTES IH ONE (12:02)
[2016-09-17] MEDS ORDERED: fentaNYL PF VIAL 100 MCG/2 ML VIAL ONE ×2 (12:02→13:54)
[2016-09-17] MEDS ORDERED: MIDAZOLAM HCL/PF 2 MG/2 ML VIAL. ONE (12:02)
[2016-09-17] MEDS ORDERED: GLYCOPYRROLATE 1 MG/5 ML VIAL. ONE (12:02)
[2016-09-17] MEDS ORDERED: LIDOCAINE 2% PF Vial for OR 5 ML VIAL. ONE (12:03)
[2016-09-17] MEDS ORDERED: ONDANSETRON PF 4 MG/2 ML VIAL. ONE (12:03)
[2016-09-17] MEDS ORDERED: KETOROLAC 60 MG/2 ML INJ FOR OR. ONE (12:03)
[2016-09-17] MEDS ORDERED: NEOSTIGMINE METHYLSULFATE 5 MG/5 ML SYRINGE. ONE (12:03)
[2016-09-17] MEDS ORDERED: PROPOFOL 20 ML IV ONE (12:03)
[2016-09-17] MEDS ORDERED: DEXAMETHASONE SOD PHOS 20 MG/5 ML VIAL. ONE (12:03)
[2016-09-17] MEDS ORDERED: ROCURONIUM 50 MG/5 ML VIAL. ONE (12:03)
--- NOTE | 2016-09-17 12:30 | PDOC ---
Subjective: Subjective: Feels okay today except for back pain w/ certain movements. Objective: Vital Signs: Vital Signs Date Time Temp Pulse Resp B/P (MAP) Pulse Ox O2 Delivery O2 Flow Rate FiO2 09/17/16 11:00 98.2 64 18 113/64 (80) 98 Room Air 98.2 Labs: Laboratory Tests Test 09/17/16 05:45 Lipase 287 U/L PE: GEN: NAD LUNGS: clear HEART: RRR ABD: perhaps some mild epigastric/RUQ discomfort, obese NEURO/PSYCH: A & O 3 A/P: Gallstone pancreatitis, third episode -lipase now WNL -- To have cholecystectomy w/ IOC today, will follow post-op. Cognitive/social issues problematic in the past. STEPHANE PETERS Sep 17, 2016 12:30
[2016-09-17] MEDS ORDERED: SURGICEL HEMOSTAT 4X8 EACH. ONE (13:01)
[2016-09-17] MEDS ORDERED: BUPIVACAINE-EPI 0.5%-1:200000 50 ML VIAL. ONE (13:01)
[2016-09-17] MEDS ORDERED: IOHEXOL 300 MG/ML 50 ML VIAL. ONE (13:01)
--- NOTE | 2016-09-17 14:17 | RAD ---
Intraoperative cholangiogram, 09/17/2016: History: Cholecystectomy 5 intraoperative spot images were presented for review. Contrast has been injected into the cystic duct. 43 seconds of fluoroscopy time was utilized. Contrast has refluxed into the gallbladder which demonstrates multiple filling defects compatible with the patient's known gallstones. Contrast extends into the duodenum at the ampulla. No filling defect is seen in the common bile duct to suggest a retained calculus. The incompletely opacified intrahepatic ducts are unremarkable. No contrast extravasation is seen. IMPRESSION: No significant abnormality is detected.
[2016-09-17] MEDS ORDERED: diphenhydrAMINE 50 MG/ML VIAL IV PRN (15:00)
[2016-09-17] MEDS ORDERED: 0.9 % SODIUM CHLORIDE 10 ML DISP.SYRIN. IV PRN (15:00)
[2016-09-17] MEDS ORDERED: DEXTROSE 50% 25 GM / 50ML DISP.SYRIN. IV PRN (15:00)
[2016-09-17] MEDS ORDERED: diphenhydrAMINE HCL 25 MG CAPSULE PO PRN (15:00)
--- NOTE | 2016-09-17 15:00 | PDOC4 ---
Operative Note Operative Note Date of surgery: September 17, 2016 Preoperative diagnosis: Gallstone pancreatitis Postop diagnosis: Same, subacute cholecystitis Procedure: Laparoscopic cholecystectomy with cholangiograms Surgeon: Joshua Anesthesia: Gen. endotracheal Blood loss: 50 mL IV fluids: 400 mL Indications: Silvia is a 31-year-old obese female with her second bout of gallstone pancreatitis. Right for cholecystectomy. 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 Operative report: Patient brought to the operating suite and given a general endotracheal anesthetic. Abdomen was prepped and draped in usual sterile fashion. A supraumbilical incision was infiltrated with local anesthetic incised and a 5 mm Visiport used to gain access into the abdominal cavity taking care to avoid injury to abdominal contents. Peritoneum established, camera inserted, inspection carried out with results as noted above. With the table in reverse Trendelenburg and rolled to the left the epigastric midclavicular and lateral ports were placed under direct vision. It was retracted superior laterally and omental adhesions on the inferior surface of the gallbladder were taken down with careful blunt and cautery dissection taking care to avoid injury to the adjacent bowel. Most stasis in the omental adhesions obtained with ligaclips. The cystic duct and cystic artery were exposed. The cystic duct was clipped on the gallbladder side. Cholangiograms were made. These were normal. In light of this the catheter was removed and the cystic duct was clipped 3 and divided taking care to avoid injury or compromise of the common duct. An anterior and posterior branch of the cystic artery were isolated and clipped and divided along with a bundle of lymphatics. Gallbladder freed from the liver with cautery dissection and placed in an Endo Catch bag. Hemostasis obtained in the fossa with electrocautery. 19 Yoruba round Keven drain was brought through the epigastric port out the lateral port sewn to the skin with a silk stitch and left in the subhepatic space for postoperative drainage. The table was returned to level. Gallbladder delivered through the epigastric incision. Epigastric incision closed with interrupted 0 Vicryl suture. The intra-abdominal pressure at 6 cm water pressure no bleeding from the epigastric closure or from the midclavicular port site after its removal or from the drain site. Abdomen decompressed, camera slowly removed, no bleeding seen. Skin incisions closed with subcuticular 4-0 Monocryl and Steri-Strips. Sterile dressings applied. Patient awakened from her anesthetic and taken to the recovery room in satisfactory condition. SELENA MURDOCK MD Sep 17, 2016 15:00
[2016-09-17] MEDS: fentaNYL PF VIAL 100 MCG/2 ML VIAL IV PRN ×2 (15:17→15:29)
[2016-09-17] MEDS: MORPHINE SULFATE 2 MG/ML DISP.SYRIN. IV PRN ×2 (15:48→15:55)
[2016-09-17] MEDS: POTASSIUM CL 20MEQ-0.45% NACL 1,000 ML IV SCH ×2 (16:51→21:15)
[2016-09-17] MEDS: ENOXAPARIN 40 MG/0.4 ML SYRINGE. SQ SCH (16:52)
[2016-09-17] MEDS: oxyCODONE/APAP 5/325 1 TAB TABLET PO PRN (21:15)
[2016-09-18] MEDS: oxyCODONE/APAP 5/325 1 TAB TABLET PO PRN ×5 (02:05→21:05)
[2016-09-18 03:00] VITALS: BP 170/93
[2016-09-18] MEDS: GABAPENTIN 400 MG CAPSULE. PO SCH ×2 (05:13→21:04)
[2016-09-18 07:00] VITALS: BP 130/89
[2016-09-18] MEDS: lamoTRIgine 100 MG TABLET. PO SCH ×2 (09:01→21:04)
--- NOTE | 2016-09-18 10:33 | PDOC ---
MAC LEMONS APRN 09/18/16 1033: SURGICAL PROGRESS NOTE Subjective tolerating diet feels better Vital Signs Vital Signs Date Time Temp Pulse Resp B/P (MAP) Pulse Ox O2 Delivery O2 Flow Rate FiO2 09/18/16 09:02 Room Air 09/18/16 07:00 97.7 108 24 130/89 (103) 93 97.7 09/17/16 15:55 2.0 I&O Intake and Output 09/18/16 06:59 Intake Total 1680 ml Output Total 100 ml Balance 1580 ml Intake Oral 930 ml IV Total 750 ml Output Urine Total 30 ml Drainage Total 20 ml Estimated Blood Loss 50 ml # Voids 3 General: Alert, Oriented X3, Cooperative, No acute distress Abdomen: Soft, Other (ND, lap dressings dry, malinda serosang) Labs Laboratory Tests Test 09/17/16 05:45 Lipase 287 U/L (73-393) Problem List Problems Medical Problems: (1) Abdominal pain Status: Acute (2) Elevated amylase and lipase Status: Acute Assessment/Plan s/p kristine ambriz DC planning Problems: SELENA MURDOCK MD 09/18/16 1211: SURGICAL PROGRESS NOTE Assessment/Plan pt seen as above will d/c MALINDA home anytime from surgical standpoint Problems: MAC LEMONS APRN Sep 18, 2016 10:33 SELENA MURDOCK MD Sep 18, 2016 12:11
[2016-09-18 11:00] VITALS: BP 104/47
--- NOTE | 2016-09-18 11:24 | PDOC ---
PROGRESS NOTES Chief Complaint Chief Complaint 1.Gallstone pancreatitis 2. Morbid obesity, BMI 44 3. Anxiety 4. Asthma 5. Seizures History of Present Illness History of Present Illness pt is resting comfortably in bed this morning, she had a lap pb yesterday, she states she is feeling better but still some RUQ pain and pain at incisional sites Vitals Vitals Vital Signs Date Time Temp Pulse Resp B/P (MAP) Pulse Ox O2 Delivery O2 Flow Rate FiO2 09/18/16 09:02 Room Air 09/18/16 07:00 97.7 108 24 130/89 (103) 93 97.7 09/17/16 15:55 2.0 Physical Exam General: Alert, Oriented X3, Cooperative, No acute distress Heart: Regular rate, No murmurs Lungs: Clear Abdomen: Normal bowel sounds, Soft, Other (incision sites clean dry and intact , CATHERINE drain has minimal drainage) Extremities: No clubbing, No cyanosis Skin: No rashes, No breakdown Review of Systems Review of Systems denies N/V/D and BROWN pain in RUQ and incisional sites Assessment and Plan Assessmemt and Plan 1.Gallstone pancreatitis 2. Morbid obesity, BMI 44 3. Anxiety 4. Asthma 5. Seizures Assessment 1. S/p lap pb 2. Pain management with percocet 3. SNU eval due to limited mobility 4. Lipase trending down from 10,673 at admission, 287 on 09/18 5. Continue home meds 6. Zofran prn for nausea 7. Appreciate subspecialty input 8. Reviewed imaging: Abd/pelv CT 9. Discussed plan of care with nursing 10. PT/OT 11. Recheck CBC and BMP tomorrow Problems: Comment Review of Relevant I have reviewed the following items scar (where applicable) has been applied. Labs Laboratory Tests Test 09/17/16 05:45 Lipase 287 U/L (73-393) Microbiology 09/13/16 Urine Culture - Final, Complete 09/13/16 Urine Culture Result 1 (DOREEN) - Final, Complete Medications Current Medications Iohexol (Omnipaque 300 Mg/ml) 75 ml 1X ONCE IV Last administered on 09/13/16t 17:27; Start 09/13/16 at 17:15; Stop 09/13/16 at 17:16; Status DC Info (Do NOT chart on this entry -- for MONITORING) 1 each PRN DAILY PRN MC SEE COMMENTS; Start 09/13/16 at 17:00; Stop 09/15/16 at 16:59; Status DC Fentanyl Citrate (Fentanyl 2ml Vial) 50 mcg PRN Q15MIN PRN IV PAIN GREATER THAN 3/10; Start 09/13/16 at 17:15; Stop 09/13/16 at 18:09; Status DC Fentanyl Citrate (Fentanyl 2ml Vial) 50 mcg PRN Q2HR PRN IV PAIN Last administered on 09/13/16 22:33; Start 09/13/16 at 17:30; Stop 09/14/16 at 17:29; Status DC Sodium Chloride 1,000 ml @ 125 mls/hr Q8H IV Last administered on 09/14/16 10: 00; Start 09/13/16 at 18:00; Stop 09/14/16 at 17:59; Status DC Ondansetron HCl (Zofran) 4 mg PRN Q6HRS PRN IV NAUSEA/VOMITING, 1ST CHOICE Last administered on 09/14/16 19:58; Start 09/13/16 at 18:15 Ondansetron HCl (Zofran Odt) 4 mg PRN Q8HRS PRN PO NAUSEA; Start 09/13/16 at 20: 00 Albuterol Sulfate (Ventolin Neb Soln) 2.5 mg PRN Q4HRS PRN NEB SHORTNESS OF BREATH; Start 09/13/16 at 20:15 Non-Formulary Medication 1 puff PRN Q6HRS PRN IH SHORTNESS OF BREATH; Start 09/13/16 at 20:00; Status UNV Non-Formulary Medication 1 puff PRN Q4HRS PRN IH SHORTNESS OF BREATH; Start 09/13/16 at 20:00; Status UNV Gabapentin (Neurontin) 800 mg DAILY06 PO Last administered on 09/18/16 05:13; Start 09/14/16 at 06:00 Gabapentin (Neurontin) 1,200 mg QHS PO Last administered on 09/17/16 21:14; Start 09/13/16 at 21:00 Lamotrigine (LaMICtal) 400 mg BID PO Last administered on 09/18/16 09:01; Start 09/13/16 at 21:00 Ceftriaxone Sodium 1 gm/ Sodium Chloride 50 ml @ 100 mls/hr Q24H IV Last administered on 09/17/16 21:15; Start 09/13/16 at 21:00 Prochlorperazine Edisylate (Compazine) 10 mg PRN Q6HRS PRN IV NAUSEA/VOMITING, 2ND CHOICE Last administered on 09/13/16 22:28; Start 09/13/16 at 22:30 Hydromorphone HCl (Dilaudid) 2 mg PRN Q4HRS PRN IV SEVERE PAIN Last administered on 09/14/16 19:58; Start 09/13/16 at 23:00 Hydromorphone HCl (Dilaudid) 1 mg PRN Q4HRS PRN IV MODERATE PAIN Last administered on 09/14/16 02:43; Start 09/13/16 at 23:15 Ondansetron HCl (Zofran) 4 mg PRN Q6HRS PRN IV NAUSEA/VOMITING; Start 09/17/16 at 07:00; Stop 09/18/16 at 06:59; Status DC Fentanyl Citrate (Fentanyl 2ml Vial) 25 mcg PRN Q5MIN PRN IV MILD PAIN; Start 09/17/16 at 07:00; Stop 09/18/16 at 06:59; Status DC Fentanyl Citrate (Fentanyl 2ml Vial) 50 mcg PRN Q5MIN PRN IV MODERATE PAIN Last administered on 09/17/16 15:29; Start 09/17/16 at 07:00; Stop 09/18/16 at 06:59; Status DC Morphine Sulfate 1 mg PRN Q10MIN PRN IV SEVERE PAIN Last administered on 15:55; Start 09/17/16 at 07:00; Stop 09/18/16 at 06:59; Status DC Ringer's Solution 1,000 ml @ 30 mls/hr Q24H IV Last administered on 09/17/16 08:54; Start 09/17/16 at 07:00; Stop 09/17/16 at 18:59; Status DC Lidocaine HCl 2 ml PRN 1X PRN ID PRIOR TO IV START; Start 09/17/16 at 07:00; Stop 09/18/16 at 06:59; Status DC Hydromorphone HCl (Dilaudid) 0.5 mg PRN Q10MIN PRN IV SEV PAIN, Second choice; Start 09/17/16 at 07:00; Stop 09/18/16 at 06:59; Status DC Prochlorperazine Edisylate (Compazine) 5 mg PACU PRN PRN IV NAUSEA, MRX1; Start 09/17/16 at 07:00; Stop 09/18/16 at 06:59; Status DC Desflurane (Suprane) 60 ml STK-MED ONCE IH ; Start 09/17/16 at 12:02; Stop 09/17 at 12:03; Status DC Fentanyl Citrate (Fentanyl 2ml Vial) 100 mcg STK-MED ONCE .ROUTE ; Start at 12:02; Stop 09/17/16 at 12:03; Status DC Midazolam HCl (Versed) 2 mg STK-MED ONCE .ROUTE ; Start 09/17/16 at 12:02; Stop 09/17/16 at 12:03; Status DC Glycopyrrolate (Robinul) 1 mg STK-MED ONCE .ROUTE ; Start 09/17/16 at 12:02; Stop 09/17/16 at 12:03; Status DC Neostigmine Methylsulfate 5 mg STK-MED ONCE .ROUTE ; Start 09/17/16 at 12:03; Stop 09/17/16 at 12:04; Status DC Rocuronium [place] (Zemuron) 50 mg STK-MED ONCE .ROUTE ; Start 09/17/16 at 12:03 ; Stop 09/17/16 at 12:04; Status DC Propofol 20 ml @ As Directed STK-MED ONCE IV ; Start 09/17/16 at 12:03; Stop 02/22 at 12:04; Status DC Ondansetron HCl (Zofran) 4 mg STK-MED ONCE .ROUTE ; Start 09/17/16 at 12:03; Stop 09/17/16 at 12:04; Status DC Dexamethasone Sodium Phosphate (Decadron) 20 mg STK-MED ONCE .ROUTE ; Start 02/22 at 12:03; Stop 09/17/16 at 12:04; Status DC Ketorolac Tromethamine (Toradol For Or Only) 60 mg STK-MED ONCE .ROUTE ; Start 09/17/16 at 12:03; Stop 09/17/16 at 12:04; Status DC Lidocaine HCl (Lidocaine Pf 2% Vial) 5 ml STK-MED ONCE .ROUTE ; Start 09/17/16 at 12:03; Stop 09/17/16 at 12:04; Status DC Cellulose 1 each STK-MED ONCE .ROUTE Last administered on 09/17/16 14:21; Start 09/17/16 at 13:01; Stop 09/17/16 at 13:02; Status DC Iohexol (Omnipaque 300 Mg/ml) 50 ml STK-MED ONCE .ROUTE ; Start 09/17/16 at 13: 01; Stop 09/17/16 at 13:02; Status DC Bupivacaine HCl/ Epinephrine Bitart (Marcaine-Epi 0.5%-1:[id number]) 50 ml STK-MED ONCE .ROUTE Last administered on 09/17/16 13:41; Start 09/17/16 at 13:01; Stop 09/17/16 at 13:02; Status DC Cefazolin Sodium/ Dextrose 50 ml @ 100 mls/hr 1X ONCE IV Last administered on 09/17/16 13:30; Start 09/17/16 at 13:15; Stop 09/17/16 at 13:51; Status DC Fentanyl Citrate (Fentanyl 2ml Vial) 100 mcg STK-MED ONCE .ROUTE ; Start at 13:54; Stop 09/17/16 at 13:55; Status DC Diphenhydramine HCl (Benadryl) 25 mg PRN Q6HRS PRN PO ITCHING; Start 09/17/16 at 15:00 Diphenhydramine HCl (Benadryl) 25 mg PRN Q6HRS PRN IV ITCHING; Start 09/17/16 at 15:00 Enoxaparin Sodium (Lovenox 40mg Syringe) 40 mg Q24H SQ Last administered on 16:52; Start 09/17/16 at 15:00 Sodium Chloride (Normal Saline Flush) 3 ml QSHIFT PRN IV AFTER MEDS AND BLOOD DRAWS; Start 09/17/16 at 15:00 Potassium Chloride/Sodium Chloride 1,000 ml @ 100 mls/hr Q10H IV Last administered on 09/17/16 21:15; Start 09/17/16 at 15:00 Dextrose (Dextrose 50%-Water Syringe) 12.5 gm PRN Q15MIN PRN IV SEE COMMENTS; Start 09/17/16 at 15:00 Oxycodone/ Acetaminophen (Percocet 5/325) 1 tab PRN Q4HRS PRN PO MILD PAIN, 1ST CHOICE; Start 09/17/16 at 15:00 Oxycodone/ Acetaminophen (Percocet 5/325) 2 tab PRN Q4HRS PRN PO MODERATE PAIN , SEVERE PAIN Last administered on 09/18/16t 09:02; Start 09/17/16 at 15:00 Ondansetron HCl (Zofran) 4 mg PRN Q6HRS PRN IV NAUESA, 1ST CHOICE; Start at 15:00 Active Scripts Active Zofran Odt (Ondansetron) 4 Mg Tab.rapdis 1 Tab SL PRN Q8HRS PRN Proair Respiclick (Albuterol Sulfate) 90 Mcg Aer.pow.ba 1 Puff IH PRN Q6HRS PRN Proair Hfa Inhaler (Albuterol Sulfate) 8.5 Gm Hfa.aer.ad 2 Puff INH Q4HRS PRN Proventil Hfa Inhaler (Albuterol Sulfate) 6.7 Gm Hfa.aer.ad 1 Puff IH PRN Q4HRS PRN Reported Gabapentin 400 Mg Capsule 3 Cap PO QHS Gabapentin 400 Mg Capsule 2 Cap PO DAILY06 Lamotrigine 200 Mg Tablet 2 Tab PO BID Vitals/I & O Vital Sign - Last 24 Hours 09/17/16 09/17/16 09/17/16 09/17/16 12:37 14:45 15:00 15:15 Temp 97.7 97.7 Pulse 65 76 75 80 Resp 24 20 20 20 B/P (MAP) 122/69 160/68 156/66 151/66 Pulse Ox 97 100 100 92 O2 Delivery Room Air Simple Mask Room Air O2 Flow Rate 10 10 09/17/16 09/17/16 09/17/16 09/17/16 15:17 15:29 15:30 15:45 Temp 98.0 98.0 Pulse 70 70 Resp 20 20 20 20 B/P (MAP) 151/66 155/68 Pulse Ox 95 96 95 95 O2 Delivery Simple Mask Nasal Cannula Nasal Cannula Nasal Cannula O2 Flow Rate 10.0 2 2 709/17/16 09/17/16 09/17/16 15:48 15:51 15:55 16:00 Temp 97.8 97.8 Pulse 78 Resp 20 20 22 B/P (MAP) 80/ Pulse Ox 96 96 94 O2 Delivery Nasal Cannula Nasal Cannula Nasal Cannula Room Air O2 Flow Rate 2.0 2 2.0 09/17/16 09/17/16 09/17/16 09/17/16 16:00 16:15 16:27 16:46 Temp 98.0 98.2 98.0 98.2 Pulse 78 77 85 88 Resp 18 24 22 B/P (MAP) 127/80 (96) 127/76 (93) 135/80 (98) 148/93 (111) Pulse Ox 93 92 92 96 O2 Delivery Room Air Room Air Room Air Room Air 09/17/16 09/17/16 09/17/16 09/17/16 17:15 17:38 18:45 19:45 Temp 98.2 98.0 97.9 97.7 98.2 98.0 97.9 97.7 Pulse 76 72 98 91 Resp 24 24 20 18 B/P (MAP) 147/85 (105) 138/82 (100) 159/89 (112) 148/85 (106) Pulse Ox 95 96 96 94 O2 Delivery Room Air Room Air Room Air Room Air 09/17/16 09/17/16 09/17/16 09/17/16 20:00 21:15 22:15 23:00 Temp 98.2 98.2 Pulse 94 Resp 20 18 B/P (MAP) 150/75 (100) Pulse Ox 94 94 92 O2 Delivery Room Air Room Air Room Air 09/18/16 09/18/16 09/18/16 09/18/16 02:05 03:00 05:14 06:14 Temp 100.0 100.0 Pulse 95 Resp 20 20 20 20 B/P (MAP) 170/93 (118) Pulse Ox 92 91 O2 Delivery Room Air Room Air Room Air Room Air 09/18/16 09/18/16 07:00 09:02 Temp 97.7 97.7 Pulse 108 Resp 24 B/P (MAP) 130/89 (103) Pulse Ox 93 O2 Delivery Room Air Room Air Intake and Output 09/17/16 09/17/16 09/18/16 15:00 23:00 07:00 Intake Total 550 ml 870 ml 260 ml Output Total 50 ml 50 ml Balance 500 ml 820 ml 260 ml SHAYNE CHILEL III DO Sep 18, 2016 11:24
--- NOTE | 2016-09-18 11:58 | PDOC ---
Subjective: Subjective: Shoulders and neck hurt, trying a new position in bed. Tolerating diet. Objective: Vital Signs: Vital Signs Date Time Temp Pulse Resp B/P (MAP) Pulse Ox O2 Delivery O2 Flow Rate FiO2 09/18/16 11:00 97.5 85 24 104/47 (66) 97 Room Air 97.5 09/17/16 15:55 2.0 Imaging: IOC 09/17/16 IMPRESSION: No significant abnormality is detected. PE: GEN: NAD, was asleep LUNGS: clear HEART: RRR ABD: epigastric tenderness NEURO/PSYCH: A & O 3 A/P: Recurrent pancreatitis, s/p cholecystectomy 09/17/16 -- Improving post-op. DC per surg/primary. STEPHANE PETERS Sep 18, 2016 11:58
[2016-09-18] MEDS: POTASSIUM CL 20MEQ-0.45% NACL 1,000 ML IV SCH ×2 (13:25→21:15)
[2016-09-18 15:00] VITALS: BP 132/59
[2016-09-18] MEDS: ENOXAPARIN 40 MG/0.4 ML SYRINGE. SQ SCH (15:32)
[2016-09-18 19:00] VITALS: BP 107/69
[2016-09-18] MEDS: POLYETHYLENE GLYCOL 3350 17 GM PACKET. PO PRN (21:11)
[2016-09-18 23:00] VITALS: BP 101/55
[2016-09-19 03:00] VITALS: BP 108/74
[2016-09-19] MEDS: GABAPENTIN 400 MG CAPSULE. PO SCH (06:14)
[2016-09-19 07:00] VITALS: BP 105/56
[2016-09-19] MEDS: POTASSIUM CL 20MEQ-0.45% NACL 1,000 ML IV SCH ×2 (07:00→11:21)
[2016-09-19 07:17] LABS: CREATININE 0.7 mg/dL (0.6-1.0); GFR 96.4; POTASSIUM 4.4 mmol/L (3.5-5.1)
[2016-09-19 07:43] LABS: BASO # 0.1 x10^3/uL (0.0-0.2); BASO % 1 % (0-3); EOS % 1 % (0-3); HEMOGLOBIN 12.3 g/dL (12.0-15.5); LYMPH # 2.2 x10^3/uL (1.0-4.8); LYMPH % 29 % (24-48); MEAN CORPUSCULAR HEMOGLOBIN 31 pg (25-35); MEAN CORPUSCULAR HGB CONC 33 g/dL (31-37); MEAN CORPUSCULAR VOLUME 93 fL (79-100); MONO % 6 % (0-9); NEUT % 63 % (31-73); PLATELET COUNT 407 x10^3/uL (140-400); RED BLOOD COUNT 3.99 x10^6/uL (3.50-5.40); RED CELL DISTRIBUTION WIDTH 15.7 % (11.5-14.5); WHITE BLOOD COUNT 7.6 x10^3/uL (4.0-11.0)
[2016-09-19] MEDS: oxyCODONE/APAP 5/325 1 TAB TABLET PO PRN ×2 (08:01→12:39)
[2016-09-19] MEDS: POLYETHYLENE GLYCOL 3350 17 GM PACKET. PO PRN (08:01)
[2016-09-19] MEDS: lamoTRIgine 100 MG TABLET. PO SCH (08:01)
[2016-09-19 10:25] VITALS: BP 150/68
--- NOTE | 2016-09-19 10:49 | PDOC ---
Subjective: Subjective: "Okay I guess." Tolerating PO, still some incisional pain. Says going home when she can get a ride today. Objective: Objective: No stools charted, has Miralax. Vital Signs: Vital Signs Date Time Temp Pulse Resp B/P (MAP) Pulse Ox O2 Delivery O2 Flow Rate FiO2 09/19/16 10:25 97.7 72 20 150/68 (95) 93 Room Air 97.7 Labs: Laboratory Tests Test 09/19/16 06:25 White Blood Count 7.6 x10^3/uL Red Blood Count 3.99 x10^6/uL Hemoglobin 12.3 g/dL Hematocrit 37.0 % Mean Corpuscular Volume 93 fL Mean Corpuscular Hemoglobin 31 pg Mean Corpuscular Hemoglobin Concent 33 g/dL Red Cell Distribution Width 15.7 % Platelet Count 407 x10^3/uL Neutrophils (%) (Auto) 63 % Lymphocytes (%) (Auto) 29 % Monocytes (%) (Auto) 6 % Eosinophils (%) (Auto) 1 % Basophils (%) (Auto) 1 % Neutrophils # (Auto) 4.8 x10^3uL Lymphocytes # (Auto) 2.2 x10^3/uL Monocytes # (Auto) 0.5 x10^3/uL Eosinophils # (Auto) 0.1 x10^3/uL Basophils # (Auto) 0.1 x10^3/uL Sodium Level 140 mmol/L Potassium Level 4.4 mmol/L Chloride Level 104 mmol/L Carbon Dioxide Level 25 mmol/L Anion Gap 11 Blood Urea Nitrogen 2 mg/dL Creatinine 0.7 mg/dL Estimated GFR (Cockcroft-Gault) 96.4 Glucose Level 80 mg/dL Calcium Level 9.0 mg/dL PE: GEN: NAD, up to chair LUNGS: CTAB HEART: RRR ABD: RUQ tenderness, obese NEURO/PSYCH: A & O 3 A/P: Recurrent pancreatitis, s/p cholecystectomy 09/17/16 -- Improved. Possible DC today, okay per GI. STEPHANE PETERS Sep 19, 2016 10:49
--- NOTE | 2016-09-19 11:51 | PDOC ---
SURGICAL PROGRESS NOTE Subjective tolerating diet denies pain Vital Signs Vital Signs Date Time Temp Pulse Resp B/P (MAP) Pulse Ox O2 Delivery O2 Flow Rate FiO2 09/19/16 10:25 97.7 72 20 150/68 (95) 93 Room Air 97.7 I&O Intake and Output 09/19/16 07:00 Intake Total 1760 ml Output Total 1315 ml Balance 445 ml Intake Oral 1760 ml Output Urine Total 1150 ml Drainage Total 165 ml # Voids 4 General: Alert, Oriented X3, Cooperative, No acute distress Abdomen: Soft, Other (ND, CATHERINE minimal drainage) Labs Laboratory Tests Test 09/19/16 06:25 White Blood Count 7.6 x10^3/uL (4.0-11.0) Red Blood Count 3.99 x10^6/uL (3.50-5.40) Hemoglobin 12.3 g/dL (12.0-15.5) Hematocrit 37.0 % (36.0-47.0) Mean Corpuscular Volume 93 fL (79-100) Mean Corpuscular Hemoglobin 31 pg (25-35) Mean Corpuscular Hemoglobin Concent 33 g/dL (31-37) Red Cell Distribution Width 15.7 % (11.5-14.5) Platelet Count 407 x10^3/uL (140-400) Neutrophils (%) (Auto) 63 % (31-73) Lymphocytes (%) (Auto) 29 % (24-48) Monocytes (%) (Auto) 6 % (0-9) Eosinophils (%) (Auto) 1 % (0-3) Basophils (%) (Auto) 1 % (0-3) Neutrophils # (Auto) 4.8 x10^3uL (1.8-7.7) Lymphocytes # (Auto) 2.2 x10^3/uL (1.0-4.8) Monocytes # (Auto) 0.5 x10^3/uL (0.0-1.1) Eosinophils # (Auto) 0.1 x10^3/uL (0.0-0.7) Basophils # (Auto) 0.1 x10^3/uL (0.0-0.2) Sodium Level 140 mmol/L (136-145) Potassium Level 4.4 mmol/L (3.5-5.1) Chloride Level 104 mmol/L (98-107) Carbon Dioxide Level 25 mmol/L (21-32) Anion Gap 11 (6-14) Blood Urea Nitrogen 2 mg/dL (7-20) Creatinine 0.7 mg/dL (0.6-1.0) Estimated GFR (Cockcroft-Gault) 96.4 Glucose Level 80 mg/dL (70-99) Calcium Level 9.0 mg/dL (8.5-10.1) Laboratory Tests Test 09/19/16 06:25 White Blood Count 7.6 x10^3/uL (4.0-11.0) Red Blood Count 3.99 x10^6/uL (3.50-5.40) Hemoglobin 12.3 g/dL (12.0-15.5) Hematocrit 37.0 % (36.0-47.0) Mean Corpuscular Volume 93 fL (79-100) Mean Corpuscular Hemoglobin 31 pg (25-35) Mean Corpuscular Hemoglobin Concent 33 g/dL (31-37) Red Cell Distribution Width 15.7 % (11.5-14.5) Platelet Count 407 x10^3/uL (140-400) Neutrophils (%) (Auto) 63 % (31-73) Lymphocytes (%) (Auto) 29 % (24-48) Monocytes (%) (Auto) 6 % (0-9) Eosinophils (%) (Auto) 1 % (0-3) Basophils (%) (Auto) 1 % (0-3) Neutrophils # (Auto) 4.8 x10^3uL (1.8-7.7) Lymphocytes # (Auto) 2.2 x10^3/uL (1.0-4.8) Monocytes # (Auto) 0.5 x10^3/uL (0.0-1.1) Eosinophils # (Auto) 0.1 x10^3/uL (0.0-0.7) Basophils # (Auto) 0.1 x10^3/uL (0.0-0.2) Sodium Level 140 mmol/L (136-145) Potassium Level 4.4 mmol/L (3.5-5.1) Chloride Level 104 mmol/L (98-107) Carbon Dioxide Level 25 mmol/L (21-32) Anion Gap 11 (6-14) Blood Urea Nitrogen 2 mg/dL (7-20) Creatinine 0.7 mg/dL (0.6-1.0) Estimated GFR (Cockcroft-Gault) 96.4 Glucose Level 80 mg/dL (70-99) Calcium Level 9.0 mg/dL (8.5-10.1) Problem List Problems Medical Problems: (1) Abdominal pain Status: Acute (2) Elevated amylase and lipase Status: Acute Assessment/Plan s/p lap pb DC drain DC home Problems: MAC LEMONS PMO CONSULTANT Sep 19, 2016 11:51
--- NOTE | 2016-09-19 12:05 | PDOC ---
PROGRESS NOTES Chief Complaint Chief Complaint 1.Gallstone pancreatitis 2. Morbid obesity, BMI 44 3. Anxiety 4. Asthma 5. Seizures History of Present Illness History of Present Illness pt is sitting in chair this morning, she is a bit exhausted as she just finished PT/OT, she was able to walk around hospital floor well Vitals Vitals Vital Signs Date Time Temp Pulse Resp B/P (MAP) Pulse Ox O2 Delivery O2 Flow Rate FiO2 09/19/16 10:25 97.7 72 20 150/68 (95) 93 Room Air 97.7 Physical Exam General: Alert, Oriented X3, Cooperative, No acute distress Heart: Regular rate, No murmurs Lungs: Clear Abdomen: Normal bowel sounds, Soft, Other (ND, CATHERINE minimal drainage) Extremities: No clubbing, No cyanosis Skin: No rashes, No breakdown Labs LABS Laboratory Tests Test 09/19/16 06:25 White Blood Count 7.6 x10^3/uL (4.0-11.0) Red Blood Count 3.99 x10^6/uL (3.50-5.40) Hemoglobin 12.3 g/dL (12.0-15.5) Hematocrit 37.0 % (36.0-47.0) Mean Corpuscular Volume 93 fL (79-100) Mean Corpuscular Hemoglobin 31 pg (25-35) Mean Corpuscular Hemoglobin Concent 33 g/dL (31-37) Red Cell Distribution Width 15.7 % (11.5-14.5) Platelet Count 407 x10^3/uL (140-400) Neutrophils (%) (Auto) 63 % (31-73) Lymphocytes (%) (Auto) 29 % (24-48) Monocytes (%) (Auto) 6 % (0-9) Eosinophils (%) (Auto) 1 % (0-3) Basophils (%) (Auto) 1 % (0-3) Neutrophils # (Auto) 4.8 x10^3uL (1.8-7.7) Lymphocytes # (Auto) 2.2 x10^3/uL (1.0-4.8) Monocytes # (Auto) 0.5 x10^3/uL (0.0-1.1) Eosinophils # (Auto) 0.1 x10^3/uL (0.0-0.7) Basophils # (Auto) 0.1 x10^3/uL (0.0-0.2) Sodium Level 140 mmol/L (136-145) Potassium Level 4.4 mmol/L (3.5-5.1) Chloride Level 104 mmol/L (98-107) Carbon Dioxide Level 25 mmol/L (21-32) Anion Gap 11 (6-14) Blood Urea Nitrogen 2 mg/dL (7-20) Creatinine 0.7 mg/dL (0.6-1.0) Estimated GFR (Cockcroft-Gault) 96.4 Glucose Level 80 mg/dL (70-99) Calcium Level 9.0 mg/dL (8.5-10.1) Review of Systems Review of Systems denies N/V/D and BROWN some mild abdominal pain persists at incision sites Assessment and Plan Assessmemt and Plan 1.Gallstone pancreatitis 2. Morbid obesity, BMI 44 3. Anxiety 4. Asthma 5. Seizures Assessment 1. S/p lap pb 2. Pain management with percocet 3. SNU eval to [facility] 4. Lipase trending down from 10,673 at admission, 287 on 09/18 5. Continue home meds 6. Zofran prn for nausea 7. Appreciate subspecialty input 8. Reviewed imaging: Abd/pelv CT 9. Discussed plan of care with nursing 10. PT/OT 11. Recheck CBC and BMP tomorrow Problems: Comment Review of Relevant I have reviewed the following items scar (where applicable) has been applied. Labs Laboratory Tests Test 09/19/16 06:25 White Blood Count 7.6 x10^3/uL (4.0-11.0) Red Blood Count 3.99 x10^6/uL (3.50-5.40) Hemoglobin 12.3 g/dL (12.0-15.5) Hematocrit 37.0 % (36.0-47.0) Mean Corpuscular Volume 93 fL (79-100) Mean Corpuscular Hemoglobin 31 pg (25-35) Mean Corpuscular Hemoglobin Concent 33 g/dL (31-37) Red Cell Distribution Width 15.7 % (11.5-14.5) Platelet Count 407 x10^3/uL (140-400) Neutrophils (%) (Auto) 63 % (31-73) Lymphocytes (%) (Auto) 29 % (24-48) Monocytes (%) (Auto) 6 % (0-9) Eosinophils (%) (Auto) 1 % (0-3) Basophils (%) (Auto) 1 % (0-3) Neutrophils # (Auto) 4.8 x10^3uL (1.8-7.7) Lymphocytes # (Auto) 2.2 x10^3/uL (1.0-4.8) Monocytes # (Auto) 0.5 x10^3/uL (0.0-1.1) Eosinophils # (Auto) 0.1 x10^3/uL (0.0-0.7) Basophils # (Auto) 0.1 x10^3/uL (0.0-0.2) Sodium Level 140 mmol/L (136-145) Potassium Level 4.4 mmol/L (3.5-5.1) Chloride Level 104 mmol/L (98-107) Carbon Dioxide Level 25 mmol/L (21-32) Anion Gap 11 (6-14) Blood Urea Nitrogen 2 mg/dL (7-20) Creatinine 0.7 mg/dL (0.6-1.0) Estimated GFR (Cockcroft-Gault) 96.4 Glucose Level 80 mg/dL (70-99) Calcium Level 9.0 mg/dL (8.5-10.1) Laboratory Tests Test 09/19/16 06:25 White Blood Count 7.6 x10^3/uL (4.0-11.0) Red Blood Count 3.99 x10^6/uL (3.50-5.40) Hemoglobin 12.3 g/dL (12.0-15.5) Hematocrit 37.0 % (36.0-47.0) Mean Corpuscular Volume 93 fL (79-100) Mean Corpuscular Hemoglobin 31 pg (25-35) Mean Corpuscular Hemoglobin Concent 33 g/dL (31-37) Red Cell Distribution Width 15.7 % (11.5-14.5) Platelet Count 407 x10^3/uL (140-400) Neutrophils (%) (Auto) 63 % (31-73) Lymphocytes (%) (Auto) 29 % (24-48) Monocytes (%) (Auto) 6 % (0-9) Eosinophils (%) (Auto) 1 % (0-3) Basophils (%) (Auto) 1 % (0-3) Neutrophils # (Auto) 4.8 x10^3uL (1.8-7.7) Lymphocytes # (Auto) 2.2 x10^3/uL (1.0-4.8) Monocytes # (Auto) 0.5 x10^3/uL (0.0-1.1) Eosinophils # (Auto) 0.1 x10^3/uL (0.0-0.7) Basophils # (Auto) 0.1 x10^3/uL (0.0-0.2) Sodium Level 140 mmol/L (136-145) Potassium Level 4.4 mmol/L (3.5-5.1) Chloride Level 104 mmol/L (98-107) Carbon Dioxide Level 25 mmol/L (21-32) Anion Gap 11 (6-14) Blood Urea Nitrogen 2 mg/dL (7-20) Creatinine 0.7 mg/dL (0.6-1.0) Estimated GFR (Cockcroft-Gault) 96.4 Glucose Level 80 mg/dL (70-99) Calcium Level 9.0 mg/dL (8.5-10.1) Microbiology 09/13/16 Urine Culture - Final, Complete 09/13/16 Urine Culture Result 1 (DOREEN) - Final, Complete Medications Current Medications Iohexol (Omnipaque 300 Mg/ml) 75 ml 1X ONCE IV Last administered on 09/13/16 17:27; Start 09/13/16 at 17:15; Stop 09/13/16 at 17:16; Status DC Info (Do NOT chart on this entry -- for MONITORING) 1 each PRN DAILY PRN MC SEE COMMENTS; Start 09/13/16 at 17:00; Stop 09/15/16 at 16:59; Status DC Fentanyl Citrate (Fentanyl 2ml Vial) 50 mcg PRN Q15MIN PRN IV PAIN GREATER THAN 3/10; Start 09/13/16 at 17:15; Stop 09/13/16 at 18:09; Status DC Fentanyl Citrate (Fentanyl 2ml Vial) 50 mcg PRN Q2HR PRN IV PAIN Last administered on 09/13/16 22:33; Start 09/13/16 at 17:30; Stop 09/14/16 at 17:29; Status DC Sodium Chloride 1,000 ml @ 125 mls/hr Q8H IV Last administered on 09/14/16 10: 00; Start 09/13/16 at 18:00; Stop 09/14/16 at 17:59; Status DC Ondansetron HCl (Zofran) 4 mg PRN Q6HRS PRN IV NAUSEA/VOMITING, 1ST CHOICE Last administered on 09/14/16 19:58; Start 09/13/16 at 18:15 Ondansetron HCl (Zofran Odt) 4 mg PRN Q8HRS PRN PO NAUSEA; Start 09/13/16 at 20: 00 Albuterol Sulfate (Ventolin Neb Soln) 2.5 mg PRN Q4HRS PRN NEB SHORTNESS OF BREATH; Start 09/13/16 at 20:15 Non-Formulary Medication 1 puff PRN Q6HRS PRN IH SHORTNESS OF BREATH; Start 09/13/16 at 20:00; Status UNV Non-Formulary Medication 1 puff PRN Q4HRS PRN IH SHORTNESS OF BREATH; Start 09/13/16 at 20:00; Status UNV Gabapentin (Neurontin) 800 mg DAILY06 PO Last administered on 09/19/16 06:14; Start 09/14/16 at 06:00 Gabapentin (Neurontin) 1,200 mg QHS PO Last administered on 09/18/16 21:04; Start 09/13/16 at 21:00 Lamotrigine (LaMICtal) 400 mg BID PO Last administered on 09/19/16 08:01; Start 09/13/16 at 21:00 Ceftriaxone Sodium 1 gm/ Sodium Chloride 50 ml @ 100 mls/hr Q24H IV Last administered on 09/18/16 21:15; Start 09/13/16 at 21:00 Prochlorperazine Edisylate (Compazine) 10 mg PRN Q6HRS PRN IV NAUSEA/VOMITING, 2ND CHOICE Last administered on 09/13/16 22:28; Start 09/13/16 at 22:30 Hydromorphone HCl (Dilaudid) 2 mg PRN Q4HRS PRN IV SEVERE PAIN Last administered on 09/14/16 19:58; Start 09/13/16 at 23:00 Hydromorphone HCl (Dilaudid) 1 mg PRN Q4HRS PRN IV MODERATE PAIN Last administered on 09/14/16 02:43; Start 09/13/16 at 23:15 Ondansetron HCl (Zofran) 4 mg PRN Q6HRS PRN IV NAUSEA/VOMITING; Start 09/17/16 at 07:00; Stop 09/18/16 at 06:59; Status DC Fentanyl Citrate (Fentanyl 2ml Vial) 25 mcg PRN Q5MIN PRN IV MILD PAIN; Start 09/17/16 at 07:00; Stop 09/18/16 at 06:59; Status DC Fentanyl Citrate (Fentanyl 2ml Vial) 50 mcg PRN Q5MIN PRN IV MODERATE PAIN Last administered on 09/17/16 15:29; Start 09/17/16 at 07:00; Stop 09/18/16 at 06:59; Status DC Morphine Sulfate 1 mg PRN Q10MIN PRN IV SEVERE PAIN Last administered on 15:55; Start 09/17/16 at 07:00; Stop 09/18/16 at 06:59; Status DC Ringer's Solution 1,000 ml @ 30 mls/hr Q24H IV Last administered on 09/17/16 08:54; Start 09/17/16 at 07:00; Stop 09/17/16 at 18:59; Status DC Lidocaine HCl 2 ml PRN 1X PRN ID PRIOR TO IV START; Start 09/17/16 at 07:00; Stop 09/18/16 at 06:59; Status DC Hydromorphone HCl (Dilaudid) 0.5 mg PRN Q10MIN PRN IV SEV PAIN, Second choice; Start 09/17/16 at 07:00; Stop 09/18/16 at 06:59; Status DC Prochlorperazine Edisylate (Compazine) 5 mg PACU PRN PRN IV NAUSEA, MRX1; Start 09/17/16 at 07:00; Stop 09/18/16 at 06:59; Status DC Desflurane (Suprane) 60 ml STK-MED ONCE IH ; Start 09/17/16 at 12:02; Stop 09/17 at 12:03; Status DC Fentanyl Citrate (Fentanyl 2ml Vial) 100 mcg STK-MED ONCE .ROUTE ; Start at 12:02; Stop 09/17/16 at 12:03; Status DC Midazolam HCl (Versed) 2 mg STK-MED ONCE .ROUTE ; Start 09/17/16 at 12:02; Stop 09/17/16 at 12:03; Status DC Glycopyrrolate (Robinul) 1 mg STK-MED ONCE .ROUTE ; Start 09/17/16 at 12:02; Stop 09/17/16 at 12:03; Status DC Neostigmine Methylsulfate 5 mg STK-MED ONCE .ROUTE ; Start 09/17/16 at 12:03; Stop 09/17/16 at 12:04; Status DC Rocuronium Orange (Zemuron) 50 mg STK-MED ONCE .ROUTE ; Start 09/17/16 at 12:03 ; Stop 09/17/16 at 12:04; Status DC Propofol 20 ml @ As Directed STK-MED ONCE IV ; Start 09/17/16 at 12:03; Stop 02/22 at 12:04; Status DC Ondansetron HCl (Zofran) 4 mg STK-MED ONCE .ROUTE ; Start 09/17/16 at 12:03; Stop 09/17/16 at 12:04; Status DC Dexamethasone Sodium Phosphate (Decadron) 20 mg STK-MED ONCE .ROUTE ; Start 02/22 at 12:03; Stop 09/17/16 at 12:04; Status DC Ketorolac Tromethamine (Toradol For Or Only) 60 mg STK-MED ONCE .ROUTE ; Start 09/17/16 at 12:03; Stop 09/17/16 at 12:04; Status DC Lidocaine HCl (Lidocaine Pf 2% Vial) 5 ml STK-MED ONCE .ROUTE ; Start 09/17/16 at 12:03; Stop 09/17/16 at 12:04; Status DC Cellulose 1 each STK-MED ONCE .ROUTE Last administered on 09/17/16t 14:21; Start 09/17/16 at 13:01; Stop 09/17/16 at 13:02; Status DC Iohexol (Omnipaque 300 Mg/ml) 50 ml STK-MED ONCE .ROUTE ; Start 09/17/16 at 13: 01; Stop 09/17/16 at 13:02; Status DC Bupivacaine HCl/ Epinephrine Bitart (Marcaine-Epi 0.5%-1:[id number]) 50 ml STK-MED ONCE .ROUTE Last administered on 09/17/16 13:41; Start 09/17/16 at 13:01; Stop 09/17/16 at 13:02; Status DC Cefazolin Sodium/ Dextrose 50 ml @ 100 mls/hr 1X ONCE IV Last administered on 09/17/16 13:30; Start 09/17/16 at 13:15; Stop 09/17/16 at 13:51; Status DC Fentanyl Citrate (Fentanyl 2ml Vial) 100 mcg STK-MED ONCE .ROUTE ; Start at 13:54; Stop 09/17/16 at 13:55; Status DC Diphenhydramine HCl (Benadryl) 25 mg PRN Q6HRS PRN PO ITCHING; Start 09/17/16 at 15:00 Diphenhydramine HCl (Benadryl) 25 mg PRN Q6HRS PRN IV ITCHING; Start 09/17/16 at 15:00 Enoxaparin Sodium (Lovenox 40mg Syringe) 40 mg Q24H SQ Last administered on 15:32; Start 09/17/16 at 15:00 Sodium Chloride (Normal Saline Flush) 3 ml QSHIFT PRN IV AFTER MEDS AND BLOOD DRAWS; Start 09/17/16 at 15:00 Potassium Chloride/Sodium Chloride 1,000 ml @ 100 mls/hr Q10H IV Last administered on 09/19/16 11:21; Start 09/17/16 at 15:00 Dextrose (Dextrose 50%-Water Syringe) 12.5 gm PRN Q15MIN PRN IV SEE COMMENTS; Start 09/17/16 at 15:00 Oxycodone/ Acetaminophen (Percocet 5/325) 1 tab PRN Q4HRS PRN PO MILD PAIN, 1ST CHOICE Last administered on 09/19/16 08:01; Start 09/17/16 at 15:00 Oxycodone/ Acetaminophen (Percocet 5/325) 2 tab PRN Q4HRS PRN PO MODERATE PAIN , SEVERE PAIN Last administered on 09/18/16 13:30; Start 09/17/16 at 15:00 Ondansetron HCl (Zofran) 4 mg PRN Q6HRS PRN IV NAUESA, 1ST CHOICE; Start at 15:00 Polyethylene Glycol (miraLAX PACKET) 17 gm PRN DAILY PRN PO CONSTIPATION Last administered on 09/19/16t 08:01; Start 09/18/16 at 12:00 Active Scripts Active Zofran Odt (Ondansetron) 4 Mg Tab.rapdis 1 Tab SL PRN Q8HRS PRN Proair Respiclick (Albuterol Sulfate) 90 Mcg Aer.pow.ba 1 Puff IH PRN Q6HRS PRN Proair Hfa Inhaler (Albuterol Sulfate) 8.5 Gm Hfa.aer.ad 2 Puff INH Q4HRS PRN Proventil Hfa Inhaler (Albuterol Sulfate) 6.7 Gm Hfa.aer.ad 1 Puff IH PRN Q4HRS PRN Reported Gabapentin 400 Mg Capsule 3 Cap PO QHS Gabapentin 400 Mg Capsule 2 Cap PO DAILY06 Lamotrigine 200 Mg Tablet 2 Tab PO BID Vitals/I & O Vital Sign - Last 24 Hours 09/18/16 09/18/16 09/18/16 09/18/16 13:30 14:35 15:00 19:00 Temp 97.5 98.4 97.5 98.4 Pulse 82 72 Resp 24 22 B/P (MAP) 132/59 (83) 107/69 (82) Pulse Ox 92 96 O2 Delivery Room Air Room Air Room Air Room Air 09/18/16 09/18/16 09/18/16 09/18/16 20:00 21:05 22:05 23:00 Temp 98.0 98.0 Pulse 74 Resp 20 20 20 B/P (MAP) 101/55 (70) Pulse Ox 96 95 95 O2 Delivery Room Air Room Air Room Air 09/19/16 09/19/16 09/19/16 09/19/16 03:00 07:00 07:35 08:01 Temp 98.6 97.9 98.6 97.9 Pulse 68 66 Resp 20 19 B/P (MAP) 108/74 (85) 105/56 (72) Pulse Ox 97 94 O2 Delivery Room Air Room Air Room Air Room Air 09/19/16 09/19/16 09:25 10:25 Temp 97.7 97.7 Pulse 72 Resp 20 B/P (MAP) 150/68 (95) Pulse Ox 93 O2 Delivery Room Air Room Air Intake and Output 09/18/16 09/18/16 09/19/16 15:00 23:00 07:00 Intake Total 960 ml 800 ml Output Total 150 ml 1165 ml Balance 810 ml -365 ml SHAYNE CHILEL III DO Sep 19, 2016 12:05
--- NOTE | 2016-09-19 13:52 | PATHOLOGY ---
PATHOLOGY REPORT * * * * * * * * FINAL DIAGNOSIS: Gallbladder, "gallbladder and contents", cholecystectomy: - Moderate chronic cholecystitis with cholelithiasis. (SHA:jatinder; 09/19/2016) REPORT ELECTRONICALLY SIGNED BY: Etienne Roman M.D. DATE/TIME: 09/19/2016 13:51 * * * * * * * * GROSS PATHOLOGY: Received in formalin labeled "Alanna Sofia, gallbladder and contents," is a 10.5 x 2.8 x 2.8 cm, intact gallbladder with elam to purple smooth serosal surfaces. Opening the gallbladder reveals green and velvety mucosa and an average wall thickness of 0.1 cm. Calculi are present, yellow to brown to green, friable and range in size from 0.1 to 1.3 cm in maximum dimension. No masses are noted grossly. Utility Driver sections from the body and fundus are submitted along with the proximal margin in cassette A1. (BO; 09/18/2016) INITIAL CPT CODE(S): A; 29685 Professional services performed by [employer] [place] [address] Technical services performed by [facility] at [address] [place] [address]. SPECIMEN(S) RECEIVED: A.Gallbladder and contents CLINICAL HISTORY: Pancreatitis, gallstones PATIENT: ALANNA SOFIA /AGE: 12 1985 (Age: 31) PATIENT #: [id number] ALT CASE #: SPECIMEN COLLECTION DATE: 09/17/2016 SPECIMEN RECEIVED DATE: 09/17/2016 [facility] - [address] [place] [address] - PHONE: [phone] * * * END OF REPORT * * *
[2016-09-19 14:38] VITALS: BP 110/53
--- NOTE | 2016-09-19 15:10 | PDOC3 ---
Discharge Summary Visit Information Date of Discharge: Sep 19, 2016 Admitting Diagnosis: gallstones. pancreatitis Final Diagnosis Problems Medical Problems: (1) Abdominal pain Status: Acute (2) Elevated amylase and lipase Status: Acute Brief Hospital Course Allergies Allergies Coded Allergies Type Severity Reaction Last Updated Verified No Known Drug Intolerances Allergy Unknown 09/17/16 Yes Vital Signs Vital Signs Date Time Temp Pulse Resp B/P (MAP) Pulse Ox O2 Delivery O2 Flow Rate FiO2 09/19/16 14:38 97.9 68 19 110/53 (72) 96 Room Air 97.9 Lab Results Laboratory Tests Test 09/19/16 06:25 White Blood Count 7.6 x10^3/uL (4.0-11.0) Red Blood Count 3.99 x10^6/uL (3.50-5.40) Hemoglobin 12.3 g/dL (12.0-15.5) Hematocrit 37.0 % (36.0-47.0) Mean Corpuscular Volume 93 fL (79-100) Mean Corpuscular Hemoglobin 31 pg (25-35) Mean Corpuscular Hemoglobin Concent 33 g/dL (31-37) Red Cell Distribution Width 15.7 % (11.5-14.5) Platelet Count 407 x10^3/uL (140-400) Neutrophils (%) (Auto) 63 % (31-73) Lymphocytes (%) (Auto) 29 % (24-48) Monocytes (%) (Auto) 6 % (0-9) Eosinophils (%) (Auto) 1 % (0-3) Basophils (%) (Auto) 1 % (0-3) Neutrophils # (Auto) 4.8 x10^3uL (1.8-7.7) Lymphocytes # (Auto) 2.2 x10^3/uL (1.0-4.8) Monocytes # (Auto) 0.5 x10^3/uL (0.0-1.1) Eosinophils # (Auto) 0.1 x10^3/uL (0.0-0.7) Basophils # (Auto) 0.1 x10^3/uL (0.0-0.2) Sodium Level 140 mmol/L (136-145) Potassium Level 4.4 mmol/L (3.5-5.1) Chloride Level 104 mmol/L (98-107) Carbon Dioxide Level 25 mmol/L (21-32) Anion Gap 11 (6-14) Blood Urea Nitrogen 2 mg/dL (7-20) Creatinine 0.7 mg/dL (0.6-1.0) Estimated GFR (Cockcroft-Gault) 96.4 Glucose Level 80 mg/dL (70-99) Calcium Level 9.0 mg/dL (8.5-10.1) Laboratory Tests Test 09/19/16 06:25 White Blood Count 7.6 x10^3/uL (4.0-11.0) Red Blood Count 3.99 x10^6/uL (3.50-5.40) Hemoglobin 12.3 g/dL (12.0-15.5) Hematocrit 37.0 % (36.0-47.0) Mean Corpuscular Volume 93 fL (79-100) Mean Corpuscular Hemoglobin 31 pg (25-35) Mean Corpuscular Hemoglobin Concent 33 g/dL (31-37) Red Cell Distribution Width 15.7 % (11.5-14.5) Platelet Count 407 x10^3/uL (140-400) Neutrophils (%) (Auto) 63 % (31-73) Lymphocytes (%) (Auto) 29 % (24-48) Monocytes (%) (Auto) 6 % (0-9) Eosinophils (%) (Auto) 1 % (0-3) Basophils (%) (Auto) 1 % (0-3) Neutrophils # (Auto) 4.8 x10^3uL (1.8-7.7) Lymphocytes # (Auto) 2.2 x10^3/uL (1.0-4.8) Monocytes # (Auto) 0.5 x10^3/uL (0.0-1.1) Eosinophils # (Auto) 0.1 x10^3/uL (0.0-0.7) Basophils # (Auto) 0.1 x10^3/uL (0.0-0.2) Sodium Level 140 mmol/L (136-145) Potassium Level 4.4 mmol/L (3.5-5.1) Chloride Level 104 mmol/L (98-107) Carbon Dioxide Level 25 mmol/L (21-32) Anion Gap 11 (6-14) Blood Urea Nitrogen 2 mg/dL (7-20) Creatinine 0.7 mg/dL (0.6-1.0) Estimated GFR (Cockcroft-Gault) 96.4 Glucose Level 80 mg/dL (70-99) Calcium Level 9.0 mg/dL (8.5-10.1) Brief Hospital Course Ms. Sofia is a 31 old [sex] who presented with [ ]symptomatic gallstones and pancreatitis. Taken to OR for lap pb. Pt seen and examined this am At baseline Plan is dc Total time 33 minutes Discharge Information Scheduled Gabapentin (Gabapentin), 2 CAP PO DAILY06, (Reported) Gabapentin (Gabapentin), 3 CAP PO QHS, (Reported) Lamotrigine (Lamotrigine), 2 TAB PO BID, (Reported) Scheduled PRN Albuterol Sulfate (Proventil Hfa Inhaler), 1 PUFF IH PRN Q4HRS PRN for SHORTNESS OF BREATH Albuterol Sulfate (Proair Hfa Inhaler), 2 PUFF INH Q4HRS PRN for SHORTNESS OF BREATH Albuterol Sulfate (Proair Respiclick), 1 PUFF IH PRN Q6HRS PRN for SHORTNESS OF BREATH Ondansetron (Zofran Odt), 1 TAB SL PRN Q8HRS PRN for NAUSEA SHAYNE CHILEL III DO Sep 19, 2016 15:09
[2016-09-19] MEDS: ENOXAPARIN 40 MG/0.4 ML SYRINGE. SQ SCH (15:26)
[2016-09-19] MEDS ORDERED: ENOXAPARIN 40 MG/0.4 ML SYRINGE. SQ SCH (21:00)
== END 2016-09-19 19:40 | DRG 417 ==
LOC: ER 14:59 → 4 NORTH 17:24
PROVIDERS: ADMIT Internal Medicine; ATTEND Internal Medicine
PROC: BF131ZZ Fluoroscopy of Gallbladder and Bile Ducts using Low Osmolar Contrast (ICD-10-PCS; 2016-09-17)
PROC: 0FT44ZZ Resection of Gallbladder, Percutaneous Endoscopic Approach (ICD-10-PCS; principal; 2016-09-17 13:30)
DX: K80.12 Calculus of gallbladder with acute and chronic cholecystitis without obstruction (principal); K85.10 Biliary acute pancreatitis without necrosis or infection; Z68.41 Body mass index [BMI] 40.0-44.9, adult; K56.7 Ileus, unspecified; J45.909 Unspecified asthma, uncomplicated; F41.9 Anxiety disorder, unspecified; E66.01 Morbid (severe) obesity due to excess calories; M54.5 Low back pain; R56.9 Unspecified convulsions; Z79.899 Other long term (current) drug therapy
CPT/HCPCS: 36415; 74177; 74300; 80048; 80053; 81001; 81025; 82150; 83690; 85007; 85027; 87086; 88304; 94250; 94760; A6539; J0690; J0696; J0780; J1100; J1170; J1650; J1885; J2001; J2250; J2270; J2405; J2704; J2710; J3010; J3490; J7030; J7120; Q9967

== ENCOUNTER 2016-10-13 20:41 | Emergency (ER) | payer MEDICARE, OTHER ==
[~2016-10-13] VITALS: Ht 165.1 cm; Wt 99.8 kg
[2016-10-13 20:50] VITALS: BP 136/67
--- NOTE | 2016-10-13 21:05 | PHYS DOC ---
Past Medical History Past Medical History: Anxiety, Asthma, Seizure Additional Past Medical Histor: MR; TBI, behavior problems, falls Past Surgical History: Other Additional Past Surgical Histo: Dental removal of the majority of the teeth Alcohol Use: None Drug Use: None Adult General Chief Complaint Chief Complaint: SEIZURE HPI HPI Patient is a 31 year old female with a known seizure disorder who presents by EMS from a store after she reportedly had a seizure. The patient had been shopping at [employer], she walked there from her home, when she reportedly had a seizure. She believes someone who works or was shopping at the store called 911. On arrival the patient has no acute complaints and states "I'm all right". Patient does have a known seizure disorder and states she is on seizure medications. She has not run out of any of them but states she may have missed a few doses because "I haven't been around were my medication is". Patient does not believe anyone has taken her medication, she has it at home, but sometimes she is just not at home. Patient feels that she is back to normal but she is concerned how she will get home because she was brought here by ambulance and it 's the wrong direction from her house. Review of Systems Review of Systems Respiratory: Denies cough or shortness of breath [] Cardiovascular: Denies chest pain GI: Denies abdominal pain, nausea, vomiting, bloody stools or diarrhea [] Musculoskeletal: Denies back pain or joint pain [] Integument: Denies rash or skin lesions [] Neurologic: Denies headache, focal weakness or sensory changes [] Allergies Allergies Allergies Coded Allergies Type Severity Reaction Last Updated Verified No Known Drug Intolerances Allergy Unknown 09/17/16 Yes Physical Exam Physical Exam Constitutional: Well developed, well nourished, no acute distress, non-toxic appearance. Alert, mentating normally. HENT: Normocephalic, atraumatic, bilateral external ears normal, nose normal. [ ] Eyes: conjunctiva normal, no discharge. [] Neck: Normal range of motion, no stridor. [] Cardiovascular:Heart rate regular rhythm, no murmur [] Lungs & Thorax: Bilateral breath sounds clear to auscultation [] Skin: Warm, dry, no erythema, no rash. [] Extremities: No tenderness, no cyanosis, no clubbing, ROM intact, no edema. [] Neurologic: Alert and oriented X 3, normal motor function, normal sensory function, no focal deficits noted. [] Current Patient Data Vital Signs Vital Signs Date Time Temp Pulse Resp B/P (MAP) Pulse Ox O2 Delivery O2 Flow Rate FiO2 10/13/16 20:50 97.8 74 20 136/67 (90) 97 Room Air 97.8 EKG EKG [] Radiology/Procedures Radiology/Procedures [] Course & Med Decision Making Course & Med Decision Making Pertinent Labs and Imaging studies reviewed. (See chart for details) 31-year-old female with a known seizure disorder evidently had a brief seizure at [facility] and presents by EMS which was called by a bystander. Patient admits to missing some doses of her seizure medication. Patient is back to her baseline. She does have her seizure medication at home. I stressed the importance of taking that regularly. The patient was sent home by cab provided by the nursing magazine supervisor. [] Dragon Disclaimer Dragon Disclaimer This electronic medical record was generated, in whole or in part, using a voice recognition dictation system. Departure Departure Impression: Primary Impression: Seizure Disposition: 01 HOME, SELF-CARE Condition: STABLE Referrals: UNKNOWN PCP NAME (PCP) Patient Instructions: Seizure, Adult, [id number] Additional Instructions: Be sure to take your seizure medicine as prescribed. If you miss a dose of seizure medicine, it can cause you to have a seizure. MANISH RINALDI MD Oct 13, 2016 21:05
== END 2016-10-13 21:26 | disposition home or self-care (01) ==
LOC: ER 20:41
DX: G40.909 Epilepsy, unspecified, not intractable, without status epilepticus (principal); J45.909 Unspecified asthma, uncomplicated; F41.9 Anxiety disorder, unspecified; Z87.820 Personal history of traumatic brain injury
CPT/HCPCS: 99283

== ENCOUNTER 2016-10-23 17:39 | Emergency (ER) | payer MEDICARE, OTHER ==
--- NOTE | 2016-10-23 18:13 | PHYS DOC ---
Past Medical History Past Medical History: Anxiety, Asthma, Seizure Additional Past Medical Histor: MR; TBI, behavior problems, falls Past Surgical History: Cholecystectomy, Other Additional Past Surgical Histo: Dental removal of the majority of the teeth Additional Information: Non smoker Alcohol Use: None Drug Use: None Social History Does not drive Adult General Chief Complaint Chief Complaint: SYNCOPE HPI HPI Patient is a 31 year old female who presents with syncope. She states she walking outside and then "fell in the grass". She doesn't remember what happened but awakened to the police "asking me if I was ok." No known seizure activity but she has had seizures like this before where when she is walking outside (see note 10/13/16). She has a mild dull headache now "like the kind I get after my seizures." No urinary incontinence; did not bite her tongue She has no complaints presently. No injury. No recent illness. Review of Systems Review of Systems Constitutional: Denies fever or chills Eyes: Denies change in visual acuity, redness, or eye pain HENT: Denies nasal congestion or sore throat Respiratory: Denies cough or shortness of breath Cardiovascular: No chest pain GI: Denies abdominal pain, nausea, vomiting, bloody stools or diarrhea : Denies dysuria or hematuria Musculoskeletal: Denies back pain or joint pain Integument: Denies rash or skin lesions Neurologic: Dull headache, No focal weakness or sensory changes. Unknown seizure activity. Allergies Allergies Allergies Coded Allergies Type Severity Reaction Last Updated Verified No Known Drug Intolerances Allergy Unknown 09/17/16 Yes Physical Exam Physical Exam Constitutional: Well developed, well nourished, no acute distress, non-toxic appearance. HENT: Normocephalic, atraumatic, bilateral external ears normal, oropharynx moist, no oral exudates, nose normal. No evidence of head trauma or injury to face. Eyes: PERRLA, EOMI, conjunctiva normal, no discharge. Neck: Normal range of motion, no tenderness, supple, no stridor. Cardiovascular:Heart rate regular rhythm, no murmur Lungs & Thorax: Bilateral breath sounds clear to auscultation Abdomen: Bowel sounds normal, soft, no tenderness, no masses, no pulsatile masses. Skin: Warm, dry, no erythema, no rash. Back: No tenderness, no CVA tenderness. Extremities: No tenderness, no cyanosis, no clubbing, ROM intact, no edema. Neurologic: Alert and oriented X 3, normal motor function, normal sensory function, no focal deficits noted. Psychologic: Affect normal, judgement normal, mood normal. Current Patient Data Vital Signs Vital Signs Date Time Temp Pulse Resp B/P (MAP) Pulse Ox O2 Delivery O2 Flow Rate FiO2 10/23/16 18:14 84 115/56 (75) 97 Room Air 10/23/16 17:43 98.6 18 98.6 Lab Values Laboratory Tests Test 10/23/16 18:11 White Blood Count 7.8 x10^3/uL (4.0-11.0) Red Blood Count 3.91 x10^6/uL (3.50-5.40) Hemoglobin 11.8 g/dL (12.0-15.5) L Hematocrit 35.5 % (36.0-47.0) L Mean Corpuscular Volume 91 fL (79-100) Mean Corpuscular Hemoglobin 30 pg (25-35) Mean Corpuscular Hemoglobin Concent 33 g/dL (31-37) Red Cell Distribution Width 14.7 % (11.5-14.5) H Platelet Count 313 x10^3/uL (140-400) Neutrophils (%) (Auto) 77 % (31-73) H Lymphocytes (%) (Auto) 17 % (24-48) L Monocytes (%) (Auto) 5 % (0-9) Eosinophils (%) (Auto) 0 % (0-3) Basophils (%) (Auto) 1 % (0-3) Neutrophils # (Auto) 6.0 x10^3uL (1.8-7.7) Lymphocytes # (Auto) 1.4 x10^3/uL (1.0-4.8) Monocytes # (Auto) 0.4 x10^3/uL (0.0-1.1) Eosinophils # (Auto) 0.0 x10^3/uL (0.0-0.7) Basophils # (Auto) 0.1 x10^3/uL (0.0-0.2) Maternal Serum HCG Beta Subunit < 1 mIU/mL (0-5) Sodium Level 139 mmol/L (136-145) Potassium Level 3.7 mmol/L (3.5-5.1) Chloride Level 102 mmol/L (98-107) Carbon Dioxide Level 26 mmol/L (21-32) Anion Gap 11 (6-14) Blood Urea Nitrogen 3 mg/dL (7-20) L Creatinine 0.8 mg/dL (0.6-1.0) Estimated GFR (Cockcroft-Gault) 82.6 Glucose Level 96 mg/dL (70-99) Calcium Level 8.8 mg/dL (8.5-10.1) Laboratory Tests 10/23/16 18:11 Laboratory Tests 10/23/16 18:11 Course & Med Decision Making Course & Med Decision Making Evaluated patient upon arrival. will check lab. She is at neurologic baseline. Tylenol po for dull headache. Patient probably had another seizure by the history given. Will monitor here. At 1900 PM: lab back and reviewed. No seizure activity here. Discharged home to f/u w PCP. Differential diagnosis: electrolyte abnormality; vasovagal; seizure; ( IUP and ectopic); infection Discussed above with patient and need for follow up Dragon Disclaimer Dragon Disclaimer This electronic medical record was generated, in whole or in part, using a voice recognition dictation system. Departure Departure Impression: Primary Impression: Vasovagal episode Additional Impression: Seizure Disposition: 01 HOME, SELF-CARE Condition: GOOD Referrals: ROMAN JENNINGS MD (PCP) Patient Instructions: Seizure, Adult Problem Qualifiers MELVINA SMITH MD Oct 23, 2016 18:13
[2016-10-23 18:22] LABS: BASO # 0.1 x10^3/uL (0.0-0.2); BASO % 1 % (0-3); EOS % 0 % (0-3); HEMATOCRIT 35.5 % (36.0-47.0); HEMOGLOBIN 11.8 g/dL (12.0-15.5); LYMPH # 1.4 x10^3/uL (1.0-4.8); LYMPH % 17 % (24-48); MEAN CORPUSCULAR HEMOGLOBIN 30 pg (25-35); MEAN CORPUSCULAR HGB CONC 33 g/dL (31-37); MEAN CORPUSCULAR VOLUME 91 fL (79-100); MONO % 5 % (0-9); NEUT % 77 % (31-73); PLATELET COUNT 313 x10^3/uL (140-400); RED BLOOD COUNT 3.91 x10^6/uL (3.50-5.40); RED CELL DISTRIBUTION WIDTH 14.7 % (11.5-14.5); WHITE BLOOD COUNT 7.8 x10^3/uL (4.0-11.0)
[2016-10-23 18:47] LABS: CREATININE 0.8 mg/dL (0.6-1.0); GFR 82.6; POTASSIUM 3.7 mmol/L (3.5-5.1)
[2016-10-23 18:54] LABS: CALCIUM 8.8 mg/dL (8.5-10.1)
[2016-10-23 19:15] VITALS: BP 113/56
== END 2016-10-23 19:17 | disposition home or self-care (01) ==
LOC: ER 17:39
DX: R55 Syncope and collapse (principal); R56.9 Unspecified convulsions; J45.909 Unspecified asthma, uncomplicated; F41.9 Anxiety disorder, unspecified; Z87.820 Personal history of traumatic brain injury
CPT/HCPCS: 36415; 80048; 84702; 85025; 99284